=== PATIENT | female | born 1940 | race Caucasian/White ===

== ENCOUNTER 2018-06-07 08:43 | Inpatient (IN) | payer OTHER ==
--- OUTSIDE RECORDS SUMMARY | 2018-06-07 08:46 | XMS REPORT ---
:1940 [facility] Organization [facility] Address [address] [place] [address] Dr. Jernigan [address] [place] [address] Care Team Providers Name Role Phone Unavailable Unavailable Unavailable Problems This patient has no known problems. Allergies, Adverse Reactions, Alerts This patient has no known allergies or adverse reactions. Medications This patient has no known medications.
--- OUTSIDE RECORDS SUMMARY | 2018-06-07 08:46 | XMS REPORT | Clinical Summary ---
:1940 Author Organization [facility] Address [address] [place] [address] Care Team Providers Name Role Phone Ricco Sheriff MD Primary Care Provider Allergies Active Allergy Reactions Severity Noted Date Comments Flu Vac 2014 (65 Other (See Comments) 05/21/2018 Throat closed up; Up)-Mf59c(Pf) Foamy/Frothy mouth? Iodine Hives 05/21/2018 IVP dye Medications Medication Sig Dispensed Refills Start Date End Date Status LANTUS SOLOSTAR U-100 2 (two) times a 0 04/16/2018 Active INSULIN 100 unit/mL day. 50 units in injection (pen) the morning 30 units at night HUMALOG KWIKPEN Inject 20 Units 0 05/02/2018 Active INSULIN 100 unit/mL under the skin 3 injection pen (three) times a day with meals. Per sliding scale -only takes if BS IS above 120 apixaban (ELIQUIS) 5 Take 5 mg by 0 Active mg tablet mouth 2 (two) times a day. pramipexole (MIRAPEX) 3 (three) times a 0 02/18/2018 Active 0.5 MG tablet day as needed. simvastatin (ZOCOR) nightly. 0 02/18/2018 Active 40 MG tablet DULoxetine (CYMBALTA) every morning. 0 02/18/2018 Active 60 MG capsule metoprolol succinate nightly. 0 02/18/2018 Active XL (TOPROL-XL) 50 mg 24 hr tablet gabapentin nightly. 0 03/23/2018 Active (NEURONTIN) 100 mg capsule magnesium oxide Take 400 mg by 0 Active (MAG-OX) 400 mg mouth 2 (two) (241.3 mg magnesium) times a day. tablet budesonide-formoterol Inhale 2 puffs 2 0 Active (SYMBICORT) 160-4.5 (two) times a mcg/actuation inhaler day. traMADol (ULTRAM) 50 Take 1 tablet (50 40 tablet 0 06/01/2018 06/08/2018 Active mg tablet mg total) by mouth every 6 (six) hours as needed for moderate pain for up to 7 days. 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 06/01/2018 Surgery Obstetrics and Maurizio Baca TRANSANAL EXCISION OF Gynecology MD Makayla RECTAL POLYP 06/01/2018 Hospital Encounter Maurizio Castrejon Rectal adenoma ; Gynecology MD Makayla Internal hemorrhoids 05/21/2018 Pre-Admit Testing Pre-Admission Maurizio Baca Preop examination (Primary Dx); Appointment Testing MD Makayla FPC current use of anticoagulant therapy after 06/06/2017 Social History Tobacco Use Types Packs/Day Years Used Date Never Smoker Smokeless Tobacco: Never Used Alcohol Use Drinks/Week oz/Week Comments No Alcohol Habits Answer Date Recorded How often do you have a drink containing alcohol? Never 05/21/2018 How many drinks containing alcohol do you have on a typical Not asked day when you are drinking? How often do you have six or more drinks on one occasion? Not asked Sex Assigned at Date Recorded Not on file Job Start Date Occupation Industry Not on file Not on file Not on file Travel History Travel Start Travel End No recent travel history available. Last Filed Vital Signs Vital Sign Reading Time Taken Blood Pressure 139/65 06/01/2018 2:04 PM CDT Pulse 64 06/01/2018 2:04 PM CDT Temperature 36.6 C (97.8 F) 06/01/2018 2:04 PM CDT Respiratory Rate 18 06/01/2018 2:04 PM CDT Oxygen Saturation 94% 06/01/2018 2:04 PM CDT Inhaled Oxygen Concentration - - Weight 70.1 kg (154 lb 9.6 oz) 06/01/2018 9:50 AM CDT Height 149.9 cm (4' 11") 06/01/2018 9:50 AM CDT Body Mass Index 31.23 06/01/2018 9:50 AM CDT Plan of Treatment Health Maintenance Due Date Last Done Comments SHINGLES VACCINES (#1) 1988 65+ PNEUMOCOCCAL VACCINE (2 of 2 - PPSV23) 08/15/2003 12/08/2008 INFLUENZA VACCINE 10/08/2017 PNEUMOCOCCAL POLYSACCHARIDE VACCINE AGE 65 AND OVER Completed 12/08/2008 Procedures Procedure Name Priority Date/Time Associated Comments Diagnosis POC GLUCOSE Routine 06/01/2018 1:44 Results for this PM CDT procedure are in the results section. SURGICAL PATHOLOGY Routine 06/01/2018 1:16 Results for this REQUEST PM CDT procedure are in the results section. POC GLUCOSE Routine 06/01/2018 12:11 Results for this PM CDT procedure are in the results section. [place] AN ELECTIVE Routine 06/01/2018 11:09 SUPRAGLOTTIC AIRWAY AM CDT Procedure Note - Bee Vieira MD - 06/01/2018 11:09 AM CDT Airway Date/Time: 06/01/2018 11:03 AM Performed by: Bee Vieira MD Authorized by: Bee Vieira MD Location: OR Urgency: Elective Difficult Airway: No Anesthesiologist: Bee Vieira MD Performed by: anesthesiologist Preoxygenated with 100% O2: Yes C-spine Precautions Maintained Throughout: No Mask Ventilation: Easy mask Final Airway Type: Supraglottic airway Final LMA: Classic LMA Size: 4 Number of Attempts at Approach: 1 HEMORRHOIDECTOMY 06/01/2018 10:47 AM CDT Rectal adenoma Internal hemorrhoids Case Notes REQ 1130 START EST 1HR Special Needs REQ 1130 START EST 1HR EXCISION, POLYP, RECTAL, 06/01/2018 10:47 AM CDT Rectal adenoma TRANSANAL APPROACH Internal hemorrhoids Case Notes REQ 1130 START EST 1HR Special Needs REQ 1130 START EST 1HR POC GLUCOSE Routine 06/01/2018 10:01 Results for this AM CDT procedure are in the results section. PARTIAL THROMBOPLASTIN STAT 06/01/2018 9:55 Results for this TIME (PTT) AM CDT procedure are in the results section. ECG PRE/POST OP Routine 05/21/2018 9:33 Preop examination Results for this AM CDT procedure are in the results section. ESTIMATED GFR Routine 05/21/2018 9:27 Results for this AM CDT procedure are in the results section. HEMOGLOBIN A1C Routine 05/21/2018 9:27 Preop examination Results for this AM CDT procedure are in the results section. CBC HEMOGRAM Routine 05/21/2018 9:27 Preop examination Results for this AM CDT procedure are in the results section. 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 PROTHROMBIN TIME WITH Routine 05/21/2018 9:27 FPC current use Results for this INR AM CDT of anticoagulant procedure are in therapy the results Preop examination section. BASIC METABOLIC PANEL Routine 05/21/2018 9:27 Preop examination Results for this AM CDT procedure are in the results section. after 06/06/2017 Results POC glucose (06/01/2018 1:44 PM CDT)Only the most recent of3 resultswithin the time period is included. POC glucose 84 65 - 99 mg/dL [facility] Comment: No Action Needed Meter ID: [id number] Safety Analyst: Shelley Roland Performing Organization Address [facility] Number [facility] DEPARTMENT OF PATHOLOGY AND [address] [place] [address] Surgical pathology request (06/01/2018 1:16 PM CDT) [facility] DEPARTMENT OF PATHOLOGY AND GENOMIC MEDICINE Surgical pathology report See link below for PDF [facility] DEPARTMENT OF Lab Report PATHOLOGY AND GENOMIC MEDICINE Result status This is Final Report [facility] DEPARTMENT OF for [id number] PATHOLOGY AND GENOMIC MEDICINE Performing Organization Address [facility] Number [facility] DEPARTMENT OF PATHOLOGY AND [address] [place] [address] MEDICINE Partial thromboplastin time, activated (06/01/2018 9:55 AM CDT)Only the most recent of2 resultswithin the time period is included. PTT 28.5 23.0 - 36.0 sec [facility] Comment: PTT therapeutic range for unfractionated heparin is 61.0-112.0 seconds which corresponds to Anti-Xa 0.3-0.7 U/ml. Specimen Blood Performing Organization Address [facility] Phone Number [facility] DEPARTMENT OF PATHOLOGY AND [address] [place] [phone] [address] ECG Pre/Post Op (05/21/2018 9:33 AM CDT) Ventricular rate 64 [facility] Atrial rate 64 [facility] IL interval 168 [facility] QRSD interval 84 [facility] QT interval 404 [facility] QTC interval 416 [facility] P axis 1 40 [facility] QRS axis 1 69 [facility] T wave axis 151 [facility] EKG impression Normal sinus rhythm-Nonspecific ST and T wave [facility] MUSE abnormality-Abnormal ECG-No previous ECGs available- Narrative Performed At Performing Organization Address City/[facility] Phone Number [address] [address] Estimated GFR (05/21/2018 9:27 AM CDT) Estimated GFR 65 mL/min/1.73 m2 [facility] Comment: [facility] CatergoryUnitsInterpretation G1 >=90 Normal or high G2 60-89Mildly decreased [id number] to moderately decreased [id number] to severely decreased G4 15-29Severely decreased G5 <15Kidney failure The eGFR was calculated using the Chronic Kidney Disease Epidemiology Collaboration (CKD-EPI) equation. Interpretation is based on recommendations of the National Kidney Foundation-Kidney Disease Outcomes Quality Initiative (NKF-KDOQI) published in 2014. Specimen Plasma specimen Performing Organization Address City/[facility]/Zipcode Phone Number [facility] DEPARTMENT OF PATHOLOGY AND [address] [place] [phone] [address] Prothrombin time with INR (05/21/2018 9:27 AM CDT) Prothrombin time 15.5 (H) 11.5 - 14.5 sec [facility] INR 1.3 [facility] Comment: HOSPITAL The International Normalized Ratio (INR) is a therapeutic monitoring tool for patients who are stable on oral anticoagulant therapy. An INR of 2.0-3.0 is suggested for deep vein thrombosis/pulmonary embolism. Specimen Blood Performing Organization Address City/[facility]/Zipcode Phone Number [facility] DEPARTMENT OF PATHOLOGY AND [address] [place] [phone] [address] CBC hemogram (05/21/2018 9:27 AM CDT) WBC 10.30 4.50 - 11.00 k/uL [facility] RBC 4.06 (L) 4.20 - 5.50 m/uL [facility] HGB 11.5 (L) 12.0 - 16.0 g/dL [facility] HCT 36.9 (L) 37.0 - 47.0 % [facility] MCV 90.9 82.0 - 100.0 fL [facility] MCH 28.3 27.0 - 34.0 pg [facility] MCHC 31.2 31.0 - 37.0 g/dL [facility] RDW - SD 48.8 37.0 - 55.0 fL [facility] MPV 11.6 8.8 - 13.2 fL [facility] Platelet count 277 150 - 400 k/uL [facility] Nucleated RBC 0.00 /100 WBC [facility] Specimen Blood Performing Organization Address City/State/Zipcode Phone Number [facility] DEPARTMENT OF PATHOLOGY AND [address] [place] [phone] [place] [phone] Hemoglobin A1c (05/21/2018 9:27 AM CDT) Hemoglobin A1C 10.7 (H) 4.0 - 5.6 % [facility] Comment: HbA1c cutoffs for diagnosing diabetes: 4.0% - 5.6%=normal 5.7% - 6.4%=increased risk for diabetes (prediabetes) >=6.5%=diabetes Goals for glycemic control (ADA 2016) < 7.0%Target for non adults with diabetes. More or less stringent targets may be appropriate for individual patients. <7.5% Target for Children and adolescents with type 1 diabetes. Specimen Blood Performing Organization Address City/State/Zipcode Phone Number [facility] DEPARTMENT OF PATHOLOGY AND [address] [place] [phone] [address] Basic metabolic panel (05/21/2018 9:27 AM CDT) Sodium 138 135 - 148 mEq/L [facility] Potassium 4.3 3.5 - 5.0 mEq/L [facility] Chloride 102 98 - 112 mEq/L [facility] CO2 23 (L) 24 - 31 mEq/L [facility] Anion gap 13@ANIO 7 - 15 mEq/L [facility] BUN 32 (H) 8 - 23 mg/dL [facility] Creatinine 0.85 0.50 - 0.90 mg/dL [facility] Glucose 184 (H) 65 - 99 mg/dL [facility] Calcium 10.0 8.8 - 10.2 mg/dL [facility] Specimen Plasma specimen Performing Organization Address City/State/Zipcode Phone Number [facility] DEPARTMENT OF PATHOLOGY AND [address] [place] [address] GENOMIC MEDICINE [place] [phone] [place] [address] after 06/06/2017 Insurance Payer Benefit Plan / Group Subscriber ID Type Phone Address MEDICARE MEDICARE PART A AND B xxxxxxxxxxx Medicare [place], [place] COMMERCIAL MISC MISC COMMERCIAL xxxxxxxxx Commercial ([place]) [place] [address] Advance Directives Patient has advance care planning documents on file. For more information, please contact:[address] [address]
[2018-06-07] MEDS ORDERED: LEVALBUTEROL 1.25 MG/3 ML NEB ONE (09:03)
[2018-06-07 09:20] LABS: Absolute Lymphocytes (CBC) 2.3 K/uL (0.7-4.9); Absolute Monocytes 0.7 K/uL (0.1-1.3); Absolute Neutrophil 7.9 K/uL (1.8-8.0); Basophils % 0.5 % (0-1.3); Eosinophils % 1.6 % (0-4.4); Hematocrit 32.2 % (36.0-45.0); Lymphocytes % 20.9 % (15.3-44.8); MPV 8.6 fL (7.6-11.3); Monocytes % 6.5 % (3.3-12.3); RBC Red Blood Cell Count 3.68 M/uL (3.86-4.86)
[2018-06-07 09:40] LABS: Protime INR 1.46
[2018-06-07 09:52] LABS: Troponin (Emerg Dept Use Only) 0.09 ng/mL (0.0-0.045)
--- NOTE | 2018-06-07 10:06 | ER ---
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 Transition of care: patient was not received from another setting of care. Onset of symptoms was June 07, 2018. Risk Assessment: Do you want to hurt yourself or someone else? Patient reports no desire to harm self or others. Initial Sepsis Screen: Does the patient meet any 2 criteria? Yes Does the patient have a suspected source of infection? No. Patient's initial sepsis screen is negative. Care prior to arrival: None. 08:44 Method Of Arrival: EMS: [facility] 08:44 Acuity: VINNY 2 hj Triage Assessment: 08:48 General: Appears in no apparent distress. uncomfortable, Behavior is calm, cooperative, hj appropriate for age. Pain: Denies pain. Historical: - Allergies: 08:48 Iodine; hj - Home Meds: 08:50 Lantus 100 unit/mL Sub-Q soln twice a day [Active]; Humalog 100 unit/mL Sub-Q soln [Active]; Eliquis 5 mg oral tab 1 tab 2 times per day [Active]; pramipexole 0.5 mg oral tab 1 tab 3 times per day [Active]; magnesium oxide 400 mg Oral cap twice a day [Active]; simvastatin 40 mg Oral tab 1 tab once daily [Active]; duloxetine 60 mg oral cpDR 1 cap once daily [Active]; metoprolol tartrate 50 mg Oral tab 1 tab once daily [Active]; gabapentin 100 mg oral cap 1 caps nightly [Active]; baclofen 10 mg Oral tab 1 tab as needed [Active]; - PMHx: 08:48 CVA; Diabetes - IDDM; Hypertension; hj - PSHx: 08:48 CABG; Hysterectomy; Appendectomy; hj - Immunization history:: Adult Immunizations up to date. - Social history:: Smoking status: Patient/guardian denies using tobacco, Patient/guardian denies using alcohol. - Ebola Screening: : Patient negative for fever greater than or equal to 101.5 degrees Fahrenheit, and additional compatible Ebola Virus Disease symptoms Patient denies exposure to infectious person Patient denies travel to an Ebola-affected area in the 21 days before illness onset. - Family history:: not pertinent. - Hospitalizations: : No recent hospitalization is reported. Screenin:50 Abuse screen: Denies threats or abuse. Denies injuries from another. Nutritional hj screening: No deficits noted. Tuberculosis screening: No symptoms or risk factors identified. Fall Risk None identified. Assessment: 08:48 General: Appears in no apparent distress. uncomfortable, Behavior is calm, cooperative, hj appropriate for age. Pain: Complains of pain in rectum. Neuro: Level of Consciousness is awake, alert, obeys commands, Oriented to person, place, time, situation, Appropriate for age. Cardiovascular: Denies chest pain, Capillary refill < 3 seconds Patient's skin is warm and dry. Respiratory: Airway is patent Respiratory effort is labored, Respiratory pattern is regular, symmetrical, Breath sounds with wheezes. GI: No signs and/or symptoms were reported involving the gastrointestinal system. : No signs and/or symptoms were reported regarding the genitourinary system. EENT: No signs and/or symptoms were reported regarding the EENT system. Derm: No signs and/or symptoms reported regarding the dermatologic system. Musculoskeletal: No signs and/or symptoms reported regarding the musculoskeletal system. 09:46 Reassessment: Patient and/or family updated on plan of care and expected duration. Pain hj level reassessed. Patient is alert, oriented x 3, equal unlabored respirations, skin warm/dry/pink. family in room; Patient states feeling better. Patient states symptoms have improved. 09:52 Reassessment: per son; "my mom stopped lasix before she had hemorrhoidectomy". hj 10:44 Reassessment: pt assisted to bedside commode, approx 200 mL urine output, assisted back iw to bed, VSS, awaiting room assignment. 11:00 Reassessment: Patient and/or family updated on plan of care and expected duration. Pain hj level reassessed. Patient is alert, oriented x 3, equal unlabored respirations, skin warm/dry/pink. urinated approx 300 mls;. 12:09 Reassessment: Patient and/or family updated on plan of care and expected duration. Pain hj level reassessed. Patient is alert, oriented x 3, equal unlabored respirations, skin warm/dry/pink. 12:11 Reassessment: Patient and/or family updated on plan of care and expected duration. Pain hj level reassessed. Patient is alert, oriented x 3, equal unlabored respirations, skin warm/dry/pink. in the bedside commode, PCP at bedside;. Vital Signs: 08:49 BP 106 / 69; Pulse 74; Resp 18; Temp 97.7(A); Pulse Ox 100% on Nebulizer Mask; Weight hj 68.04 kg; Height 4 ft. 11 in. (149.86 cm); Pain 0/10; 09:46 BP 116 / 49; Pulse 80; Resp 18; Pulse Ox 100% on Nebulizer Mask; hj 09:52 Pulse Ox 96% on 3 lpm NC; hj 10:35 BP 119 / 61; Pulse 89; Resp 20; Pulse Ox 96% on 3 lpm NC; hj 11:35 BP 109 / 58; Pulse 80; Resp 18; Pulse Ox 97% on 3 lpm NC; hj 12:11 BP 100 / 71; Pulse 91; Resp 18; Pulse Ox 97% on 3 lpm NC; hj 08:49 Body Mass Index 30.30 (68.04 kg, 149.86 cm) hj ED Course: 08:44 Patient arrived in ED. hj 08:45 Sandhya Harris FNP-C is PHCP. snw 08:45 Earle Burciaga MD is Attending Physician. snw 08:47 Triage completed. hj 08:50 Arm band placed on right wrist. hj 08:50 Patient has correct armband on for positive identification. Placed in gown. Bed in low hj position. Call light in reach. Side rails up X 1. Adult w/ patient. 08:51 Davian English, RN is Primary Nurse. hj 09:01 EKG done, by ED staff, reviewed by Earle Burciaga MD Flu and/or RSV swab sent to lab. jb1 09:01 Flu Sent. jb1 09:05 Initial lab(s) drawn, by me, sent to lab. First set of blood cultures drawn. hj 09:11 Procalcitonin Sent. hj 09:11 BMP Sent. hj 09:11 Blood Culture Adult (2) Sent. hj 09:11 CBC with Diff Sent. hj 09:11 NT PRO-BNP Sent. hj 09:11 PT-INR Sent. hj 09:11 Ptt, Activated Sent. hj 09:11 Troponin (emerg Dept Use Only) Sent. hj 09:13 Inserted saline lock: 22 gauge in right wrist, using aseptic technique. Blood collected.hj 09:22 X-ray completed. Portable x-ray completed in exam room. Patient tolerated procedure sg4 well. 09:23 XRAY CXR (1 view) In Process Unspecified. EDMS 10:04 Ricco Sheriff MD is Hospitalizing Provider. rn Administered Medications: 08:48 Drug: Xopenex (3) 1.25 mg Route: Inhalation; hj 09:58 Drug: Lasix 40 mg Route: IVP; Site: right wrist; hj 10:10 Follow up: Response: No adverse reaction Outcome: 10:04 Decision to Hospitalize by Provider. rn 12:39 Patient left the ED. Signatures: Dispatcher [employer] EDMS Doron Trejo jb1 Sandhya Harris, ACID EXTRACTOR-C ACID EXTRACTOR-Csnw Linda Engle, RN Earle De La O MD MD rn Joaquin, Henry, RN RN hj Garcia, Susana sg4 Corrections: (The following items were deleted from the chart) 08:51 08:49 BP 106 / 69; Pulse 74bpm; Resp 18bpm; Pulse Ox 100% Nebulizer Mask; 68.04 kg; Height 4 ft. 11 in.; BMI: 30.3; Pain 0/10; hj 12:12 11:35 BP 109 / 58; Pulse 80bpm; Resp 18bpm; Pulse Ox 100% RA; hj hj
--- NOTE | 2018-06-07 10:06 | EDPHYS ---
Physician Documentation [facility] Name: Darlin Sharpe Age: 77 yrs Sex: Female : 1940 Arrival Date: 06/07/2018 Time: 08:44 Bed 8 Private MD: ED Physician Earle Burciaga HPI: 06/07 08:50 This 77 yrs old Female presents to ER via EMS with complaints of COPD rn Exacerbation. 08:50 The patient has shortness of breath at rest, with light activity. Onset: The rn symptoms/episode began/occurred yesterday. Duration: The symptoms are continuous. The patient's shortness of breath is aggravated by exertion, light activity, supine position. Severity of symptoms: At their worst the symptoms were moderate in the emergency department the symptoms have improved. The patient has experienced similar episodes in the past. The patient has been recently seen by a physician:. Reports had hemorrhoid surgery this week, bled for a little while, now stopped, began to get short of breath yesterday, worse this morning, called 911. Given steroids and nebs and feels better. NO chest pain. Reports subjective fever. . Historical: - Allergies: 08:48 Iodine; hj - Home Meds: 08:50 Lantus 100 unit/mL Sub-Q soln twice a day [Active]; Humalog 100 unit/mL Sub-Q soln hj [Active]; Eliquis 5 mg oral tab 1 tab 2 times per day [Active]; pramipexole 0.5 mg oral tab 1 tab 3 times per day [Active]; magnesium oxide 400 mg Oral cap twice a day [Active]; simvastatin 40 mg Oral tab 1 tab once daily [Active]; duloxetine 60 mg oral cpDR 1 cap once daily [Active]; metoprolol tartrate 50 mg Oral tab 1 tab once daily [Active]; gabapentin 100 mg oral cap 1 caps nightly [Active]; baclofen 10 mg Oral tab 1 tab as needed [Active]; - PMHx: 08:48 CVA; Diabetes - IDDM; Hypertension; hj - PSHx: 08:48 CABG; Hysterectomy; Appendectomy; hj - Immunization history:: Adult Immunizations up to date. - Social history:: Smoking status: Patient/guardian denies using tobacco, Patient/guardian denies using alcohol. - Ebola Screening: : Patient negative for fever greater than or equal to 101.5 degrees Fahrenheit, and additional compatible Ebola Virus Disease symptoms Patient denies exposure to infectious person Patient denies travel to an Ebola-affected area in the 21 days before illness onset. - Family history:: not pertinent. - Hospitalizations: : No recent hospitalization is reported. ROS: 08:50 Constitutional: + for fever Eyes: Negative for injury, pain, redness, and discharge, rn delivery: Negative for injury, pain, and discharge, Neck: Negative for injury, pain, and swelling, Cardiovascular: Negative for chest pain, palpitations, and edema, Respiratory: + sob and wheezing Abdomen/GI: Negative for abdominal pain, nausea, vomiting, diarrhea, and constipation, MS/Extremity: Negative for injury and deformity, Skin: Negative for injury, rash, and discoloration, Neuro: Negative for headache, weakness, numbness, tingling, and seizure. Exam: 08:50 Constitutional: This is a well developed, well nourished patient who is awake, alert, rn and in no acute distress. Head/Face: Normocephalic, atraumatic. ENT: dry MM, no stridor Cardiovascular: Regular rate and rhythm, No pulse deficits. Respiratory: + mild tachypnea with faint exp wheezing, no retractions, speaking 5 word sentences Abdomen/GI: soft, non-tender Skin: Warm, dry MS/ Extremity: Pulses equal, no cyanosis. Neurovascular intact. Full, normal range of motion. Equal circumference. Neuro: Awake and alert, GCS 15, oriented to person, place, time, and situation. Cranial nerves II-XII grossly intact. Motor strength 5/5 in all extremities. Sensory grossly intact. Vital Signs: 08:49 BP 106 / 69; Pulse 74; Resp 18; Temp 97.7(A); Pulse Ox 100% on Nebulizer Mask; Weight hj 68.04 kg; Height 4 ft. 11 in. (149.86 cm); Pain 0/10; 09:46 BP 116 / 49; Pulse 80; Resp 18; Pulse Ox 100% on Nebulizer Mask; hj 09:52 Pulse Ox 96% on 3 lpm NC; hj 10:35 BP 119 / 61; Pulse 89; Resp 20; Pulse Ox 96% on 3 lpm NC; hj 11:35 BP 109 / 58; Pulse 80; Resp 18; Pulse Ox 97% on 3 lpm NC; hj 12:11 BP 100 / 71; Pulse 91; Resp 18; Pulse Ox 97% on 3 lpm NC; hj 08:49 Body Mass Index 30.30 (68.04 kg, 149.86 cm) MDM: 08:45 Patient medically screened. snw 10:03 Differential diagnosis: CHF exacerbation, Chronic Obstructive Pulmonary Disease rn Myocardial Infarction pneumonia, Pneumothorax pulmonary edema. Data reviewed: vital signs, nurses notes, lab test result(s), EKG, radiologic studies, plain films, and as a result, I will admit patient. Counseling: I had a detailed discussion with the patient and/or guardian regarding: the historical points, exam findings, and any diagnostic results supporting the discharge/admit diagnosis, lab results, radiology results, the need for further work-up and treatment in the hospital. Response to treatment: the patient's symptoms have mildly improved after treatment, and as a result, I will admit patient. Admission orders: after a detailed discussion of the patient's condition and case, the admit orders are written by me. ED course: Pt for some reason stopped taking her lasix 1 week ago, will admit for COPD/CHF exacerbation. . 12:26 ED course: Pt BP dropped a little after lasix, spoke with Dr. sheriff, who requested CT rn PE, but patient allergic to iodine. . 06/07 08:48 Order name: Blood Culture Adult (2) rn 06/07 08:48 Order name: BMP; Complete Time: 09:57 06/07 08:48 Order name: CBC with Diff; Complete Time: 09:46 rn 06/07 08:48 Order name: NT PRO-BNP; Complete Time: 09:57 06/07 08:48 Order name: PT-INR; Complete Time: 09:46 rn 06/07 08:48 Order name: Ptt, Activated; Complete Time: 09:46 rn 06/07 08:48 Order name: XRAY CXR (1 view); Complete Time: 10:26 06/07 08:48 Order name: Troponin (emerg Dept Use Only); Complete Time: 09:57 rn 06/07 08:48 Order name: EKG; Complete Time: 08:49 06/07 08:48 Order name: Cardiac monitoring; Complete Time: 08:52 06/07 08:48 Order name: Flu; Complete Time: 09:46 rn 06/07 08:48 Order name: Procalcitonin; Complete Time: 10:06 rn 06/07 08:48 Order name: EKG - Nurse/Tech; Complete Time: 08:52 rn 06/07 08:48 Order name: IV Saline Lock; Complete Time: 08:52 rn 06/07 08:48 Order name: Labs collected and sent; Complete Time: 09:11 rn 06/07 08:48 Order name: O2 Per Protocol; Complete Time: 08:52 rn 06/07 08:48 Order name: O2 Sat Monitoring; Complete Time: 08:52 rn Administered Medications: 08:48 Drug: Xopenex (3) 1.25 mg Route: Inhalation; hj 09:58 Drug: Lasix 40 mg Route: IVP; Site: right wrist; hj 10:10 Follow up: Response: No adverse reaction hj Disposition: 06/07/18 10:04 Hospitalization ordered by Ricco Sheriff for Inpatient Admission. Preliminary diagnosis are Pulmonary edema, Chronic obstructive pulmonary disease with (acute) exacerbation. - Bed requested for Telemetry/MedSurg (Inpatient). - Status is Inpatient Admission. hj - Condition is Stable. - Problem is an acute exacerbation. - Symptoms have improved. UTI on Admission? No Signatures: Dispatcher [employer] EDLizzie Guo RN RN dw Therrien, Shelly, MOVEMENT ASSEMBLY FINAL INSPECTOR-C MOVEMENT ASSEMBLY FINAL INSPECTOR-Csnw Earle Burciaga MD MD rn Joaquin, Henry, RN RN Corrections: (The following items were deleted from the chart) 11:23 10:04 Hospitalization Ordered by Ricco Sheriff MD for Inpatient Admission. Preliminary dw diagnosis is Pulmonary edema; Chronic obstructive pulmonary disease with (acute) exacerbation. Bed requested for Telemetry/MedSurg (Inpatient). Status is Inpatient Admission. Condition is Stable. Problem is an acute exacerbation. Symptoms have improved. UTI on Admission? No. rn 12:39 11:23 06/07/2018 10:04 Hospitalization Ordered by Ricco Sheriff MD for Inpatient hj Admission. Preliminary diagnosis is Pulmonary edema; Chronic obstructive pulmonary disease with (acute) exacerbation. Bed requested for Telemetry/MedSurg (Inpatient). Status is Inpatient Admission. Condition is Stable. Problem is an acute exacerbation. Symptoms have improved. UTI on Admission? No. dw
[2018-06-07] MEDS ORDERED: FUROSEMIDE 40 MG/4 ML VIAL ONE (10:15)
--- NOTE | 2018-06-07 10:21 | RAD REPORT ---
EXAM DESCRIPTION: RAD - Chest Single View - 06/07/2018 9:23 am CLINICAL HISTORY: Dyspnea, COPD exacerbation, shortness of breath COMPARISON: None. TECHNIQUE: AP portable chest image was obtained . FINDINGS: No focal mass or consolidation. No failure or volume overload suspected. Sternotomy wires are in place. Interstitial markings are prominent but not clearly different from comparison. Heart and vasculature are normal. No measurable pleural effusion and no pneumothorax. No acute bony a bnormality seen. No acute aortic findings suspected. IMPRESSION: Chronic interstitial lung similar to comparison. No focal acute finding.
[2018-06-07] MEDS ORDERED: IPRATROPIUM BROM 0.5MG/2.5ML NEB PRN (12:31)
[2018-06-07] MEDS ORDERED: ALBUTEROL 2.5 MG/3 ML NEB SOL NEB PRN (12:31)
[2018-06-07 13:08] VITALS: BMI 31.3
[2018-06-07 13:11] LABS: Urine Appearance CLEAR; Urine Bilirubin NEGATIVE (NEG); Urine Blood TRACE (NEG); Urine Color YELLOW; Urine Glucose TRACE (NEG); Urine Protein NEGATIVE (NEG); Urine Urobilinogen 0.2 mg/dL (0.2-1.0)
[2018-06-07 13:12] LABS: Urine Microscopic Reflex ORDER UMIC
[2018-06-07 13:22] LABS: Urine Bacteria <20 /HPF (<20); Urine Culture Reflex Order REFLEXED; Urine RBC <5 /HPF (NONE SEEN)
--- NOTE | 2018-06-07 14:39 | P.HP ---
Certification for Inpatient Patient admitted to: Inpatient With expected LOS: >2 Midnights Practitioner: I am a practitioner with admitting privileges, knowledge of patient current condition, hospital course, and medical plan of care. Services: Services provided to patient in accordance with Admission requirements found in Title 42 Section 412.3 of the Code of Federal Regulations Patient History Date of Service: 06/07/18 Reason for admission: DYSPNEA History of Present Illness: IS A DIABETIC WITH A FIB, HTN, CAD, PVD, HISTORY OF CVA LIVES ALONE AND HAD HEMORROIDES SURGERY RECENTLY. SHE WAS TO HOLD LASIX FOR A DAY BUT SHE HAD NO MEDS SO SHE CONTINUED WITHOUT IT AND COMES WITH DYSPNEA. AFTER ONE DOSE OF IV LASIX AT 40 MG HER BP DROPPED TO 90 SYSTOLIC. SHE HAS NO CHEST PAIN, NO SYNCOPE. Allergies iodine Allergy (Verified 06/07/18 10:31) UNK Home Medications: Albuterol Sulfate [Ventolin Hfa] 2 puff IH QID PRN 09/18/15 Magnesium Oxide [Mag 0X*] 800 mg PO DAILY #60 tab 10/11/15 Simvastatin 40 mg PO DAILY 12/06/15 Apixaban [Eliquis] 5 mg PO BID 06/07/18 Baclofen [Lioresal*] 10 mg PO PRN 06/07/18 Duloxetine HCl 1 tab PO DAILY 06/07/18 Gabapentin [Neurontin] 100 mg PO DAILY 06/07/18 Insulin Glargine Human [Lantus*] 50 units SQ BID 06/07/18 Insulin Lispro [Humalog*] 20 unit SQ BID 06/07/18 Metoprolol Tartrate [Lopressor*] 1 tab PO DAILY 06/07/18 Pramipexole [Mirapex*] 0.5 mg PO TID 06/07/18 - Past Medical/Surgical History Has patient received pneumonia vaccine in the past: Yes Diabetic: Yes -: COPD -: Asthma -: Atrial fibrillation -: vertigo -: IDDM -: HTN -: CVA- 2 years ago -: CABG; triple Bypass -: Hysterectomy -: Appendectomy -: Left/ Right shoulder surgery -: throat surgery - nodule removal -: Hemeroidectomy Psychosocial/ Personal History: NO ISSUES, FEELS NORMAL, NO DEPRESSION. - Family History Father -: Heart disease Mother -: Liver disease Notes: cirrrhosis - Social History Smoking Status: Never smoker Alcohol use: No CD- Drugs: No Caffeine use: Yes Place of Residence: Home Review of Systems 10-point ROS is otherwise unremarkable General: Weakness, Malaise Respiratory: Shortness of Breath Physical Examination - Vital Signs Temperature: 99.1 F Blood Pressure: 141/63 Pulse: 82 Respirations: 16 Pulse Ox (%): 94 - Physical Exam General: Alert, Mild distress HEENT: Atraumatic, PERRLA, Mucous membr. moist/pink, EOMI, Sclerae nonicteric Neck: Supple, 2+ carotid pulse no bruit, No LAD, Without JVD or thyroid abnormality Respiratory: Clear to auscultation bilaterally, Normal air movement Cardiovascular: Irregular heart rate/rhythm Gastrointestinal: Normal bowel sounds, No tenderness Musculoskeletal: No tenderness Integumentary: No rashes Neurological: Normal gait, Normal speech, Normal strength at 5/5 x4 extr, Normal tone, Normal affect Lymphatics: No axilla or inguinal lymphadenopathy - Studies Laboratory Data (last 24 hrs) 06/07/18 09:05: PT 17.0 H, INR 1.46, APTT 25.1 06/07/18 09:05: WBC 11.1 H, Hgb 10.6 L, Hct 32.2 L, Plt Count 324 06/07/18 09:05: Sodium 142, Potassium 4.0, BUN 25 H, Creatinine 0.87, Glucose 120 H Microbiology Data (last 24 hrs): 06/07/18 09:00 Nasopharnyx Influenza Type A Antigen Screen - Final 06/07/18 09:00 Nasopharnyx Influenza Type B Antigen Screen - Final Assessment and Plan - Problems (Diagnosis) (1) Dyspnea Current Visit: Yes Status: Acute Plan: UNCLEAR IF CHF IS THE ONLY CAUSE. THIS MAY BE MULTIFACTORIAL. SHE IS ALREADY ON ELIQUIS FOR A FIB AND ALLERGIC TO DYE. HER BP DROPPED AFTER ONE DOSE OF LASIX. WILL ORDER ECHO. 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 SHE ALREADY KNOWS THEM. LAB DAILY. PULMONARY FIBROSIS IS ALSO THERE. (2) Atrial fibrillation Onset Date: 09/25/15 Current Visit: No Status: Acute Qualifiers: (3) Diabetes Onset Date: 09/19/15 Current Visit: No Status: Chronic Plan: NO CHANGES. COMPLIANCE AND UNDERSTAND IS POOR. NOT ABLE TO DO ANY BETTER. DIET IS NOT THE BEST. Qualifiers: Diabetes mellitus type: type 2 - Advance Directives Does patient have a Living Will: Yes Does patient have a Durable POA for Healthcare: Yes
[2018-06-07 15:22] LABS: Thyroid Stimulating Hormone 0.231 uIU/mL (0.360-3.740)
[2018-06-07] MEDS: PRAMIPEXOLE 0.25 MG TAB PO SCH ×2 (16:40→21:58)
[2018-06-07] MEDS: FUROSEMIDE 20 MG/ 2ML VIAL IV SCH (16:41)
[2018-06-07] MEDS ORDERED: METHYLPREDNISOLONE 40 MG INJ IV SCH (17:00)
[2018-06-07] MEDS ORDERED: HYDROMORPHONE HCL 1 MG/ML INJ IV PRN (18:42)
[2018-06-07] MEDS ORDERED: METOPROLOL TAR 50 MG TAB PO SCH (21:00)
[2018-06-07] MEDS ORDERED: APIXABAN 5 MG TABLET PO SCH (21:00)
[2018-06-07] MEDS ORDERED: GABAPENTIN 100 MG CAP PO SCH (21:00)
[2018-06-07] MEDS ORDERED: ATORVASTATIN 20 MG TAB PO SCH (21:00)
[2018-06-07] MEDS ORDERED: INSULIN GLARGINE 100 UNITS/ML SQ SCH (21:00)
[2018-06-07] MEDS: APIXABAN 5 MG TABLET PO SCH (21:58)
[2018-06-08 04:28] LABS: Absolute Lymphocytes (CBC) 0.9 K/uL (0.7-4.9); Absolute Monocytes 0.5 K/uL (0.1-1.3); Absolute Neutrophil 12.4 K/uL (1.8-8.0); Basophils % 0.3 % (0-1.3); Hematocrit 30.2 % (36.0-45.0); Lymphocytes % 6.4 % (15.3-44.8); MPV 9.1 fL (7.6-11.3); Monocytes % 3.4 % (3.3-12.3); RBC Red Blood Cell Count 3.45 M/uL (3.86-4.86)
[2018-06-08 04:57] VITALS: O2SAT 94
[2018-06-08 05:13] LABS: Potassium 4.5 mmol/L (3.5-5.1)
[2018-06-08 05:33] LABS: Blood Morphology Comment NOTED (NOT SEEN); Hypochromasia 1+; Ovalocytes 2+; Platelet Estimate ADEQ; Polychromasia 1+
--- NOTE | 2018-06-08 07:54 | RAD REPORT ---
EXAM DESCRIPTION: NM - Vent Perfusion VQ Scan - 06/08/2018 7:19 am CLINICAL HISTORY: Shortness of breath COMPARISON: June 07, 2018 chest x-ray TECHNIQUE: 13.3 Mci [id number] was administered by inhalation. First breath, equilibrium, and washout images of the lungs obtained 7.6 millicuries Technetium-99 MAA was administered intravenously. Anterior, posterior, lateral and ob lique views of the lungs were taken. FINDINGS: The lungs demonstrate relatively homogeneous radiotracer activity on ventilation and perfu cherri sequences. No mismatched segmental or lobar perfusion defects are seen. IMPRESSION: No evidence of a pulmonary embolus
[2018-06-08] MEDS ORDERED: INSULIN GLARGINE 100 UNITS/ML SQ SCH ×2 (08:00→21:00)
--- NOTE | 2018-06-08 08:37 | CON ---
History Of Present Illness: Ms. Sharpe is 77 years old. She has been having dyspnea. She denies hav ing any chest pain. She does not have a history of CAD. She has a history of COPD, and we are not r eally sure if she has a history of diastolic heart failure. When she came to the hospital, she recei shelly breathing treatments, some diuretics, and feels somewhat better today. She has orthopnea, and zackery hammond has pedal edema. Her chest x-ray does not show pulmonary edema. D-dimer is quite elevated, and sh stephany is on Eliquis to treat acute pulmonary embolus presently. Medications: Albuterol nebulizers, atorvastatin, Cymbalta, Lasix, gabapentin, hydromorphone, insulin , magnesium, metoprolol, and Mirapex. Physical Examination: Vital Signs: 4 feet 11 inches, 155 pounds. General: Alert, oriented, pleasant, not in distress. Lungs: Clear. Heart: Within normal limits. Abdomen: Soft. Extremities: Mild edema. Distal pulses palpable. Social History: The patient is not a tobacco user. Impression: My impression is the patient may well have had an acute pulmonary embolus. Lung scan is pending apparently. The report may be available to somebody, but I am suspicious she had bleeding. Her elevated troponins are probably from the pulmonary embolism that is really there. We would not be able to do a nuclear stress test until 48 hours from now at the earliest, but I do not think we re ally need to do that because she has abnormal troponins. I think they are explained by the pulmonary embolus. An echocardiogram is pending today. CAMRON Voice ID: [id number] Report ID: [id number]
[2018-06-08] MEDS: FUROSEMIDE 20 MG/ 2ML VIAL IV SCH ×2 (08:58→16:41)
[2018-06-08] MEDS: PRAMIPEXOLE 0.25 MG TAB PO SCH ×2 (08:59→13:25)
[2018-06-08] MEDS: APIXABAN 5 MG TABLET PO SCH (08:59)
[2018-06-08] MEDS ORDERED: DULOXETINE 30 MG CAP PO SCH (09:00)
[2018-06-08] MEDS ORDERED: GABAPENTIN 100 MG CAP PO SCH (09:00)
[2018-06-08] MEDS ORDERED: MAGNESIUM OXIDE 400 MG TAB PO SCH (09:00)
[2018-06-08] MEDS ORDERED: PRAMIPEXOLE 0.25 MG TAB PO SCH (09:00)
[2018-06-08] MEDS ORDERED: HOME MED 1 EA UNK (Simvastatin [Simvastatin] 40 MG) PO SCH (09:00)
[2018-06-08 17:42] VITALS: BP 140/60; TEMP 97
--- NOTE | 2018-06-08 18:00 | P.DS ---
Admission Date: 06/07/18 Discharge Date: 06/08/18 Disposition: ROUTINE DISCHARGE Discharge Condition: FAIR Reason for Admission: DYSPNEA - Problems (1) Dyspnea Status: Acute (2) Atrial fibrillation Onset Date: 09/25/15 Status: Acute Qualifiers: (3) Diabetes Onset Date: 09/19/15 Status: Chronic Qualifiers: Diabetes mellitus type: type 2 Brief History of Present Illness: IS A DIABETIC WITH A FIB, HTN, CAD, PVD, HISTORY OF CVA LIVES ALONE AND HAD HEMORROIDES SURGERY RECENTLY. SHE WAS TO HOLD LASIX FOR A DAY BUT SHE HAD NO MEDS SO SHE CONTINUED WITHOUT IT AND COMES WITH DYSPNEA. AFTER ONE DOSE OF IV LASIX AT 40 MG HER BP DROPPED TO 90 SYSTOLIC. SHE HAS NO CHEST PAIN, NO SYNCOPE. LEO IS DOIGN BETTER, SHE IS ABLE TO AMBULATE I CALLED IN INHALER AND LASIX. SHE IS STABLE TO BE DISCHARGED. HER VQ SCAN WAS NEGATIVE. Vital Signs/Physical Exam: Temp Pulse Resp BP Pulse Ox 97.0 F 60 20 140/60 95 06/08/18 16:00 06/08/18 16:00 06/08/18 16:00 06/08/18 16:00 06/08/18 16:00 Laboratory Data at Discharge: WBC 13.8 K/uL (4.3-10.9) H D 06/08/18 03:57 Hgb 9.8 g/dL (12.0-15.0) L 06/08/18 03:57 Hct 30.2 % (36.0-45.0) L 06/08/18 03:57 Plt Count 327 K/uL (152-406) 06/08/18 03:57 PT 17.0 SECONDS (9.5-12.5) H 06/07/18 09:05 INR 1.46 06/07/18 09:05 APTT 25.1 SECONDS (24.3-36.9) 06/07/18 09:05 Sodium 139 mmol/L (136-145) 06/08/18 03:57 Potassium 4.5 mmol/L (3.5-5.1) 06/08/18 03:57 BUN 34 mg/dL (7-18) H 06/08/18 03:57 Creatinine 1.02 mg/dL (0.55-1.3) 06/08/18 03:57 Glucose 251 mg/dL (74-106) H 06/08/18 03:57 Troponin I 0.20 ng/mL (0.0-0.045) H 06/07/18 16:30 LDL Cholesterol Direct 43 mg/dL (100-129) L 06/07/18 13:11 Home Medications: Albuterol Sulfate [Ventolin Hfa] 2 puff IH QID PRN 09/18/15 Magnesium Oxide [Mag 0X*] 800 mg PO DAILY #60 tab 10/11/15 Simvastatin 40 mg PO BEDTIME 12/06/15 Apixaban [Eliquis] 5 mg PO BID 06/07/18 Duloxetine HCl 1 tab PO DAILY 06/07/18 Gabapentin [Neurontin*] 100 mg PO BEDTIME 06/07/18 Insulin Glargine Human [Lantus*] 30 unit SQ BEDTIME 06/07/18 Insulin Glargine Human [Lantus*] 50 units SQ DAILY WITH BREAKFAST 06/07/18 Insulin Lispro [Humalog*] 20 unit SQ TID 06/07/18 Metoprolol Tartrate [Lopressor*] 1 tab PO BEDTIME 06/07/18 Pramipexole [Mirapex*] 0.5 mg PO TID 06/07/18 Diet: ADA Followup: [facility] [Provider Group] Ricco Sheriff MD [Primary Care Provider] -
--- NOTE | 2018-06-09 07:54 | ECHO ---
HEIGHT: 4 ft 11 in WEIGHT: 155 lb 0 oz DATE OF STUDY: 06/08/[address]: Ricco Sheriff MD 2-DIMENSIONAL: YES M.MODE: YES DOPPLER: YES COLOR FLOW: YES TDS: NO PORTABLE: NO DEFINITY: NO BUBBLE STUDY: NO DIAGNOSIS: EDEMA, DYSPNEA CARDIAC HISTORY: CATHERIZATION: SURGERY: PROSTHETIC VALVE: PACEMAKER: MEASUREMENTS (cm) DIASTOLIC (NORMALS) SYSTOLIC (NORMALS) IVSd 1.0 (0.6-1.2) LA Diam 3.8 (1.9-4.0) LVEF 65% LVIDd 4.3 (3.5-5.7) LVIDs 2.8 (2.0-3.5) %FS 36% LVPWd 1.0 (0.6-1.2) Ao Diam 2.7 (2.0-3.7) 2 DIMENSIONAL ASSESSMENT: RIGHT ATRIUM: NORMAL LEFT ATRIUM: NORMAL RIGHT VENTRICLE: NORMAL LEFT VENTRICLE: NORMAL TRICUSPID VALVE: NORMAL MITRAL VALVE: NORMAL PULMONIC VALVE: NORMAL AORTIC VALVE: NORMAL PERICARDIAL EFFUSION: NONE AORTIC ROOT: NORMAL LEFT VENTRICULAR WALL MOTION: NORMAL DOPPLER/COLOR FLOW: MILD MITRAL AND TRICUSPID REGURGITATION. ESTIMATED RIGHT VENTRICULAR SYSTOLIC PRESSURE 45-50 mmHg. MILD TO MODERATE PULMONARY HYPERTENSION. COMMENTS: NORMAL 2D ECHOCARDIOGRAM. MILD MITRAL AND TRICUSPID REGURGITATION. MILD TO MODERATE PULMONARY HYPERTENSION. TECHNOLOGIST: Brandy GONZALEZ
== END 2018-06-08 17:50 | disposition home or self-care (01) | DRG 190 ==
LOC: ER 08:43 → ERHOLD 10:17 → 4TH 11:39
PROVIDERS: ADMIT Internal Medicine; ATTEND Internal Medicine
DX: J44.1 Chronic obstructive pulmonary disease with (acute) exacerbation (principal); I26.99 Other pulmonary embolism without acute cor pulmonale; I25.10 Atherosclerotic heart disease of native coronary artery without angina pectoris; Z95.1 Presence of aortocoronary bypass graft; E11.51 Type 2 diabetes mellitus with diabetic peripheral angiopathy without gangrene; Z79.4 Long term (current) use of insulin; Z86.73 Personal history of transient ischemic attack (TIA), and cerebral infarction without residual deficits; I48.91 Unspecified atrial fibrillation; Z79.01 Long term (current) use of anticoagulants; I10 Essential (primary) hypertension
CPT/HCPCS: 36415; 71045; 78582; 80048; 81003; 81015; 82962; 83036; 83880; 84145; 84443; 84484; 85025; 85379; 85610; 85730; 87040; 87086; 87088; 87804; 93005; 93306; 94760; 96374; 97163; 99284; A9540; A9558; J1940

== ENCOUNTER 2019-03-11 08:52 | Emergency (ER) | payer OTHER ==
--- OUTSIDE RECORDS SUMMARY | 2019-03-11 08:54 | XMS REPORT ---
:1940 [facility] Address [address] [place] [address] Dr. Jernigan [address] [place] [id number] Care Team Providers Name Role Phone Unavailable Unavailable Unavailable Problems This patient has no known problems. Allergies, Adverse Reactions, Alerts This patient has no known allergies or adverse reactions. Medications This patient has no known medications.
--- NOTE | 2019-03-11 10:25 | RAD REPORT ---
[facility] DES[facility]15 am CLINICAL HISTORY: Right leg pain COMPARISON: March 2018 FINDINGS: Right common femoral, superficial femoral, popliteal and right posterior tibial veins are compressible and demonstrate augmentation. Doppler demonstrates good flow. IMPRESSION: No evidence of deep venous thrombosis involving the right lower extremity.
--- NOTE | 2019-03-11 10:30 | RAD REPORT ---
EXAM DESCRIPTION: RAD - Hip Right 2 View - 03/11/2019 10:14 am CLINICAL HISTORY: Right hip pain FINDINGS: No fracture or dislocation is seen. Small calcification adjacent to the ischium unchanged Right hip joint space is well-maintained
--- NOTE | 2019-03-11 10:32 | RAD REPORT ---
EXAM DESCRIPTION: RAD - Femur Right - 03/11/2019 10:14 am CLINICAL HISTORY: Right leg pain FINDINGS: No fracture is seen. No bony abnormality is displayed Vascular calcifications
--- NOTE | 2019-03-11 11:24 | ER ---
Nurse's Notes [facility] Name: Darlin Sharpe Age: 78 yrs Sex: Female : 1940 Arrival Date: 03/11/2019 Time: 08:54 Bed 14 Private MD: Ricco Sheriff V Diagnosis: Pain in left lower leg;Pain in left leg Presentation: 03/11 09:10 Presenting complaint: Difficulty walking and right knee pain that radiates to right hip hb x 10 days. Pt reports right leg angioplasty 3 weeks ago. Transition of care: patient was not received from another setting of care. Onset of symptoms was March 11, 2019. Risk Assessment: Do you want to hurt yourself or someone else? Patient reports no desire to harm self or others. Initial Sepsis Screen: Does the patient meet any 2 criteria? No. Patient's initial sepsis screen is negative. Does the patient have a suspected source of infection? No. Patient's initial sepsis screen is negative. Care prior to arrival: None. 09:10 Method Of Arrival: Wheelchair hb 09:10 Acuity: VINNY 3 hb Historical: - Allergies: 09:15 Iodine; hb - Home Meds: 09:15 baclofen 10 mg Oral tab 1 tab as needed [Active]; duloxetine 60 mg Oral cpDR 1 cap once hb daily [Active]; Eliquis 5 mg Oral tab 1 tab 2 times per day [Active]; gabapentin 100 mg Oral cap 1 caps nightly [Active]; Humalog 100 unit/mL Sub-Q soln [Active]; Lantus 100 unit/mL Sub-Q soln twice a day [Active]; magnesium oxide 400 mg Oral cap twice a day [Active]; metoprolol tartrate 50 mg Oral tab 1 tab once daily [Active]; pramipexole 0.5 mg Oral tab 1 tab 3 times per day [Active]; simvastatin 40 mg Oral tab 1 tab once daily [Active]; Lasix Oral [Active]; - PMHx: 09:15 CVA; Diabetes - IDDM; Hypertension; hb - PSHx: 09:15 CABG; Hysterectomy; Appendectomy; Shouler - bilateral; Tonsillectomy; hb - Immunization history:: Adult Immunizations up to date. - Social history:: Smoking status: Patient/guardian denies using tobacco. - Ebola Screening: : No symptoms or risks identified at this time. Screenin:52 Abuse screen: Denies threats or abuse. Denies injuries from another. Nutritional ch screening: No deficits noted. Tuberculosis screening: No symptoms or risk factors identified. Fall Risk None identified. Assessment: 09:52 Reassessment: Patient appears in no apparent distress at this time. Patient and/or ch family updated on plan of care and expected duration. Pain level reassessed. Patient is alert, oriented x 3, equal unlabored respirations, skin warm/dry/pink. General: Appears in no apparent distress. uncomfortable, Behavior is calm, cooperative, appropriate for age. Pain: Complains of pain in right hip and right leg Pain currently is 7 out of 10 on a pain scale. Neuro: No deficits noted. Cardiovascular: Heart tones S1 S2 present Capillary refill < 3 seconds in bilateral fingers toes Patient's skin is warm and dry. pt is slightly tender to R leg, reports pain above the knee and tingling below the knee. Respiratory: Airway is patent Trachea midline Respiratory effort is even, unlabored, Breath sounds are clear bilaterally. GI: No signs and/or symptoms were reported involving the gastrointestinal system. Abdomen is round Bowel sounds present X 4 quads. Abd is soft and non tender X 4 quads. : No signs and/or symptoms were reported regarding the genitourinary system. Derm: Skin is normal, pale. 10:30 Reassessment: Patient appears in no apparent distress at this time. Patient and/or ch family updated on plan of care and expected duration. Pain level reassessed. Patient is alert, oriented x 3, equal unlabored respirations, skin warm/dry/pink. Vital Signs: 09:15 BP 99 / 67; Pulse 68; Resp 16; Temp 98.2; Pulse Ox 92% on R/A; Weight 65.77 kg; Height hb 4 ft. 11 in. (149.86 cm); Pain 10/10; 09:52 BP 108 / 74; Pulse 76; Resp 16; Temp 98.3; Pulse Ox 99% on R/A; Pain 7/10; ch 10:38 BP 116 / 70; Pulse 70; Resp 16; Temp 98.8; Pulse Ox 99% on R/A; Pain 7/10; ch 11:40 BP 110 / 62; Pulse 68; Resp 16; Temp 98.7; Pulse Ox 99% on R/A; Pain 7/10; ch 09:15 Body Mass Index 29.29 (65.77 kg, 149.86 cm) hb ED Course: 08:54 Patient arrived in ED. as 08:54 Ricco Sheriff MD is Private Physician. as 09:07 Randy Espino MD is Attending Physician. kdr 09:12 Triage completed. hb 09:15 Arm band placed on. hb 09:20 No apparent distress. Resting quietly. x ray finished, waiting on US now. ch 09:20 Patient has correct armband on for positive identification. Bed in low position. Call light in reach. Side rails up X 1. Adult w/ patient. Pulse ox on. NIBP on. Door closed. Noise minimized. Warm blanket given. Pillow given. 09:20 No provider procedures requiring assistance completed. Patient did not have IV access ch during this emergency room visit. 09:22 Kayla Hooper, RN is Primary Nurse. ch 10:12 Femur Right XRAY In Process Unspecified. EDMS 10:12 Hip Right 2 View XRAY In Process Unspecified. EDMS 10:16 US Extremity Venous Unilateral Ltd In Process Unspecified. EDMS 11:22 Ricco Sheriff MD is Referral Physician. kdr Administered Medications: No medications were administered Outcome: 11:23 Discharge ordered by . kdr 11:40 Discharged to home via wheelchair, with family. ch 11:40 Condition: stable 11:40 Discharge instructions given to patient, family, Instructed on discharge instructions, follow up and referral plans. medication usage, Demonstrated understanding of instructions, follow-up care, medications, Prescriptions given X 1. 11:51 Patient left the ED. ch Signatures: Dispatcher [employer] EDMS Kayla Hooper, RN RN Randy Espino MD MD kdr Radha Velasquez Heather, RN RN
--- NOTE | 2019-03-11 11:24 | EDPHYS ---
Physician Documentation [facility] Name: Darlin Sharpe Age: 78 yrs Sex: Female : 1940 Arrival Date: 03/11/2019 Time: 08:54 Bed 14 Private MD: Ricco Sheriff V ED Physician Randy Espino HPI: 03/11 10:07 This 78 yrs old Female presents to ER via Wheelchair with complaints of Hip kdr Pain, Knee Pain. 10:09 The patient presents with pain, that is acute. The complaints affect the lateral aspect kdr of right thigh, right hamstring, posterior aspect of right knee and medial aspect of right thigh. Context: The problem was sustained at an unknown site, resulted from an unknown cause, the patient can partially bear weight, the patient is not able to ambulate, Too much pain and weakness. Onset: The symptoms/episode began/occurred gradually, 10 day(s) ago. Modifying factors: The symptoms are alleviated by nothing. the symptoms are aggravated by nothing. Associated signs and symptoms: The patient has no apparent associated signs or symptoms. Treatment prior to arrival includes: no previous treatment. Severity of symptoms: At their worst the symptoms were mild, moderate, just prior to arrival. The patient has not experienced similar symptoms in the past. The patient has been recently seen by a physician: The patient has had a recent vascular procedure on both legs and has been seen by the doctors who performed these procedures. According to the patient and son, they were not able to discern a cause or connection to the procedure they had performed. She has no other problems or c/o. Historical: - Allergies: 09:15 Iodine; hb - Home Meds: 09:15 baclofen 10 mg Oral tab 1 tab as needed [Active]; duloxetine 60 mg Oral cpDR 1 cap once hb daily [Active]; Eliquis 5 mg Oral tab 1 tab 2 times per day [Active]; gabapentin 100 mg Oral cap 1 caps nightly [Active]; Humalog 100 unit/mL Sub-Q soln [Active]; Lantus 100 unit/mL Sub-Q soln twice a day [Active]; magnesium oxide 400 mg Oral cap twice a day [Active]; metoprolol tartrate 50 mg Oral tab 1 tab once daily [Active]; pramipexole 0.5 mg Oral tab 1 tab 3 times per day [Active]; simvastatin 40 mg Oral tab 1 tab once daily [Active]; Lasix Oral [Active]; - PMHx: 09:15 CVA; Diabetes - IDDM; Hypertension; hb - PSHx: 09:15 CABG; Hysterectomy; Appendectomy; Shouler - bilateral; Tonsillectomy; hb - Immunization history:: Adult Immunizations up to date. - Social history:: Smoking status: Patient/guardian denies using tobacco. - Ebola Screening: : No symptoms or risks identified at this time. ROS: 10:09 Constitutional: Negative for fever, chills, and weight loss, Eyes: Negative for injury, kdr pain, redness, and discharge, Neck: Negative for injury, pain, and swelling, Cardiovascular: Negative for chest pain, palpitations, and edema, Respiratory: Negative for shortness of breath, cough, wheezing, and pleuritic chest pain, Abdomen/GI: Negative for abdominal pain, nausea, vomiting, diarrhea, and constipation, Back: Negative for injury and pain, : Negative for injury, bleeding, discharge, and swelling, Skin: Negative for injury, rash, and discoloration, Neuro: Negative for headache, weakness, numbness, tingling, and seizure activity. Psych: Negative for depression, anxiety, suicide ideation, homicidal ideation, and hallucinations, Allergy/Immunology: Negative for hives, rash, and allergies, Endocrine: Negative for neck swelling, polydipsia, polyuria, polyphagia, and marked weight changes, Hematologic/Lymphatic: Negative for swollen nodes, abnormal bleeding, and unusual bruising. 10:09 MS/extremity: Positive for pain, of the lateral aspect of right thigh, right hamstring, posterior aspect of right knee and medial aspect of right thigh, Negative for injury or acute deformity, decreased range of motion, erythema, laceration, paresthesias, puncture, rash, swelling, tenderness, warmth. Exam: 10:09 Constitutional: This is a well developed, well nourished patient who is awake, alert, kdr and in no acute distress. Head/Face: Normocephalic, atraumatic. Neck: Trachea midline, no thyromegaly or masses palpated, and no cervical lymphadenopathy. Supple, full range of motion without nuchal rigidity, or vertebral point tenderness. No Meningismus. Chest/axilla: Normal chest wall appearance and motion. Nontender with no deformity. No lesions are appreciated. 10:09 Musculoskeletal/extremity: ROM: intact in all extremities, limited active range of motion, in the right leg, limited passive range of motion, Circulation is intact in all extremities. Pulses: Sensation intact. Compartment Syndrome exam of affected extremity: is normal. Weight bearing: can bear weight with assistance only, Due to pain - not weakness. Vital Signs: 09:15 BP 99 / 67; Pulse 68; Resp 16; Temp 98.2; Pulse Ox 92% on R/A; Weight 65.77 kg; Height hb 4 ft. 11 in. (149.86 cm); Pain 10/10; 09:52 BP 108 / 74; Pulse 76; Resp 16; Temp 98.3; Pulse Ox 99% on R/A; Pain 7/10; ch 10:38 BP 116 / 70; Pulse 70; Resp 16; Temp 98.8; Pulse Ox 99% on R/A; Pain 7/10; ch 11:40 BP 110 / 62; Pulse 68; Resp 16; Temp 98.7; Pulse Ox 99% on R/A; Pain 7/10; ch 09:15 Body Mass Index 29.29 (65.77 kg, 149.86 cm) hb MDM: 10:09 Data reviewed: vital signs, nurses notes, lab test result(s), radiologic studies. kdr Counseling: I had a detailed discussion with the patient and/or guardian regarding: the historical points, exam findings, and any diagnostic results supporting the discharge/admit diagnosis, lab results, radiology results. 11:23 Patient medically screened. kdr 03/11 09:39 Order name: US Extremity Venous Unilateral Ltd; Complete Time: 11:21 kdr 03/11 09:39 Order name: Femur Right XRAY; Complete Time: 11:21 kdr 03/11 09:39 Order name: Hip Right 2 View XRAY; Complete Time: 11:21 kdr Administered Medications: No medications were administered Disposition: 03/11/19 11:23 Discharged to Home. Impression: Pain in left lower leg, Pain in left leg. - Condition is Stable. - Discharge Instructions: Musculoskeletal Pain, Pain Without a Known Cause. - Prescriptions for Tramadol 50 mg Oral Tablet - take 1 tablet by ORAL route every 8 hours as needed; 12 tablet. - Medication Reconciliation Form, Thank You Letter, Prescription Opioid Use form. - Follow up: Ricco Sheriff MD; When: 2 - 3 days; Reason: If symptoms return, Further diagnostic work-up, Recheck today's complaints, Continuance of care, Re-evaluation by your physician. - Problem is an ongoing problem. - Symptoms are unchanged. Signatures: Dispatcher [employer] EDMS Kayla Hooper RN RN Randy Espino MD MD [facility] Sheila Michael RN RN Corrections: (The following items were deleted from the chart) 11:51 11:23 03/11/2019 11:23 Discharged to Home. Impression: Pain in left lower leg; Pain in ch left leg. Condition is Stable. Forms are Medication Reconciliation Form, Thank You Letter, Antibiotic Education, Prescription Opioid Use. Follow up: Ricco Sheriff; When: 2 - 3 days; Reason: If symptoms return, Further diagnostic work-up, Recheck today's complaints, Continuance of care, Re-evaluation by your physician. Problem is an ongoing problem. Symptoms are unchanged. kdr
[2019-03-11 11:59] VITALS: BP 108/74; TEMP 98.3; O2SAT 99
== END 2019-03-11 11:51 | disposition home or self-care (01) ==
LOC: ER 08:52
DX: M79.604 Pain in right leg (principal); M25.551 Pain in right hip; I10 Essential (primary) hypertension; E11.9 Type 2 diabetes mellitus without complications; Z86.73 Personal history of transient ischemic attack (TIA), and cerebral infarction without residual deficits; Z95.1 Presence of aortocoronary bypass graft; Z79.4 Long term (current) use of insulin; Z91.048 Other nonmedicinal substance allergy status
CPT/HCPCS: 93971; 99283

== ENCOUNTER 2019-03-15 11:11 | Observation (INO) | payer OTHER ==
--- OUTSIDE RECORDS SUMMARY | 2019-03-15 11:21 | XMS REPORT ---
:1940 [facility] Address [address] [place] [address] Dr. Jernigan [address] [place] [id number] Care Team Providers Name Role Phone Unavailable Unavailable Unavailable Problems This patient has no known problems. Allergies, Adverse Reactions, Alerts This patient has no known allergies or adverse reactions. Medications This patient has no known medications.
[2019-03-15] MEDS ORDERED: ACETAMINOPHEN 325 MG TABLET PO PRN (12:00)
[2019-03-15] MEDS ORDERED: NACHLORIDE 0.45% 1,000 ML IV SCH (12:00)
[2019-03-15] MEDS ORDERED: ONDANSETRON 4 MG/2 ML VIAL IV PRN (12:00)
[2019-03-15] MEDS ORDERED: DIPHENHYDRAMINE 25 MG TAB/CAP PO PRN (12:00)
[2019-03-15] MEDS ORDERED: ONDANSETRON 4 MG (ODT) TAB PO PRN (12:00)
[2019-03-15] MEDS ORDERED: LOPERAMIDE HCL 2 MG CAPSULE PO PRN (12:00)
[2019-03-15] MEDS ORDERED: POLYETHYL GLY 3350 17 GM/DOSE PO PRN (12:00)
[2019-03-15 12:12] VITALS: BMI 28.5
[2019-03-15] MEDS ORDERED: GLUCAGON 1 MG/VIAL IM PRN (12:16)
[2019-03-15] MEDS ORDERED: D50W 25 GM/50 ML SYRINGE/VIAL IV PRN (12:16)
[2019-03-15 12:29] LABS: Absolute Lymphocytes (CBC) 2.9 K/uL (0.7-4.9); Basophils % 0.5 % (0-1.3); Hematocrit 36.9 % (36.0-45.0); Lymphocytes % 23.5 % (15.3-44.8); MPV 8.7 fL (7.6-11.3); RBC Red Blood Cell Count 4.36 M/uL (3.86-4.86)
[2019-03-15 12:33] LABS: Protime INR 1.38
[2019-03-15] MEDS ORDERED: ALBUTEROL INHALER 60 PUFF/8 GM IH PRN (12:37)
[2019-03-15] MEDS: HYDROMORPHONE HCL 1 MG/ML INJ IV PRN ×2 (13:10→23:36)
[2019-03-15 13:16] LABS: Phosphorus 3.7 mg/dL (2.5-4.9); Potassium 3.8 mmol/L (3.5-5.1); Thyroid Stimulating Hormone 0.776 uIU/mL (0.360-3.740)
[2019-03-15] MEDS: GABAPENTIN 100 MG CAP PO SCH ×2 (14:00→20:54)
[2019-03-15] MEDS: INSULIN LISPRO 100 UNIT/1 ML SQ SCH ×2 (14:00→20:55)
--- NOTE | 2019-03-15 15:00 | RAD REPORT ---
EXAM DESCRIPTION: US - Abdomen Exam Complete - 03/15/2019 2:32 pm CLINICAL HISTORY: Abdominal pain. abd pain COMPARISON: No comparisons FINDINGS: The liver is normal in size, shape and echotexture. No focal liver lesions or intrahepatic biliary dilatation is seen. The gallbladder demonstrates no gallstones, pericholecystic fluid or gallbladder wall thickening. Co mmon bile duct is normal in caliber measuring 3 millimeters. Both kidneys are normal in size, shape and echotexture. No hydronephrosis, focal lesion of concern or perinephric fluid. The spleen is normal in size measuring 8 centimeters. The pancreas and aorta are obscured by bowel gas. The visualized aspects of the IVC are grossly normal. IMPRESSION: Unremarkable study except for limited assessment of the pancreas and aorta due to bowel gas.
--- NOTE | 2019-03-15 15:08 | RAD REPORT ---
EXAM DESCRIPTION: Olga Cueto (2 Views)03/15/2019 2:51 pm CLINICAL HISTORY: Chest pain COMPARISON: May 2018 FINDINGS: The lungs appear clear of acute infiltrate. The heart is mildly to moderately enlarged. Postsurgical changes involve the chest. IMPRESSION: No acute abnormalities displayed
--- NOTE | 2019-03-15 15:55 | RAD REPORT ---
EXAM DESCRIPTION: MRI - Lumbar Spine Wo Con - 03/15/2019 3:12 pm CLINICAL HISTORY: Right leg radiculopathy COMPARISON: None. TECHNIQUE: Sagittal T1, T2 and STIR weighted sequences were obtained. Axial T1 and T2 sequences were obtained through the lumbar disc levels. FINDINGS: Mild spondylosis L1-2 and L2-3 Disc bulge, ligamentum flavum and facet hypertrophy L3-4. The thecal sac measures 6 millimeters. Mode rate narrowing of the neural foramina bilaterally Slight anterior subluxation L4 on 5. Moderate right lateral disc herniation narrows the right neural foramina. Facet hypertrophy. Facet hypertrophy L5-S1. No significant abnormal signal within the bones. Small Tarlov cyst sacral spinal canal IMPRESSION: Spondylosis L3-4 resulting in moderate central spinal stenosis Moderate right lateral disc herniation L4-5
[2019-03-15] MEDS: INSULIN -REGULAR HUMAN 50 UNIT/0.5 ML ML SQ SCH ×2 (16:30→20:56)
[2019-03-15] MEDS ORDERED: POTASSIUM CL SA 10 MEQ TAB PO ONE (16:49)
[2019-03-15] MEDS: APIXABAN 5 MG TABLET PO SCH (20:53)
[2019-03-15] MEDS ORDERED: INSULIN GLARGINE 100 UNITS/ML SQ SCH (21:00)
[2019-03-15] MEDS ORDERED: GABAPENTIN 100 MG CAP PO SCH (21:00)
[2019-03-15] MEDS ORDERED: METOPROLOL TAR 50 MG TAB PO SCH (21:00)
[2019-03-16 00:11] LABS: Urine Appearance CLEAR; Urine Bilirubin NEGATIVE (NEG); Urine Blood NEGATIVE (NEG); Urine Color YELLOW; Urine Glucose TRACE (NEG); Urine Protein TRACE (NEG); Urine Specific Gravity 1.015 (1.005-1.030); Urine Urobilinogen 0.2 mg/dL (0.2-1.0)
[2019-03-16 00:45] LABS: Urine Bacteria <20 /HPF (<20); Urine RBC NONE SEEN /HPF (NONE SEEN); Urine Urothelial Cells <5 /HPF (NONE SEEN)
[2019-03-16 00:46] LABS: Urine Culture Reflex Order NOT NEEDED
[2019-03-16 05:54] LABS: Basophils % 0.6 % (0-1.3); Hematocrit 35.9 % (36.0-45.0); Lymphocytes % 16.2 % (15.3-44.8); MPV 8.6 fL (7.6-11.3); RBC Red Blood Cell Count 4.18 M/uL (3.86-4.86)
[2019-03-16 06:04] LABS: Potassium 4.6 mmol/L (3.5-5.1)
[2019-03-16 06:07] LABS: ALT/SGPT 27 U/L (12-78); AST/SGOT 24 U/L (15-37); Albumin 3.1 g/dL (3.4-5.0); Alkaline Phosphatase 119 U/L (45-117); Bilirubin Direct < 0.1 mg/dL (0-0.2); Bilirubin Total 0.2 mg/dL (0.2-1.0); Magnesium 2.1 mg/dL (1.8-2.4); Protein, Total 7.3 g/dL (6.4-8.2)
[2019-03-16] MEDS: INSULIN -REGULAR HUMAN 50 UNIT/0.5 ML ML SQ SCH ×3 (07:30→16:53)
[2019-03-16] MEDS ORDERED: INSULIN GLARGINE 100 UNITS/ML SQ SCH (08:00)
[2019-03-16] MEDS ORDERED: DULOXETINE 30 MG CAP PO SCH (09:00)
[2019-03-16] MEDS: GABAPENTIN 100 MG CAP PO SCH ×2 (09:00→14:01)
[2019-03-16] MEDS ORDERED: FUROSEMIDE 40 MG TABLET PO SCH (09:00)
[2019-03-16] MEDS: APIXABAN 5 MG TABLET PO SCH (09:00)
[2019-03-16] MEDS ORDERED: ENOXAPARIN 40 MG/0.4 ML SQ SCH (09:00)
[2019-03-16] MEDS: INSULIN LISPRO 100 UNIT/1 ML SQ SCH ×2 (09:00→14:01)
[2019-03-16] MEDS ORDERED: MAGNESIUM OXIDE 400 MG TAB PO SCH (09:00)
[2019-03-16 09:22] VITALS: O2SAT 94
[2019-03-16 09:49] LABS: UR MICROALBUMIN 16.8 mg/dL (< 1.9)
--- NOTE | 2019-03-16 11:28 | RAD REPORT ---
EXAM DESCRIPTION: NM - Hepatobiliary System W/ Ph - 03/16/2019 11:21 am CLINICAL HISTORY: Abdominal pain COMPARISON: Vent Perfusion VQ Scan dated 06/08/2018 TECHNIQUE: The patient was administered 6.4 mCi Tc99m Choletec. Imaging of the right upper quadrant was performed initially for up to 60 minutes. Gallbladder ejection fraction determination was then performed utilizing synthetic 1.3 mgm CCK over a slow 30 minute infusion. FINDINGS: Normal hepatic uptake and excretion with appropriate clearance of background blood pool ac tivity. Normal visualization of biliary and small bowel activity. Gallbladder visualizes within normal time limits. The calculated ejection fraction is 58% (normal gre ater than 35%). Subjective pain reported by the patient: Pre-procedure - none During or subsequent to synthetic CCK infusion - none IMPRESSION: Patient cystic duct and patent sphincter of Oddi. No delay in visualization of the gallb ladder, biliary tree, or duodenum. Ejection fraction is 58% (normal greater than 35%). Subjective patient pain assessment as detailed above.
[2019-03-16 16:20] VITALS: BP 163/72; TEMP 98.2
--- NOTE | 2019-03-16 16:41 | EKG ---
Test Date: 2018-03-15 Test Time: 16:43:11 Rug Cutter: HENRIETTA MEASUREMENT RESULTS: Intervals: Rate: 58 NH: 160 QRSD: 92 QT: 452 QTc: 443 [place]: P: 84 NH: 160 QRS: 61 T: 124 INTERPRETIVE STATEMENTS: Sinus bradycardia with marked sinus arrhythmia Nonspecific ST and T wave abnormality Abnormal ECG Cardioserver Error - Incorrect date on EKG This EKG was performed on 03-15-2019 Compared to ECG 11/30/2015 15:40:08 Sinus rhythm no longer present Atrial premature complex(es) no longer present ST (T wave) deviation still present Electronically Signed On 03-16-19 16:40:05 PASSENGER COACH DRIVER by Kalia Bull
[2019-03-16] MEDS ORDERED: ATORVASTATIN 20 MG TAB PO SCH (21:00)
--- NOTE | 2019-03-17 04:22 | DS ---
Date of Discharge: 03/16/2019 Final Diagnosis: Severe radicular pain in the back and the leg. Secondary Diagnoses: Diabetes mellitus, not compliant. According to son, she hardly ever takes insu skip even though she is supposed to take insulin every single day, hypertension, history of vascular d amage in the brain with basilar artery syndrome and severe dizziness. Hospital Course: Patient is 78-year-old lady with past medical history of above medical problems who comes in with severe pain in the right lower leg from the back. As expected I found her to have sev ere radicular changes in the right side of spine with nerve impingement. She clinically is better wi th rest. Her pain is improved. She is unsteady and falls at home, so I referred her to rehab. [facility] her and she was transferred to the rehab floor today. JULIO/ALVIN Voice ID: [id number] Report ID: [id number]
[2019-03-18 14:58] LABS: Vitamin D 1,25-Dihydroxy Total 14 pg/mL (18-72); Vitamin D,1,25-OH2, D2 <8 pg/mL
== END 2019-03-16 17:54 ==
LOC: 2ND 11:18
PROVIDERS: ADMIT Internal Medicine; ATTEND Internal Medicine
DX: M54.16 Radiculopathy, lumbar region (principal); E11.9 Type 2 diabetes mellitus without complications; I48.91 Unspecified atrial fibrillation; I11.0 Hypertensive heart disease with heart failure; I50.32 Chronic diastolic (congestive) heart failure; I73.9 Peripheral vascular disease, unspecified; Z86.73 Personal history of transient ischemic attack (TIA), and cerebral infarction without residual deficits; Z91.19 Patient's noncompliance with other medical treatment and regimen
CPT/HCPCS: 93005; 87040; 85025 ×2; 81001; 80048 ×2; 36415 ×2; 83735 ×2; 84100; 85610; 82947 ×9; 85379; 80076; 85730; 82652; 84443; 83036; 82570; 82607; 82043; 71046; 72148; 76700; 97116; 97161; 97530; 94760; 78227; J1170 ×2; J2805; A9537; G0379; G0378 ×3; J1815

== ENCOUNTER 2019-03-16 15:28 | Inpatient (IN) | payer OTHER ==
--- NOTE | 2019-03-16 16:57 | R.PREADM ---
SCREENING DATE AND TIME 03/16/2019 15:59 (GEOLOGY PROFESSOR) ANTICIPATED REHAB ADMISSION DATE 03/18/2019 REFERRING FACILITY [facility] REFERRAL DATE AND TIME 03/16/2019 16:52 (GEOLOGY PROFESSOR) REFERRAL OFFICE PHONE [phone] REFERRAL ROOM# [id number] ACUTE ADMIT DATE 03/15/2019 Previous Rehabilitation(s): No. ACUTE SENIOR QUALITY ANALYST/DC CURB SETTER Dana Talamantes REFERRING PHYSICIAN [facility] REHAB FACILITY [facility] CLINICAL LIAISON Nicky Ayala PHYSICIAN REVIEWER Dr. Yang Adams M.D. MR# [id number] NAME DARLIN MILLIGAN ADDRESS [address] [place] [address] PHONE [facility] [phone] DATE OF 1940 AGE 78 SSN# [id number] GENDER female MARITAL STATUS RACE white ADMIT FROM 02 - [facility] PRE-HOSPITAL LIVING SETTING 01 - Home (private home/apt. board/care, assisted living, longterm, transitional living) HOME TYPE AND DETAILS Type of home: single family house # of levels in the residence: 1 # of steps to enter the residence: 0 # of steps within the residence: 0 PRE-HOSPITAL LIVING WITH Alone FAMILY SUPPORT Yes PRIMARY FAMILY CONTACT NAME FINA MENDOZA PRIMARY FAMILY CONTACT PHONE PHONE PRIMARY FAMILY CONTACT ON ADM.? no IS PRIMARY FAMILY CONTACT AUTH. REP.? no 1ST EMERGENCY CONTACT FINA MENDOZA 1ST CONTACT PHONE PHONE 1ST CONTACT ON ADM. no IS 1ST CONTACT AUTH. REP.? no PHONE 2ND CONTACT ON ADM.? no PATIENT EMPLOYMENT STATUS Retired (for age) PATIENT EMPLOYER No Employer PAYOR INFORMATION: 1ST PAYOR NAME MEDICARE 1ST PAYOR PHONE [phone] 1ST PAYOR INJURY/ILLNESS DUE TO ACCIDENT? No ANOTHER DEMOCRAT RESPONSIBLE? No PRIMARY REHAB/ACUTE DIAGNOSIS: L3-L4 Spinal Stenosis ONSET DATE 03/15/2019 REHAB IMPAIRMENT CATEGORY (FRANK): 05 Nontraumatic spinal cord injury (NTSCI) MEETS 60% rule PRIMARY DIAGNOSIS-RELATED SURGERIES: No surgeries related to the primary diagnosis were performed. 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 is a 78 yo Right-handed white female. On 03/15/2019 she was admitted to [facility] with diagnosis L3-L4 Spinal Steno sis. Her impairment category is Spinal Cord Dysfunction 04 - Other Non-traumatic Spinal Cord Dysfunction (04.130). Pre-morbidly, Pt. was independent/mod-I in Locomotion, Balance, Safety Awareness, Social Cognition, T ransfers Control, Self-Care, Sphincter Control, Communication, and Endurance; and she had good Locomo tion, Safety Awareness, Balance, Transfers Control, Self-Care, Communication, and Endurance. Currently, she has deficits of Locomotion, Balance, Safety Awareness, Transfers Control, Self-Care, a nd Endurance. Pt. is now referred to [facility] for acute in-patient rehabilitation in order to maximize patient's functional independence in activities of daily living, strength, ROM, and mobi lity. Patient has realistic goal of being discharged at assistance level 6-Adeola to reside at Home with Fam librado/Relatives. Darlin Milligan is an 78 year old female that lives alone in a single agustin home. She ambulates with a cane or rollator prior and independent with BADL tasks requiring assistance with IADL. On 03/15/2019, she had abdominal pain and lumbar radiculopathy and MRI shows spondylosis L3-4 resulting in moderate spinal stenosis and was admitted to [facility] and treated. She is now medically s table but in need of 24-hour nursing, doctor supervision and oversite while receiving participate in 3hours of therapy a day/15 hours per week and receive care with an intensive interdisciplinary approach. 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) PAST SURGICAL HISTORY: CABG triple bypass Hysterectomy Appendectomy Bilateral shoulder surgery Throat surgery nodule removal MEDICATION ALLERGIES: CHRISTINE Inhibitor Trulicity Jardiance Metformin Januvia ENVIRONMENTAL ALLERGIES: Iodine - Substance Allergies None Known - Other Allergies None Known CODE STATUS: Full code WEIGHT/HEIGHT/BMI: WEIGHT 147 lbs HEIGHT 4' 11" BMI 29.7 DIET: - Diet Type Regular - Diet - Solid Texture Regular - Diet - Liquid Texture Regular - Tube Feed N/A REVIEW OF SYSTEMS: - Gen Alert and awake Lying in bed No apparent distress Oriented to: person, time, and place - Vital Signs Temperature: 97.3 F SBP/DBP: 151/68 Pulse: 74 Resp: 18 Vital signs stable, afebrile - CVS RRR VITAL SIGNS Temperature: 97.3 F SBP/DBP: 151/68 Pulse: 74 Resp: 18 Vital signs stable, afebrile MEDICATIONS/TREATMENT: Other- See attached MAR (Medication Administration Record). CURRENT SPHINCTER CONTROL: Pre-hospital bladder status: continent # of bladder accidents in the last 7 days prior to screenin Pre-hospital bowel status: continent # of bowel accidents in the last 7 days prior to screenin Last Bowel Movement Date: 03/16/2019 CURRENT LOCOMOTION STATUS: distance traveled in wheelchair 0 feet distance walked 300 feet DETAILED CURRENT FUNCTIONAL STATUS: - Bladder accident frequency: Ind - No accidents in the past 7 days - Bowel accident frequency: Ind - No accidents in the past 7 days - Walking score based on distance walked: 0(N/A) score based on distance walked: 3(>=150ft) - Wheelchair score based on distance traveled: 0(N/A) QI SCORES: - Self-Care A. Eating 05-Setup or clean-up assistance B. Oral hygiene 05-Setup or clean-up assistance C. Toileting hygiene 05-Setup or clean-up assistance E. Shower/bathe self 03-Partial/moderate assistance F. Upper body dressing 03-Partial/moderate assistance G. Lower body dressing 02-Substantial/maximal assistance H. Putting on/taking off footwear 02-Substantial/maximal assistance - Mobility A. Roll left and right 03-Partial/moderate assistance B. Sit to lying 03-Partial/moderate assistance C. Lying to sitting on side of bed 03-Partial/moderate assistance D. Sit to stand 04-Supervision or touching assistance E. Chair/oyw-zt-[id number] transfer 04-Supervision or touching assistance F. Toilet transfer 04-Supervision or touching assistance G. Car transfer 88-Not attempted due to medical condition or safety concerns I. Walk 10 feet 04-Supervision or touching assistance J. Walk 50 feet with two turns 04-Supervision or touching assistance K. Walk 150 feet 04-Supervision or touching assistance L. Walking 10 feet on uneven surfaces 88-Not attempted due to medical condition or safety concerns M. 1 step (curb) 88-Not attempted due to medical condition or safety concerns N. 4 steps 88-Not attempted due to medical condition or safety concerns O. 12 steps 88-Not attempted due to medical condition or safety concerns P. Picking up object 88-Not attempted due to medical condition or safety concerns R. Wheel 50 feet with two turns 88-Not attempted due to medical condition or safety concerns S. Wheel 150 feet 88-Not attempted due to medical condition or safety concerns - Bladder and Bowel Bladder continence 0-Always continent Bowel continence 0-Always continent - Endurance Fair - Balance Fair - Safety Awareness Fair CURRENT [facility]. DEFICITS: Self-Care, Mobility, Endurance, Balance, and Safety Awareness CURRENT / PREVIOUS ASSISTIVE DEVICES: 3-in-1 Commode BSC Dentures Glasses Hearing Aid(s) Hospital Bed Rolling Walker Shower Chair Tub Bench Wheelchair CURRENT USE ASSISTIVE DEVICES: TEDs HISTORY OF FALLS. HAS THE PATIENT HAD TWO OR MORE FALLS IN THE PAST YEAR OR ANY FALL WITH INJURY IN T HE PAST YEAR?: No PRIOR SURGERY. DID THE PATIENT HAVE MAJOR SURGERY DURING THE 100 DAYS PRIOR TO ADMISSION?: No THERAPY NOTES FROM ACUTE CARE: Attached. SPECIAL NEEDS: - Safety Concerns Skin breakdown precautions needed due to skin breakdown risk PATIENT NEEDS ACTIVE AND ONGOING THERAPEUTIC INTERVENTION OF MULTIPLE THERAPY DISCIPLINES, INCLUDING: - Orthotics/Prosthetics Orthotic Evaluation. Splinting/Casting. - Dietary and Nutrition Adequate Nutrition. Nutritional Education. Nutritional Supplements. PATIENT NEEDS CLOSE MEDICAL SUPERVISION BY A REHABILITATION PHYSICIAN FOR: Coordination of Treatment Team Medical and Co-Morbidity Management PATIENT REQUIRES 24X7 REHAB NURSING FOR MEDICAL AND FUNCTIONAL MGT. OF THE FOLLOWING DEFICITS: Disease Management Medication Management Patient/Family Education Providing Safe Environment PATIENT REQUIRES INTENSIVE, COORDINATED INTERDISCIPLINARY APPROACH TO REHAB: Arranging Home Equipment/Services Discharge Planning Family Intervention/Training Ekg Monitor Tech/Case Management PATIENT REHAB POTENTIAL: Theresa MILLIGAN is able and expected to receive 3 hours of individualized therapy daily on at least 5 of neyda ry 7 days Theresa Herrera prognosis for significant practical improvement within a reasonable period of time appears Good Expected level of measurable improvement will be of a practical value to Theresa BENZs functional capaci ty or adaptations to impairments Has a viable Discharge Plan Medically appropriate; condition is sufficiently stable to participate in intensive rehab program DISCHARGE PLAN: - Estimated Length of Stay (days) 16. - Consensus on plan Discharge plan has been discussed with primary caregiver. Patient/Family is in agreement with the babita n. Primary caregiver is in agreement with the plan. - Patient/Family Goals Return home with assistance. - Planned Living Setting Upon Discharge Home, to live with family/relatives. Transitional Living. RECOMMENDED CARE LEVEL: IRF RECOMMENDATION DETAILS: Recommended Admission to Comprehensive Rehabilitation Program to Increase Functional [place] SCREENER'S COMPLETENESS CONFIRMATION: - Screening Confirmation The patient data collection on this preadmission screening form is finished PHYSICIANS REVIEW AND ADMISSION DETERMINATION Admit - Based on my review of the Pre-Admission Screening results, in my medical judgment and experie nce, I concur with the findings and recommend admission to [facility], as this patient requires an IRF level of care. SIGNATURE PANEL: Clinical Liaison - [electronically] signed by Nicky Ayala on 03/16/2019 at 16:53 (GEOLOGY PROFESSOR) Physician Reviewer - [electronically] signed by Dr. Yang Adams M.D. on 03/16/2019 at 16:56 (GEOLOGY PROFESSOR )
--- OUTSIDE RECORDS SUMMARY | 2019-03-16 17:58 | XMS REPORT ---
:1940 [facility] Address [address] [place] [address] Dr. Jernigan [address] [place] [id number] Care Team Providers Name Role Phone Unavailable Unavailable Unavailable Problems This patient has no known problems. Allergies, Adverse Reactions, Alerts This patient has no known allergies or adverse reactions. Medications This patient has no known medications.
[2019-03-16] MEDS ORDERED: DIPHENHYDRAMINE 25 MG TAB/CAP PO PRN (19:44)
[2019-03-16] MEDS ORDERED: GLUCAGON 1 MG/VIAL IM PRN ×2 (19:44→20:33)
[2019-03-16] MEDS ORDERED: ALBUTEROL INHALER 60 PUFF/8 GM IH PRN ×2 (19:44→20:18)
[2019-03-16] MEDS ORDERED: D50W 25 GM/50 ML SYRINGE/VIAL IV PRN ×2 (19:44→20:33)
[2019-03-16] MEDS: INSULIN -REGULAR HUMAN 50 UNIT/0.5 ML ML SQ SCH (19:57)
[2019-03-16] MEDS ORDERED: APIXABAN 5 MG TABLET PO SCH (20:00)
[2019-03-16] MEDS ORDERED: METOPROLOL TAR 50 MG TAB PO SCH (21:00)
[2019-03-16] MEDS ORDERED: GABAPENTIN 100 MG CAP PO SCH (21:00)
[2019-03-16] MEDS ORDERED: ATORVASTATIN 20 MG TAB PO SCH (21:00)
[2019-03-17 06:38] LABS: Absolute Lymphocytes (CBC) 3.6 K/uL (0.7-4.9); Hematocrit 37.3 % (36.0-45.0); Lymphocytes % 29.6 % (15.3-44.8); MPV 8.9 fL (7.6-11.3); RBC Red Blood Cell Count 4.38 M/uL (3.86-4.86)
[2019-03-17] MEDS ORDERED: ALBUTEROL INHALER 60 PUFF/8 GM IH PRN ×2 (06:46→14:13)
[2019-03-17 06:53] LABS: Albumin 3.1 g/dL (3.4-5.0); Magnesium 2.2 mg/dL (1.8-2.4); Potassium 4.3 mmol/L (3.5-5.1); Prealbumin 15.1 mg/dL (20-40)
[2019-03-17] MEDS: INSULIN -REGULAR HUMAN 50 UNIT/0.5 ML ML SQ SCH ×4 (07:17→20:27)
[2019-03-17] MEDS ORDERED: FUROSEMIDE 20 MG TABLET PO SCH ×2 (08:00)
[2019-03-17] MEDS ORDERED: DULOXETINE 30 MG CAP PO SCH (08:00)
[2019-03-17] MEDS ORDERED: DULOXETINE 20 MG CAP PO SCH ×2 (08:00)
[2019-03-17] MEDS ORDERED: APIXABAN 2.5 MG TABLET PO SCH (08:00)
[2019-03-17] MEDS ORDERED: APIXABAN 5 MG TABLET PO SCH (08:00)
[2019-03-17] MEDS ORDERED: SITAGLIPTIN PHOS 100 MG TAB PO SCH (08:00)
[2019-03-17] MEDS ORDERED: INSULIN LISPRO 100 UNIT/1 ML SQ SCH (08:00)
[2019-03-17] MEDS ORDERED: INSULIN GLARGINE 100 UNITS/ML SQ SCH ×6 (08:00→21:00)
[2019-03-17] MEDS ORDERED: METFORMIN ER 500 MG TAB PO SCH (08:00)
[2019-03-17] MEDS ORDERED: MAGNESIUM OXIDE 400 MG TAB PO SCH ×2 (08:00)
[2019-03-17] MEDS ORDERED: FUROSEMIDE 40 MG TABLET PO SCH (08:00)
[2019-03-17] MEDS ORDERED: FUROSEMIDE 20 MG TABLET ONE (08:07)
[2019-03-17] MEDS ORDERED: DULOXETINE 20 MG CAP ONE ×2 (08:07→10:00)
[2019-03-17] MEDS ORDERED: METFORMIN ER 500 MG TAB PO ONE (09:55)
[2019-03-17] MEDS ORDERED: APIXABAN 5 MG TABLET ONE (09:55)
[2019-03-17] MEDS ORDERED: MAGNESIUM OXIDE 400 MG TAB ONE (09:56)
[2019-03-17] MEDS ORDERED: SITAGLIPTIN PHOS 100 MG TAB ONE (09:56)
[2019-03-17] MEDS ORDERED: D50W 25 GM/50 ML SYRINGE/VIAL IV PRN (14:13)
[2019-03-17] MEDS ORDERED: GLUCAGON 1 MG/VIAL IM PRN (14:13)
[2019-03-17] MEDS ORDERED: DIPHENHYDRAMINE 25 MG TAB/CAP PO PRN (14:13)
--- NOTE | 2019-03-17 17:04 | R.HP ---
FACILITY: [facility] ENCOUNTER DATE AND TIME: 03/17/2019 16:55 (MANUFACTURING QUALITY TECHNICIAN) MR#: [id number] NAME DARLIN MILLIGAN ADDRESS: [address] [place] [address]: [place]IP [id number] PHONE: DATE OF : 1940 AGE: 78 SSN# [id number] GENDER: Female DEXTERITY Right-handed MARITAL STATUS RACE White PRE-HOSPITAL LIVING SETTING 01 - Home (private home/apt. board/care, assisted living, fci, transitional living) PRE-HOSPITAL LIVING WITH Alone ENCOUNTER PHYSICIAN: Dr. Yang Adams M.D. REFERRING DOCTOR: michael Sheriff DATE OF ADMISSION: 03/16/2019 17:56 (MANUFACTURING QUALITY TECHNICIAN) REFERRING FACILITY [facility] HOME TYPE AND DETAILS: Type of home: single family house # of levels in the residence: 1 # of steps to enter the residence: 0 # of steps within the residence: 0 ADMISSION DIAGNOSIS: L3-L4 Spinal Stenosis ONSET DATE: 03/15/2019 PRIMARY DIAGNOSIS-RELATED SURGERIES: No surgeries related to the primary diagnosis were performed. 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 is a 78 yo Right-handed white female. On 03/15/2019 she was admitted to [facility] with diagnosis L3-L4 Spinal Steno sis. Her impairment category is Spinal Cord Dysfunction 04 - Other Non-traumatic Spinal Cord Dysfunction (04.130). Pre-morbidly, Pt. was independent/mod-I in Locomotion, Balance, Safety Awareness, Social Cognition, T ransfers Control, Self-Care, Sphincter Control, Communication, and Endurance; and she had good Locomo tion, Safety Awareness, Balance, Transfers Control, Self-Care, Communication, and Endurance. Currently, she has deficits of Locomotion, Balance, Safety Awareness, Transfers Control, Self-Care, a nd Endurance. Pt. is now referred to [facility] for acute in-patient rehabilitation in order to maximize patient's functional independence in activities of daily living, strength, ROM, and mobi lity. Patient has realistic goal of being discharged at assistance level 6-Adeola to reside at Home with Fam librado/Relatives. Darlin Milligan is an 78 year old female that lives alone in a single [place] home. She ambulates with a cane or rollator prior and independent with BADL tasks requiring assistance with IADL. On 03/15/2019, she had abdominal pain and lumbar radiculopathy and MRI shows spondylosis L3-4 resulting in moderate spinal stenosis and was admitted to [facility] and treated. She is now medically s table but in need of 24-hour nursing, doctor supervision and oversite while receiving participate in 3hours of therapy a day/15 hours per week and receive care with an intensive interdisciplinary approach. 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 SOCIAL HISTORY: - Home Living Alone REVIEW OF SYSTEMS: - Gen No Chills Fatigue No Fever - Eyes No Double Vision No itchiness - ENMT No Difficulty Swallowing - CVS No Chest Discomfort No Chest Pain Fatigue No Weight Gain - Resp No Cough No Shortness of Breath - GI Continent No Abdominal Pain No Constipation No Diarrhea - Continent No Kidney Pain No Painful Urination No Urinary Urgency - MSK No Joint Pain Muscle Cramps Stiffness - Skin No Itching No Rash No Suspicious Lesions - Neuro Coordination Difficulty No Difficulty with Concentration No Memory Loss No Seizures Weakness - Psych No Anxiety No Depression No HIV Exposure No Persistent Infections No Seasonal Allergies - Endo No Cold/Heat Intolerance No Excessive Hunger No Excessive Thirst No Excessive Urination PHYSICAL EXAM - Gen Alert and awake Lying in bed No apparent distress Oriented to: person, time, and place - Skin No skin breakdown. No abnormalities - Eyes No abnormalities - ENMT No abnormalities - Neck No abnormalities - CVS RRR - Chest No abnormalities - Resp Clear to auscultation - Abd + bowel sounds - GI Non distended Deferred - No abnormalities - Ext No significant edema - MSK 4+/5 weakness in both lower extremities. - Neuro No focal deficits - Psych No abnormalities VITAL SIGNS Temperature: 97.2 F SBP/DBP: 126/76 Pulse: 71 Resp: 16 NURSING: - Shower allowing shower - Bladder care per protocol - Skin care per protocol ACTIVITIES OOB only with supervision QI SCORES: - Self-Care A. Eating 05-Setup or clean-up assistance B. Oral hygiene 05-Setup or clean-up assistance C. Toileting hygiene 05-Setup or clean-up assistance E. Shower/bathe self 03-Partial/moderate assistance F. Upper body dressing 03-Partial/moderate assistance G. Lower body dressing 02-Substantial/maximal assistance H. Putting on/taking off footwear 02-Substantial/maximal assistance - Mobility A. Roll left and right 03-Partial/moderate assistance B. Sit to lying 03-Partial/moderate assistance C. Lying to sitting on side of bed 03-Partial/moderate assistance D. Sit to stand 04-Supervision or touching assistance E. Chair/zxu-mi-vhbca transfer 04-Supervision or touching assistance F. Toilet transfer 04-Supervision or touching assistance G. Car transfer 88-Not attempted due to medical condition or safety concerns I. Walk 10 feet 04-Supervision or touching assistance J. Walk 50 feet with two turns 04-Supervision or touching assistance K. Walk 150 feet 04-Supervision or touching assistance L. Walking 10 feet on uneven surfaces 88-Not attempted due to medical condition or safety concerns M. 1 step (curb) 88-Not attempted due to medical condition or safety concerns N. 4 steps 88-Not attempted due to medical condition or safety concerns O. 12 steps 88-Not attempted due to medical condition or safety concerns P. Picking up object 88-Not attempted due to medical condition or safety concerns R. Wheel 50 feet with two turns 88-Not attempted due to medical condition or safety concerns S. Wheel 150 feet 88-Not attempted due to medical condition or safety concerns - Bladder and Bowel Bladder continence 0-Always continent Bowel continence 0-Always continent - Endurance Fair - Balance Fair - Safety Awareness Fair CURRENT [facility]. DEFICITS: Self-Care, Mobility, Endurance, Balance, and Safety Awareness MEDICATIONS: - Other See attached MAR (Medication Administration Record) ASSESSMENT: Pt. is a 78 yo Right-handed white female.On 03/15/2019 she was admitted to [facility] with diagnosis L3-L4 Spinal Stenosis.Her impairment category is Spinal Cord Dysfunction 04 - Other Non-traumatic Spinal Cord Dysfunction (04.130).Pre-morbidly, Pt. was independent/mod-I in [place] motion, Balance, Safety Awareness, Social Cognition, Transfers Control, Self-Care, Sphincter Control, Communication, and Endurance; and she had good Locomotion, Safety Awareness, Balance, Transfers Cont rol, Self-Care, Communication, and Endurance.Currently, she has deficits of Locomotion, Balance, Safe ty Awareness, Transfers Control, Self-Care, and Endurance.Pt. is now referred to [facility] for acute in-patient rehabilitation in order to maximize patient's functional independe nce in activities of daily living, strength, ROM, and mobility.- Rehab Goal Patient has realistic goal of being discharged at assistance level 6-Adeola to reside at Home with Fam librado/Relatives. Darlin Milligan is an 78 year old female that lives alone in a single [place] home. She ambulates with a cane or rollator prior and independent with BADL tasks requiring assistance with IADL. On 03/15/2019, she had abdominal pain and lumbar radiculopathy and MRI shows spondylosis L3-4 resulting in moderate spinal stenosis and was admitted to [facility] and treated. She is now medically s table but in need of 24-hour nursing, doctor supervision and oversite while receiving participate in 3hours of therapy a day/15 hours per week and receive care with an intensive interdisciplinary approach.REHAB PLAN: - Physical Therapy Gait dysfunction - to improve, our physical therapists will perform initial evaluation of pt's status upon admission and devise an individualized program for Gait Training, and Wheel Chair mobility Inability to transfer - to improve, our physical therapists will perform initial evaluation of pt's s tatus upon admission and devise an individualized program for Bed mobility Need for home safety evaluation - to improve, our physical therapists will perform initial evaluation of pt's status upon admission and devise an individualized program for Home Evaluation Need in caregiver upon discharge - to improve, our physical therapists will perform initial evaluatio n of pt's status upon admission and devise an individualized program for Caregiver Training New precaution - to improve, our physical therapists will perform initial evaluation of pt's status u keyonna admission and devise an individualized program for Patient precaution education Edema - to improve, our physical therapists will perform initial evaluation of pt's status upon admi ssion and devise an individualized program for Elevation Training, and Lymphedema Therapy Poor balance - to improve, our physical therapists will perform initial evaluation of pt's status upo n admission and devise an individualized program for Balance Training Poor endurance - to improve, our physical therapists will perform initial evaluation of pt's status u keyonna admission and devise an individualized program for Endurance Training Weakness - to improve, our physical therapists will perform initial evaluation of pt's status upon ad mission and devise an individualized program for Aquatic Therapy, Neuromuscular Reeducation, and Stre ngthening Achieving independence - to improve, our physical therapists will perform initial evaluation of pt's status upon admission and devise an individualized program for Community Reintegration Activities - Occupational Therapy ADL deficits - to improve, our occupation therapists will perform initial evaluation of pt's status u keyonna admission and devise an individualized program for Bathing, Bed mobility, Community Reintegration , Cooking, Dressing, Eating, Fine Motor Skills, Grooming, Homemaking, Kitchen Mobility, Laundry, Ivana ent Education, Safety Awareness, Splinting - Positioning, Transfers(Toilet, Tub, Shower), and Wheel C hair Management Need for acute care assistant - to improve, our occupation therapists will perform initial evaluation of pt's s tatus upon admission and devise an individualized program for Caregiver Training Weakness - to improve, our occupation therapists will perform initial evaluation of pt's status upon admission and devise an individualized program for Aquatic Therapy, Balance, Endurance, UE ROM, and U E strengthening MEDICAL PLAN: - Diet Type Start Regular - Diet - Liquid Texture Start Regular - Tube Feed Start N/A - Bladder care per protocol - Skin care per protocol - Other See attached MAR (Medication Administration Record) - Diet - Solid Texture Regular - Shower shower DISCHARGE PLAN: - Estimated Length of Stay (days) 16. - Consensus on plan Discharge plan has been discussed with primary caregiver. Patient/Family is in agreement with the babita n. Primary caregiver is in agreement with the plan. - Patient/Family Goals Return home with assistance. - Planned Living Setting Upon Discharge Home, to live with family/relatives. Transitional Living. SIGNATURE PANEL: (MANUFACTURING QUALITY TECHNICIAN)
[2019-03-17] MEDS: METFORMIN ER 500 MG TAB PO SCH (17:17)
--- NOTE | 2019-03-17 17:22 | FAST ---
ENCOUNTER DATE AND TIME: 03/17/2019 08:00 (AUTOMOBILE CLUB INFORMATION CLERK) NAME LEO MILLIGAN DATE OF : 1940 DATE OF ADMISSION: 03/16/2019 17:56 (AUTOMOBILE CLUB INFORMATION CLERK) PHONE: AGE: 78 N# [id number] GENDER: Female ENCOUNTER PHYSICIAN: Dr. Yang dAams M.D. 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 EATING: Not assessed/no information CODE: - ORAL HYGIENE: ORAL HYGIENE - STEP 1: Does the patient complete the activity by him/herself with no assistance (physical, verbal/nonverbal cueing, setup/clean-up)? No. ORAL HYGIENE - STEP 2: Does the patient need only setup/clean-up assistance from one helper? Yes. 1. [id number] ADMISSION PERFORMANCE: Setup or clean-up assistance CODE: 05 TOILETING HYGIENE: Not assessed/no information CODE: - BATHING: SHOWER/BATHE SELF - STEP 1: Does the patient complete the activity by him/herself with no assistance (physical, verbal/nonverbal cueing, setup/clean-up)? No. SHOWER/BATHE SELF - STEP 2: Does the patient need only setup/clean-up assistance from one helper? No. SHOWER/BATHE SELF - STEP 3: Does the patient need only verbal/nonverbal cueing or touching/steadying/contact guard assistance fro m one helper? Yes. 1. [id number] ADMISSION PERFORMANCE: Supervision or touching assistance CODE: 04 DRESSING - UPPER BODY: DRESSING - UPPER BODY - STEP 1: Does the patient complete the activity by him/herself with no assistance (physical, verbal/nonverbal cueing, setup/clean-up)? No. DRESSING - UPPER BODY - STEP 2: Does the patient need only setup/clean-up assistance from one helper? No. DRESSING - UPPER BODY - STEP 3: Does the patient need only verbal/nonverbal cueing or touching/steadying/contact guard assistance fro m one helper? Yes. 1. [id number] ADMISSION PERFORMANCE: Supervision or touching assistance CODE: 04 DRESSING - LOWER BODY: DRESSING - LOWER BODY - STEP 1: Does the patient complete the activity by him/herself with no assistance (physical, verbal/nonverbal cueing, setup/clean-up)? No. DRESSING - LOWER BODY - STEP 2: Does the patient need only setup/clean-up assistance from one helper? No. DRESSING - LOWER BODY - STEP 3: Does the patient need only verbal/nonverbal cueing or touching/steadying/contact guard assistance fro m one helper? No. DRESSING - LOWER BODY - STEP 4: Does the patient need physical assistance - for example lifting or trunk support from one helper - wi th the helper providing less than half of the effort? Yes. 1. [id number] ADMISSION PERFORMANCE: Partial/moderate assistance CODE: 03 PUTTING ON/TAKING OFF FOOTWEAR: FOOTWEAR - STEP 1: Does the patient complete the activity by him/herself with no assistance (physical, verbal/nonverbal cueing, setup/clean-up)? No. FOOTWEAR - STEP 2: Does the patient need only setup/clean-up assistance from one helper? No. FOOTWEAR - STEP 3: Does the patient need only verbal/nonverbal cueing or touching/steadying/contact guard assistance fro m one helper? Yes. 1. [id number] ADMISSION PERFORMANCE: Supervision or touching assistance CODE: 04 DOES THE PATIENT USE A WHEELCHAIR/SCOOTER? CODE: EXPR INDICATE THE TYPE OF WHEELCHAIR/SCOOTER USED: CODE: EXPR INDICATE THE TYPE OF WHEELCHAIR/SCOOTER USED: CODE: EXPR BLADDER AND BOWEL: CODE: EXPR CODE: EXPR SIGNATURE PANEL: The following modified sections: 1. [id number] Admission Performance, 1. [id number] Admission Performance, 1. [id number] Admission Performance, 1. [id number] Admission Performance, 1. [id number] Admission Performance, 1. LS6330s Admission Performance were [electronically] signed by Beryl Juarez OT on FriMar 17 2019 17:21:48 GMT-0600 (Central Standard Time)
[2019-03-17] MEDS: APIXABAN 5 MG TABLET PO SCH (19:53)
[2019-03-17] MEDS: PROMOD 30 ML DOSE PO SCH (19:53)
[2019-03-17] MEDS ORDERED: GABAPENTIN 100 MG CAP PO SCH ×2 (21:00)
[2019-03-17] MEDS ORDERED: ATORVASTATIN 20 MG TAB PO SCH (21:00)
[2019-03-17] MEDS ORDERED: METOPROLOL TAR 50 MG TAB PO SCH ×2 (21:00)
[2019-03-17] MEDS ORDERED: HOME MED 1 EA UNK (Simvastatin [Simvastatin] 40 MG) PO SCH (21:00)
--- NOTE | 2019-03-17 23:32 | PN ---
Subjective: Ms. Sharpe is doing a lot better. She at [facility] . Physical Examination: Vital Signs: Blood pressure 126/76, pulse 71, temperature 97.2. HEENT: No JVD. No carotid bruits. Back: Improved. Her pain has improved. Assessment And Plan: 1.Severe radicular pain because of disk impingement on nerve, inoperable because of her age. 2.Hypertension, currently stable. 3.Diabetes. She is not compliant. Assisted Living will be great thing for her which I have asked h er to do so many times and she will be on insulin there and she will be taking insulin. Currently I will try iron tablets again and see if it works. RVD/MODL Voice ID: [id number] Report ID: [id number]
[2019-03-18] MEDS ORDERED: DIPHENHYDRAMINE 25 MG TAB/CAP ONE (00:12)
[2019-03-18] MEDS: INSULIN -REGULAR HUMAN 50 UNIT/0.5 ML ML SQ SCH ×5 (06:56→21:33)
[2019-03-18] MEDS: APIXABAN 5 MG TABLET PO SCH ×3 (08:00→21:07)
[2019-03-18] MEDS: METFORMIN ER 500 MG TAB PO SCH ×3 (08:00→18:34)
[2019-03-18] MEDS ORDERED: DULOXETINE 30 MG CAP PO SCH (08:00)
[2019-03-18] MEDS ORDERED: MAGNESIUM OXIDE 400 MG TAB PO SCH (08:00)
[2019-03-18] MEDS ORDERED: SITAGLIPTIN PHOS 100 MG TAB PO SCH (08:00)
[2019-03-18] MEDS: PROMOD 30 ML DOSE PO SCH ×3 (08:00→21:09)
[2019-03-18] MEDS ORDERED: FUROSEMIDE 20 MG TABLET PO SCH (08:00)
[2019-03-18] MEDS ORDERED: D50W 25 GM/50 ML SYRINGE/VIAL IV PRN (08:07)
[2019-03-18] MEDS ORDERED: ALBUTEROL INHALER 60 PUFF/8 GM IH PRN (08:07)
[2019-03-18] MEDS ORDERED: GLUCAGON 1 MG/VIAL IM PRN (08:07)
[2019-03-18] MEDS: SITAGLIPTIN PHOS 100 MG TAB PO SCH (09:33)
[2019-03-18] MEDS: FUROSEMIDE 20 MG TABLET PO SCH (09:34)
[2019-03-18] MEDS: DULOXETINE 30 MG CAP PO SCH (09:34)
[2019-03-18] MEDS: MAGNESIUM OXIDE 400 MG TAB PO SCH (09:36)
--- NOTE | 2019-03-18 16:37 | FAST ---
SHIFT START DATE/TIME: 03/18/2019 07:00 (FIGHTER PILOT) SHIFT END DATE/TIME: 03/18/2019 19:00 (FIGHTER PILOT) NAME LEO MILLIGAN DATE OF : 1940 DATE OF ADMISSION: 03/16/2019 17:56 (FIGHTER PILOT) PHONE: AGE: 78 N# [id number] GENDER: Female ENCOUNTER PHYSICIAN: Dr. Yang Adams M.D. 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 EATING: EATING - STEP 1: Does the patient complete the activity by him/herself with no assistance (physical, verbal/nonverbal cueing, setup/clean-up)? No. EATING - STEP 2: Does the patient need only setup/clean-up assistance from one helper? Yes. 1. [id number] ADMISSION PERFORMANCE: Setup or clean-up assistance CODE: 05 ORAL HYGIENE: ORAL HYGIENE - STEP 1: Does the patient complete the activity by him/herself with no assistance (physical, verbal/nonverbal cueing, setup/clean-up)? Yes. 1. [id number] ADMISSION PERFORMANCE: Independent CODE: 06 TOILETING HYGIENE: TOILETING HYGIENE - STEP 1: Does the patient complete the activity by him/herself with no assistance (physical, verbal/nonverbal cueing, setup/clean-up)? No. TOILETING HYGIENE - STEP 2: Does the patient need only setup/clean-up assistance from one helper? Yes. 1. [id number] ADMISSION PERFORMANCE: Setup or clean-up assistance CODE: 05 BATHING: Not assessed/no information CODE: - DRESSING - UPPER BODY: DRESSING - UPPER BODY - STEP 1: Does the patient complete the activity by him/herself with no assistance (physical, verbal/nonverbal cueing, setup/clean-up)? No. DRESSING - UPPER BODY - STEP 2: Does the patient need only setup/clean-up assistance from one helper? Yes. 1. [id number] ADMISSION PERFORMANCE: Setup or clean-up assistance CODE: 05 DRESSING - LOWER BODY: DRESSING - LOWER BODY - STEP 1: Does the patient complete the activity by him/herself with no assistance (physical, verbal/nonverbal cueing, setup/clean-up)? No. DRESSING - LOWER BODY - STEP 2: Does the patient need only setup/clean-up assistance from one helper? Yes. 1. [id number] ADMISSION PERFORMANCE: Setup or clean-up assistance CODE: 05 PUTTING ON/TAKING OFF FOOTWEAR: FOOTWEAR - STEP 1: Does the patient complete the activity by him/herself with no assistance (physical, verbal/nonverbal cueing, setup/clean-up)? No. FOOTWEAR - STEP 2: Does the patient need only setup/clean-up assistance from one helper? Yes. 1. [id number] ADMISSION PERFORMANCE: Setup or clean-up assistance CODE: 05 ROLL LEFT AND RIGHT: ROLL LEFT AND RIGHT - STEP 1: Does the patient complete the activity by him/herself with no assistance (physical, verbal/nonverbal cueing, setup/clean-up)? No. ROLL LEFT AND RIGHT - STEP 2: Does the patient need only setup/clean-up assistance from one helper? Yes. 1. [id number] ADMISSION PERFORMANCE: Setup or clean-up assistance CODE: 05 SIT TO LYING: SIT TO LYING - STEP 1: Does the patient complete the activity by him/herself with no assistance (physical, verbal/nonverbal cueing, setup/clean-up)? No. SIT TO LYING - STEP 2: Does the patient need only setup/clean-up assistance from one helper? Yes. 1. [id number] ADMISSION PERFORMANCE: Setup or clean-up assistance CODE: 05 LYING TO SITTING: LYING TO SITTING ON SIDE OF BED - STEP 1: Does the patient complete the activity by him/herself with no assistance (physical, verbal/nonverbal cueing, setup/clean-up)? No. LYING TO SITTING ON SIDE OF BED - STEP 2: Does the patient need only setup/clean-up assistance from one helper? Yes. 1. [id number] ADMISSION PERFORMANCE: Setup or clean-up assistance CODE: 05 SIT TO STAND: SIT TO STAND - STEP 1: Does the patient complete the activity by him/herself with no assistance (physical, verbal/nonverbal cueing, setup/clean-up)? No. SIT TO STAND - STEP 2: Does the patient need only setup/clean-up assistance from one helper? Yes. 1. [id number] ADMISSION PERFORMANCE: Setup or clean-up assistance CODE: 05 TRANSFERS: BED, CHAIR: CHAIR/[id number] TRANSFER - STEP 1: Does the patient complete the activity by him/herself with no assistance (physical, verbal/nonverbal cueing, setup/clean-up)? No. CHAIR/[id number] TRANSFER - STEP 2: Does the patient need only setup/clean-up assistance from one helper? Yes. 1. [id number] ADMISSION PERFORMANCE: Setup or clean-up assistance CODE: 05 TRANSFER TOILET: TOILET TRANSFER - STEP 1: Does the patient complete the activity by him/herself with no assistance (physical, verbal/nonverbal cueing, setup/clean-up)? No. TOILET TRANSFER - STEP 2: Does the patient need only setup/clean-up assistance from one helper? Yes. 1. [id number] ADMISSION PERFORMANCE: Setup or clean-up assistance CODE: 05 TRANSFERS: CAR: Not assessed/no information CODE: - WALK 10 FEET: Not assessed/no information CODE: - 1 STEP (CURB): Not assessed/no information CODE: - PICKING UP OBJECT: Not assessed/no information CODE: - DOES THE PATIENT USE A WHEELCHAIR/SCOOTER? Q1. DOES THE PATIENT USE A WHEELCHAIR/SCOOTER?: No CODE: 0 INDICATE THE TYPE OF WHEELCHAIR/SCOOTER USED: CODE: EXPR INDICATE THE TYPE OF WHEELCHAIR/SCOOTER USED: CODE: EXPR BLADDER AND BOWEL: H350. BLADDER CONTINENCE (3-DAY ASSESSMENT PERIOD): Always continent (no documented incontinence) CODE: 0 H400. BOWEL CONTINENCE (3-DAY ASSESSMENT PERIOD): Always continent CODE: 0 SIGNATURE PANEL: The following modified sections: 1. [id number] Admission Performance, 1. [id number] Admission Performance, 1. [id number] Admission Performance, 1. ZP6332w Admission Performance, 1. [id number] Admission Performance, 1. PD4941b Admission Performance, 1. [id number] Admission Performance, 1. [id number] Admission Performance , 1. [id number] Admission Performance, 1. [id number] Admission Performance, 1. [id number] Admission Performanc e, 1. [id number] Admission Performance, Q1. Does the patient use a wheelchair/scooter?, Q1. Does the pat ient use a wheelchair/scooter?, H350. Bladder Continence (3-day assessment period), H400. Bowel Devin nence (3-day assessment period) were [electronically] signed by Chichi AlvaradoNLucia on FriMar 18 16:36:08 T-0600 (Central Standard Time)
--- NOTE | 2019-03-18 17:37 | R.PN ---
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 Pt denied any depression. WBC 12.2, Hgb 12.1, Glucose 42 to 289. Ambulated 1999' with standby assistance using a rolling walker. Up and down 15 steps with standby ass istance. Ambulated 250 feet and 500 feet with standby assistance using a rolling walker. VITAL SIGNS Temperature: 97.2 F SBP/DBP: 159/62 Pulse: 75 Resp: 16 MEDICATION ALLERGIES: CHRISTINE Inhibitor Trulicity Jardiance Metformin Januvia ENVIRONMENTAL ALLERGIES: Iodine - Substance Allergies None Known - Other Allergies None Known NURSING: - Shower allowing shower - Bladder care per protocol - Skin care per protocol ACTIVITIES OOB only with supervision THERAPIES: - Orthotics/Prosthetics Orthotic Evaluation. Splinting/Casting. - Dietary and Nutrition Adequate Nutrition. Nutritional Education. Nutritional Supplements. PHYSICAL EXAM - Gen Alert and awake Lying in bed No apparent distress Oriented to: person, time, and place - Skin No skin breakdown. No abnormalities - Eyes No abnormalities - ENMT No abnormalities - Neck No abnormalities - CVS RRR - Chest No abnormalities - Resp Clear to auscultation - Abd + bowel sounds - GI Non distended Deferred - No abnormalities - Ext No significant edema - MSK 4+/5 weakness in both lower extremities. - Neuro No focal deficits - Psych No abnormalities ASSESSMENT: Pt. is a 78 yo Right-handed white female.On 03/15/[address] admitted to [facility] with diagnosis L3-L4 Spinal Stenosis.Her impairment category is Spinal Cord Dysfunction 04 - Other Non-traumatic Spinal Cord Dysfunction (04.130).Pre-morbidly, Pt. was independent/mod-I in [place] motion, Balance, Safety Awareness, Social Cognition, Transfers Control, Self-Care, Sphincter Control, Communication, and Endurance; and she had good Locomotion, Safety Awareness, Balance, Transfers Cont rol, Self-Care, Communication, and Endurance.Currently, she has deficits of Locomotion, Balance, Safe ty Awareness, Transfers Control, Self-Care, and Endurance.Pt. is now referred to [facility] for acute in-patient rehabilitation in order to maximize patient's functional independe nce in activities of daily living, strength, ROM, and mobility.- Rehab Goal Patient has realistic goal of being discharged at assistance level 6-Adeola to reside at Home with Fam librado/Relatives. MDM/PLAN: - Physical Therapy Gait dysfunction - to improve, our physical therapists will perform initial evaluation of pt's statu s upon admission and devise an individualized program for Gait Training, and Wheel Chair mobility Inability to transfer - to improve, our physical therapists will perform initial evaluation of pt's status upon admission and devise an individualized program for Bed mobility Need for home safety evaluation - to improve, our physical therapists will perform initial evaluatio n of pt's status upon admission and devise an individualized program for Home Evaluation Need in caregiver upon discharge - to improve, our physical therapists will perform initial evaluati on of pt's status upon admission and devise an individualized program for Caregiver Training Edema - to improve, our physical therapists will perform initial evaluation of pt's status upon admis cherri and devise an individualized program for Elevation Training, and Lymphedema Therapy New precaution - to improve, our physical therapists will perform initial evaluation of pt's status upon admission and devise an individualized program for Patient precaution education Poor balance - to improve, our physical therapists will perform initial evaluation of pt's status up on admission and devise an individualized program for Balance Training Poor endurance - to improve, our physical therapists will perform initial evaluation of pt's status upon admission and devise an individualized program for Endurance Training Weakness - to improve, our physical therapists will perform initial evaluation of pt's status upon a dmission and devise an individualized program for Aquatic Therapy, Neuromuscular Reeducation, and Str engthening Achieving independence - to improve, our physical therapists will perform initial evaluation of pt's status upon admission and devise an individualized program for Community Reintegration Activities - Occupational Therapy ADL deficits - to improve, our occupation therapists will perform initial evaluation of pt's status upon admission and devise an individualized program for Bathing, Bed mobility, Community Reintegratio n, Cooking, Dressing, Eating, Fine Motor Skills, Grooming, Homemaking, Kitchen Mobility, Laundry, Pat ient Education, Safety Awareness, Splinting - Positioning, Transfers(Toilet, Tub, Shower), and Wheel Chair Management Need for respite care provider - to improve, our occupation therapists will perform initial evaluation of pt's status upon admission and devise an individualized program for Caregiver Training Weakness - to improve, our occupation therapists will perform initial evaluation of pt's status upon admission and devise an individualized program for Aquatic Therapy, Balance, Endurance, UE ROM, and UE strengthening - Other See attached MAR (Medication Administration Record) - Diet Type Continue Regular - Diet - Liquid Texture Continue Regular - Tube Feed Continue N/A - Bladder care per protocol - Skin care per protocol - Diet - Solid Texture Continue Regular - Shower allowing shower FUNCTIONAL STATUS: UPDATED AT WEEKLY TEAM CONFERENCE - Bladder Same accident frequency: 7-Ind - No accidents in the past 7 days - Bowel Same accident frequency: 7-Ind - No accidents in the past 7 days - Walking Same score based on distance walked: 0(N/A) Same score based on distance walked: 3(>=150ft) - Wheelchair Same score based on distance traveled: 0(N/A) FUNCTIONAL STATUS: - Self-Care A. Eating Ind B. Grooming Ind C. Bathing Med D. Dressing - Upper [place] E. Dressing - Lower sup F. Toileting sup - Sphincter Control G. Bladder control Ind H. Bowel control Ind - Transfers Control I. Bed/Chair/Wheelchair sup J. Toilet sup K. Tub/Shower sup - Locomotion L. Walk/Wheelchair (B) Med M. Stairs Med - Communication N. Comprehension (B) Ind O. Expression (B) Ind - Social Cognition P. Social Interaction Ind Q. Problem Solving Ind R. Memory Ind - Endurance Good - Balance Good - Safety Awareness Good QI SCORES: - Self-Care A. Eating 05-Setup or clean-up assistance B. Oral hygiene 05-Setup or clean-up assistance C. Toileting hygiene 05-Setup or clean-up assistance E. Shower/bathe self 03-Partial/moderate assistance F. Upper body dressing 03-Partial/moderate assistance G. Lower body dressing 02-Substantial/maximal assistance H. Putting on/taking off footwear 02-Substantial/maximal assistance - Mobility A. Roll left and right 03-Partial/moderate assistance B. Sit to lying 03-Partial/moderate assistance C. Lying to sitting on side of bed 03-Partial/moderate assistance D. Sit to stand 04-Supervision or touching assistance E. Chair/[id number]-[id number] transfer 04-Supervision or touching assistance F. Toilet transfer 04-Supervision or touching assistance G. Car transfer 88-Not attempted due to medical condition or safety concerns I. Walk 10 feet 04-Supervision or touching assistance J. Walk 50 feet with two turns 04-Supervision or touching assistance K. Walk 150 feet 04-Supervision or touching assistance L. Walking 10 feet on uneven surfaces 88-Not attempted due to medical condition or safety concerns M. 1 step (curb) 88-Not attempted due to medical condition or safety concerns N. 4 steps 88-Not attempted due to medical condition or safety concerns O. 12 steps 88-Not attempted due to medical condition or safety concerns P. Picking up object 88-Not attempted due to medical condition or safety concerns R. Wheel 50 feet with two turns 88-Not attempted due to medical condition or safety concerns S. Wheel 150 feet 88-Not attempted due to medical condition or safety concerns - Bladder and Bowel Bladder continence 0-Always continent Bowel continence 0-Always continent - Endurance Fair - Balance Fair - Safety Awareness Fair CURRENT [facility]. DEFICITS: Self-Care, Mobility, Endurance, Balance, and Safety Awareness SIGNATURE PANEL: (STRINGS TEACHER)
[2019-03-18] MEDS ORDERED: INSULIN GLARGINE 100 UNITS/ML SQ ONE (18:34)
[2019-03-18] MEDS ORDERED: INSULIN GLARGINE 100 UNITS/ML SQ SCH (21:00)
[2019-03-18] MEDS: BACLOFEN 10 MG TAB PO SCH (21:07)
[2019-03-18] MEDS: METOPROLOL TAR 50 MG TAB PO SCH (21:07)
[2019-03-18] MEDS: ATORVASTATIN 20 MG TAB PO SCH (21:07)
[2019-03-18] MEDS: INSULIN GLARGINE 100 UNITS/ML SQ SCH (21:08)
[2019-03-18] MEDS: GABAPENTIN 100 MG CAP PO SCH (21:09)
--- NOTE | 2019-03-18 22:08 | PN ---
Subjective: Ms. Sharpe is feeling great. Her back pain has disappeared now. She has no complaints. No chest pain, nausea, or vomiting. Eating a lot better here, so her glucose dropped down to 46 las t night. This is after reduction of her insulin actually. It clears that she does not eat properly and also according to family she does not even take her insulin on a daily basis at home. I am tryin g her on tablets here if she is able to. Assessment And Plan: 1.Diabetes mellitus. Continue metformin and Januvia, reduce insulin if we can. We will follow up o n a daily basis. 2.Back pain, radiculopathy, currently pain-free. Continue PT. 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 4.Atrial fibrillation. Continue apixaban, currently stable, enjoying her stay at rehab. JULIO/TERRIEL Voice ID: [id number] Report ID: [id number]
[2019-03-19] MEDS: DIPHENHYDRAMINE 25 MG TAB/CAP PO PRN (00:05)
[2019-03-19] MEDS: INSULIN -REGULAR HUMAN 50 UNIT/0.5 ML ML SQ SCH ×4 (07:30→21:54)
[2019-03-19] MEDS: METFORMIN ER 500 MG TAB PO SCH ×2 (08:21→17:01)
[2019-03-19] MEDS: APIXABAN 5 MG TABLET PO SCH ×2 (08:22→20:19)
[2019-03-19] MEDS: SITAGLIPTIN PHOS 100 MG TAB PO SCH (08:22)
[2019-03-19] MEDS: FUROSEMIDE 20 MG TABLET PO SCH (08:22)
[2019-03-19] MEDS: DULOXETINE 30 MG CAP PO SCH (08:23)
[2019-03-19] MEDS: MAGNESIUM OXIDE 400 MG TAB PO SCH (08:23)
[2019-03-19] MEDS: PROMOD 30 ML DOSE PO SCH ×2 (08:24→20:21)
--- NOTE | 2019-03-19 10:03 | P.RH.PN ---
Estimated Length of Stay: 10 Expected Discharge Date: 03/25/19 Discharge Disposition Plan: Home Family Support: Yes Shelter Goal: Mobility, Transfers, Self Care Vital Signs: Last Vital Signs Temp 97.4 F 03/19/19 08:00 Pulse 66 03/19/19 08:22 Resp 16 03/19/19 08:00 BP 139/56 L 03/19/19 08:22 Pulse Ox 96 03/19/19 08:00 Laboratory: Laboratory Last Values WBC 12.2 K/uL (4.3-10.9) H 03/17/19 06:05 RBC 4.38 M/uL (3.86-4.86) 03/17/19 06:05 Hgb 12.1 g/dL (12.0-15.0) 03/17/19 06:05 Hct 37.3 % (36.0-45.0) 03/17/19 06:05 MCV 85.0 fL (80-100) 03/17/19 06:05 MCH 27.7 pg (27.0-35.0) 03/17/19 06:05 MCHC 32.6 g/dL (32.0-36.0) 03/17/19 06:05 RDW 15.1 % (12.1-15.2) 03/17/19 06:05 Plt Count 383 K/uL (152-406) 03/17/19 06:05 MPV 8.9 fL (7.6-11.3) 03/17/19 06:05 Neutrophils % 60.5 % (41.7-73.7) 03/17/19 06:05 Lymphocytes % 29.6 % (15.3-44.8) 03/17/19 06:05 Monocytes % 7.1 % (3.3-12.3) 03/17/19 06:05 Eosinophils % 1.8 % (0-4.4) 03/17/19 06:05 Basophils % 1.0 % (0-1.3) 03/17/19 06:05 Absolute Neutrophils 7.4 K/uL (1.8-8.0) 03/17/19 06:05 Absolute Lymphocytes 3.6 K/uL (0.7-4.9) 03/17/19 06:05 Absolute Monocytes 0.9 K/uL (0.1-1.3) 03/17/19 06:05 Absolute Eosinophils 0.2 K/uL (0-0.5) 03/17/19 06:05 Absolute Basophils 0.1 K/uL (0-0.5) 03/17/19 06:05 Sodium 143 mmol/L (136-145) 03/17/19 06:05 Potassium 4.3 mmol/L (3.5-5.1) 03/17/19 06:05 Chloride 113 mmol/L (98-107) H 03/17/19 06:05 Carbon Dioxide 23 mmol/L (21-32) 03/17/19 06:05 BUN 20 mg/dL (7-18) H 03/17/19 06:05 Creatinine 1.00 mg/dL (0.55-1.3) 03/17/19 06:05 Estimated GFR 53 mL/min (=/>90) L 03/17/19 06:05 Glucose 72 mg/dL (74-106) L 03/17/19 06:05 POC Glucose 130 mg/dl (65-120) H 03/19/19 07:13 Calcium 8.5 mg/dL (8.5-10.1) 03/17/19 06:05 Magnesium 2.2 mg/dL (1.8-2.4) 03/17/19 06:05 Albumin 3.1 g/dL (3.4-5.0) L 03/17/19 06:05 Prealbumin 15.1 mg/dL (20-40) L 03/17/19 06:05 Weight: 147 lb Wound Present: No Closed Surgical Incision Present: No Negative Pressure Wound Therapy Present: No Physician Update: Her labs were reviewed. Blood sugars [address] Sheriff decreased her lantus insulin. MOCA . Will start namenda 5 mg daily. She is walking 250'. Medical Issues: Patient is always continent with bladder and bowel. Functional Improvement: Patient has met all short-term goals at this time and is progressing well toward long-term goals. Patient is showing good physical improvement, and cognition and memory is progressing as well. Speech Therapy Update: Patient obtained a on the MOCA indicating a mild cognitive impairment characterized by decreased short-term memory, decreased mental flexibility, decreased ability to perform mental calculations, decreased verbal fluency, and decreased abstraction. Summary: Patient's care plan and long-term goals have been reviewed and revised as necessary. Please see the Rehabilitation Signature page for all necessary signatures.
--- NOTE | 2019-03-19 15:46 | FAST ---
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 Yang Adams M.D. 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 EATING: Not assessed/no information CODE: - ORAL HYGIENE: ORAL HYGIENE - STEP 1: Does the patient complete the activity by him/herself with no assistance (physical, verbal/nonverbal cueing, setup/clean-up)? Yes. 1. [id number] ADMISSION PERFORMANCE: Independent CODE: 06 TOILETING HYGIENE: Not assessed/no information CODE: - BATHING: SHOWER/BATHE SELF - STEP 1: Does the patient complete the activity by him/herself with no assistance (physical, verbal/nonverbal cueing, setup/clean-up)? No. SHOWER/BATHE SELF - STEP 2: Does the patient need only setup/clean-up assistance from one helper? No. SHOWER/BATHE SELF - STEP 3: Does the patient need only verbal/nonverbal cueing or touching/steadying/contact guard assistance fro m one helper? Yes. 1. [id number] ADMISSION PERFORMANCE: Supervision or touching assistance CODE: 04 DRESSING - UPPER BODY: DRESSING - UPPER BODY - STEP 1: Does the patient complete the activity by him/herself with no assistance (physical, verbal/nonverbal cueing, setup/clean-up)? No. DRESSING - UPPER BODY - STEP 2: Does the patient need only setup/clean-up assistance from one helper? No. DRESSING - UPPER BODY - STEP 3: Does the patient need only verbal/nonverbal cueing or touching/steadying/contact guard assistance fro m one helper? Yes. 1. [id number] ADMISSION PERFORMANCE: Supervision or touching assistance CODE: 04 DRESSING - LOWER BODY: DRESSING - LOWER BODY - STEP 1: Does the patient complete the activity by him/herself with no assistance (physical, verbal/nonverbal cueing, setup/clean-up)? No. DRESSING - LOWER BODY - STEP 2: Does the patient need only setup/clean-up assistance from one helper? No. DRESSING - LOWER BODY - STEP 3: Does the patient need only verbal/nonverbal cueing or touching/steadying/contact guard assistance fro m one helper? Yes. 1. [id number] ADMISSION PERFORMANCE: Supervision or touching assistance CODE: 04 PUTTING ON/TAKING OFF FOOTWEAR: FOOTWEAR - STEP 1: Does the patient complete the activity by him/herself with no assistance (physical, verbal/nonverbal cueing, setup/clean-up)? No. FOOTWEAR - STEP 2: Does the patient need only setup/clean-up assistance from one helper? No. FOOTWEAR - STEP 3: Does the patient need only verbal/nonverbal cueing or touching/steadying/contact guard assistance fro m one helper? Yes. 1. [id number] ADMISSION PERFORMANCE: Supervision or touching assistance CODE: 04 DOES THE PATIENT USE A WHEELCHAIR/SCOOTER? CODE: EXPR INDICATE THE TYPE OF WHEELCHAIR/SCOOTER USED: CODE: EXPR INDICATE THE TYPE OF WHEELCHAIR/SCOOTER USED: CODE: EXPR BLADDER AND BOWEL: CODE: EXPR CODE: EXPR SIGNATURE PANEL: The following modified sections: 1. [id number] Admission Performance, 1. [id number] Admission Performance, 1. [id number] Admission Performance, 1. AS2090e Admission Performance, 1. [id number] Admission Performance were [electronically] signed by MARYELLEN Justice on FriMar 19 2019 15:45:24 GMT-0600 (Central Standard Time)
--- NOTE | 2019-03-19 18:34 | PN ---
Subjective: Darlin is doing really good. Denies chest pain, nausea, vomiting. She does therapy ever y day. Physical Examination: Vital Signs: Her blood pressure is 139/66. Sugar anywhere from 75 to 339. Chest: Clear. Heart: Regular. Abdomen: No guarding. No rebound. No rigidity. Assessment And Plan: 1.Lumbar radicular pain. OT and PT forms for her assisted living has been filled out at my office. 2.Diabetes mellitus. I am trying to get her back on tablets alone instead of insulin if we are able to, and only time will tell us. Otherwise, she is clinically stable. She has agreed to go into [facility] facility now. JULIO/ALVIN Voice ID: [id number] Report ID: [id number]
[2019-03-19] MEDS: BACLOFEN 10 MG TAB PO SCH (20:19)
[2019-03-19] MEDS: METOPROLOL TAR 50 MG TAB PO SCH (20:20)
[2019-03-19] MEDS: ATORVASTATIN 20 MG TAB PO SCH (20:20)
[2019-03-19] MEDS: GABAPENTIN 100 MG CAP PO SCH (20:21)
[2019-03-19] MEDS: INSULIN GLARGINE 100 UNITS/ML SQ SCH (21:54)
--- NOTE | 2019-03-20 02:11 | FAST ---
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 Yang Adams M.D. 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 EATING: Not assessed/no information CODE: - ORAL HYGIENE: Not assessed/no information CODE: - TOILETING HYGIENE: TOILETING HYGIENE - STEP 1: Does the patient complete the activity by him/herself with no assistance (physical, verbal/nonverbal cueing, setup/clean-up)? No. TOILETING HYGIENE - STEP 2: Does the patient need only setup/clean-up assistance from one helper? No. TOILETING HYGIENE - STEP 3: Does the patient need only verbal/nonverbal cueing or touching/steadying/contact guard assistance fro m one helper? Yes. 1. [id number] ADMISSION PERFORMANCE: Supervision or touching assistance CODE: 04 BATHING: Not assessed/no information CODE: - DRESSING - UPPER BODY: Not assessed/no information CODE: - DRESSING - LOWER BODY: Not assessed/no information CODE: - PUTTING ON/TAKING OFF FOOTWEAR: Not assessed/no information CODE: - ROLL LEFT AND RIGHT: ROLL LEFT AND RIGHT - STEP 1: Does the patient complete the activity by him/herself with no assistance (physical, verbal/nonverbal cueing, setup/clean-up)? No. ROLL LEFT AND RIGHT - STEP 2: Does the patient need only setup/clean-up assistance from one helper? No. ROLL LEFT AND RIGHT - STEP 3: Does the patient need only verbal/nonverbal cueing or touching/steadying/contact guard assistance fro m one helper? Yes. 1. [id number] ADMISSION PERFORMANCE: Supervision or touching assistance CODE: 04 SIT TO LYING: SIT TO LYING - STEP 1: Does the patient complete the activity by him/herself with no assistance (physical, verbal/nonverbal cueing, setup/clean-up)? No. SIT TO LYING - STEP 2: Does the patient need only setup/clean-up assistance from one helper? No. SIT TO LYING - STEP 3: Does the patient need only verbal/nonverbal cueing or touching/steadying/contact guard assistance fro m one helper? Yes. 1. [id number] ADMISSION PERFORMANCE: Supervision or touching assistance CODE: 04 LYING TO SITTING: LYING TO SITTING ON SIDE OF BED - STEP 1: Does the patient complete the activity by him/herself with no assistance (physical, verbal/nonverbal cueing, setup/clean-up)? No. LYING TO SITTING ON SIDE OF BED - STEP 2: Does the patient need only setup/clean-up assistance from one helper? No. LYING TO SITTING ON SIDE OF BED - STEP 3: Does the patient need only verbal/nonverbal cueing or touching/steadying/contact guard assistance fro m one helper? Yes. 1. [id number] ADMISSION PERFORMANCE: Supervision or touching assistance CODE: 04 SIT TO STAND: SIT TO STAND - STEP 1: Does the patient complete the activity by him/herself with no assistance (physical, verbal/nonverbal cueing, setup/clean-up)? No. SIT TO STAND - STEP 2: Does the patient need only setup/clean-up assistance from one helper? No. SIT TO STAND - STEP 3: Does the patient need only verbal/nonverbal cueing or touching/steadying/contact guard assistance fro m one helper? Yes. 1. [id number] ADMISSION PERFORMANCE: Supervision or touching assistance CODE: 04 TRANSFERS: BED, CHAIR: CHAIR/ISS-PU-NBOKE TRANSFER - STEP 1: Does the patient complete the activity by him/herself with no assistance (physical, verbal/nonverbal cueing, setup/clean-up)? No. CHAIR/[id number] TRANSFER - STEP 2: Does the patient need only setup/clean-up assistance from one helper? No. CHAIR/YLV-HB-[id number] TRANSFER - STEP 3: Does the patient need only verbal/nonverbal cueing or touching/steadying/contact guard assistance fro m one helper? Yes. 1. [id number] ADMISSION PERFORMANCE: Supervision or touching assistance CODE: 04 TRANSFER TOILET: TOILET TRANSFER - STEP 1: Does the patient complete the activity by him/herself with no assistance (physical, verbal/nonverbal cueing, setup/clean-up)? No. TOILET TRANSFER - STEP 2: Does the patient need only setup/clean-up assistance from one helper? No. TOILET TRANSFER - STEP 3: Does the patient need only verbal/nonverbal cueing or touching/steadying/contact guard assistance fro m one helper? Yes. 1. [id number] ADMISSION PERFORMANCE: Supervision or touching assistance CODE: 04 TRANSFERS: CAR: Not assessed/no information CODE: - WALK 10 FEET: Not assessed/no information CODE: - 1 STEP (CURB): Not assessed/no information CODE: - PICKING UP OBJECT: Not assessed/no information CODE: - DOES THE PATIENT USE A WHEELCHAIR/SCOOTER? CODE: EXPR WHEEL 50 FEET WITH TWO TURNS: Not assessed/no information CODE: - INDICATE THE TYPE OF WHEELCHAIR/SCOOTER USED: CODE: EXPR WHEEL 150 FEET: Not assessed/no information CODE: - INDICATE THE TYPE OF WHEELCHAIR/SCOOTER USED: CODE: EXPR BLADDER AND BOWEL: H350. BLADDER CONTINENCE (3-DAY ASSESSMENT PERIOD): Always continent (no documented incontinence) CODE: 0 H400. BOWEL CONTINENCE (3-DAY ASSESSMENT PERIOD): Always continent CODE: 0
[2019-03-20 05:32] VITALS: BMI 28.8
[2019-03-20] MEDS: INSULIN -REGULAR HUMAN 50 UNIT/0.5 ML ML SQ SCH ×4 (07:30→20:38)
[2019-03-20] MEDS: PROMOD 30 ML DOSE PO SCH ×3 (08:00→18:22)
[2019-03-20] MEDS: FUROSEMIDE 20 MG TABLET PO SCH (08:43)
[2019-03-20] MEDS: SITAGLIPTIN PHOS 100 MG TAB PO SCH (08:44)
[2019-03-20] MEDS: METFORMIN ER 500 MG TAB PO SCH ×2 (08:44→16:50)
[2019-03-20] MEDS: MEMANTINE HCL 10 MG TABLET PO SCH (08:44)
[2019-03-20] MEDS: MAGNESIUM OXIDE 400 MG TAB PO SCH (08:44)
[2019-03-20] MEDS: APIXABAN 5 MG TABLET PO SCH ×2 (08:45→19:11)
[2019-03-20] MEDS: DULOXETINE 30 MG CAP PO SCH (08:45)
[2019-03-20] MEDS: DIPHENHYDRAMINE 25 MG TAB/CAP PO PRN (19:10)
[2019-03-20] MEDS: BACLOFEN 10 MG TAB PO SCH (19:10)
[2019-03-20] MEDS: ATORVASTATIN 20 MG TAB PO SCH (19:10)
[2019-03-20] MEDS: GABAPENTIN 100 MG CAP PO SCH (19:12)
[2019-03-20] MEDS: METOPROLOL TAR 50 MG TAB PO SCH (19:16)
[2019-03-20] MEDS: INSULIN GLARGINE 100 UNITS/ML SQ SCH (19:18)
--- NOTE | 2019-03-20 19:49 | P.PN ---
Subjective Date of Service: 03/20/19 Chief Complaint: DOING GREAT, NO PAIN, WALKS WITH ASSISTANCE Subjective: Improving SHE AT HOME NEVER TOOK INSULIN DAILY. SO SUSPECT SAME WITH MEDS. I WILL SEE HOW SHE DOES WITH LIVIING. Review of Systems 10-point ROS is otherwise unremarkable Physical Examination - Vital Signs Temperature: 97.2 F Blood Pressure: 151/63 Pulse: 73 Respirations: 18 Pulse Ox (%): 96 - Physical Exam General: Alert HEENT: Atraumatic, PERRLA, EOMI Neck: Supple, JVD not distended Respiratory: Clear to auscultation bilaterally, Normal air movement Cardiovascular: Regular rate/rhythm, Normal S1 S2 Gastrointestinal: Normal bowel sounds, No tenderness Musculoskeletal: No tenderness Integumentary: No rashes Neurological: Normal speech, Normal tone, Normal affect Lymphatics: No axilla or inguinal lymphadenopathy - Studies Medications List Reviewed: Yes Assessment And Plan - Current Problems (Diagnosis) (1) Lumbar disc disease Current Visit: Yes Status: Chronic Plan: SHE HAS NO MORE PAIN LIKE SHE HAD. SHE HAS AGREED TO . LIVING NOW. (2) Diabetes Onset Date: 09/25/15 Current Visit: No Status: Acute Plan: WILL FU ON DAILY BASIS. TRY TO SEE IF TABLETS WILL SUFFICE. 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
[2019-03-21] MEDS: INSULIN -REGULAR HUMAN 50 UNIT/0.5 ML ML SQ SCH ×4 (07:10→21:12)
[2019-03-21] MEDS: PROMOD 30 ML DOSE PO SCH ×2 (08:00→19:05)
[2019-03-21] MEDS: METFORMIN ER 500 MG TAB PO SCH ×2 (08:25→16:58)
[2019-03-21] MEDS: SITAGLIPTIN PHOS 100 MG TAB PO SCH (08:25)
[2019-03-21] MEDS: MAGNESIUM OXIDE 400 MG TAB PO SCH (08:26)
[2019-03-21] MEDS: MEMANTINE HCL 10 MG TABLET PO SCH (08:26)
[2019-03-21] MEDS: FUROSEMIDE 20 MG TABLET PO SCH (08:27)
[2019-03-21] MEDS: DULOXETINE 30 MG CAP PO SCH (08:27)
[2019-03-21] MEDS: APIXABAN 5 MG TABLET PO SCH ×2 (08:27→19:04)
--- NOTE | 2019-03-21 11:45 | P.PN ---
Subjective Date of Service: 03/21/19 Chief Complaint: L FOOT ULCER SMALL LATERAL ON THE 5TH TOE AND WAS STEPPED ON BY OTHER PT Subjective: Improving SHE AT HOME NEVER TOOK INSULIN DAILY. SO SUSPECT SAME WITH MEDS. I WILL SEE HOW SHE DOES WITH LIVIING. MS. MILLIGAN IS 78 YRS OLD , HAS BEEN TO Figure 1ON HAD L SIDE LATERAL TOE SKIN SCRAPED OFF AND HAS ULCER SINCE THEN, IT IS A VERY SMALL DRY ULCER. SHE JUST RECENTLY HAS HAD FULL VASCULAR PROCEDURES DONE BOTH SIDES, INCLUDING [facility]THERECTOMY BY [facility]. SHE HAS DONE WELL WITH THE PROCEDURES. Review of Systems 10-point ROS is otherwise unremarkable Physical Examination - Vital Signs Temperature: 97 F Blood Pressure: 96/48 Pulse: 60 Respirations: 18 Pulse Ox (%): 97 - Physical Exam General: Alert, In no apparent distress HEENT: Atraumatic, PERRLA, EOMI Neck: Supple, JVD not distended Respiratory: Clear to auscultation bilaterally, Normal air movement Cardiovascular: Regular rate/rhythm, Normal S1 S2 Gastrointestinal: Normal bowel sounds, No tenderness Musculoskeletal: No tenderness Integumentary: No rashes, Diabetic ulcer (L LATERAL ULCER 2-2 MM. SMALL, DRY, NO SIGNS OF INFECTION. AND 4TH TOE INJURY BY SOMEONE'S FOOT. MILD INFECTION. ) Neurological: Normal speech, Normal tone, Normal affect Lymphatics: No axilla or inguinal lymphadenopathy - Studies Medications List Reviewed: Yes Assessment And Plan - Current Problems (Diagnosis) (1) Lumbar disc disease Current Visit: Yes Status: Chronic Plan: SHE HAS NO MORE PAIN LIKE SHE HAD. SHE HAS AGREED TO . LIVING NOW. (2) Diabetes Onset Date: 09/25/15 Current Visit: No Status: Acute Plan: WILL FU ON DAILY BASIS. TRY TO SEE IF TABLETS WILL SUFFICE. 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 CLEAN. NO NEED OF DEBRIDEMENT. APPLY BACTROBAN OINTMENT BID. KEFLEX TID FOR 5 DAYS WILL FU RTNLY. FORTUNATELY SHE JUST HAD ALL VASCULAR DAMAGE REPAIRED ON BOTH LEGS. 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 Qualifiers: Diabetic foot ulcer location: toe
[2019-03-21] MEDS: CEPHALEXIN 250 MG CAP PO SCH ×3 (12:06→23:08)
[2019-03-21] MEDS: MUPIROCIN 2% OINT 22GM TUBE TOP SCH ×2 (12:18→19:07)
[2019-03-21] MEDS: METOPROLOL TAR 50 MG TAB PO SCH (19:04)
[2019-03-21] MEDS: ATORVASTATIN 20 MG TAB PO SCH (19:05)
[2019-03-21] MEDS: GABAPENTIN 100 MG CAP PO SCH (19:05)
[2019-03-21] MEDS: BACLOFEN 10 MG TAB PO SCH (19:05)
[2019-03-21] MEDS: DIPHENHYDRAMINE 25 MG TAB/CAP PO PRN (19:05)
[2019-03-21] MEDS ORDERED: MUPIROCIN 2% OINT 22GM TUBE TOP SCH (20:00)
[2019-03-21] MEDS: INSULIN GLARGINE 100 UNITS/ML SQ SCH (21:13)
[2019-03-22] MEDS: CEPHALEXIN 250 MG CAP PO SCH ×3 (05:06→17:00)
[2019-03-22] MEDS: INSULIN -REGULAR HUMAN 50 UNIT/0.5 ML ML SQ SCH ×4 (07:18→19:13)
[2019-03-22] MEDS: MUPIROCIN 2% OINT 22GM TUBE TOP SCH ×2 (08:00→19:16)
[2019-03-22] MEDS: MAGNESIUM OXIDE 400 MG TAB PO SCH (08:00)
[2019-03-22] MEDS: SITAGLIPTIN PHOS 100 MG TAB PO SCH (08:07)
[2019-03-22] MEDS: METFORMIN ER 500 MG TAB PO SCH ×2 (08:07→16:43)
[2019-03-22] MEDS: APIXABAN 5 MG TABLET PO SCH ×2 (08:08→19:11)
[2019-03-22] MEDS: MEMANTINE HCL 10 MG TABLET PO SCH (08:08)
[2019-03-22] MEDS: DULOXETINE 30 MG CAP PO SCH (08:08)
[2019-03-22] MEDS: PROMOD 30 ML DOSE PO SCH ×2 (08:10→19:12)
--- NOTE | 2019-03-22 14:23 | FAST ---
SHIFT START DATE/TIME: 03/22/2019 07:00 (DISPLAY MAKER) SHIFT END DATE/TIME: 03/22/2019 19:00 (DISPLAY MAKER) NAME LEO MILLIGAN DATE OF : 1940 DATE OF ADMISSION: 03/16/2019 17:56 (DISPLAY MAKER) PHONE: AGE: 78 SSN# [id number] GENDER: Female ENCOUNTER PHYSICIAN: Dr. Yang Adams M.D. 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 EATING: EATING - STEP 1: Does the patient complete the activity by him/herself with no assistance (physical, verbal/nonverbal cueing, setup/clean-up)? No. EATING - STEP 2: Does the patient need only setup/clean-up assistance from one helper? Yes. 1. [id number] ADMISSION PERFORMANCE: Setup or clean-up assistance CODE: 05 ORAL HYGIENE: ORAL HYGIENE - STEP 1: Does the patient complete the activity by him/herself with no assistance (physical, verbal/nonverbal cueing, setup/clean-up)? No. ORAL HYGIENE - STEP 2: Does the patient need only setup/clean-up assistance from one helper? Yes. 1. [id number] ADMISSION PERFORMANCE: Setup or clean-up assistance CODE: 05 TOILETING HYGIENE: TOILETING HYGIENE - STEP 1: Does the patient complete the activity by him/herself with no assistance (physical, verbal/nonverbal cueing, setup/clean-up)? No. TOILETING HYGIENE - STEP 2: Does the patient need only setup/clean-up assistance from one helper? Yes. 1. [id number] ADMISSION PERFORMANCE: Setup or clean-up assistance CODE: 05 BATHING: Not assessed/no information CODE: - DRESSING - UPPER BODY: DRESSING - UPPER BODY - STEP 1: Does the patient complete the activity by him/herself with no assistance (physical, verbal/nonverbal cueing, setup/clean-up)? No. DRESSING - UPPER BODY - STEP 2: Does the patient need only setup/clean-up assistance from one helper? Yes. 1. [id number] ADMISSION PERFORMANCE: Setup or clean-up assistance CODE: 05 DRESSING - LOWER BODY: DRESSING - LOWER BODY - STEP 1: Does the patient complete the activity by him/herself with no assistance (physical, verbal/nonverbal cueing, setup/clean-up)? No. DRESSING - LOWER BODY - STEP 2: Does the patient need only setup/clean-up assistance from one helper? Yes. 1. [id number] ADMISSION PERFORMANCE: Setup or clean-up assistance CODE: 05 PUTTING ON/TAKING OFF FOOTWEAR: FOOTWEAR - STEP 1: Does the patient complete the activity by him/herself with no assistance (physical, verbal/nonverbal cueing, setup/clean-up)? No. FOOTWEAR - STEP 2: Does the patient need only setup/clean-up assistance from one helper? Yes. 1. [id number] ADMISSION PERFORMANCE: Setup or clean-up assistance CODE: 05 ROLL LEFT AND RIGHT: ROLL LEFT AND RIGHT - STEP 1: Does the patient complete the activity by him/herself with no assistance (physical, verbal/nonverbal cueing, setup/clean-up)? No. ROLL LEFT AND RIGHT - STEP 2: Does the patient need only setup/clean-up assistance from one helper? Yes. 1. [id number] ADMISSION PERFORMANCE: Setup or clean-up assistance CODE: 05 SIT TO LYING: SIT TO LYING - STEP 1: Does the patient complete the activity by him/herself with no assistance (physical, verbal/nonverbal cueing, setup/clean-up)? No. SIT TO LYING - STEP 2: Does the patient need only setup/clean-up assistance from one helper? Yes. 1. [id number] ADMISSION PERFORMANCE: Setup or clean-up assistance CODE: 05 LYING TO SITTING: LYING TO SITTING ON SIDE OF BED - STEP 1: Does the patient complete the activity by him/herself with no assistance (physical, verbal/nonverbal cueing, setup/clean-up)? No. LYING TO SITTING ON SIDE OF BED - STEP 2: Does the patient need only setup/clean-up assistance from one helper? Yes. 1. [id number] ADMISSION PERFORMANCE: Setup or clean-up assistance CODE: 05 SIT TO STAND: SIT TO STAND - STEP 1: Does the patient complete the activity by him/herself with no assistance (physical, verbal/nonverbal cueing, setup/clean-up)? No. SIT TO STAND - STEP 2: Does the patient need only setup/clean-up assistance from one helper? Yes. 1. [id number] ADMISSION PERFORMANCE: Setup or clean-up assistance CODE: 05 TRANSFERS: BED, CHAIR: CHAIR/[id number] TRANSFER - STEP 1: Does the patient complete the activity by him/herself with no assistance (physical, verbal/nonverbal cueing, setup/clean-up)? No. CHAIR/[id number] TRANSFER - STEP 2: Does the patient need only setup/clean-up assistance from one helper? Yes. 1. [id number] ADMISSION PERFORMANCE: Setup or clean-up assistance CODE: 05 TRANSFER TOILET: TOILET TRANSFER - STEP 1: Does the patient complete the activity by him/herself with no assistance (physical, verbal/nonverbal cueing, setup/clean-up)? No. TOILET TRANSFER - STEP 2: Does the patient need only setup/clean-up assistance from one helper? Yes. 1. ADMISSION PERFORMANCE: Setup or clean-up assistance CODE: 05 TRANSFERS: CAR: Not assessed/no information CODE: - WALK 10 FEET: Not assessed/no information CODE: - 4 STEPS: Not assessed/no information CODE: - 12 STEPS: PICKING UP OBJECT: Not assessed/no information CODE: - DOES THE PATIENT USE A WHEELCHAIR/SCOOTER? Q1. DOES THE PATIENT USE A WHEELCHAIR/SCOOTER?: No CODE: 0 INDICATE THE TYPE OF WHEELCHAIR/SCOOTER USED: CODE: EXPR INDICATE THE TYPE OF WHEELCHAIR/SCOOTER USED: CODE: EXPR BLADDER AND BOWEL: H350. BLADDER CONTINENCE (3-DAY ASSESSMENT PERIOD): Always continent (no documented incontinence) CODE: 0 H400. BOWEL CONTINENCE (3-DAY ASSESSMENT PERIOD): Always continent CODE: 0 SIGNATURE PANEL: The following modified sections: 1. [id number] Admission Performance, 1. [id number] Admission Performance, 1. [id number] Admission Performance, 1. TN4090a Admission Performance, 1. GB8838u Admission Performance, 1. IB9835p Admission Performance, 1. [id number] Admission Performance, 1. [id number] Admission Performance , 1. DJ7571I Admission Performance, 1. DJ4960L Admission Performance, 1. [id number] Admission Performanc e, 1. [id number] Admission Performance, Q1. Does the patient use a wheelchair/scooter?, H350. Bladder Co ntinence (3-day assessment period), H400. Bowel Continence (3-day assessment period) were [electronic ally] signed by Lila Coronado C.N.A. on FriMar 22 2019 14:22:14 GMT-0600 (Central Standard Time)
--- NOTE | 2019-03-22 14:39 | FAST ---
ENCOUNTER DATE AND TIME: 03/18/2019 08:00 ([address]FFIC [address] MAGISTRATE) NAME LEO MILLIGAN DATE OF : 1940 DATE OF ADMISSION: 03/16/2019 17:56 (TRAFFIC COURT MAGISTRATE) PHONE: AGE: 78 N# [id number] GENDER: Female ENCOUNTER PHYSICIAN: Dr. Yang Adams M.D. 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 ROLL LEFT AND RIGHT: ROLL LEFT AND RIGHT - STEP 1: Does the patient complete the activity by him/herself with no assistance (physical, verbal/nonverbal cueing, setup/clean-up)? No. ROLL LEFT AND RIGHT - STEP 2: Does the patient need only setup/clean-up assistance from one helper? Yes. 1. [id number] ADMISSION PERFORMANCE: Setup or clean-up assistance CODE: 05 SIT TO LYING: SIT TO LYING - STEP 1: Does the patient complete the activity by him/herself with no assistance (physical, verbal/nonverbal cueing, setup/clean-up)? No. SIT TO LYING - STEP 2: Does the patient need only setup/clean-up assistance from one helper? Yes. 1. [id number] ADMISSION PERFORMANCE: Setup or clean-up assistance CODE: 05 LYING TO SITTING: LYING TO SITTING ON SIDE OF BED - STEP 1: Does the patient complete the activity by him/herself with no assistance (physical, verbal/nonverbal cueing, setup/clean-up)? No. LYING TO SITTING ON SIDE OF BED - STEP 2: Does the patient need only setup/clean-up assistance from one helper? Yes. 1. [id number] ADMISSION PERFORMANCE: Setup or clean-up assistance CODE: 05 SIT TO STAND: SIT TO STAND - STEP 1: Does the patient complete the activity by him/herself with no assistance (physical, verbal/nonverbal cueing, setup/clean-up)? No. SIT TO STAND - STEP 2: Does the patient need only setup/clean-up assistance from one helper? Yes. 1. [id number] ADMISSION PERFORMANCE: Setup or clean-up assistance CODE: 05 TRANSFERS: BED, CHAIR: CHAIR/[id number] TRANSFER - STEP 1: Does the patient complete the activity by him/herself with no assistance (physical, verbal/nonverbal cueing, setup/clean-up)? No. CHAIR/[id number] TRANSFER - STEP 2: Does the patient need only setup/clean-up assistance from one helper? Yes. 1. [id number] ADMISSION PERFORMANCE: Setup or clean-up assistance CODE: 05 TRANSFER TOILET: TOILET TRANSFER - STEP 1: Does the patient complete the activity by him/herself with no assistance (physical, verbal/nonverbal cueing, setup/clean-up)? No. TOILET TRANSFER - STEP 2: Does the patient need only setup/clean-up assistance from one helper? Yes. 1. [id number] ADMISSION PERFORMANCE: Setup or clean-up assistance CODE: 05 TRANSFERS: CAR: Not attempted due to environmental limitations (e.g., lack of equipment, weather constraints) CODE: 10 WALK 10 FEET: WALK 10 FEET - STEP 1: Does the patient complete the activity by him/herself with no assistance (physical, verbal/nonverbal cueing, setup/clean-up)? No. WALK 10 FEET - STEP 2: Does the patient need only setup/clean-up assistance from one helper? Yes. 1. [id number] ADMISSION PERFORMANCE: Setup or clean-up assistance CODE: 05 WALK 50 FEET: WALK 50 FEET - STEP 1: Does the patient complete the activity by him/herself with no assistance (physical, verbal/nonverbal cueing, setup/clean-up)? No. WALK 50 FEET - STEP 2: Does the patient need only setup/clean-up assistance from one helper? Yes. 1. [id number] ADMISSION PERFORMANCE: Setup or clean-up assistance CODE: 05 WALK 150 FEET: WALK 150 FEET - STEP 1: Does the patient complete the activity by him/herself with no assistance (physical, verbal/nonverbal cueing, setup/clean-up)? No. WALK 150 FEET - STEP 2: Does the patient need only setup/clean-up assistance from one helper? Yes. 1. [id number] ADMISSION PERFORMANCE: Setup or clean-up assistance CODE: 05 WALK 10 FEET UNEVEN: Not attempted due to medical condition or safety concerns CODE: 88 1 STEP (CURB): 1 STEP CURB - STEP 1: Does the patient complete the activity by him/herself with no assistance (physical, verbal/nonverbal cueing, setup/clean-up)? No. 1 STEP CURB - STEP 2: Does the patient need only setup/clean-up assistance from one helper? Yes. 1. [id number] ADMISSION PERFORMANCE: Setup or clean-up assistance CODE: 05 4 STEPS: 4 STEPS - STEP 1: Does the patient complete the activity by him/herself with no assistance (physical, verbal/nonverbal cueing, setup/clean-up)? No. 4 STEPS - STEP 2: Does the patient need only setup/clean-up assistance from one helper? Yes. 1. [id number] ADMISSION PERFORMANCE: Setup or clean-up assistance CODE: 05 12 STEPS: 12 STEPS - STEP 1: Does the patient complete the activity by him/herself with no assistance (physical, verbal/nonverbal cueing, setup/clean-up)? No. 12 STEPS - STEP 2: Does the patient need only setup/clean-up assistance from one helper? Yes. 1. [id number] ADMISSION PERFORMANCE: Setup or clean-up assistance CODE: 05 PICKING UP OBJECT: Not attempted due to medical condition or safety concerns CODE: 88 DOES THE PATIENT USE A WHEELCHAIR/SCOOTER? Q1. DOES THE PATIENT USE A WHEELCHAIR/SCOOTER?: No CODE: 0 INDICATE THE TYPE OF WHEELCHAIR/SCOOTER USED: CODE: EXPR INDICATE THE TYPE OF WHEELCHAIR/SCOOTER USED: CODE: EXPR BLADDER AND BOWEL: CODE: EXPR CODE: EXPR SIGNATURE PANEL: The following modified sections: 1. [id number] Admission Performance, 1. [id number] Admission Performance, 1. HP7987H Admission Performance, 1. [id number] Admission Performance, 1. FR1402P Admission Performance, 1. [id number] Admission Performance, 1. CH6915B Admission Performance, 1. GV4595P Admission Performance , 1. [id number] Admission Performance, 1. [id number] Admission Performance, 1. [id number] Admission Performanc e, 1. [id number] Admission Performance, Q1. Does the patient use a wheelchair/scooter? were [electronica lly] signed by Marco Amaral PTA on FriMar 22 2019 14:38:24 GMT-0600 (Central Standard Time)
--- NOTE | 2019-03-22 14:43 | FAST ---
ENCOUNTER DATE AND TIME: 03/22/2019 08:00 (UI ENGINEER) NAME LEO MILLIGAN DATE OF : 1940 DATE OF ADMISSION: 03/16/2019 17:56 (UI ENGINEER) PHONE: AGE: 78 N# [id number] GENDER: Female ENCOUNTER PHYSICIAN: Dr. Yang Adams M.D. 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 EATING: Not assessed/no information CODE: - ORAL HYGIENE: Not assessed/no information CODE: - TOILETING HYGIENE: Not assessed/no information CODE: - BATHING: SHOWER/BATHE SELF - STEP 1: Does the patient complete the activity by him/herself with no assistance (physical, verbal/nonverbal cueing, setup/clean-up)? Yes. 1. [id number] ADMISSION PERFORMANCE: Independent CODE: 06 DRESSING - UPPER BODY: DRESSING - UPPER BODY - STEP 1: Does the patient complete the activity by him/herself with no assistance (physical, verbal/nonverbal cueing, setup/clean-up)? Yes. 1. [id number] ADMISSION PERFORMANCE: Independent CODE: 06 DRESSING - LOWER BODY: DRESSING - LOWER BODY - STEP 1: Does the patient complete the activity by him/herself with no assistance (physical, verbal/nonverbal cueing, setup/clean-up)? Yes. 1. [id number] ADMISSION PERFORMANCE: Independent CODE: 06 PUTTING ON/TAKING OFF FOOTWEAR: FOOTWEAR - STEP 1: Does the patient complete the activity by him/herself with no assistance (physical, verbal/nonverbal cueing, setup/clean-up)? No. FOOTWEAR - STEP 2: Does the patient need only setup/clean-up assistance from one helper? No. FOOTWEAR - STEP 3: Does the patient need only verbal/nonverbal cueing or touching/steadying/contact guard assistance fro m one helper? Yes. 1. [id number] ADMISSION PERFORMANCE: Supervision or touching assistance CODE: 04 DOES THE PATIENT USE A WHEELCHAIR/SCOOTER? CODE: EXPR INDICATE THE TYPE OF WHEELCHAIR/SCOOTER USED: CODE: EXPR INDICATE THE TYPE OF WHEELCHAIR/SCOOTER USED: CODE: EXPR BLADDER AND BOWEL: CODE: EXPR CODE: EXPR SIGNATURE PANEL: The following modified sections: 1. [id number] Admission Performance, 1. AV0210t Admission Performance, 1. UU1137c Admission Performance, 1. [id number] Admission Performance were [electronically] signed by MARYELLEN Elise on FriMar 22 2019 14:42:30 GMT-0600 (Central Standard Time)
[2019-03-22] MEDS: DIPHENHYDRAMINE 25 MG TAB/CAP PO PRN (19:11)
[2019-03-22] MEDS: METOPROLOL TAR 50 MG TAB PO SCH (19:11)
[2019-03-22] MEDS: GABAPENTIN 100 MG CAP PO SCH (19:11)
[2019-03-22] MEDS: BACLOFEN 10 MG TAB PO SCH (19:11)
[2019-03-22] MEDS: ATORVASTATIN 20 MG TAB PO SCH (19:11)
[2019-03-22] MEDS: INSULIN GLARGINE 100 UNITS/ML SQ SCH (19:12)
[2019-03-22] MEDS: ACETAMINOPHEN 500 MG TAB PO PRN (19:19)
--- NOTE | 2019-03-22 20:18 | R.PN ---
ENCOUNTER DATE AND TIME: 03/22/2019 20:17 (OVEN DAUBER) NAME LEO MILLIGAN DATE OF : 1940 DATE OF ADMISSION: 03/16/2019 17:56 (OVEN DAUBER) L3-L4 Spinal StenosisCHIEF COMPLAINT: Lumbar spinal stenosis SUBJECTIVE: Pt denied any Shortness of Breath. Pt denied any depression. WBC 12.2, Hgb 12.1, Glucose 42 to 289. Ambulated 1999' with standby assistance using a rolling walker. Up and down 15 steps with standby ass istance. Ambulated 250 feet and 500 feet with standby assistance using a rolling walker. VITAL SIGNS Temperature: 97.4 F SBP/DBP: 142/66 Pulse: 63 Resp: 16 MEDICATION ALLERGIES: CHRISTINE Inhibitor Trulicity Jardiance Metformin Januvia ENVIRONMENTAL ALLERGIES: Iodine - Substance Allergies None Known - Other Allergies None Known NURSING: - Shower allowing shower - Bladder care per protocol - Skin care per protocol ACTIVITIES OOB only with supervision THERAPIES: - Orthotics/Prosthetics Orthotic Evaluation. Splinting/Casting. - Dietary and Nutrition Adequate Nutrition. Nutritional Education. Nutritional Supplements. PHYSICAL EXAM - Gen Alert and awake Lying in bed No apparent distress Oriented to: person, time, and place - Skin No skin breakdown. No abnormalities - Eyes No abnormalities - ENMT No abnormalities - Neck No abnormalities - CVS RRR - Chest No abnormalities - Resp Clear to auscultation - Abd + bowel sounds - GI Non distended Deferred - No abnormalities - Ext No significant edema - MSK 4+/5 weakness in both lower extremities. - Neuro No focal deficits - Psych No abnormalities ASSESSMENT: Pt. is a 78 yo Right-handed white female.On 03/15/2019 she was admitted to [facility] with diagnosis L3-L4 Spinal Stenosis.Her impairment category is Spinal Cord Dysfunction 04 - Other Non-traumatic Spinal Cord Dysfunction (04.130).Pre-morbidly, Pt. was independent/mod-I in [place] motion, Balance, Safety Awareness, Social Cognition, Transfers Control, Self-Care, Sphincter Control, Communication, and Endurance; and she had good Locomotion, Safety Awareness, Balance, Transfers Cont rol, Self-Care, Communication, and Endurance.Currently, she has deficits of Locomotion, Balance, Safe ty Awareness, Transfers Control, Self-Care, and Endurance.Pt. is now referred to [facility] for acute in-patient rehabilitation in order to maximize patient's functional independe nce in activities of daily living, strength, ROM, and mobility.- Rehab Goal Patient has realistic goal of being discharged at assistance level 6-Adeola to reside at Home with Fam librado/Relatives. MDM/PLAN: - Physical Therapy Gait dysfunction - to improve, our physical therapists will perform initial evaluation of pt's statu s upon admission and devise an individualized program for Gait Training, and Wheel Chair mobility Inability to transfer - to improve, our physical therapists will perform initial evaluation of pt's status upon admission and devise an individualized program for Bed mobility Need for home safety evaluation - to improve, our physical therapists will perform initial evaluatio n of pt's status upon admission and devise an individualized program for Home Evaluation Need in caregiver upon discharge - to improve, our physical therapists will perform initial evaluati on of pt's status upon admission and devise an individualized program for Caregiver Training Edema - to improve, our physical therapists will perform initial evaluation of pt's status upon admi ssion and devise an individualized program for Elevation Training, and Lymphedema Therapy New precaution - to improve, our physical therapists will perform initial evaluation of pt's status upon admission and devise an individualized program for Patient precaution education Poor balance - to improve, our physical therapists will perform initial evaluation of pt's status up on admission and devise an individualized program for Balance Training Poor endurance - to improve, our physical therapists will perform initial evaluation of pt's status upon admission and devise an individualized program for Endurance Training Weakness - to improve, our physical therapists will perform initial evaluation of pt's status upon a dmission and devise an individualized program for Aquatic Therapy, Neuromuscular Reeducation, and Str engthening Achieving independence - to improve, our physical therapists will perform initial evaluation of pt's status upon admission and devise an individualized program for Community Reintegration Activities - Occupational Therapy ADL deficits - to improve, our occupation therapists will perform initial evaluation of pt's status upon admission and devise an individualized program for Bathing, Bed mobility, Community Reintegratio n, Cooking, Dressing, Eating, Fine Motor Skills, Grooming, Homemaking, Kitchen Mobility, Laundry, Pat ient Education, Safety Awareness, Splinting - Positioning, Transfers(Toilet, Tub, Shower), and Wheel Chair Management Need for animal care supervisor - to improve, our occupation therapists will perform initial evaluation of pt's status upon admission and devise an individualized program for Caregiver Training Weakness - to improve, our occupation therapists will perform initial evaluation of pt's status upon admission and devise an individualized program for Aquatic Therapy, Balance, Endurance, UE ROM, and UE strengthening - Other See attached MAR (Medication Administration Record) - Diet Type Continue Regular - Diet - Liquid Texture Continue Regular - Tube Feed Continue N/A - Bladder care per protocol - Skin care per protocol - Diet - Solid Texture Continue Regular - Shower allowing shower FUNCTIONAL STATUS: UPDATED AT WEEKLY TEAM CONFERENCE - Bladder Same accident frequency: 7-Ind - No accidents in the past 7 days - Bowel Same accident frequency: 7-Ind - No accidents in the past 7 days - Walking Same score based on distance walked: 0(N/A) Same score based on distance walked: 3(>=150ft) - Wheelchair Same score based on distance traveled: 0(N/A) FUNCTIONAL STATUS: - Self-Care A. Eating Ind B. Grooming Ind C. Bathing Med D. Dressing - Upper [place] E. Dressing - Lower sup F. Toileting sup - Sphincter Control G. Bladder control Ind H. Bowel control Ind - Transfers Control I. Bed/Chair/Wheelchair sup J. Toilet sup K. Tub/Shower sup - Locomotion L. Walk/Wheelchair (B) Med M. Stairs Med - Communication N. Comprehension (B) Ind O. Expression (B) Ind - Social Cognition P. Social Interaction Ind Q. Problem Solving Ind R. Memory Ind - Endurance Good - Balance Good - Safety Awareness Good QI SCORES: - Self-Care A. Eating 05-Setup or clean-up assistance B. Oral hygiene 05-Setup or clean-up assistance C. Toileting hygiene 05-Setup or clean-up assistance E. Shower/bathe self 03-Partial/moderate assistance F. Upper body dressing 03-Partial/moderate assistance G. Lower body dressing 02-Substantial/maximal assistance H. Putting on/taking off footwear 02-Substantial/maximal assistance - Mobility A. Roll left and right 03-Partial/moderate assistance B. Sit to lying 03-Partial/moderate assistance C. Lying to sitting on side of bed 03-Partial/moderate assistance D. Sit to stand 04-Supervision or touching assistance E. Chair/agd-ll-llxww transfer 04-Supervision or touching assistance F. Toilet transfer 04-Supervision or touching assistance G. Car transfer 88-Not attempted due to medical condition or safety concerns I. Walk 10 feet 04-Supervision or touching assistance J. Walk 50 feet with two turns 04-Supervision or touching assistance K. Walk 150 feet 04-Supervision or touching assistance L. Walking 10 feet on uneven surfaces 88-Not attempted due to medical condition or safety concerns M. 1 step (curb) 88-Not attempted due to medical condition or safety concerns N. 4 steps 88-Not attempted due to medical condition or safety concerns O. 12 steps 88-Not attempted due to medical condition or safety concerns P. Picking up object 88-Not attempted due to medical condition or safety concerns R. Wheel 50 feet with two turns 88-Not attempted due to medical condition or safety concerns S. Wheel 150 feet 88-Not attempted due to medical condition or safety concerns - Bladder and Bowel Bladder continence 0-Always continent Bowel continence 0-Always continent - Endurance Fair - Balance Fair - Safety Awareness Fair CURRENT [facility]. DEFICITS: Self-Care, Mobility, Endurance, Balance, and Safety Awareness SIGNATURE PANEL: (OVEN DAUBER)
--- NOTE | 2019-03-22 21:48 | P.PN ---
Subjective Date of Service: 03/22/19 Chief Complaint: L FOOT ULCER SMALL LATERAL ON THE 5TH TOE AND WAS STEPPED ON BY OTHER PT Subjective: Improving SHE AT HOME NEVER TOOK INSULIN DAILY. SO SUSPECT SAME WITH MEDS. I WILL SEE HOW SHE DOES WITH LIVIING. MS. MILLIGAN IS 78 YRS OLD , HAS BEEN TO [facility] HAD L SIDE LATERAL TOE SKIN SCRAPED OFF AND HAS ULCER SINCE THEN, IT IS A VERY SMALL DRY ULCER. SHE JUST RECENTLY HAS HAD FULL VASCULAR PROCEDURES DONE BOTH SIDES, INCLUDING ATHERECTOMY BY [facility]. SHE HAS DONE WELL WITH THE PROCEDURES. SHE IS FEELING WELL. Physical Examination - Vital Signs Temperature: 97.8 F Blood Pressure: 142/66 Pulse: 63 Respirations: 16 Pulse Ox (%): 95 - Studies Medications List Reviewed: Yes Assessment And Plan - Current Problems (Diagnosis) (1) Lumbar disc disease Current Visit: Yes Status: Chronic Plan: SHE HAS NO MORE PAIN LIKE SHE HAD. SHE HAS AGREED TO . LIVING NOW. (2) Diabetes Onset Date: 09/25/15 Current Visit: No Status: Acute Plan: WILL FU ON DAILY BASIS. TRY TO SEE IF TABLETS WILL SUFFICE. REDUCE LANTUS AND START GLIMERIDE 4 MG DAILY. 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 CLEAN. NO NEED OF DEBRIDEMENT. APPLY BACTROBAN OINTMENT BID. KEFLEX TID FOR 5 DAYS WILL FU RTNLY. FORTUNATELY SHE JUST HAD ALL VASCULAR DAMAGE REPAIRED ON BOTH LEGS. 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 Qualifiers: Diabetic foot ulcer location: toe
[2019-03-23] MEDS: CEPHALEXIN 250 MG CAP PO SCH ×5 (00:37→23:29)
[2019-03-23] MEDS: ACETAMINOPHEN 500 MG TAB PO PRN ×2 (00:39→20:08)
[2019-03-23] MEDS: INSULIN -REGULAR HUMAN 50 UNIT/0.5 ML ML SQ SCH ×4 (07:30→20:11)
[2019-03-23] MEDS: MUPIROCIN 2% OINT 22GM TUBE TOP SCH ×2 (08:00→20:10)
[2019-03-23] MEDS: MAGNESIUM OXIDE 400 MG TAB PO SCH (08:00)
[2019-03-23] MEDS: PROMOD 30 ML DOSE PO SCH ×2 (08:00→20:00)
[2019-03-23] MEDS: DULOXETINE 30 MG CAP PO SCH (08:18)
[2019-03-23] MEDS: GLIMEPIRIDE 2 MG TABLET PO SCH (08:19)
[2019-03-23] MEDS: METFORMIN ER 500 MG TAB PO SCH ×2 (08:19→17:06)
[2019-03-23] MEDS: SITAGLIPTIN PHOS 100 MG TAB PO SCH (08:19)
[2019-03-23] MEDS: MEMANTINE HCL 10 MG TABLET PO SCH (08:20)
[2019-03-23] MEDS: APIXABAN 5 MG TABLET PO SCH ×2 (08:20→20:08)
--- NOTE | 2019-03-23 16:45 | R.PN ---
ENCOUNTER DATE AND TIME: 03/23/2019 16:41 (TOP CASE ASSEMBLER) NAME LEO MILLIGAN DATE OF : 1940 DATE OF ADMISSION: 03/16/2019 17:56 (TOP CASE ASSEMBLER) L3-L4 Spinal StenosisCHIEF COMPLAINT: Lumbar spinal stenosis SUBJECTIVE: Pt denied any Shortness of Breath. Pt denied any depression. WBC 12.2, Hgb 12.1, Glucose 94 to 117. Ambulated 1000' with independence using a rolling walker. Up and down 15 steps with standby assistan ce. VITAL SIGNS Temperature: 97.4 F SBP/DBP: 154/66 Pulse: 61 Resp: 15 MEDICATION ALLERGIES: CHRISTINE Inhibitor Trulicity Jardiance Metformin Januvia ENVIRONMENTAL ALLERGIES: Iodine - Substance Allergies None Known - Other Allergies None Known NURSING: - Shower allowing shower - Bladder care per protocol - Skin care per protocol ACTIVITIES OOB only with supervision THERAPIES: - Orthotics/Prosthetics Orthotic Evaluation. Splinting/Casting. - Dietary and Nutrition Adequate Nutrition. Nutritional Education. Nutritional Supplements. PHYSICAL EXAM - Gen Alert and awake Lying in bed No apparent distress Oriented to: person, time, and place - Skin No skin breakdown. No abnormalities - Eyes No abnormalities - ENMT No abnormalities - Neck No abnormalities - CVS RRR - Chest No abnormalities - Resp Clear to auscultation - Abd + bowel sounds - GI Non distended Deferred - No abnormalities - Ext No significant edema - MSK 4+/5 weakness in both lower extremities. - Neuro No focal deficits - Psych No abnormalities ASSESSMENT: Pt. is a 78 yo Right-handed white female.On 03/15/[address] [facility] with diagnosis L3-L4 Spinal Stenosis.Her impairment category is Spinal Cord Dysfunction 04 - Other Non-traumatic Spinal Cord Dysfunction (04.130).Pre-morbidly, Pt. was independent/mod-I in [place] motion, Balance, Safety Awareness, Social Cognition, Transfers Control, Self-Care, Sphincter Control, Communication, and Endurance; and she had good Locomotion, Safety Awareness, Balance, Transfers Cont rol, Self-Care, Communication, and Endurance.Currently, she has deficits of Locomotion, Balance, Safe ty Awareness, Transfers Control, Self-Care, and Endurance.Pt. is now referred to [facility] for acute in-patient rehabilitation in order to maximize patient's functional independe nce in activities of daily living, strength, ROM, and mobility.- Rehab Goal Patient has realistic goal of being discharged at assistance level 6-Adeola to reside at Home with Fam librado/Relatives. MDM/PLAN: - Physical Therapy Gait dysfunction - to improve, our physical therapists will perform initial evaluation of pt's statu s upon admission and devise an individualized program for Gait Training, and Wheel Chair mobility Inability to transfer - to improve, our physical therapists will perform initial evaluation of pt's status upon admission and devise an individualized program for Bed mobility Need for home safety evaluation - to improve, our physical therapists will perform initial evaluatio n of pt's status upon admission and devise an individualized program for Home Evaluation Need in caregiver upon discharge - to improve, our physical therapists will perform initial evaluati on of pt's status upon admission and devise an individualized program for Caregiver Training Edema - to improve, our physical therapists will perform initial evaluation of pt's status upon admi ssion and devise an individualized program for Elevation Training, and Lymphedema Therapy New precaution - to improve, our physical therapists will perform initial evaluation of pt's status upon admission and devise an individualized program for Patient precaution education Poor balance - to improve, our physical therapists will perform initial evaluation of pt's status up on admission and devise an individualized program for Balance Training Poor endurance - to improve, our physical therapists will perform initial evaluation of pt's status upon admission and devise an individualized program for Endurance Training Weakness - to improve, our physical therapists will perform initial evaluation of pt's status upon a dmission and devise an individualized program for Aquatic Therapy, Neuromuscular Reeducation, and Str engthening Achieving independence - to improve, our physical therapists will perform initial evaluation of pt's status upon admission and devise an individualized program for Community Reintegration Activities - Occupational Therapy ADL deficits - to improve, our occupation therapists will perform initial evaluation of pt's status upon admission and devise an individualized program for Bathing, Bed mobility, Community Reintegratio n, Cooking, Dressing, Eating, Fine Motor Skills, Grooming, Homemaking, Kitchen Mobility, Laundry, Pat ient Education, Safety Awareness, Splinting - Positioning, Transfers(Toilet, Tub, Shower), and Wheel Chair Management Need for transitions rn care coordinator - to improve, our occupation therapists will perform initial evaluation of pt's status upon admission and devise an individualized program for Caregiver Training Weakness - to improve, our occupation therapists will perform initial evaluation of pt's status upon admission and devise an individualized program for Aquatic Therapy, Balance, Endurance, UE ROM, and UE strengthening - Other See attached MAR (Medication Administration Record) - Diet Type Continue Regular - Diet - Liquid Texture Continue Regular - Tube Feed Continue N/A - Bladder care per protocol - Skin care per protocol - Diet - Solid Texture Continue Regular - Shower allowing shower FUNCTIONAL STATUS: UPDATED AT WEEKLY TEAM CONFERENCE - Bladder Same accident frequency: 7-Ind - No accidents in the past 7 days - Bowel Same accident frequency: 7-Ind - No accidents in the past 7 days - Walking Same score based on distance walked: 0(N/A) Same score based on distance walked: 3(>=150ft) - Wheelchair Same score based on distance traveled: 0(N/A) FUNCTIONAL STATUS: - Self-Care A. Eating Ind B. Grooming Ind C. Bathing Med D. Dressing - Upper [place] E. Dressing - Lower sup F. Toileting sup - Sphincter Control G. Bladder control Ind H. Bowel control Ind - Transfers Control I. Bed/Chair/Wheelchair sup J. Toilet sup K. Tub/Shower sup - Locomotion L. Walk/Wheelchair (B) Med M. Stairs Med - Communication N. Comprehension (B) Ind O. Expression (B) Ind - Social Cognition P. Social Interaction Ind Q. Problem Solving Ind R. Memory Ind - Endurance Good - Balance Good - Safety Awareness Good QI SCORES: - Self-Care A. Eating 05-Setup or clean-up assistance B. Oral hygiene 05-Setup or clean-up assistance C. Toileting hygiene 05-Setup or clean-up assistance E. Shower/bathe self 03-Partial/moderate assistance F. Upper body dressing 03-Partial/moderate assistance G. Lower body dressing 02-Substantial/maximal assistance H. Putting on/taking off footwear 02-Substantial/maximal assistance - Mobility A. Roll left and right 03-Partial/moderate assistance B. Sit to lying 03-Partial/moderate assistance C. Lying to sitting on side of bed 03-Partial/moderate assistance D. Sit to stand 04-Supervision or touching assistance E. Chair/kxl-tr-wixzs transfer 04-Supervision or touching assistance F. Toilet transfer 04-Supervision or touching assistance G. Car transfer 88-Not attempted due to medical condition or safety concerns I. Walk 10 feet 04-Supervision or touching assistance J. Walk 50 feet with two turns 04-Supervision or touching assistance K. Walk 150 feet 04-Supervision or touching assistance L. Walking 10 feet on uneven surfaces 88-Not attempted due to medical condition or safety concerns M. 1 step (curb) 88-Not attempted due to medical condition or safety concerns N. 4 steps 88-Not attempted due to medical condition or safety concerns O. 12 steps 88-Not attempted due to medical condition or safety concerns P. Picking up object 88-Not attempted due to medical condition or safety concerns R. Wheel 50 feet with two turns 88-Not attempted due to medical condition or safety concerns S. Wheel 150 feet 88-Not attempted due to medical condition or safety concerns - Bladder and Bowel Bladder continence 0-Always continent Bowel continence 0-Always continent - Endurance Fair - Balance Fair - Safety Awareness Fair CURRENT [facility]. DEFICITS: Self-Care, Mobility, Endurance, Balance, and Safety Awareness SIGNATURE PANEL: (TOP CASE ASSEMBLER)
[2019-03-23] MEDS: ATORVASTATIN 20 MG TAB PO SCH (20:07)
[2019-03-23] MEDS: BACLOFEN 10 MG TAB PO SCH (20:07)
[2019-03-23] MEDS: DIPHENHYDRAMINE 25 MG TAB/CAP PO PRN (20:09)
[2019-03-23] MEDS: METOPROLOL TAR 50 MG TAB PO SCH (20:09)
[2019-03-23] MEDS: GABAPENTIN 100 MG CAP PO SCH (20:11)
[2019-03-23] MEDS ORDERED: INSULIN GLARGINE 100 UNITS/ML SQ SCH (21:00)
[2019-03-24] MEDS: CEPHALEXIN 250 MG CAP PO SCH (05:32)
[2019-03-24] MEDS: INSULIN -REGULAR HUMAN 50 UNIT/0.5 ML ML SQ SCH ×4 (07:30→20:43)
[2019-03-24] MEDS: PROMOD 30 ML DOSE PO SCH ×2 (08:00→20:00)
[2019-03-24] MEDS: MUPIROCIN 2% OINT 22GM TUBE TOP SCH ×2 (08:00→20:44)
[2019-03-24] MEDS: MAGNESIUM OXIDE 400 MG TAB PO SCH (08:00)
[2019-03-24] MEDS: SITAGLIPTIN PHOS 100 MG TAB PO SCH (09:05)
[2019-03-24] MEDS: GLIMEPIRIDE 2 MG TABLET PO SCH (09:05)
[2019-03-24] MEDS: METFORMIN ER 500 MG TAB PO SCH ×2 (09:05→17:38)
[2019-03-24] MEDS: MEMANTINE HCL 10 MG TABLET PO SCH (09:05)
[2019-03-24] MEDS: DULOXETINE 30 MG CAP PO SCH (09:05)
[2019-03-24] MEDS: APIXABAN 5 MG TABLET PO SCH ×2 (09:06→20:42)
[2019-03-24] MEDS: ACETAMINOPHEN 500 MG TAB PO PRN (09:10)
[2019-03-24] MEDS: SMZ./TMP. 800/160 MG TABLET PO SCH ×2 (09:10→20:42)
--- NOTE | 2019-03-24 16:19 | FAST ---
ENCOUNTER DATE AND TIME: 03/24/2019 08:00 (AIRSET CASTER) NAME LEO MILLIGAN DATE OF : 1940 DATE OF ADMISSION: 03/16/2019 17:56 (AIRSET CASTER) PHONE: AGE: 78 N# [id number] GENDER: Female ENCOUNTER PHYSICIAN: Dr. Yang Adams M.D. 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 EATING: Not assessed/no information CODE: - ORAL HYGIENE: ORAL HYGIENE - STEP 1: Does the patient complete the activity by him/herself with no assistance (physical, verbal/nonverbal cueing, setup/clean-up)? Yes. 1. [id number] ADMISSION PERFORMANCE: Independent CODE: 06 TOILETING HYGIENE: TOILETING HYGIENE - STEP 1: Does the patient complete the activity by him/herself with no assistance (physical, verbal/nonverbal cueing, setup/clean-up)? Yes. 1. [id number] ADMISSION PERFORMANCE: Independent CODE: 06 BATHING: SHOWER/BATHE SELF - STEP 1: Does the patient complete the activity by him/herself with no assistance (physical, verbal/nonverbal cueing, setup/clean-up)? Yes. 1. [id number] ADMISSION PERFORMANCE: Independent CODE: 06 DRESSING - UPPER BODY: DRESSING - UPPER BODY - STEP 1: Does the patient complete the activity by him/herself with no assistance (physical, verbal/nonverbal cueing, setup/clean-up)? Yes. 1. [id number] ADMISSION PERFORMANCE: Independent CODE: 06 DRESSING - LOWER BODY: DRESSING - LOWER BODY - STEP 1: Does the patient complete the activity by him/herself with no assistance (physical, verbal/nonverbal cueing, setup/clean-up)? Yes. 1. [id number] ADMISSION PERFORMANCE: Independent CODE: 06 PUTTING ON/TAKING OFF FOOTWEAR: FOOTWEAR - STEP 1: Does the patient complete the activity by him/herself with no assistance (physical, verbal/nonverbal cueing, setup/clean-up)? Yes. 1. [id number] ADMISSION PERFORMANCE: Independent CODE: 06 DOES THE PATIENT USE A WHEELCHAIR/SCOOTER? CODE: EXPR INDICATE THE TYPE OF WHEELCHAIR/SCOOTER USED: CODE: EXPR INDICATE THE TYPE OF WHEELCHAIR/SCOOTER USED: CODE: EXPR BLADDER AND BOWEL: CODE: EXPR CODE: EXPR SIGNATURE PANEL: The following modified sections: 1. [id number] Admission Performance, 1. [id number] Admission Performance, 1. [id number] Admission Performance, 1. [id number] Admission Performance, 1. [id number] Admission Performance, 1. [id number] Admission Performance were [electronically] signed by MARYELLEN Justice on FriMar 24 2019 16:18:55 GMT-0600 (Central Standard Time)
--- NOTE | 2019-03-24 17:44 | PN ---
Subjective: Ms. Sharpe is doing great. Denies any chest pain, nausea, vomiting. Her left second toe , which was stepped on by someone, has shown some infection. Keflex has failed, so I am changing ove r to Bactrim DS 1 p.o. b.i.d. We will await for MRI because in the rehab facility, we cannot do MRI as it is a DRG payment system for rehab. Otherwise, clinically she is stable. Physical Examination: General: Comfortable, sitting in a chair. Vital Signs: Blood pressure 156/76, temperature 97.6. HEENT: No JVD. No carotid bruits. Chest: Clear. Heart: Regular. Laboratory Data: Glucose has come down now down to 87 to 115 to 63, and at this point, I will be sto pping insulin. Assessment And Plannin.Diabetes mellitus. Stop insulin. We will continue metabolites at this point. With I think contr olled environment in the assisted living facility, she will have a better control of diabetes. At ho nv, she was not taking medications and not eating properly. 2.High blood pressure. History of radiculopathy, history of vestibular basilar syndrome. All of th is is stable at this point. Discharging tomorrow. RVD/MODL Voice ID: [id number] Report ID: [id number]
[2019-03-24] MEDS: METOPROLOL TAR 50 MG TAB PO SCH (20:42)
[2019-03-24] MEDS: ATORVASTATIN 20 MG TAB PO SCH (20:42)
[2019-03-24] MEDS: DIPHENHYDRAMINE 25 MG TAB/CAP PO PRN (20:43)
[2019-03-24] MEDS: GABAPENTIN 100 MG CAP PO SCH (20:43)
[2019-03-24] MEDS: BACLOFEN 10 MG TAB PO SCH (20:43)
--- NOTE | 2019-03-24 21:41 | R.PN ---
ENCOUNTER DATE AND TIME: 03/24/2019 21:35 (FINANCIAL PLANNING ADVISER) NAME LEO MILLIGAN DATE OF : 1940 DATE OF ADMISSION: 03/16/2019 17:56 (FINANCIAL PLANNING ADVISER) L3-L4 Spinal StenosisCHIEF COMPLAINT: Lumbar spinal stenosis SUBJECTIVE: Pt denied any Shortness of Breath. Pt denied any depression. WBC 12.2, Hgb 12.1, Glucose 94 to 117. Ambulated 1000' with independence using a rolling walker. Up and down 15 steps with standby assistan ce. VITAL SIGNS Temperature: 97.2 F SBP/DBP: 130/73 Pulse: 61 Resp: 15 MEDICATION ALLERGIES: CHRISTINE Inhibitor Trulicity Jardiance Metformin Januvia ENVIRONMENTAL ALLERGIES: Iodine - Substance Allergies None Known - Other Allergies None Known NURSING: - Shower allowing shower - Bladder care per protocol - Skin care per protocol ACTIVITIES OOB only with supervision THERAPIES: - Orthotics/Prosthetics Orthotic Evaluation. Splinting/Casting. - Dietary and Nutrition Adequate Nutrition. Nutritional Education. Nutritional Supplements. PHYSICAL EXAM - Gen Alert and awake Lying in bed No apparent distress Oriented to: person, time, and place - Skin No skin breakdown. No abnormalities - Eyes No abnormalities - ENMT No abnormalities - Neck No abnormalities - CVS RRR - Chest No abnormalities - Resp Clear to auscultation - Abd + bowel sounds - GI Non distended Deferred - No abnormalities - Ext No significant edema - MSK 4+/5 weakness in both lower extremities. - Neuro No focal deficits - Psych No abnormalities ASSESSMENT: Pt. 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 was independent/mod-I in [place] motion, Balance, Safety Awareness, Social Cognition, Transfers Control, Self-Care, Sphincter Control, Communication, and Endurance; and she had good Locomotion, Safety Awareness, Balance, Transfers Cont rol, Self-Care, Communication, and Endurance.Currently, she has deficits of Locomotion, Balance, Safe ty Awareness, Transfers Control, Self-Care, and Endurance.Pt. is now referred to [facility] for acute in-patient rehabilitation in order to maximize patient's functional independe nce in activities of daily living, strength, ROM, and mobility.- Rehab Goal Patient has realistic goal of being discharged at assistance level 6-Adeola to reside at Home with Fam librado/Relatives. MDM/PLAN: - Physical Therapy Gait dysfunction - to improve, our physical therapists will perform initial evaluation of pt's statu s upon admission and devise an individualized program for Gait Training, and Wheel Chair mobility Inability to transfer - to improve, our physical therapists will perform initial evaluation of pt's status upon admission and devise an individualized program for Bed mobility Need for home safety evaluation - to improve, our physical therapists will perform initial evaluatio n of pt's status upon admission and devise an individualized program for Home Evaluation Need in caregiver upon discharge - to improve, our physical therapists will perform initial evaluati on of pt's status upon admission and devise an individualized program for Caregiver Training Edema - to improve, our physical therapists will perform initial evaluation of pt's status upon admi ssion and devise an individualized program for Elevation Training, and Lymphedema Therapy New precaution - to improve, our physical therapists will perform initial evaluation of pt's status upon admission and devise an individualized program for Patient precaution education Poor balance - to improve, our physical therapists will perform initial evaluation of pt's status up on admission and devise an individualized program for Balance Training Poor endurance - to improve, our physical therapists will perform initial evaluation of pt's status upon admission and devise an individualized program for Endurance Training Weakness - to improve, our physical therapists will perform initial evaluation of pt's status upon a dmission and devise an individualized program for Aquatic Therapy, Neuromuscular Reeducation, and Str engthening Achieving independence - to improve, our physical therapists will perform initial evaluation of pt's status upon admission and devise an individualized program for Community Reintegration Activities - Occupational Therapy ADL deficits - to improve, our occupation therapists will perform initial evaluation of pt's status upon admission and devise an individualized program for Bathing, Bed mobility, Community Reintegratio n, Cooking, Dressing, Eating, Fine Motor Skills, Grooming, Homemaking, Kitchen Mobility, Laundry, Pat ient Education, Safety Awareness, Splinting - Positioning, Transfers(Toilet, Tub, Shower), and Wheel Chair Management Need for child day care provider - to improve, our occupation therapists will perform initial evaluation of pt's status upon admission and devise an individualized program for Caregiver Training Weakness - to improve, our occupation therapists will perform initial evaluation of pt's status upon admission and devise an individualized program for Aquatic Therapy, Balance, Endurance, UE ROM, and UE strengthening - Other See attached MAR (Medication Administration Record) - Diet Type Continue Regular - Diet - Liquid Texture Continue Regular - Tube Feed Continue N/A - Bladder care per protocol - Skin care per protocol - Diet - Solid Texture Continue Regular - Shower allowing shower FUNCTIONAL STATUS: UPDATED AT WEEKLY TEAM CONFERENCE - Bladder Same accident frequency: 7-Ind - No accidents in the past 7 days - Bowel Same accident frequency: 7-Ind - No accidents in the past 7 days - Walking Same score based on distance walked: 0(N/A) Same score based on distance walked: 3(>=150ft) - Wheelchair Same score based on distance traveled: 0(N/A) FUNCTIONAL STATUS: - Self-Care A. Eating Ind B. Grooming Ind C. Bathing Med D. Dressing - Upper [place] E. Dressing - Lower sup F. Toileting sup - Sphincter Control G. Bladder control Ind H. Bowel control Ind - Transfers Control I. Bed/Chair/Wheelchair sup J. Toilet sup K. Tub/Shower sup - Locomotion L. Walk/Wheelchair (B) Med M. Stairs Med - Communication N. Comprehension (B) Ind O. Expression (B) Ind - Social Cognition P. Social Interaction Ind Q. Problem Solving Ind R. Memory Ind - Endurance Good - Balance Good - Safety Awareness Good QI SCORES: - Self-Care A. Eating 05-Setup or clean-up assistance B. Oral hygiene 05-Setup or clean-up assistance C. Toileting hygiene 05-Setup or clean-up assistance E. Shower/bathe self 03-Partial/moderate assistance F. Upper body dressing 03-Partial/moderate assistance G. Lower body dressing 02-Substantial/maximal assistance H. Putting on/taking off footwear 02-Substantial/maximal assistance - Mobility A. Roll left and right 03-Partial/moderate assistance B. Sit to lying 03-Partial/moderate assistance C. Lying to sitting on side of bed 03-Partial/moderate assistance D. Sit to stand 04-Supervision or touching assistance E. Chair/[id number] transfer 04-Supervision or touching assistance F. Toilet transfer 04-Supervision or touching assistance G. Car transfer 88-Not attempted due to medical condition or safety concerns I. Walk 10 feet 04-Supervision or touching assistance J. Walk 50 feet with two turns 04-Supervision or touching assistance K. Walk 150 feet 04-Supervision or touching assistance L. Walking 10 feet on uneven surfaces 88-Not attempted due to medical condition or safety concerns M. 1 step (curb) 88-Not attempted due to medical condition or safety concerns N. 4 steps 88-Not attempted due to medical condition or safety concerns O. 12 steps 88-Not attempted due to medical condition or safety concerns P. Picking up object 88-Not attempted due to medical condition or safety concerns R. Wheel 50 feet with two turns 88-Not attempted due to medical condition or safety concerns S. Wheel 150 feet 88-Not attempted due to medical condition or safety concerns - Bladder and Bowel Bladder continence 0-Always continent Bowel continence 0-Always continent - Endurance Fair - Balance Fair - Safety Awareness Fair CURRENT [facility]. DEFICITS: Self-Care, Mobility, Endurance, Balance, and Safety Awareness SIGNATURE PANEL: (FINANCIAL PLANNING ADVISER)
[2019-03-25 06:32] LABS: Absolute Lymphocytes (CBC) 2.7 K/uL (0.7-4.9); Basophils % 1.2 % (0-1.3); Hematocrit 34.1 % (36.0-45.0); Lymphocytes % 30.2 % (15.3-44.8); MPV 9.1 fL (7.6-11.3); RBC Red Blood Cell Count 4.02 M/uL (3.86-4.86)
[2019-03-25 06:56] LABS: Albumin 3.3 g/dL (3.4-5.0); Potassium 4.4 mmol/L (3.5-5.1); Prealbumin 16.2 mg/dL (20-40)
[2019-03-25 07:24] VITALS: BP 120/71; TEMP 96.8
[2019-03-25] MEDS: INSULIN -REGULAR HUMAN 50 UNIT/0.5 ML ML SQ SCH ×2 (07:30→11:30)
[2019-03-25] MEDS: PROMOD 30 ML DOSE PO SCH (08:00)
[2019-03-25] MEDS: GLIMEPIRIDE 2 MG TABLET PO SCH (08:00)
[2019-03-25] MEDS: MUPIROCIN 2% OINT 22GM TUBE TOP SCH (08:00)
[2019-03-25] MEDS ORDERED: GLIMEPIRIDE 2 MG TABLET PO SCH (08:15)
[2019-03-25] MEDS: SITAGLIPTIN PHOS 100 MG TAB PO SCH (09:00)
[2019-03-25] MEDS: METFORMIN ER 500 MG TAB PO SCH (09:00)
[2019-03-25] MEDS: APIXABAN 5 MG TABLET PO SCH (09:00)
[2019-03-25] MEDS: MEMANTINE HCL 10 MG TABLET PO SCH (09:00)
[2019-03-25] MEDS: MAGNESIUM OXIDE 400 MG TAB PO SCH (09:01)
[2019-03-25] MEDS: DULOXETINE 30 MG CAP PO SCH (09:01)
[2019-03-25] MEDS: SMZ./TMP. 800/160 MG TABLET PO SCH (09:02)
[2019-03-25] MEDS: ACETAMINOPHEN 500 MG TAB PO PRN (09:02)
--- NOTE | 2019-03-25 13:35 | FAST ---
SHIFT START DATE/TIME: 03/25/2019 07:00 (FUNERAL HOME ASSISTANT) SHIFT END DATE/TIME: 03/25/2019 19:00 (FUNERAL HOME ASSISTANT) NAME LEO MILLIGAN DATE OF : 1940 DATE OF ADMISSION: 03/16/2019 17:56 (FUNERAL HOME ASSISTANT) PHONE: AGE: 78 SSN# [id number] GENDER: Female ENCOUNTER PHYSICIAN: Dr. Yang Adams M.D. 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 EATING: EATING - STEP 1: Does the patient complete the activity by him/herself with no assistance (physical, verbal/nonverbal cueing, setup/clean-up)? Yes. 1. [id number] ADMISSION PERFORMANCE: Independent CODE: 06 ORAL HYGIENE: ORAL HYGIENE - STEP 1: Does the patient complete the activity by him/herself with no assistance (physical, verbal/nonverbal cueing, setup/clean-up)? Yes. 1. [id number] ADMISSION PERFORMANCE: Independent CODE: 06 TOILETING HYGIENE: TOILETING HYGIENE - STEP 1: Does the patient complete the activity by him/herself with no assistance (physical, verbal/nonverbal cueing, setup/clean-up)? Yes. 1. [id number] ADMISSION PERFORMANCE: Independent CODE: 06 BATHING: Not assessed/no information CODE: - DRESSING - UPPER BODY: DRESSING - UPPER BODY - STEP 1: Does the patient complete the activity by him/herself with no assistance (physical, verbal/nonverbal cueing, setup/clean-up)? Yes. 1. [id number] ADMISSION PERFORMANCE: Independent CODE: 06 DRESSING - LOWER BODY: DRESSING - LOWER BODY - STEP 1: Does the patient complete the activity by him/herself with no assistance (physical, verbal/nonverbal cueing, setup/clean-up)? Yes. 1. [id number] ADMISSION PERFORMANCE: Independent CODE: 06 PUTTING ON/TAKING OFF FOOTWEAR: FOOTWEAR - STEP 1: Does the patient complete the activity by him/herself with no assistance (physical, verbal/nonverbal cueing, setup/clean-up)? Yes. 1. [id number] ADMISSION PERFORMANCE: Independent CODE: 06 ROLL LEFT AND RIGHT: ROLL LEFT AND RIGHT - STEP 1: Does the patient complete the activity by him/herself with no assistance (physical, verbal/nonverbal cueing, setup/clean-up)? Yes. 1. [id number] ADMISSION PERFORMANCE: Independent CODE: 06 SIT TO LYING: SIT TO LYING - STEP 1: Does the patient complete the activity by him/herself with no assistance (physical, verbal/nonverbal cueing, setup/clean-up)? Yes. 1. [id number] ADMISSION PERFORMANCE: Independent CODE: 06 LYING TO SITTING: LYING TO SITTING ON SIDE OF BED - STEP 1: Does the patient complete the activity by him/herself with no assistance (physical, verbal/nonverbal cueing, setup/clean-up)? Yes. 1. [id number] ADMISSION PERFORMANCE: Independent CODE: 06 SIT TO STAND: SIT TO STAND - STEP 1: Does the patient complete the activity by him/herself with no assistance (physical, verbal/nonverbal cueing, setup/clean-up)? Yes. 1. [id number] ADMISSION PERFORMANCE: Independent CODE: 06 TRANSFERS: BED, CHAIR: CHAIR/[id number]-SBUOF TRANSFER - STEP 1: Does the patient complete the activity by him/herself with no assistance (physical, verbal/nonverbal cueing, setup/clean-up)? Yes. 1. [id number] ADMISSION PERFORMANCE: Independent CODE: 06 TRANSFER TOILET: TOILET TRANSFER - STEP 1: Does the patient complete the activity by him/herself with no assistance (physical, verbal/nonverbal cueing, setup/clean-up)? Yes. 1. [id number] ADMISSION PERFORMANCE: Independent CODE: 06 TRANSFERS: CAR: Not assessed/no information CODE: - WALK 10 FEET: Not assessed/no information CODE: - 4 STEPS: Not assessed/no information CODE: - 12 STEPS: PICKING UP OBJECT: Not assessed/no information CODE: - DOES THE PATIENT USE A WHEELCHAIR/SCOOTER? CODE: EXPR WHEEL 50 FEET WITH TWO TURNS: Not assessed/no information CODE: - INDICATE THE TYPE OF WHEELCHAIR/SCOOTER USED: CODE: EXPR WHEEL 150 FEET: Not assessed/no information CODE: - INDICATE THE TYPE OF WHEELCHAIR/SCOOTER USED: CODE: EXPR BLADDER AND BOWEL: H350. BLADDER CONTINENCE (3-DAY ASSESSMENT PERIOD): Always continent (no documented incontinence) CODE: 0 H400. BOWEL CONTINENCE (3-DAY ASSESSMENT PERIOD): Always continent CODE: 0 SIGNATURE PANEL: The following modified sections: 1. [id number] Admission Performance, 1. [id number] Admission Performance, 1. [id number] Admission Performance, 1. [id number] Admission Performance, 1. [id number] Admission Performance, 1. [id number] Admission Performance, 1. [id number] Admission Performance, 1. [id number] Admission Performance , 1. [id number] Admission Performance, 1. [id number] Admission Performance, 1. [id number] Admission Performanc e, 1. [id number] Admission Performance, Code, H350. Bladder Continence (3-day assessment period), H400. Bowel Continence (3-day assessment period) were [electronically] signed by [email or web address] on Mar 25 2019 13:35:21 GMT-0600 (Central Standard Time)
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
--- NOTE | 2019-03-25 22:24 | R.PN ---
ENCOUNTER DATE AND TIME: 03/25/2019 22:14 (FLAVORINGS COMPOUNDER) NAME LEO MILLIGAN DATE OF : 1940 DATE OF ADMISSION: 03/16/2019 17:56 (FLAVORINGS COMPOUNDER) L3-L4 Spinal StenosisCHIEF COMPLAINT: Lumbar spinal stenosis SUBJECTIVE: Pt denied any Shortness of Breath. Pt denied any depression. WBC 12.2, Hgb 12.1, Glucose 94 to 117. Ambulated 1000' with independence using a rolling walker. Up and down 30 steps with independence. VITAL SIGNS Temperature: 97.2 F SBP/DBP: 120/71 Pulse: 68 Resp: 16 MEDICATION ALLERGIES: CHRISTINE Inhibitor Trulicity Jardiance Metformin Januvia ENVIRONMENTAL ALLERGIES: Iodine - Substance Allergies None Known - Other Allergies None Known NURSING: - Shower allowing shower - Bladder care per protocol - Skin care per protocol ACTIVITIES OOB only with supervision THERAPIES: - Orthotics/Prosthetics Orthotic Evaluation. Splinting/Casting. - Dietary and Nutrition Adequate Nutrition. Nutritional Education. Nutritional Supplements. PHYSICAL EXAM - Gen Alert and awake Lying in bed No apparent distress Oriented to: person, time, and place - Skin No skin breakdown. No abnormalities - Eyes No abnormalities - ENMT No abnormalities - Neck No abnormalities - CVS RRR - Chest No abnormalities - Resp Clear to auscultation - Abd + bowel sounds - GI Non distended Deferred - No abnormalities - Ext No significant edema - MSK 4+/5 weakness in both lower extremities. - Neuro No focal deficits - Psych No abnormalities ASSESSMENT: Pt. is a 78 yo Right-handed white female.On 03/15/2019 she was admitted to [facility] with diagnosis L3-L4 Spinal Stenosis.Her impairment category is Spinal Cord Dysfunction 04 - Other Non-traumatic Spinal Cord Dysfunction (04.130).Pre-morbidly, Pt. was independent/mod-I in [place] motion, Balance, Safety Awareness, Social Cognition, Transfers Control, Self-Care, Sphincter Control, Communication, and Endurance; and she had good Locomotion, Safety Awareness, Balance, Transfers Cont rol, Self-Care, Communication, and Endurance.Currently, she has deficits of Locomotion, Balance, Safe ty Awareness, Transfers Control, Self-Care, and Endurance.Pt. is now referred to [facility] for acute in-patient rehabilitation in order to maximize patient's functional independe nce in activities of daily living, strength, ROM, and mobility.- Rehab Goal Patient has realistic goal of being discharged at assistance level 6-Adeola to reside at Home with Fam librado/Relatives. MDM/PLAN: - Physical Therapy Gait dysfunction - to improve, our physical therapists will perform initial evaluation of pt's statu s upon admission and devise an individualized program for Gait Training, and Wheel Chair mobility Inability to transfer - to improve, our physical therapists will perform initial evaluation of pt's status upon admission and devise an individualized program for Bed mobility Need for home safety evaluation - to improve, our physical therapists will perform initial evaluatio n of pt's status upon admission and devise an individualized program for Home Evaluation Need in caregiver upon discharge - to improve, our physical therapists will perform initial evaluati on of pt's status upon admission and devise an individualized program for Caregiver Training Edema - to improve, our physical therapists will perform initial evaluation of pt's status upon admi ssion and devise an individualized program for Elevation Training, and Lymphedema Therapy New precaution - to improve, our physical therapists will perform initial evaluation of pt's status upon admission and devise an individualized program for Patient precaution education Poor balance - to improve, our physical therapists will perform initial evaluation of pt's status up on admission and devise an individualized program for Balance Training Poor endurance - to improve, our physical therapists will perform initial evaluation of pt's status upon admission and devise an individualized program for Endurance Training Weakness - to improve, our physical therapists will perform initial evaluation of pt's status upon a dmission and devise an individualized program for Aquatic Therapy, Neuromuscular Reeducation, and Str engthening Achieving independence - to improve, our physical therapists will perform initial evaluation of pt's status upon admission and devise an individualized program for Community Reintegration Activities - Occupational Therapy ADL deficits - to improve, our occupation therapists will perform initial evaluation of pt's status upon admission and devise an individualized program for Bathing, Bed mobility, Community Reintegratio n, Cooking, Dressing, Eating, Fine Motor Skills, Grooming, Homemaking, Kitchen Mobility, Laundry, Pat ient Education, Safety Awareness, Splinting - Positioning, Transfers(Toilet, Tub, Shower), and Wheel Chair Management Need for geriatric care manager - to improve, our occupation therapists will perform initial evaluation of pt's status upon admission and devise an individualized program for Caregiver Training Weakness - to improve, our occupation therapists will perform initial evaluation of pt's status upon admission and devise an individualized program for Aquatic Therapy, Balance, Endurance, UE ROM, and UE strengthening - Other See attached MAR (Medication Administration Record) - Diet Type Continue Regular - Diet - Liquid Texture Continue Regular - Tube Feed Continue N/A - Bladder care per protocol - Skin care per protocol - Diet - Solid Texture Continue Regular - Shower allowing shower FUNCTIONAL STATUS: UPDATED AT WEEKLY TEAM CONFERENCE - Bladder Same accident frequency: 7-Ind - No accidents in the past 7 days - Bowel Same accident frequency: 7-Ind - No accidents in the past 7 days - Walking Same score based on distance walked: 0(N/A) Same score based on distance walked: 3(>=150ft) - Wheelchair Same score based on distance traveled: 0(N/A) FUNCTIONAL STATUS: - Self-Care A. Eating Ind B. Grooming Ind C. Bathing Med D. Dressing - Upper [place] E. Dressing - Lower sup F. Toileting sup - Sphincter Control G. Bladder control Ind H. Bowel control Ind - Transfers Control I. Bed/Chair/Wheelchair sup J. Toilet sup K. Tub/Shower sup - Locomotion L. Walk/Wheelchair (B) Med M. Stairs Med - Communication N. Comprehension (B) Ind O. Expression (B) Ind - Social Cognition P. Social Interaction Ind Q. Problem Solving Ind R. Memory Ind - Endurance Good - Balance Good - Safety Awareness Good QI SCORES: - Self-Care A. Eating 05-Setup or clean-up assistance B. Oral hygiene 05-Setup or clean-up assistance C. Toileting hygiene 05-Setup or clean-up assistance E. Shower/bathe self 03-Partial/moderate assistance F. Upper body dressing 03-Partial/moderate assistance G. Lower body dressing 02-Substantial/maximal assistance H. Putting on/taking off footwear 02-Substantial/maximal assistance - Mobility A. Roll left and right 03-Partial/moderate assistance B. Sit to lying 03-Partial/moderate assistance C. Lying to sitting on side of bed 03-Partial/moderate assistance D. Sit to stand 04-Supervision or touching assistance E. Chair/lie-pv-zelfr transfer 04-Supervision or touching assistance F. Toilet transfer 04-Supervision or touching assistance G. Car transfer 88-Not attempted due to medical condition or safety concerns I. Walk 10 feet 04-Supervision or touching assistance J. Walk 50 feet with two turns 04-Supervision or touching assistance K. Walk 150 feet 04-Supervision or touching assistance L. Walking 10 feet on uneven surfaces 88-Not attempted due to medical condition or safety concerns M. 1 step (curb) 88-Not attempted due to medical condition or safety concerns N. 4 steps 88-Not attempted due to medical condition or safety concerns O. 12 steps 88-Not attempted due to medical condition or safety concerns P. Picking up object 88-Not attempted due to medical condition or safety concerns R. Wheel 50 feet with two turns 88-Not attempted due to medical condition or safety concerns S. Wheel 150 feet 88-Not attempted due to medical condition or safety concerns - Bladder and Bowel Bladder continence 0-Always continent Bowel continence 0-Always continent - Endurance Fair - Balance Fair - Safety Awareness Fair CURRENT [facility]. DEFICITS: Self-Care, Mobility, Endurance, Balance, and Safety Awareness SIGNATURE PANEL: (FLAVORINGS COMPOUNDER)
--- NOTE | 2019-03-25 23:24 | PN ---
Subjective: Patient is very comfortable, stable to be discharged to assisted living facility. Physical Examination: General: She is physically stable, has no acute complaints. Chest: Clear. Heart: Regular. Abdomen: No guarding, no rebound, no rigidity. Vital Signs: Temperature 96.8, blood pressure 120/70. We could not do MRI on the foot because she is in rehab and on rehab floor, we cannot do expensive te sting, so she will do this on outpatient basis. Plan: I was able to get her off insulin because she is now in a controlled environment as she does n ot eat wrong food. I have her on 3 tablets which include glimepiride 2 mg once a day, I had to reduc e the dose. Januvia 100 mg once a day, metformin 500 mg p.o. b.i.d., and her glucose has been really good so far. She is discharged in stable condition with overall fair prognosis. RVD/MODL Voice ID: [id number] Report ID: [id number]
== END 2019-03-25 15:00 | disposition home or self-care (01) | DRG 552 ==
LOC: 5TH 17:56
PROVIDERS: ADMIT Psychiatry & Neurology Neurology with Special Qualifications in Child Neurology; ATTEND Psychiatry & Neurology Neurology with Special Qualifications in Child Neurology
DX: M48.061 Spinal stenosis, lumbar region without neurogenic claudication (principal); G45.0 Vertebro-basilar artery syndrome; I48.20 Chronic atrial fibrillation, unspecified; I50.32 Chronic diastolic (congestive) heart failure; H82.9 Vertiginous syndromes in diseases classified elsewhere, unspecified ear; G25.81 Restless legs syndrome; M51.9 Unspecified thoracic, thoracolumbar and lumbosacral intervertebral disc disorder; M17.11 Unilateral primary osteoarthritis, right knee; K63.5 Polyp of colon; E11.59 Type 2 diabetes mellitus with other circulatory complications; E11.621 Type 2 diabetes mellitus with foot ulcer; L97.529 Non-pressure chronic ulcer of other part of left foot with unspecified severity; I11.0 Hypertensive heart disease with heart failure; J84.10 Pulmonary fibrosis, unspecified; I69.898 Other sequelae of other cerebrovascular disease; Z95.5 Presence of coronary angioplasty implant and graft
CPT/HCPCS: 36415; 80048; 82040; 82947; 83735; 84134; 85025; 92507; 92523; 97110; 97112; 97116; 97127; 97161; 97167; 97530; 97542; J1815

== ENCOUNTER 2019-08-03 18:08 | Inpatient (IN) | payer OTHER ==
--- OUTSIDE RECORDS SUMMARY | 2019-08-03 18:41 | XMS REPORT | Clinical Summary ---
:1940 Author Organization [facility] Address [address] [place] [address] Care Team Providers Name Role Phone Ricco Sheriff MD Primary Care Provider Allergies Active Allergy Reactions Severity Noted Date Comments Flu Vac 2014 (63 Other (See Comments) 05/21/2018 Thr oat closed up; Up)-Mf59c(Pf) Foamy/Frothy m outh? Iodine Hives 05/21/2018 IVP dye Medications Medication [...] apixaban (ELIQUIS) 5 Take 5 mg by mouth 0 Active mg tablet 2 (two) times a day. pramipexole (MIRAPEX) 3 (three) times a 0 02/18/2018 Active 0.5 MG tablet day as needed. simvastatin (ZOCOR) 40 nightly. 0 02/18/2018 Active MG tablet DULoxetine (CYMBALTA) every morning. 0 02/18/2018 Active 60 MG capsule metoprolol succinate nightly. 0 02/18/2018 Active XL (TOPROL-XL) 50 mg 24 hr tablet gabapentin (NEURONTIN) nightly. 0 03/23/2018 Active 100 mg capsule magnesium oxide Take 400 mg by 0 Active (MAG-OX) 400 mg (241.3 mouth 2 (two) mg magnesium) tablet times a day. budesonide-formoterol Inhale 2 puffs 2 0 Active (SYMBICORT) 160-4.5 (two) times a day. mcg/actuation inhaler Active Problems No known active problems Encounters Date Type Specialty Care Team Description 10/08/2018 Emergency Emergency Medicine Zhen Gonzalez DO Pain and swelling of left lower leg (Primary Dx); Post-op pain after 08/02/2018 Social History Tobacco Use Types Packs/Day Years [...] six or more drinks on one occasion? No t asked Sex Assigned at Date Recorded Not on file Job Start Date Occupation Industry Not on file Not on file Not on file Travel History Travel Start Travel End No recent travel history available. Last Filed Vital Signs Vital Sign Reading Time Taken Comments Blood Pressure 148/65 10/08/2018 4:45 PM CDT Pulse 80 10/08/2018 4:45 PM CDT Temperature 36.8 C (98.2 F) 10/08/2018 1:05 PM CDT Respiratory Rate 22 10/08/2018 4:45 PM CDT Oxygen Saturation 94% 10/08/2018 4:45 PM CDT Inhaled Oxygen Concentration - - Weight - - Height 149.9 cm (4' 11") 10/08/2018 1:00 PM CDT Body Mass Index - - Plan of Treatment Health Maintenance Due Date Last Done Comments DIABETIC RETINAL EYE EXAM 1940 DIABETIC FOOT EXAM 1950 URINE MICROALBUMIN 1950 SHINGLES VACCINES (#1) 1988 65+ PNEUMOCOCCAL VACCINE (2 of 2 - PPSV23) 08/15/200312/08 INFLUENZA VACCINE 10/09/2019 Procedures Procedure Name Priority Date/Time Associated Diagnosis Comme nts US DUPLEX ARTERIAL STAT 10/08/2018 3:29 PM Re sults for this LOWER EXTREMITY CDT procedure ar e in LEFT the results section. US DUPLEX VENOUS STAT 10/08/2018 3:24 PM Resu lts for this LOWER EXTREMITY CDT procedure ar e in LEFT the results section. XR TIBIA FIBULA 2 STAT 10/08/2018 2:02 PM Res ults for this VW LEFT CDT procedure are i n the results section. after 08/02/2018 Results Us duplex arterial lower extremity (10/08/2018 3:29 PM CDT) Specimen Narrative Performed At [facility] EXAM: Left lower extremity arterial Dopp ler HISTORY: Post surgery TECHNIQUE: Real-time as well as pulsed and color Doppl er evaluation of left common femoral, femoral, popliteal, posterior tib ial, anterior tibial, and dorsalis pedis arteries are evaluated. The examination includes a full duplex Doppler scan of t he blood vessels (real-time P mode grayscale, Doppler spectral analysis, and Doppler color flow imaging). IMPRESSION: Patent flow in the left lower extremity without eviden ce of focal flow limiting stenosis. There is mild to mode rate diffuse disease. LEFT LEG: Triphasic waveforms are present from the external michael c through the distal femoral and mid popliteal. Distal popliteal osmin w is monophasic, with return to biphasic flow in the proximal posterior tibial and anterior tibial artery. Mid anterior tib ial artery flow is monophasic, but becomes biphasic distal ly. Dorsalis pedis artery flow is biphasic. PEAK SYSTOLIC VELOCITIES: COMMON FEMORAL: 126 cm/s FEMORAL: Proximal: 90 cm/s Mid: 118 cm/s Distal: 115 cm/s POPLITEAL: Proximal: 162 cm/s Mid: 101 cm/s Distal: 76 cm/s POSTERIOR TIBIAL: Proximal: 41 cm/s Mid: 46 cm/s Distal: 43 cm/s ANTERIOR TIBIAL: Proximal: 113 cm/s Mid: 134 cm/s Distal: 33 cm/s DORSALIS PEDIS: 40 cm/[id number] Procedure Note Interface, Radiology Results Incoming - 10/08/2018 3:55 PM CDT EXAM: Left lower extremity arterial Dopp ler HISTORY: Post surgery TECHNIQUE: Real-time as well as pulsed a nd color Doppler evaluation of left common femoral, femoral, popliteal, posterior tibial, anterior tibial, and dorsalis pedis arteries are evaluated. The examination includes a full duplex Doppler scan of t he blood vessels (real-time P mode grayscale, Do ppler spectral analysis, and Doppler color flow imaging). IMPRESSION: Patent flow in the left lower extremity without evidence of focal flow limiting stenosis. There is mild to moderate diffuse disease. LEFT LEG: Triphasic waveforms are present from the external iliac through the distal femoral and mid popliteal. Distal popliteal flow is monophasic, with return to biphasic flow in the proximal posterior tibial and anterior tibial artery. Mid anterior tibial artery flow is monophasic, but becomes b iphasic distally. Dorsalis pedis artery flow is biphasic. PEAK SYSTOLIC VELOCITIES: COMMON FEMORAL: 126 cm/s FEMORAL: Proximal: 90 c m/s Mid: 118 cm/s Distal: 1 15 cm/s POPLITEAL: Proximal: 162 cm/s Mid: 101 cm/s Distal: 7 6 cm/s POSTERIOR TIBIAL: Proximal: 41 c m/s Mid: 46 cm/s Distal: 4 3 cm/s ANTERIOR TIBIAL: Proximal: 113 cm/s Mid: 134 cm/s Distal: 3 3 cm/s DORSALIS PEDIS: 40 cm/s [facility]-[id number] Performing Organization Address City/State/Zipcode Phone Number [facility] [address] [place] [address] Us duplex venous lower extremity (10/08/2018 3:24 PM CDT) Specimen Narrative Performed At EXAMINATION: [facility]UP[facility]: Trauma now with nu mbness and pain COMPARISON: None. TECHNIQUE: Grayscale, color Doppler, and spectral wa veform analysis of the left lower extremity deep venous system was perfor med. The common femoral, superficial femoral, proximal deep femoral, g reater saphenous, and popliteal veins were evaluated. The calf veins were also evaluated. FINDINGS: 1. The visualized left common femoral, profunda femora l, femoral, popliteal, and calf veins demonstrate normal flow and augmentation without evidence of thrombosis. The right common femoral vein is patent. 2. There is no evidence of thrombosis within visualize d portions of the left greater saphenous vein. 3. There is no evidence of a popliteal or Newsome's cyst. IMPRESSION: No evidence of deep vein thrombosis. [id number] Procedure Note Interface, Radiology Results Incoming - 10/08/2018 3:31 PM CDT EXAMINATION: US DUPLEX VENOUS LOWER EXTREMITY LEFT CLINICAL HISTORY: Trauma now with numb ness and pain COMPARISON: None. TECHNIQUE: Grayscale, color Doppler, an d spectral waveform analysis of the left lower extremity deep venous system was performed. The common femoral, superficial femoral, proximal deep femoral, greater saphenous, and popliteal veins were evaluated. The calf veins were also evaluated. FINDINGS: 1. The visualized left common femoral, p rofunda femoral, femoral, popliteal, and calf veins demonstrate normal flow and augmentation without evidence of thrombosis. The right common femoral vein is patent. 2. There is no evidence of thrombosis wi thin visualized portions of the left greater saphenous vein. 3. There is no evidence of a popliteal or Newsome's cyst. IMPRESSION: No evidence of deep vein thrombosis. [facility]-[id number] Performing Organization Address City/State/Zipcode Phone Number [facility] [address] [place] [address] XR Tibia Fibula 2 Vw Left (10/08/2018 2:02 PM CDT) Specimen Narrative Performed At EXAMINATION: XR TIBIA FIBULA 2 VW LEFT [facility] CLINICAL HISTORY: Swelling COMPARISON: None available at this kaila e. IMPRESSION: No fracture or dislocation of the left t ibia and fibula. There are vascular calcifications. [facility]-[id number] Dictated and approved by radiology resid ent/fellow: Hardeep Brand M.D. I, April Gifford MD, personally reviewed the images and resident's/fellow's findings and agree with the final report. Procedure Note Interface, Radiology Results Incoming - 10/08/2018 2:47 PM CDT EXAMINATION: XR TIBIA FIBULA 2 VW LEFT CLINICAL HISTORY: Swelling COMPARISON: None available at this time . IMPRESSION: No fracture or dislocation of the left t ibia and fibula. There are vascular calcifications. [facility]-[id number] Dictated and approved by radiology resid ent/fellow: Hardeep Brand M.D. I, April Gifford MD, personally reviewed the images and resident's/fellow's findings and agree with the final report. 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
--- OUTSIDE RECORDS SUMMARY | 2019-08-03 18:41 | XMS REPORT ---
:[address] [facility] t Address [address] [place] [address] Care Team Providers Name Role Phone Jaziel MIRANDA Primary Care Physician Lisa PEARCE Attending Clinician Payers Payer Name Policy Policy Number Effective Expiration Source Type Date Date MEDICAREMEDICARE PART xxxxxxxxxxx 2003 Eloy [place]on AND 00:00:00 [place] [place] [facility] [facility] MIS[place] xxxxxxxxx 2018 [place] COMMERCIALxxxxxxxxx1/ 00:00:00 Met charito 03/2018-[facility] ial Problems This patient has no known problems. Allergies, Adverse Reactions, Alerts Allergy Allergy Status Severity Reaction(s) Onset Inactive Treating Comm ents Source Name Type Date Date Clinician Flu Vac Propensi Active Other (See 2019-0 Throat Vesna ston 2014 (63 ty to Comments) 3-14 closed Metho di Up)-Mf59 adverse 00:00: up; st c(Pf) reaction 00 Foamy/Fro s to thy drug mouth? Iodine Propensi Active Hives 2018-0 IVP dye [place] ty to 3-14 Methodi adverse 00:00: st reaction 00 s to drug Social History Social Habit Start Date Stop Date Quantity Comments Source History [facility] Meth odist Alcohol Std Drinks History [facility] Meth odist Alcohol Binge Sex Assigned At [facility] ethodist Alcohol intake 2018-10-08 2018-10-08 Current [facility] thodist 00:00:00 00:00:00 non-drinker of alcohol (finding) History SDOH 2018-05-21 2018-05-21 1 [place] Meth odist Alcohol Frequency 00:00:00 00:00:00 Smoking Status Start Date Stop Date Source Never smoker [place] Methodis t Medications Ordered Filled Start Stop Current Ordering Indication Dosage Frequency Signature Comments Components Source Medication Medication Date Date Medication? Clinician (SIG) Name Name apixaban Yes 5mg Q.5D Take 5 mg [place] (ELIQUIS) 5 3-25 by mouth 2 Me thodi mg tablet 15:46: (two) st 03 times a day. magnesium Yes 400mg Q.5D Take 400 Vesna ston oxide 3-25 mg by Methodi (MAG-OX) 15:46: mouth 2 st 400 mg 03 (two) (241.3 mg times a magnesium) day. tablet budesonide- Yes 2{puff} Q.5D Inhale 2 [place] formoterol 3-25 puffs 2 Method i (SYMBICORT) 15:46: (two) st 160-4.5 03 times a mcg/actuati day. on inhaler HUMALOG Yes 20U [id number] Inject 20 [place] KWIKPEN 2-23 [id number] Units Metho di INSULIN 100 00:00: 3D under the s t unit/mL 00 skin 3 injection (three) pen times a day with meals. Per sliding scale -only takes if BS IS above 120 LANTUS Yes Q.5D 2 (two) [place] SOLOSTAR 2-07 times a Methodi U-100 00:00: day. 50 st INSULIN 100 00 units in unit/mL the injection morning 30 (pen) units at night gabapentin 2018-0 Yes QD nightly. Vesna ston (NEURONTIN) 1-14 Methodi 100 mg 00:00: st capsule 00 pramipexole 2017-03 Yes Q.[id number] 3 (three) [place] (MIRAPEX) 2-12 [id number] times a M ethodi 0.5 MG 00:00: 3D day as st tablet 00 needed. simvastatin 2017-03 Yes QD nightly. [place] (ZOCOR) 40 2-12 Methodi MG tablet 00:00: st 00 DULoxetine 2017-03 Yes QD every [place] (CYMBALTA) 2-12 morning. Metho di 60 MG 00:00: st capsule 00 metoprolol 2018-1 Yes QD nightly. Vesna ston succinate 04-21 Methodi XL 00:00: st (TOPROL-XL) 00 50 mg 24 hr tablet Vital Signs Vital Name Observation Time Observation Value Comments Source Systolic blood 2018-10-08 16:45:00 148 mm[Hg] [place] [facility] pressure Diastolic blood 2018-10-08 16:45:00 65 mm[Hg] [place] [facility] pressure Heart rate 2018-10-08 16:45:00 80 /min Todd Mukherjee Respiratory rate 2018-10-08 16:45:00 22 /min [place] [facility]ast[facility] Oxygen saturation in 2018-10-08 16:45:00 94 /min Todd Mukherjee Arterial blood by Pulse oximetry Body temperature 2018-10-08 13:05:08 36.78 Sylvia Don irvin Rastafarian Body height 2018-10-08 13:00:00 149.9 cm Todd Mukherjee Procedures Procedure Date / Time Performed Performing Clinician Sourc e US DUPLEX ARTERIAL LOWER 2018-10-08 15:29:28 Cholo Noe EXTREMITY LEFT US DUPLEX VENOUS LOWER 2018-10-08 15:24:42 Cholo Noe [place] [facility]ast[facility] EXTREMITY LEFT XR TIBIA FIBULA 2 VW 2018-10-08 14:02:35 Cholo Noe Rastafarian LEFT Plan of Care Planned Activity Planned Date Details Comments Source Future Scheduled 2019-10-09 INFLUENZA VACCINE [place] [facility] Test 00:00:00 [code = INFLUENZA VACCINE] Future Scheduled 2003-08-15 65+ PNEUMOCOCCAL [place] [facility] Test 00:00:00 VACCINE (2 of 2 - PPSV23) [code = 65+ PNEUMOCOCCAL VACCINE (2 of 2 - PPSV23)] Future Scheduled 1988 SHINGLES VACCINES (#1) [place] [facility] Test 00:00:00 [code = SHINGLES VACCINES (#1)] Future Scheduled 1948 DIABETIC FOOT EXAM [place] [facility] Test 00:00:00 [code = DIABETIC FOOT EXAM] Future Scheduled 1948 URINE MICROALBUMIN [place] [facility] Test 00:00:00 [code = URINE MICROALBUMIN] Future Scheduled 1940 DIABETIC RETINAL EYE Vesna ston Rastafarian Test 00:00:00 EXAM [code = DIABETIC RETINAL EYE EXAM] Results Test Description Test Time Test Comments Results Result Everett hammond Comments Us duplex 2018-10-08 [facility] [place] arterial lower 15:52:52 Radiology Results [facility] Incoming - 10/08/2018 3:55 PM CDTEXAM: Left lower extremity arterial DopplerHISTORY: Post surgeryTECHNIQUE: Real-time as well as pulsed and color Doppler evaluation of left common femoral, femoral, popliteal, posterior tibial, anterior tibial, and dorsalis pedis arteries are evaluated. The examination includes a full duplex Doppler scan of the blood vessels (real-time P mode grayscale, Doppler spectral analysis, and Doppler color flow imaging). IMPRESSION:Patent flow in the left lower extremity without evidence of focal flow limiting stenosis. There is mild to moderate diffuse disease.LEFT LEG: Triphasic waveforms are present from the external iliac through the distal femoral and mid popliteal. Distal popliteal flow is monophasic, with return to biphasic flow in the proximal posterior tibial and anterior tibial artery. Mid anterior tibial artery flow is monophasic, but becomes biphasic distally. Dorsalis pedis artery flow is biphasic.PEAK SYSTOLIC VELOCITIES: COMMON FEMORAL: 126 cm/sFEMORAL:Proxi mal: 90 cm/sMid: 118 cm/sDistal: 115 cm/sPOPLITEAL:Pro ximal: 162 cm/sMid: 101 cm/sDistal: 76 cm/sPOSTERIOR TIBIAL:Proximal: 41 cm/sMid: 46 cm/sDistal: 43 cm/sANTERIOR TIBIAL:Proximal: 113 cm/sMid: 134 cm/sDistal: 33 cm/sDORSALIS PEDIS: 40 cm/s [facility]-[id number] Us duplex venous 2018-10-08 Autumn Luther on lower extremity 15:28:45 Radiology Results [facility] - 10/08/2018 3:31 PM CDTEXAMINATION: US DUPLEX VENOUS LOWER EXTREMITY LEFTCLINICAL HISTORY: Trauma now with numbness and painCOMPARISON: None.TECHNIQUE: Grayscale, color Doppler, and spectral waveform analysis of the left lower extremity deep venous system was performed. The common femoral, superficial femoral, proximal deep femoral, greater saphenous, and popliteal veins were evaluated. The calf veins were also evaluated.FINDING S:1. The visualized left common femoral, profunda femoral, femoral, popliteal, and calf veins demonstrate normal flow and augmentation without evidence of thrombosis.The right common femoral vein is patent.2. There is no evidence of thrombosis within visualized portions of the left greater saphenous vein.3. There is no evidence of a popliteal or Newsome's cyst.IMPRESSION:N o evidence of deep vein thrombosis.PI-2 [id number] XR Tibia Fibula 2 2018-10-08 Ashkan, Don ton Vw Left 14:44:21 Radiology Results Sarahii 10/08/2018 2:47 PM CDTEXAMINATION: XR TIBIA FIBULA 2 VW LEFTCLINICAL HISTORY: SwellingCOMPARISO N: None available at this time.IMPRESSION:N o fracture or dislocation of the left tibia and fibula.There are vascular calcifications. [id number] anne marie and approved by cardiac cath lab radiology technologist/fellow: Mega Burgess, April Gifford MD, personally reviewed the images and resident's/fellow 's findings and agree with the final report.
[2019-08-03] MEDS ORDERED: IPRATROPIUM BROM 0.5MG/2.5ML ONE (19:49)
[2019-08-03] MEDS ORDERED: METHYLPREDNISOLONE 125 MG INJ ONE (19:49)
[2019-08-03] MEDS ORDERED: LEVALBUTEROL 1.25 MG/3 ML NEB ONE (19:49)
--- NOTE | 2019-08-03 20:09 | RAD REPORT ---
EXAM DESCRIPTION: RAD - Chest Single View - 08/03/2019 7:44 pm CLINICAL HISTORY: CONGESTION Chest pain. COMPARISON: Chest Pa And Lat (2 Views) dated 03/15/2019; Chest Single View dated 06/07/2018; Chest Pa A nd Lat (2 Views) dated 01/13/2017; Chest Single View dated 11/30/2015 FINDINGS: Portable technique limits examination quality. Moderate bilateral pulmonary opacities are present likely representing pulmonary edema or pneumonia. The heart is moderately enlarged with sternotomy wires present. No displaced fractures.
[2019-08-03 20:25] LABS: Absolute Lymphocytes (CBC) 2.8 K/uL (0.7-4.9); Basophils % 0.6 % (0-1.3); Hematocrit 34.6 % (36.0-45.0); Lymphocytes % 20.1 % (15.3-44.8); MPV 9.1 fL (7.6-11.3); RBC Red Blood Cell Count 3.82 M/uL (3.86-4.86)
[2019-08-03 20:27] LABS: Protime INR 1.52
[2019-08-03 20:38] LABS: ALT/SGPT 18 U/L (12-78); AST/SGOT 14 U/L (15-37); Albumin 3.4 g/dL (3.4-5.0); Alkaline Phosphatase 146 U/L (45-117); BUN Blood Urea Nitrogen 15 mg/dL (7-18); Bicarbonate 26 mmol/L (21-32); Bilirubin Direct 0.2 mg/dL (0-0.2); Bilirubin Total 0.5 mg/dL (0.2-1.0); CKMB Creatine Kinase MB < 1.0 ng/mL (0.3-3.6); Creatine Phosphokinase 34 U/L (26-192); Glucose Level 170 mg/dL (74-106); Lipase 40 U/L (73-393); Magnesium 2.1 mg/dL (1.8-2.4); NT PRO-BNP 2575 pg/mL (<450); Protein, Total 7.7 g/dL (6.4-8.2); Sodium Level 138 mmol/L (136-145); Troponin (Emerg Dept Use Only) < 0.02 ng/mL (0.0-0.045)
[2019-08-03] MEDS ORDERED: NA CHLORIDE 0.9% 250 ML ONE (21:25)
[2019-08-03] MEDS ORDERED: AZITHROMYCIN 500 MG INJ IVPB ONE (21:25)
[2019-08-03] MEDS ORDERED: FUROSEMIDE 40 MG/4 ML VIAL ONE (21:26)
[2019-08-04] MEDS: ACETAMINOPHEN 500 MG TAB PO PRN ×2 (00:22→23:10)
[2019-08-04 00:27] VITALS: BMI 26.6
[2019-08-04] MEDS ORDERED: ACETAMINOPHEN 500 MG TAB PO PRN (06:32)
[2019-08-04 06:33] LABS: BUN Blood Urea Nitrogen 17 mg/dL (7-18); Bicarbonate 24 mmol/L (21-32); Glucose Level 297 mg/dL (74-106); HDL Cholesterol 65 mg/dL (40-60); LDL Cholesterol, Calculated 54 (<130); Potassium 4.1 mmol/L (3.5-5.1); Sodium Level 142 mmol/L (136-145); Troponin I < 0.02 ng/mL (0.0-0.045)
[2019-08-04 07:04] LABS: Absolute Lymphocytes (CBC) 0.8 K/uL (0.7-4.9); Basophils % 0.1 % (0-1.3); Hematocrit 31.4 % (36.0-45.0); Lymphocytes % 6.8 % (15.3-44.8); MPV 9.6 fL (7.6-11.3); RBC Red Blood Cell Count 3.55 M/uL (3.86-4.86)
[2019-08-04] MEDS ORDERED: LOPERAMIDE HCL 2 MG CAPSULE PO PRN (07:10)
[2019-08-04] MEDS: DULOXETINE 30 MG CAP PO SCH (09:28)
[2019-08-04] MEDS: APIXABAN 5 MG TABLET PO SCH ×2 (09:29→21:22)
[2019-08-04] MEDS: AMLODIPINE 5 MG TAB PO SCH (09:29)
[2019-08-04] MEDS: CLOPIDOGREL 75 MG TABLET PO SCH (09:30)
[2019-08-04] MEDS: MEMANTINE HCL 10 MG TABLET PO SCH (09:30)
[2019-08-04] MEDS: FUROSEMIDE 40 MG/4 ML VIAL IV SCH (09:30)
[2019-08-04] MEDS: INSULIN GLARGINE 100 UNITS/ML SQ SCH (09:43)
[2019-08-04 10:58] LABS: Platelet Estimate ADEQ; Platelets, Giant FEW; Toxic Granulation 1+; Urine White Blood Cell Casts OK
[2019-08-04 10:59] LABS: Blood Morphology Comment NOT SEEN (NOT SEEN)
--- NOTE | 2019-08-04 12:52 | EKG ---
Test Date: 2019-08-03 Test Time: 18:32:34 Postal Superintendent: ELENA MEASUREMENT RESULTS: Intervals: Rate: 97 CO: QRSD: 94 QT: 324 QTc: 411 [place]: P: CO: QRS: 30 T: 212 INTERPRETIVE STATEMENTS: Atrial fibrillation Nonspecific ST and T wave abnormality, probably digitalis effect Abnormal ECG Compared to ECG 03/15/2019 16:43:11 Sinus bradycardia no longer present Sinus arrhythmia no longer present ST (T wave) deviation still present Electronically Signed On 08-04-19 12:50:22 CDT by Kalia Bull
[2019-08-04] MEDS ORDERED: COLLAGENASE 30 GM OINTMENT TOP SCH (14:00)
[2019-08-04] MEDS: MEDIHONEY 44 ML TOPICAL TUBE TOP SCH (16:56)
[2019-08-04] MEDS ORDERED: D50W 25 GM/50 ML SYRINGE/VIAL IV PRN (20:22)
[2019-08-04] MEDS ORDERED: GLUCAGON 1 MG/VIAL IM PRN (20:22)
[2019-08-04] MEDS ORDERED: AZITHROMYCIN IV 500 MG in NA CHLORIDE 0.9% 250 ML IVPB SCH (21:00)
[2019-08-04] MEDS ORDERED: METOPROLOL TAR 50 MG TAB PO SCH (21:00)
[2019-08-04] MEDS ORDERED: ATORVASTATIN 40 MG TAB PO SCH (21:00)
[2019-08-04] MEDS: INSULIN -REGULAR HUMAN 50 UNIT/0.5 ML ML SQ SCH (21:22)
--- NOTE | 2019-08-04 22:11 | P.HP ---
Certification for Inpatient Patient admitted to: Observation With expected LOS: <2 Midnights Practitioner: I am a practitioner with admitting privileges, knowledge of patient current condition, hospital course, and medical plan of care. Services: Services provided to patient in accordance with Admission requirements found in Title 42 Section 412.3 of the Code of Federal Regulations Patient History Date of Service: 08/04/19 Reason for admission: SHORT OF BREATH History of Present Illness: MS. MILLIGAN IS DIABETIC WITH A FEW STROKES, BASILAR ARTERY INSUFFICIENCY, COMES WITH DYSPNEA AT REST. SHE WAS HYPOXIC DOWN TO 84% RA. SHE IS FOUND TO HAVE CHF. SHE IS GIVEN LASIX IV SINCE YESTERDAY, SHE IS A LOT BETTER BUT NOT TOTALLY AT BASELIN YET.. SHE ALSO HAS SEVERE PVD WITH NON HEALING WOUND ON TOE THAT IS TAKEN CARE BY DR CUEVAS. Allergies adhesive tape Allergy (Verified 03/17/19 09:55) Hives/Rash iodine Allergy (Verified 03/17/19 09:55) UNK Home Medications: Acetaminophen [Tylenol Extra Strength] 500 mg PO TIDP PRN 08/04/19 Amlodipine [Norvasc*] 5 mg PO DAILY 08/04/19 Apixaban [Eliquis] 5 mg PO BID 08/04/19 Atorvastatin Calcium 40 mg PO BEDTIME 08/04/19 Azithromycin Tab [Zithromax*] 250 mg PO ZPAK #1 stephanie 08/04/19 Clopidogrel Bisulfate [Plavix*] 75 mg PO DAILY 08/04/19 Duloxetine HCl 60 mg PO DAILY 08/04/19 Furosemide 40 mg PO DAILY #90 tablet 08/04/19 Insulin Glargine,Hum.rec.anlog [Lantus Solostar] 20 units SQ DAILY 08/04/19 Loperamide HCl [Anti-Diarrheal] 2 mg PO Q4HP PRN 08/04/19 Memantine HCl 5 mg PO DAILY 08/04/19 Metoprolol Tartrate [Lopressor*] 50 mg PO BEDTIME 08/04/19 Potassium Chloride [Klor-Con 10] 10 meq PO DAILY #90 tablet.er 08/04/19 - Past Medical/Surgical History Has patient received pneumonia vaccine in the past: Yes Diabetic: Yes -: COPD -: Asthma -: Atrial fibrillation -: vertigo -: IDDM -: HTN -: CVA- 2 years ago -: CABG; triple Bypass -: Hysterectomy -: Appendectomy -: Left/ Right shoulder surgery -: throat surgery - nodule removal -: Hemoroidectomy -: Ballon Angioplasty both legs Psychosocial/ Personal History: NO ISSUES, FEELS NORMAL, NO DEPRESSION. - Family History Father -: Heart disease Mother -: Liver disease Notes: cirrrhosis - Social History Smoking Status: Never smoker Alcohol use: No CD- Drugs: No Caffeine use: Yes Place of Residence: Custodial Review of Systems 10-point ROS is otherwise unremarkable Physical Examination - Vital Signs Temperature: 98.3 F Blood Pressure: 120/59 Pulse: 125 Respirations: 20 Pulse Ox (%): 94 - Physical Exam General: Mild distress, Moderate distress HEENT: Atraumatic, PERRLA, Mucous membr. moist/pink, EOMI, Sclerae nonicteric Neck: Supple, 2+ carotid pulse no bruit, No LAD, Without JVD or thyroid abnormality Respiratory: Diminished Cardiovascular: Irregular heart rate/rhythm Gastrointestinal: Normal bowel sounds, No tenderness Musculoskeletal: No tenderness Integumentary: No rashes, Diabetic ulcer (L GREAT TOE, PAINFUL,NON HEALING ULCER.) Neurological: Normal gait, Normal speech, Normal strength at 5/5 x4 extr, Normal tone, Normal affect Lymphatics: No axilla or inguinal lymphadenopathy - Studies Microbiology Data (last 24 hrs): 08/03/19 19:52 Blood - Blood Gram Stain - Final Assessment and Plan - Problems (Diagnosis) (1) Acute congestive heart failure with left ventricular diastolic dysfunction Current Visit: Yes Status: Acute Plan: DIET IS NOT THE BEST. WILL CONTINUE LASIX AND KCL SHE IS ALREADY ON ARB (2) Moderate pulmonary arterial systolic hypertension Current Visit: Yes Status: Chronic (3) Diabetic foot ulcer Current Visit: No Status: Chronic Plan: WILL GO FOR FEMPOP BYPASS SURGERY EVAL SOON. Qualifiers: Diabetic foot ulcer location: toe - Advance Directives Does patient have a Living Will: No Does patient have a Durable POA for Healthcare: No
[2019-08-05] MEDS: INSULIN -REGULAR HUMAN 50 UNIT/0.5 ML ML SQ SCH ×2 (07:30→12:48)
[2019-08-05] MEDS: DULOXETINE 30 MG CAP PO SCH (09:34)
[2019-08-05] MEDS: APIXABAN 5 MG TABLET PO SCH (09:34)
[2019-08-05] MEDS: CLOPIDOGREL 75 MG TABLET PO SCH (09:34)
[2019-08-05] MEDS: MEMANTINE HCL 10 MG TABLET PO SCH (09:35)
[2019-08-05] MEDS: FUROSEMIDE 40 MG/4 ML VIAL IV SCH (09:36)
[2019-08-05] MEDS: AMLODIPINE 5 MG TAB PO SCH (09:36)
[2019-08-05] MEDS: MEDIHONEY 44 ML TOPICAL TUBE TOP SCH (09:39)
[2019-08-05 10:24] VITALS: O2SAT 95
[2019-08-05 12:48] VITALS: BP 105/62; TEMP 97.3
[2019-08-05] MEDS: INSULIN GLARGINE 100 UNITS/ML SQ SCH (12:49)
--- NOTE | 2019-08-09 13:44 | ER ---
Nurse's Notes [facility] Name: Darlin Sharpe Age: 78 yrs Sex: Female : 1940 Arrival Date: 08/03/2019 Time: 18:25 Bed 16 Private MD: Diagnosis: Acute systolic (congestive) heart failure;Pneumonia due to other specified bacteria;Chronic obstructive pulmonary disease with acute lower respiratory infection Presentation: 08/02 18:25 Chief complaint: EMS states: SHORTNESS OF BREATH. Coronavirus screen: Proceed with bp normal triage. Ebola Screen: No symptoms or risks identified at this time. Initial Sepsis Screen: Does the patient meet any 2 criteria? No. Patient's initial sepsis screen is negative. Does the patient have a suspected source of infection? Yes: Productive cough/pneumonia. Risk Assessment: Do you want to hurt yourself or someone else? Patient reports no desire to harm self or others. Onset of symptoms is unknown. 18:25 Method Of Arrival: EMS: [facility] bp 18:25 Acuity: VINNY 2 bp Triage Assessment: 18:26 General: Appears in no apparent distress. comfortable, Behavior is cooperative, bp appropriate for age, anxious. Pain: Denies pain. EENT: No deficits noted. Neuro: No deficits noted. Cardiovascular: Rhythm is sinus rhythm. Respiratory: Reports shortness of breath Onset: The symptoms/episode began/occurred at an unknown time. the patient has mild shortness of breath. GI: No signs and/or symptoms were reported involving the gastrointestinal system. : No signs and/or symptoms were reported regarding the genitourinary system. Derm: No deficits noted. Musculoskeletal: No deficits noted. Historical: - Allergies: 18:30 Iodine; bp - PMHx: 18:30 CVA; Diabetes - IDDM; Hypertension; CHF; Depression; COPD; Hyperlipidemia; bp - PSHx: 18:30 CABG; Angioplasty; Hysterectomy; Appendectomy; bp - Immunization history:: Adult Immunizations up to date. - Social history:: Smoking status: Patient denies any tobacco usage or history of. Patient/guardian denies using alcohol, street drugs, The patient lives with family. - Family history:: not pertinent. Screenin:26 Abuse screen: Denies threats or abuse. Denies injuries from another. Nutritional bp screening: No deficits noted. Tuberculosis screening: No symptoms or risk factors identified. Fall Risk None identified. Assessment: 18:26 General: SEE TRIAGE NOTE. Cardiovascular: Rhythm is sinus rhythm. Respiratory: Airway bp is patent Respiratory effort is even, unlabored, Breath sounds with wheezes bilaterally. 19:00 Reassessment: Patient appears in no apparent distress at this time. Patient and/or jb4 family updated on plan of care and expected duration. Pain level reassessed. Patient is alert, oriented x 3, equal unlabored respirations, skin warm/dry/pink. Pain: Denies pain. Neuro: Level of Consciousness is awake, alert, obeys commands, Oriented to person, place, time, situation. Cardiovascular: Rhythm is atrial fibrillation. Respiratory: Airway is patent Respiratory effort is even, unlabored, Respiratory pattern is regular, symmetrical, Breath sounds are clear bilaterally. GI: No signs and/or symptoms were reported involving the gastrointestinal system. : No signs and/or symptoms were reported regarding the genitourinary system. EENT: No signs and/or symptoms were reported regarding the EENT system. Derm: Skin is intact, Skin is pink, warm \T\ dry. Musculoskeletal: Circulation, motion, and sensation intact. Range of motion: intact in all extremities. 20:00 Reassessment: Patient appears in no apparent distress at this time. Patient and/or jb4 family updated on plan of care and expected duration. Pain level reassessed. Patient is alert, oriented x 3, equal unlabored respirations, skin warm/dry/pink. 21:00 Reassessment: Patient appears in no apparent distress at this time. Patient and/or jb4 family updated on plan of care and expected duration. Pain level reassessed. Patient is alert, oriented x 3, equal unlabored respirations, skin warm/dry/pink. 22:00 Reassessment: Patient appears in no apparent distress at this time. Patient and/or jb4 family updated on plan of care and expected duration. Pain level reassessed. Patient is alert, oriented x 3, equal unlabored respirations, skin warm/dry/pink. Vital Signs: 18:25 BP 157 / 65; Pulse 78; Resp 16; Temp 97.8; Pulse Ox 95% on 2 lpm NC; bp 19:00 BP 155 / 93; Pulse 100; Resp 24; Pulse Ox 96% on R/A; jb4 20:40 BP 160 / 100; Pulse 112; Resp 24; Pulse Ox 92% on 4 lpm NC; jb4 21:00 BP 124 / 60; Pulse 115; Resp 22; Pulse Ox 94% on 4 lpm NC; jb4 22:00 BP 121 / 81; Pulse 113; Resp 25; Pulse Ox 95% on 4 lpm NC; jb4 ED Course: 18:25 Patient arrived in ED. bp 18:25 Lamin Dodson, RN is Primary Nurse. bp 18:26 Arm band placed on. bp 18:26 Patient has correct armband on for positive identification. Bed in low position. Call bp light in reach. Side rails up X2. 18:28 Triage completed. bp 18:58 Chapo Mora MD is Attending Physician. ma2 19:24 Primary Nurse role handed off by Lamin Dodson RN jb4 19:24 Jah Clemons, TAYLOR is Primary Nurse. jb4 19:46 XRAY CXR (1 view) In Process Unspecified. EDMS 19:50 Inserted saline lock: 22 gauge in left antecubital area, using aseptic technique. Blood 4 collected. 20:10 Initial lab(s) drawn, by la, sent to lab. Second set of blood cultures drawn by ED jb4 staff. 20:49 Ricco Sheriff MD is Hospitalizing Provider. [facility] 22:00 No provider procedures requiring assistance completed. Patient admitted, IV remains in jb4 place. Administered Medications: 20:05 Drug: Xopenex 1.25 mg Route: Inhalation; 4 20:30 Follow up: Response: No adverse reaction; Marked relief of symptoms 4 20:05 Drug: SOLU-Medrol 125 mg Route: IVP; Site: left antecubital; jb4 20:30 Follow up: Response: No adverse reaction 4 20:05 Drug: AtroVENT Aerosol 0.5 mg {Note: One dose given per providers orders..} Route: jb4 Inhalation; 20:30 Follow up: Response: No adverse reaction; Marked relief of symptoms 4 21:34 Drug: Lasix 40 mg Route: IVP; Site: left antecubital; jb4 22:00 Follow up: Response: No adverse reaction 4 21:34 Drug: AZITHromycin 500 mg Route: IVPB; Infused Over: 1 hrs; Site: left antecubital; 4 Outcome: 20:49 Decision to Hospitalize by Provider. ma2 22:00 Admitted to Tele accompanied by tech, via wheelchair, room 413, with oxygen, with jb4 chart, Report called to TAYLOR Pham 22:00 Condition: stable 22:00 Discharge instructions given to patient, Instructed on the need for admit, Demonstrated understanding of instructions. 22:20 Patient left the ED. sg Signatures: Dispatcher [employer] EDMS Praful Ferrari RN RN sg Bryson, James, RN RN jb4 Lamin Dodson RN RN bp Alzahri, Mohammad, MD MD ma2
--- NOTE | 2019-08-09 13:44 | EDPHYS ---
Physician Documentation [facility] Name: Darlin Sharpe Age: 78 yrs Sex: Female : 1940 Arrival Date: 08/03/2019 Time: 18:25 Bed 16 Private MD: ED Physician Chapo Mora HPI: 08/02 19:29 This 78 yrs old Female presents to ER via EMS with complaints of Shortness Of ma2 Breath. 19:29 The patient has shortness of breath at rest. Duration: The symptoms are continuous. ma2 Associated signs and symptoms: Pertinent positives: Pertinent negatives: productive cough, dizziness, hemoptysis, nausea. Severity of symptoms: At their worst the symptoms were moderate in the emergency department the symptoms are unchanged. The patient has experienced similar episodes in the past. Historical: - Allergies: 18:30 Iodine; bp - PMHx: 18:30 CVA; Diabetes - IDDM; Hypertension; CHF; Depression; COPD; Hyperlipidemia; bp - PSHx: 18:30 CABG; Angioplasty; Hysterectomy; Appendectomy; bp - Immunization history:: Adult Immunizations up to date. - Social history:: Smoking status: Patient denies any tobacco usage or history of. Patient/guardian denies using alcohol, street drugs, The patient lives with family. - Family history:: not pertinent. ROS: 19:29 Constitutional: Negative for fever, chills, and weight loss. ma2 19:29 All other systems are negative. Exam: 19:29 Constitutional: This is a well developed, well nourished patient who is awake, alert, ma2 and in no acute distress. Head/Face: Normocephalic, atraumatic. Eyes: Pupils equal round and reactive to light, extra-ocular motions intact. Lids and lashes normal. Conjunctiva and sclera are non-icteric and not injected. Cornea within normal limits. Periorbital areas with no swelling, redness, or edema. ENT: Nares patent. No nasal discharge, no septal abnormalities noted. Tympanic membranes are normal and external auditory canals are clear. Oropharynx with no redness, swelling, or masses, exudates, or evidence of obstruction, uvula midline. Mucous membranes moist. Neck: Trachea midline, no thyromegaly or masses palpated, and no cervical lymphadenopathy. Supple, full range of motion without nuchal rigidity, or vertebral point tenderness. No Meningismus. Chest/axilla: Normal chest wall appearance and motion. Nontender with no deformity. No lesions are appreciated. Cardiovascular: Regular rate and rhythm with a normal S1 and S2. No gallops, murmurs, or rubs. Normal PMI, no JVD. No pulse deficits. Respiratory: + bilat wheezes, Lungs have equal breath sounds bilaterally, clear to auscultation and percussion. No rales, rhonchi or wheezes noted. No increased work of breathing, no retractions or nasal flaring. Abdomen/GI: Soft, non-tender, with normal bowel sounds. No distension or tympany. No guarding or rebound. No evidence of tenderness throughout. Back: No spinal tenderness. No costovertebral tenderness. Full range of motion. Skin: Warm, dry with normal turgor. Normal color with no rashes, no lesions, and no evidence of cellulitis. MS/ Extremity: Pulses equal, no cyanosis. Neurovascular intact. Full, normal range of motion. Neuro: Awake and alert, GCS 15, oriented to person, place, time, and situation. Cranial nerves II-XII grossly intact. Motor strength 5/5 in all extremities. Sensory grossly intact. Cerebellar exam normal. Normal gait. Vital Signs: 18:25 BP 157 / 65; Pulse 78; Resp 16; Temp 97.8; Pulse Ox 95% on 2 lpm NC; bp 19:00 BP 155 / 93; Pulse 100; Resp 24; Pulse Ox 96% on R/A; jb4 20:40 BP 160 / 100; Pulse 112; Resp 24; Pulse Ox 92% on 4 lpm NC; jb4 21:00 BP 124 / 60; Pulse 115; Resp 22; Pulse Ox 94% on 4 lpm NC; jb4 22:00 BP 121 / 81; Pulse 113; Resp 25; Pulse Ox 95% on 4 lpm NC; jb4 MDM: 18:58 Patient medically screened. ma2 19:29 Differential diagnosis: Anemia asthma, Bronchitis reactive airway disease. Data ma2 reviewed: vital signs, nurses notes, lab test result(s), EKG. Counseling: I had a detailed discussion with the patient and/or guardian regarding: the historical points, exam findings, and any diagnostic results supporting the discharge/admit diagnosis, the presence of at least one elevated blood pressure reading (>120/80) during this emergency department visit, the need for outpatient follow up. 20:49 ED course: discussed with dr. sheriff. [facility] 08/02 19:29 Order name: Blood Culture Adult (2) [facility] 08/02 19:29 Order name: BMP; Complete Time: 20:47 [facility] 08/02 19:29 Order name: CBC with Diff; Complete Time: 20:47 [facility] 08/02 19:29 Order name: Ckmb; Complete Time: 20:47 [facility] 08/02 19:29 Order name: CPK; Complete Time: 20:47 [facility] 08/02 19:29 Order name: Hepatic Function; Complete Time: 20:47 [facility] 08/02 19:29 Order name: Lipase; Complete Time: 20:47 [facility] 08/02 19:29 Order name: Magnesium; Complete Time: 20:47 [facility] 08/02 19:29 Order name: NT PRO-BNP; Complete Time: 20:47 [facility] 08/02 19:29 Order name: PT-INR; Complete Time: 20:47 [facility] 08/02 19:29 Order name: Ptt, Activated; Complete Time: 20:47 [facility] 08/02 19:29 Order name: Troponin (emerg Dept Use Only); Complete Time: 20:47 [facility] 08/02 21:10 Order name: COVID-19 [facility] 08/02 21:32 Order name: Basic Metabolic Panel [facility] 08/02 19:29 Order name: XRAY CXR (1 view); Complete Time: 20:47 [facility] 08/02 19:29 Order name: EKG; Complete Time: 19:29 [facility] 08/02 21:32 Order name: Basic Metabolic Panel [facility] 08/02 21:32 Order name: CBC with Automated Diff [facility] 08/02 21:32 Order name: CBC with Automated Diff [facility] 08/02 21:32 Order name: Lipid Profile [facility] 08/02 21:32 Order name: Lipid Profile [facility] 08/02 21:32 Order name: Troponin I [facility] 08/02 21:32 Order name: Troponin I [facility] 08/02 21:32 Order name: Troponin I [facility] 08/02 21:32 Order name: Troponin I [facility] 08/02 19:29 Order name: Cardiac monitoring; Complete Time: 19:37 [facility] 08/02 19:29 Order name: EKG - Nurse/Tech; Complete Time: 19:37 [facility] 08/02 19:29 Order name: IV Saline Lock; Complete Time: 20:34 [facility] 08/02 19:29 Order name: Labs collected and sent; Complete Time: 20:34 [facility] 08/02 19:29 Order name: O2 Per Protocol; Complete Time: 19:37 [facility] 08/02 19:29 Order name: O2 Sat Monitoring; Complete Time: 19:36 [facility] 08/02 21:32 Order name: Heart Healthy EDMS Administered Medications: 20:05 Drug: Xopenex 1.25 mg Route: Inhalation; jb4 20:30 Follow up: Response: No adverse reaction; Marked relief of symptoms jb4 20:05 Drug: SOLU-Medrol 125 mg Route: IVP; Site: left antecubital; jb4 20:30 Follow up: Response: No adverse reaction jb4 20:05 Drug: AtroVENT Aerosol 0.5 mg {Note: One dose given per providers orders..} Route: jb4 Inhalation; 20:30 Follow up: Response: No adverse reaction; Marked relief of symptoms jb4 21:34 Drug: Lasix 40 mg Route: IVP; Site: left antecubital; jb4 22:00 Follow up: Response: No adverse reaction jb4 21:34 Drug: AZITHromycin 500 mg Route: IVPB; Infused Over: 1 hrs; Site: left antecubital; jb4 Disposition: 08/03/19 20:49 Hospitalization ordered by Ricco Sheriff for Inpatient Admission. Preliminary diagnosis are Acute systolic (congestive) heart failure, Pneumonia due to other specified bacteria, Chronic obstructive pulmonary disease with acute lower respiratory infection. - Bed requested for Telemetry/MedSurg (Inpatient). - Status is Inpatient Admission. sg - Condition is Stable. - Problem is new. - Symptoms are unchanged. Signatures: Dispatcher [employer] EDDC Rebeca Prince RN RN Praful Ferrari RN RN sg Bryson, James, RN RN 4 Lamin Dodson RN RN bp Alzahri, Mohammad, MD MD ma2 Corrections: (The following items were deleted from the chart) 20:53 20:49 Hospitalization Ordered by Ricco Sheriff MD for Inpatient Admission. Preliminary ma2 diagnosis is Acute systolic (congestive) heart failure. Bed requested for Telemetry/MedSurg (Inpatient). Status is Inpatient Admission. Condition is Stable. Problem is new. Symptoms are unchanged. ma2 20:56 20:53 08/03/2019 20:49 Hospitalization Ordered by Ricco Sheriff MD for Inpatient mw Admission. Preliminary diagnosis is Acute systolic (congestive) heart failure; Pneumonia due to other specified bacteria; Chronic obstructive pulmonary disease with acute lower respiratory infection. Bed requested for Telemetry/MedSurg (Inpatient). Status is Inpatient Admission. Condition is Stable. Problem is new. Symptoms are unchanged. ma2 22:20 20:56 08/03/2019 20:49 Hospitalization Ordered by Ricco Sheriff MD for Inpatient sg Admission. Preliminary diagnosis is Acute systolic (congestive) heart failure; Pneumonia due to other specified bacteria; Chronic obstructive pulmonary disease with acute lower respiratory infection. Bed requested for Telemetry/MedSurg (Inpatient). Status is Inpatient Admission. Condition is Stable. Problem is new. Symptoms are unchanged.
== END 2019-08-05 14:15 | disposition home health service (06) | DRG 291 ==
LOC: ER 18:08 → ERHOLD 21:57 → 4TH 22:05
PROVIDERS: ADMIT Internal Medicine; ATTEND Internal Medicine
DX: I11.0 Hypertensive heart disease with heart failure (principal); I50.31 Acute diastolic (congestive) heart failure; E11.9 Type 2 diabetes mellitus without complications; E78.5 Hyperlipidemia, unspecified; J44.9 Chronic obstructive pulmonary disease, unspecified; Z86.73 Personal history of transient ischemic attack (TIA), and cerebral infarction without residual deficits; Z91.09 Other allergy status, other than to drugs and biological substances; Z90.49 Acquired absence of other specified parts of digestive tract; Z90.710 Acquired absence of both cervix and uterus; Z95.1 Presence of aortocoronary bypass graft; Z91.048 Other nonmedicinal substance allergy status; Z79.01 Long term (current) use of anticoagulants; Z79.02 Long term (current) use of antithrombotics/antiplatelets; Z79.4 Long term (current) use of insulin; Z20.828 Contact with and (suspected) exposure to other viral communicable diseases; Z79.899 Other long term (current) drug therapy; I27.21 Secondary pulmonary arterial hypertension; E11.621 Type 2 diabetes mellitus with foot ulcer; L97.509 Non-pressure chronic ulcer of other part of unspecified foot with unspecified severity
CPT/HCPCS: 36415; 71045; 80048; 80061; 80076; 82550; 82553; 82947; 83605; 83690; 83735; 83880; 84484; 85025; 85610; 85730; 87040; 87205; 93005; 94760; 96374; 96375; 99285; J0456; J1815; J1940; J2930; J7030

== ENCOUNTER 2019-11-22 11:40 | Inpatient (IN) | payer OTHER ==
--- OUTSIDE RECORDS SUMMARY | 2019-11-22 11:48 | XMS REPORT | Clinical Summary ---
:1940 Author Organization [facility] Address [address] [place] [address] Care Team Providers Name Role Phone Ricco [...] inhaler Active Problems No known active problems Social History Tobacco Use Types Packs/Day Years [...] travel history available. Last Filed Vital Signs Not on file Plan of Treatment Health Maintenance Due Date Last Done Comments DIABETIC RETINAL EYE EXAM 1940 DIABETIC FOOT EXAM 1950 URINE MICROALBUMIN 1948 SHINGLES VACCINES (#1) 1988 65+ PNEUMOCOCCAL VACCINE (2 of 2 - PPSV23) 08/15/200312/08 INFLUENZA VACCINE 12/09/2019 Results Not on fileafter 11/21/2018 Insurance Payer Benefit Plan / Subscriber ID Effective Phone Address T ype Group Dates MEDICARE MEDICARE PART A xxxxxxxxxxx 2003-[facility] [place] Medicare AND B ent COMMERCIAL MISC MISC COMMERCIAL xxxxxxxxx 2018-[facility] Commercial ent Advance Directives For more information, please contact: [phone] Type Date Recorded Patient [employer] Explanati on Advance Directives, Living Will and Medical Power of Criminal Defense Attorney Advance Directives, Living Will 06/04/2018 3:38 PM and Medical Power of Criminal Defense Attorney
--- OUTSIDE RECORDS SUMMARY | 2019-11-22 11:49 | XMS REPORT | Continuity of Care Document ---
:1940 Author Organization [facility] t Address [address] [place] [address] Care Team Providers Name Role Phone Jaziel MIRANDA Primary Care Physician KENNEY Attending Clinician Unavailable TOMA Attending Clinician Unavailable Problems Condition Condition Condition Status Onset Resolution Last Treating Co mments Source Name Details Category Date Date Treatment Clinician Date Left foot Left foot Problem Active Uni vers pain pain [facility] [place] [facility] History of History of Problem Resolve Univers atrial atrial d ity of fibrillati fibrillati [place] [facility] ans History of History of Problem Resolve Univers hyperchole hyperchole d it y of sterolemia sterolemia [place] [facility] History of History of Problem Resolve [facility] stroke stroke d [facility] [place] [facility] Embolism Embolism Problem Active Unive rs and and [place]y of [place] of of Physici arteries arteries ans of the of the lower lower extremitie extremitie s s PVD PVD Problem Active Univers (periphera (periphera it y of l vascular l vascular [place] disease) disease) Physic i ans Postoperat Postoperat Problem Active U nivers zenaida zenaida ity of examinatio examinatio [place] [facility] ans Allergies, Adverse Reactions, Alerts Allergy Allergy Status Severity Reaction(s) Onset Inactive Treating Comm ents Source Name Type Date Date Clinician Flu Vac Propensi Active Other (See 0 Throat [place] 2014 (63 ty to Comments) 3-14 closed Metho di Up)-Mf59 adverse 00:00: up; st c(Pf) reaction 00 Foamy/Fro s to thy drug mouth? Iodine Propensi Active Hives IVP dye [place] ty to 3-14 Methodi adverse 00:00: st reaction 00 s to drug Iodinate Allergy Active Univers d to drug ity of Contrast (finding [place] [facility] ) Physici ans Social History Social Habit Start Date Stop Date Quantity Comments Source History [facility] Meth odist Alcohol Std Drinks History [facility] odist Alcohol Binge Sex Assigned At [place] M ethodist Alcohol intake 2018-10-08 2018-10-08 Current [place] Me thodist 00:00:00 00:00:00 non-drinker of alcohol (finding) History SDOH 2018-05-21 2018-05-21 1 [place] [facility] Alcohol Frequency 00:00:00 00:00:00 Smoking Status Start Date Stop Date Source Never smoker [place] Method[facility] t Medications Ordered Filled Start Stop [...] tablet budesonide- Yes 2{puff} Q.5D Inhale 2 [place] formoterol 3-25 puffs 2 Method i (SYMBICORT) 15:46: (two) st 160-4.5 03 times a mcg/actuati day. on inhaler HUMALOG Yes 20U [id number] Inject 20 [place] KWIKPEN 2-23 [id number] Units Metho di INSULIN 100 00:00: 3D under the s t unit/mL 00 skin 3 injection (three) pen times a day with meals. Per sliding scale -only takes if BS IS above 120 LANTUS Yes Q.5D 2 (two) [place] SOLOSTAR 2-07 times a Methodi U-100 00:00: day. 50 st INSULIN 100 00 units in unit/mL the injection morning 30 (pen) units at night gabapentin 2018-0 Yes QD nightly. [place] st[place] (NEURONTIN) 1-14 [facility] 100 mg 00:00: st capsule 00 pramipexole 2017-03 Yes [id number] 3 (three) [place] (MIRAPEX) 2-12 [id number] times a M ethodi 0.5 MG 00:00: 3D day as st tablet 00 needed. simvastatin 2017-03 Yes QD nightly. Eloy gross (ZOCOR) 40 2-12 [facility] MG tablet 00:00: st 00 DULoxetine 2017-03 Yes QD every [place] (CYMBALTA) 2-12 morning. Metho di 60 MG 00:00: st capsule 00 metoprolol 2017-03 Yes QD nightly. [place] succinate -12 [facility] XL 00:00: st (TOPROL-XL) 00 50 mg 24 hr tablet Acetaminoph Acetaminoph Yes U nivers en TABS en TABS [facility] [place] [facility] amLODIPine amLODIPine Yes Uni vers Besylate Besylate ity of TABS TABS [place] [facility] Atorvastati Atorvastati Yes U nivers n Calcium n Calcium ity o f TABS TABS [place] [facility] Azithromyci Azithromyci Yes U nivers n TABS n TABS [facility] [place] [facility] Clopidogrel Clopidogrel Yes U nivers Bisulfate Bisulfate ity o f TABS TABS [place] [facility] DULoxetine DULoxetine Yes Uni vers HCl CPEP HCl CPEP [facility] [place] [facility] Eliquis Eliquis Yes Univers TABS TABS [facility] [place] [facility] Lasix TABS Lasix TABS Yes Uni vers [facility] [place] [facility] Gabapentin Gabapentin Yes Uni vers CAPS CAPS [facility] [place] [facility] Glimepiride Glimepiride Yes U nivers TABS TABS [facility] [place] [facility] Januvia Januvia Yes Univers TABS TABS [facility] [place] [facility] Lantus Lantus Yes Univers SoloStar SoloStar ity of SOLN SOLN [place] [facility] Losartan Losartan Yes Univers Potassium Potassium ity o f TABS TABS [place] [facility] Magnesium Magnesium Yes Unive rs TABS TABS [facility] [place] [facility] Memantine Memantine Yes Unive rs HCl TABS HCl TABS [facility] [place] [facility] Metoprolol Metoprolol Yes Uni vers Tartrate Tartrate ity of TABS TABS [place] [facility] Bactroban Bactroban Yes Unive rs OINT OINT ity of [place] [facility] ans Potassimin Potassimin Yes Uni vers TABS TABS [facility] [place] [facility] Promethazin Promethazin Yes U nivers e HCl TABS e HCl TABS ity of [place] [facility] ans Santyl OINT Santyl OINT Yes U nivers ity of [place] [facility] ans Procedures Procedure Date / Time Performing Clinician Source Performed History of Rectal [facility] Surgery Physicians History of Coronary [facility] [place] artery bypass graft Physicians History of Bypass graft [facility] Physicians History of Arterial [facility] [place] angioplasty of lower Physicians extremity Plan of Care Planned Activity Planned Date Details Comments Source Future Scheduled 2019-12-09 INFLUENZA VACCINE [place] [facility] 00:00:00 [code = INFLUENZA VACCINE] Future Scheduled 2003-08-15 65+ PNEUMOCOCCAL [place] [facility] 00:00:00 VACCINE (2 of 2 - PPSV23) [code = 65+ PNEUMOCOCCAL VACCINE (2 of 2 - PPSV23)] Future Scheduled 1988 SHINGLES VACCINES (#1) [place] [facility] 00:00:00 [code = SHINGLES VACCINES (#1)] Future Scheduled 1948 DIABETIC FOOT EXAM [place] [facility] 00:00:00 [code = DIABETIC FOOT EXAM] Future Scheduled 1948 URINE MICROALBUMIN [place] [facility] 00:00:00 [code = URINE MICROALBUMIN] Future Scheduled 1940 DIABETIC RETINAL EYE [place] [facility] 00:00:00 EXAM [code = DIABETIC RETINAL EYE EXAM] Encounters Start End Encounter Admission Attending Care Care Encounter Source Date/Time Date/Time Type Type Clinicians Facility Department ID 2019-08-26 Inpatient [facility] [id number] 18:50:00 [facility] 2019-09-21 2019-09-21 Appointmen CHILANGO MOULTON Thoracic [id number] Univers 08:00:00 08:00:00 t; JOHAN MOULTON, Surgery - i ty [facility] [place] [facility] ans 2019-08-16 2019-08-16 AppointCHILANGO Salcedo [id number] Univers 10:00:00 10:00:00 t; JOHAN MOULTON ity of [place], M.D. [place] Rickey.D. Physic ans 2019-08-09 2019-08-09 AppointCHILANGO Salcedo [facility] [id number] Univers 10:15:00 10:15:00 t; JOHAN MOULTON cic & alonso of [place] [facility] [place] [facility] Surgery II Physi [facility] ans 2018-06-29 2018-06-29 CHILANGO Dobbs [facility] [id number] Univers 10:30:00 10:30:00 t; DANN CHUA of [facility] 2018-06-15 2018-06-15 CHILANGO Dobbs [facility] [id number] Univers 10:15:00 10:15:00 t; DANN CHUA of [facility] 2018-06-01 2018-06-01 CHILANGO Dobbs [facility] [id number] Univers 11:30:00 11:30:00 t; DANN CHUA of [facility] 2018-05-15 2018-05-15 CHILANGO Dobbs [facility] [id number] Univers 15:30:00 15:30:00 t; DANN CHUA of [facility] Results This patient has no known results.
--- NOTE | 2019-11-22 12:25 | RAD REPORT ---
EXAM DESCRIPTION: Olga Single View11/22/2019 12:17 pm CLINICAL HISTORY: Chest pain COMPARISON: July 2019 FINDINGS: The lungs appear clear of acute infiltrate. The heart is mildly to moderately enlarged. Postsurgical changes involve the chest. IMPRESSION: No acute abnormalities displayed
[2019-11-22 12:35] LABS: Absolute Lymphocytes (CBC) 2.5 K/uL (0.7-4.9); Basophils % 1.3 % (0-1.3); Hematocrit 33.1 % (36.0-45.0); Lymphocytes % 21.6 % (15.3-44.8); MPV 8.6 fL (7.6-11.3); RBC Red Blood Cell Count 3.94 M/uL (3.86-4.86)
[2019-11-22 12:38] LABS: Protime INR 1.99
[2019-11-22 12:55] LABS: Albumin 3.2 g/dL (3.4-5.0); Bilirubin Direct 0.2 mg/dL (0-0.2); Bilirubin Total 0.5 mg/dL (0.2-1.0); Magnesium 2.2 mg/dL (1.8-2.4); Potassium 4.9 mmol/L (3.5-5.1); Protein, Total 7.9 g/dL (6.4-8.2); Troponin (Emerg Dept Use Only) 0.03 ng/mL (0.0-0.045)
[2019-11-22 13:01] LABS: Anisocytosis 1+; Blood Morphology Comment NOTED (NOT SEEN); Platelet Estimate ADEQ; White Blood Cell Scan OK (OK)
[2019-11-22 13:20] LABS: Urine Blood 2+ (NEG); Urine Glucose 2+ (NEG); Urine Protein 1+ (NEG); Urine pH 5.5 (5.0-7.0)
[2019-11-22] MEDS ORDERED: PIPER/TAZO/NS 3.375gm 3.375 GM/100 ML BAG ONE (13:55)
[2019-11-22] MEDS ORDERED: ONDANSETRON 4 MG/2 ML VIAL ONE (14:10)
[2019-11-22] MEDS ORDERED: MORPHINE 2 MG/ML SYR ONE (14:10)
--- NOTE | 2019-11-22 14:10 | ER ---
Nurse's Notes [facility] Name: Darlin Sharpe Age: 79 yrs Sex: Female : 1940 Arrival Date: 11/22/2019 Time: 11:50 Bed 3 Private MD: Diagnosis: Chest pain, unspecified;Atrial fibrillation and flutter-with RVR;Anemia, unspecified Presentation: 11/21 11:51 Chief complaint: EMS states: Pain between shoulder blade sand shortness of breath, jl7 started yesterday morning. Coronavirus screen: Client denies travel out of the [place] in the last 14 days. shortness of breath, Client presents with at least one sign or symptom that may indicate coronavirus-19. Standard/surgical mask placed on the client. Provider contacted for isolation considerations. Ebola Screen: No symptoms or risks identified at this time. 11:51 Method Of Arrival: EMS: [facility] jl7 11:53 Initial Sepsis Screen: Does the patient meet any 2 criteria? No. Patient's initial jl7 sepsis screen is negative. Does the patient have a suspected source of infection? No. Patient's initial sepsis screen is negative. Risk Assessment: Do you want to hurt yourself or someone else? Patient reports no desire to harm self or others. Onset of symptoms was November 21, 2019. Transition of care: [facility]. 11:53 Acuity: VINNY 2 jl7 Triage Assessment: 12:00 General: Appears in no apparent distress. uncomfortable, Behavior is calm, cooperative, jl7 appropriate for age. Pain: Complains of pain in thoracic area Pain does not radiate. Pain currently is 10 out of 10 on a pain scale. Neuro: Level of Consciousness is awake, alert, obeys commands, Oriented to person, place, time, situation. Cardiovascular: Patient's skin is warm and dry. Rhythm is atrial fibrillation with rapid ventricular response. Respiratory: Airway is patent Respiratory effort is even, unlabored, Respiratory pattern is regular, symmetrical. Derm: Skin is pink, warm \T\ dry. Historical: - Allergies: 12:00 Iodine; jl7 - Home Meds: 12:00 Eliquis 5 mg Oral tab 1 tab 2 times per day [Active]; gabapentin 100 mg Oral cap 1 caps jl7 nightly [Active]; duloxetine 60 mg Oral cpDR 1 cap once daily [Active]; metoprolol tartrate 50 mg Oral tab 1 tab once daily [Active]; atorvastatin 40 mg oral tab 1 tab once daily [Active]; Lantus 100 unit/mL Sub-Q soln twice a day [Active]; potassium chloride 20 mEq Oral TbER [Active]; memantine 5 mg oral tab 1 tabs 2 times per day [Active]; Mapap (acetaminophen) 500 mg oral cap [Active]; insulin lispro subcutaneous subcutaneous [Active]; Lasix 40 mg oral tab [Active]; Promethazine Oral [Active]; losartan 25 mg oral tab [Active]; - PMHx: 12:00 CHF; COPD; CVA; Depression; Diabetes - IDDM; Hyperlipidemia; Hypertension; jl7 - Immunization history:: Adult Immunizations up to date. - Social history:: Smoking status: Patient denies any tobacco usage or history of. Screenin:03 Abuse screen: Denies threats or abuse. Denies injuries from another. Nutritional jl7 screening: No deficits noted. Tuberculosis screening: No symptoms or risk factors identified. 21:57 Fall Risk IV access (20 points). Ambulatory Aid- Furniture (30 pts.). Gait- Weak (10 ea pts.). Mental Status- Oriented to own ability (0 pts). Total Flaherty Fall Scale indicates High Risk Score (45 or more points). Fall prevention measures have been instituted. Side Rails Up X 2 Placed Close to Nursing Station Frequent Obs/Assessments Occuring. Assessment: 12:25 General: Appears in no apparent distress. Behavior is calm, cooperative, appropriate ll2 for age. Pain: Complains of pain in thoracic area Pain does not radiate. Pain currently is 10 out of 10 on a pain scale. Quality of pain is described as aching, stabbing, Pain began 2-3 days ago. Is continuous, Noted to be. Neuro: Level of Consciousness is awake, alert, obeys commands, Oriented to person, place, time, situation, Gait is shuffling. Cardiovascular: Capillary refill < 3 seconds Patient's skin is warm and dry. : Denies burning with urination, pain urinary frequency. Derm: Skin is intact, is healthy with good turgor, Skin is dry, Skin is pink, warm \T\ dry. Skin temperature is warm. 12:25 Reassessment: pt states she has intense pain in her back right between her shoulder ll2 blades, rates it 10/10. says its been present for a few days but became unbearable. 12:26 Respiratory: Airway is patent Respiratory effort is even, unlabored, Respiratory ll2 pattern is regular, symmetrical. 12:27 GI: No signs and/or symptoms were reported involving the gastrointestinal system. EENT: ll2 No signs and/or symptoms were reported regarding the EENT system. Musculoskeletal: Circulation, motion, and sensation intact. Range of motion: intact in all extremities. 12:45 Reassessment: ambulated pt to bedside commode. O2 sat dropped to 80 with 2L nasal ll2 canula in place. increased O2 to 3L until O2 sats reached 92, then decreased back down to 2L after placing back in bed. 14:30 Reassessment: Patient and/or family updated on plan of care and expected duration. Pain ll2 level reassessed. Patient is alert, oriented x 3, equal unlabored respirations, skin warm/dry/pink. pt resting comfortably, denies needing anything at this time. 15:42 Reassessment: Patient and/or family updated on plan of care and expected duration. Pain ll2 level reassessed. Patient is alert, oriented x 3, equal unlabored respirations, skin warm/dry/pink. 16:30 Reassessment: Patient and/or family updated on plan of care and expected duration. Pain ll2 level reassessed. Patient is alert, oriented x 3, equal unlabored respirations, skin warm/dry/pink. pt updated on plan to hospitalize and family notified via telephone. Daughter Kaylen [phone]. 17:17 Reassessment: pt sleeping at this time, awaiting room assignment for upstairs. ll2 18:29 Reassessment: Patient and/or family updated on plan of care and expected duration. Pain ll2 level reassessed. Patient is alert, oriented x 3, equal unlabored respirations, skin warm/dry/pink. 19:30 Reassessment: Patient is alert, oriented x 3, equal unlabored respirations, skin ll2 warm/dry/pink. pt is AAOX3, but seems to get confused after awaking from sleep. COVID swab complete. 20:32 Reassessment: pt is sleeping comfortably, awaiting covid results. ll2 21:13 Reassessment: Patient and/or family updated on plan of care and expected duration. Pain ll2 level reassessed. Patient is alert, oriented x 3, equal unlabored respirations, skin warm/dry/pink. Vital Signs: 11:53 BP 97 / 62; Pulse 112; Resp 28; Temp 99.3; Pulse Ox 88% on R/A; Pain 10/10; jl7 13:02 BP 118 / 56; Pulse 114; Resp 21 S; Pulse Ox 94% on 2 lpm NC; jl7 14:00 BP 118 / 85; Pulse 120; Resp 20; Temp 98.6(O); Pulse Ox 96% on 2 lpm NC; mh5 14:36 BP 121 / 74; Pulse 79; Resp 18; Pulse Ox 93% ; ll2 15:32 BP 121 / 75; Pulse 84; Resp 20; Pulse Ox 92% on 2 lpm NC; jl7 16:30 BP 121 / 73; Pulse 86; Resp 18; Pulse Ox 93% on 2 lpm NC; ll2 17:13 BP 100 / 89; Pulse 99; Resp 20; Pulse Ox 98% on 2 lpm NC; ll2 18:29 BP 118 / 91; Pulse 98; Resp 20; Pulse Ox 95% on 2 lpm NC; ll2 19:30 BP 106 / 81; Pulse 104; Resp 14; Pulse Ox 96% on 2 lpm NC; ll2 20:25 BP 109 / 73; Pulse 101; Resp 18; Pulse Ox 96% on R/A; ll2 21:13 BP 101 / 63; Pulse 95; Resp 18; Pulse Ox 99% on 2 lpm NC; ll2 21:30 BP 103 / 61; Pulse 80; Resp 18; Pulse Ox 97% on R/A; ea ED Course: 11:50 Patient arrived in ED. jl7 11:54 Triage completed. jl7 11:55 Александр Rodriguez MD is Attending Physician. ky 12:00 Arm band placed on right wrist. jl7 12:00 Oxygen administration via nasal cannula \T\ 2L/min Response to oxygen therapy: symptoms jl7 improved. 12:17 XRAY Chest (1 view) In Process Unspecified. EDMS 12:52 Inserted saline lock: 22 gauge in right antecubital area, using aseptic technique. ll2 Blood collected. 12:54 Second set of blood cultures drawn by pr, Urine collected: clean catch specimen, clear, ll2 Flu and/or RSV swab sent to lab. 13:03 Patient has correct armband on for positive identification. Placed in gown. Bed in low jl7 position. Call light in reach. Side rails up X2. bus monitor on. Pulse ox on. NIBP on. Warm blanket given. 13:07 Princess Naranjo, RN is Primary Nurse. ll2 13:07 TSH Sent. ll2 14:01 US Abdomen Limited In Process Unspecified. EDMS 14:07 Ludwin Comer is Hospitalizing Provider. ky 14:40 No provider procedures requiring assistance completed. Hwang cath inserted, using ll2 sterile technique, 16 Fr., by me, balloon inflated, to gravity drainage, Patient tolerated well. 14:55 Chest Abdomen Pelvis Wo Con CT: no oral , no iv In Process Unspecified. EDMS 21:17 COVID-19 Sent. ll2 21:49 Patient admitted, IV remains in place. ea Administered Medications: 14:02 Not Given (Duplicate Order): Zosyn 3.375 grams IVPB once over 60 mins; (mix in NS 100 ky mL) 14:33 Drug: Lasix 40 mg Route: IVP; Site: right antecubital; ll2 17:25 Follow up: Response: No adverse reaction ll2 14:33 Drug: Digoxin 0.5 mg {Note: apical pulse 103.} Route: IVP; Site: right antecubital; ll2 17:24 Follow up: Response: No adverse reaction ll2 14:43 Drug: morphine 2 mg Route: IVP; Site: right antecubital; ll2 17:24 Follow up: Response: No adverse reaction ll2 14:43 Drug: Zofran (Ondansetron) 4 mg Route: IVP; Site: right antecubital; ll2 17:24 Follow up: Response: No adverse reaction ll2 21:17 Follow up: Response: No adverse reaction ll2 Outcome: 14:09 Decision to Hospitalize by Provider. ky 21:48 Patient left the ED. ea 21:48 Admitted to Med/surg accompanied by tech, via stretcher, with chart, Report called to ea Receiving nurse 21:48 Condition: stable 21:48 Instructed on the need for admit. Signatures: Dispatcher [employer] Александр Gould MD MD cha Martinez, Maria 5 Silvana Roman, RN RN jl7 Carol Velez, RN Princess Elizalde ea, RN RN ll2 Corrections: (The following items were deleted from the chart) 34 13:28 General: Appears in no apparent distress. Behavior is calm, cooperative, ll2 appropriate for age, ll2 13:34 13:28 Pain: Complains of pain in thoracic area Pain does not radiate. Pain currently is ll2 10 out of 10 on a pain scale. Quality of pain is described as aching, stabbing, Pain began 2-3 days ago. Is continuous, Noted to be ll2 13:34 13:28 Neuro: Level of Consciousness is awake, alert, obeys commands, Oriented to ll2 person, place, time, situation, Gait is shuffling, ll2 :34 13:28 Cardiovascular: Capillary refill < 3 seconds Patient's skin is warm and dry. ll2 ll2 13:34 13:28 Respiratory: Airway is patent Respiratory effort is even, unlabored, Respiratory ll2 pattern is regular, symmetrical, ll2 :34 13:28 GI: No signs and/or symptoms were reported involving the gastrointestinal system. ll2 ll2 :34 13:28 : Denies burning with urination, pain urinary frequency, ll2 ll2 :34 13:28 EENT: No signs and/or symptoms were reported regarding the EENT system. ll2 ll2 :34 13:28 Derm: Skin is intact, is healthy with good turgor, Skin is dry, Skin is pink, ll2 warm \T\ dry. Skin temperature is warm ll2 :34 13:28 Musculoskeletal: Circulation, motion, and sensation intact. Range of motion: ll2 intact in all extremities, ll2 13:37 13:35 Inserted saline lock: 22 gauge in right antecubital area, using aseptic ll2 technique. Blood collected. ll2 13:37 13:35 Second set of blood cultures drawn by pr, Urine collected: clean catch specimen, ll2 clear, Flu and/or RSV swab sent to lab. ll2 17:14 16:30 BP 100 / 89; Pulse 99bpm; Resp 20bpm; Pulse Ox 98% 2 lpm Nasal Cannula; ll2 ll2
--- NOTE | 2019-11-22 14:11 | EDPHYS ---
Physician Documentation [facility] Name: Darlin Sharpe Age: 79 yrs Sex: Female : 1940 Arrival Date: 11/22/2019 Time: 11:50 Bed 3 Private MD: ED Physician Александр Rodriguez HPI: 11/21 13:48 This 79 yrs old Female presents to ER via EMS with complaints of Chest Pain > ky 30 y/o. 13:48 The patient or guardian reports chest pain that is located primarily in the anterior [facility] chest wall. Historical: - Allergies: 12:00 Iodine; jl7 - Home Meds: 12:00 Eliquis 5 mg Oral tab 1 tab 2 times per day [Active]; gabapentin 100 mg Oral cap 1 caps jl7 nightly [Active]; duloxetine 60 mg Oral cpDR 1 cap once daily [Active]; metoprolol tartrate 50 mg Oral tab 1 tab once daily [Active]; atorvastatin 40 mg oral tab 1 tab once daily [Active]; Lantus 100 unit/mL Sub-Q soln twice a day [Active]; potassium chloride 20 mEq Oral TbER [Active]; memantine 5 mg oral tab 1 tabs 2 times per day [Active]; Mapap (acetaminophen) 500 mg oral cap [Active]; insulin lispro subcutaneous subcutaneous [Active]; Lasix 40 mg oral tab [Active]; Promethazine Oral [Active]; losartan 25 mg oral tab [Active]; - PMHx: 12:00 CHF; COPD; CVA; Depression; Diabetes - IDDM; Hyperlipidemia; Hypertension; jl7 - Immunization history:: Adult Immunizations up to date. - Social history:: Smoking status: Patient denies any tobacco usage or history of. ROS: 13:55 Constitutional: Negative for fever, chills, and weight loss, Eyes: Negative for injury, ky pain, redness, and discharge, ENT: Negative for injury, pain, and discharge, Neck: Negative for injury, pain, and swelling, Back: Negative for injury and pain, : Negative for injury, bleeding, discharge, and swelling, Skin: Negative for injury, rash, and discoloration, Neuro: Negative for headache, weakness, numbness, tingling, and seizure, Psych: Negative for depression, anxiety, suicide ideation, homicidal ideation, and hallucinations, Allergy/Immunology: Negative for hives, rash, and allergies, Endocrine: Negative for neck swelling, polydipsia, polyuria, polyphagia, and marked weight changes. 13:55 Cardiovascular: Positive for chest pain, edema, orthopnea, palpitations. 13:55 Respiratory: Positive for shortness of breath. 13:55 Abdomen/GI: Positive for abdominal pain, of the epigastric area and right upper quadrant. 13:55 MS/extremity: Positive for decreased range of motion, pain, swelling, of the right leg and left leg. Exam: 13:55 Constitutional: This is a well developed, well nourished patient who is awake, alert, ky and in no acute distress. Head/Face: Normocephalic, atraumatic. Eyes: Pupils equal round and reactive to light, extra-ocular motions intact. Lids and lashes normal. Conjunctiva and sclera are non-icteric and not injected. Cornea within normal limits. Periorbital areas with no swelling, redness, or edema. ENT: Nares patent. No nasal discharge, no septal abnormalities noted. Tympanic membranes are normal and external auditory canals are clear. Oropharynx with no redness, swelling, or masses, exudates, or evidence of obstruction, uvula midline. Mucous membranes moist. Neck: Trachea midline, no thyromegaly or masses palpated, and no cervical lymphadenopathy. Supple, full range of motion without nuchal rigidity, or vertebral point tenderness. No Meningismus. Chest/axilla: Normal chest wall appearance and motion. Nontender with no deformity. No lesions are appreciated. Cardiovascular: Regular rate and rhythm with a normal S1 and S2. No gallops, murmurs, or rubs. Normal PMI, no JVD. No pulse deficits. Back: No spinal tenderness. No costovertebral tenderness. Full range of motion. Female : Normal external genitalia. Skin: Warm, dry with normal turgor. Normal color with no rashes, no lesions, and no evidence of cellulitis. Neuro: Awake and alert, GCS 15, oriented to person, place, time, and situation. Cranial nerves II-XII grossly intact. Motor strength 5/5 in all extremities. Sensory grossly intact. Cerebellar exam normal. Normal gait. Psych: Awake, alert, with orientation to person, place and time. Behavior, mood, and affect are within normal limits. 13:55 Respiratory: mild respiratory distress is noted, Respirations: labored breathing, that is mild, Breath sounds: rales, that are mild, decreased breath sounds, Respiratory rate: 21 Vital Signs: 11:53 BP 97 / 62; Pulse 112; Resp 28; Temp 99.3; Pulse Ox 88% on R/A; Pain 10/10; jl7 13:02 BP 118 / 56; Pulse 114; Resp 21 S; Pulse Ox 94% on 2 lpm NC; jl7 14:00 BP 118 / 85; Pulse 120; Resp 20; Temp 98.6(O); Pulse Ox 96% on 2 lpm NC; mh5 14:36 BP 121 / 74; Pulse 79; Resp 18; Pulse Ox 93% ; ll2 15:32 BP 121 / 75; Pulse 84; Resp 20; Pulse Ox 92% on 2 lpm NC; jl7 16:30 BP 121 / 73; Pulse 86; Resp 18; Pulse Ox 93% on 2 lpm NC; ll2 17:13 BP 100 / 89; Pulse 99; Resp 20; Pulse Ox 98% on 2 lpm NC; ll2 18:29 BP 118 / 91; Pulse 98; Resp 20; Pulse Ox 95% on 2 lpm NC; ll2 19:30 BP 106 / 81; Pulse 104; Resp 14; Pulse Ox 96% on 2 lpm NC; ll2 20:25 BP 109 / 73; Pulse 101; Resp 18; Pulse Ox 96% on R/A; ll2 21:13 BP 101 / 63; Pulse 95; Resp 18; Pulse Ox 99% on 2 lpm NC; ll2 21:30 BP 103 / 61; Pulse 80; Resp 18; Pulse Ox 97% on R/A; ea MDM: 11:56 Patient medically screened. yk 13:57 Differential diagnosis: abnormal EKG, coronary artery disease congestive heart failure ky cholecystitis, Cholelithiasis hiatal hernia, pancreatitis, pneumonia, unstable angina, myocardia ischemia or infarction, pancreatitis, Peptic Ulcer Disease. HEART Score: History: Slightly Suspicious (0), ECG: Non specific repolarization disturbance / LBTB / PM (1), Age: > or = 65 years (2), Risk Factors: > or = 3 Risk factors for atherosclerotic disease (2), [Hypercholesterolemia] [Hypertension] [DM] [+ Family HX] Troponin: < or = 1 x Normal Limit (0). The patient was not given aspirin in the Emergency Department. The patient's deep vein thrombosis risk score was calculated as follows: Total Score: 0. This patient was found to be at low risk for a deep vein thrombosis by using the Well's assessment criteria. The patient's pulmonary embolism risk score was calculated as follows: Total Score: 0-2 points. This patient was found to be at low risk for a pulmonary embolism by using the Well's assessment criteria. CHAPIS Risk Score: 1 - patient's age is greater or equal to 65 years, 1 - Three or more CAD risk factors, 1- Known CAD, TOTAL SCORE = 3. Data reviewed: vital signs, nurses notes, EMS record, lab test result(s), EKG, radiologic studies, plain films. Data interpreted: secured entrance monitor: rate is 111 beats/min, rhythm is atrial fibrillation, Pulse oximetry: on 2L(s) per nasal canula, is 94 %. Test interpretation: by ED physician or midlevel provider: ECG, plain radiologic studies. Counseling: I had a detailed discussion with the patient and/or guardian regarding: the historical points, exam findings, and any diagnostic results supporting the discharge/admit diagnosis, the presence of at least one elevated blood pressure reading (>120/80) during this emergency department visit, lab results, radiology results, the need for further work-up and treatment in the hospital. 11/21 11:56 Order name: Basic Metabolic Panel; Complete Time: 13:11/21 11:56 Order name: CBC with Diff; Complete Time: 13:11/21 11:56 Order name: LFT's; Complete Time: 13:11/21 11:56 Order name: Magnesium; Complete Time: 13:11/21 11:56 Order name: NT PRO-BNP; Complete Time: 13:11/21 11:56 Order name: PT-INR; Complete Time: 13:11/21 11:56 Order name: Troponin (emerg Dept Use Only); Complete Time: 13:11/21 11:56 Order name: Lipase; Complete Time: 13:11/21 11:57 Order name: Flu 11/21 11:57 Order name: Blood Culture Adult (2) 11/21 11:57 Order name: Lactate; Complete Time: 13:07 [facility] 11/21 11:57 Order name: Procalcitonin; Complete Time: 14:01 [facility] 11/21 12:02 Order name: TSH [facility] 11/21 12:03 Order name: Thyroid Stimulating Hormone; Complete Time: 13:07 [facility] 11/21 11:56 Order name: XRAY Chest (1 view); Complete Time: 13:07 [facility] 11/21 11:56 Order name: EKG; Complete Time: 11:57 [facility] 11/21 11:56 Order name: Cardiac monitoring; Complete Time: 13:02 [facility] 11/21 11:56 Order name: EKG - Nurse/Tech; Complete Time: 13:02 [facility] 11/21 11:56 Order name: IV Saline Lock; Complete Time: 13:02 [facility] 11/21 12:37 Order name: CBC Smear Scan; Complete Time: 13:07 [facility] 11/21 13:08 Order name: US Abdomen Limited [facility] 11/21 13:16 Order name: Urine Dipstick--Ancillary (enter results); Complete Time: 13:44 11/21 13:50 Order name: Chest Abdomen Pelvis Wo Con CT: no oral , no iv [facility] 11/21 19:09 Order name: COVID-19 11/21 21:30 Order name: CORONAVIRUS [facility] 11/21 11:56 Order name: Labs collected and sent; Complete Time: 13:02 [facility] 11/21 11:56 Order name: O2 Per Protocol; Complete Time: 13:02 [facility] 11/21 11:56 Order name: O2 Sat Monitoring; Complete Time: 13:02 [facility] 11/21 14:02 Order name: Hwang; Complete Time: 14:08 [facility] Administered Medications: 14:02 Not Given (Duplicate Order): Zosyn 3.375 grams IVPB once over 60 mins; (mix in NS 100 ky mL) 14:33 Drug: Lasix 40 mg Route: IVP; Site: right antecubital; ll2 17:25 Follow up: Response: No adverse reaction ll2 14:33 Drug: Digoxin 0.5 mg {Note: apical pulse 103.} Route: IVP; Site: right antecubital; ll2 17:24 Follow up: Response: No adverse reaction ll2 14:43 Drug: morphine 2 mg Route: IVP; Site: right antecubital; ll2 17:24 Follow up: Response: No adverse reaction ll2 14:43 Drug: Zofran (Ondansetron) 4 mg Route: IVP; Site: right antecubital; ll2 17:24 Follow up: Response: No adverse reaction ll2 21:17 Follow up: Response: No adverse reaction ll2 Disposition: 11/22/19 14:09 Hospitalization ordered by Ludwin Comer for Inpatient Admission. Preliminary diagnosis are Chest pain, unspecified, Atrial fibrillation and flutter - with RVR, Anemia, unspecified. - Bed requested for Telemetry/MedSurg (Inpatient). - Status is Inpatient Admission. ea - Condition is Fair. - Problem is new. - Symptoms have improved. Signatures: Dispatcher [employer] EDMS Jessica Wise Corey, MD MD cha Leal, Jahala, RN RN jl7 Carol Velez RN RN ea [place], Lacie, RN RN ll2 Corrections: (The following items were deleted from the chart) 17:37 14:09 Hospitalization Ordered by Ludwin Comer for Inpatient Admission. Preliminary bd diagnosis is Chest pain, unspecified; Atrial fibrillation and flutter - with RVR; Anemia, unspecified. Bed requested for Telemetry/MedSurg (Inpatient). Status is Inpatient Admission. Condition is Fair. Problem is new. Symptoms have improved. ky 21:48 17:37 11/22/2019 14:09 Hospitalization Ordered by Ludwin Comer for Inpatient ea Admission. Preliminary diagnosis is Chest pain, unspecified; Atrial fibrillation and flutter - with RVR; Anemia, unspecified. Bed requested for Telemetry/MedSurg (Inpatient). Status is Inpatient Admission. Condition is Fair. Problem is new. Symptoms have improved. bd
--- NOTE | 2019-11-22 14:16 | RAD REPORT ---
EXAM DESCRIPTION: US - Abdomen Exam Limited - 11/22/2019 2:00 pm CLINICAL HISTORY: ABD PAIN COMPARISON: Abdomen Exam Complete dated 03/15/2019 FINDINGS: The gallbladder demonstrates no gallstones. No pericholecystic fluid or gallbladder wall t hickening. The common bile duct is normal measuring 3 mm. The liver demonstrates no findings of intrahepatic biliary dilatation. IMPRESSION: Unremarkable examination.
[2019-11-22] MEDS ORDERED: FUROSEMIDE 40 MG/4 ML VIAL ONE (14:23)
[2019-11-22] MEDS ORDERED: DIGOXIN 0.25 MG/ML AMP ONE (14:23)
--- NOTE | 2019-11-22 15:26 | RAD REPORT ---
EXAM DESCRIPTION: CT - Chest Abd Pelvis Wo Con - 11/22/2019 2:54 pm CLINICAL HISTORY: Chest and abdomen pain. Chest pain;Dyspnea;SOB;Swelling COMPARISON: [facility] CHEST FOR PE dated 06/06/2014[facility] CHEST FOR PE dated 06/06/2014; Abdomen Exam L imited dated 11/22/2019 TECHNIQUE: A limited noncontrast study was performed. All CT scans are performed using dose optimization technique as appropriate and may include automated exposure control or mA/KV adjustment according to patient size. FINDINGS: Mild interstitial pulmonary edema is suspected.The heart is mildly enlarged in size.Small bilateral pleural effusions.A few mildly prominent lymph nodes are seen in the mediastinum. The liver, spleen, pancreas, adrenal glands and kidneys are within normal limits. Small amount of free fluid is seen in the in the abdomen and pelvis. No free air or bowel obstruction . The appendix is not identified as a discrete structure, however, no secondary findings of appendici tis are identified. Mild sigmoid diverticulosis without diverticulitis. No pathologic lymphadenopath y in the abdomen or pelvis. Hwang catheter is present in the urinary bladder. No worrisome osseous finding. IMPRESSION: Mild CHF. No acute intra- abdominal or intrapelvic abnormality.
--- NOTE | 2019-11-22 16:46 | P.HP ---
Certification for Inpatient Patient admitted to: Observation With expected LOS: <2 Midnights Practitioner: I am a practitioner with admitting privileges, knowledge of patient current condition, hospital course, and medical plan of care. Services: Services provided to patient in accordance with Admission requirements found in Title 42 Section 412.3 of the Code of Federal Regulations Patient History Date of Service: 11/22/19 Reason for admission: Shortness of breath History of Present Illness: 79-year-old care home resident with a history of chronic atrial fibrillation, COPD was transferred from the care home to the emergency department due to progressive shortness of breath of onset today. Patient reports having trouble breathing. He was in atrial fibrillation with RVR at a rate between 100-120 in the ED. His BNP is elevated. CT chest abdomen and pelvis demonstrates interstitial edema suggestive of congestive heart failure. Initial troponin negative. EKG demonstrated atrial fibrillation, no ischemic changes. Patient stated she was feeling better by the time I saw her in the ED. She is placed under observation for further management of CHF exacerbation. Allergies adhesive tape Allergy (Verified 03/17/19 09:55) Hives/Rash iodine Allergy (Verified 03/17/19 09:55) UNK Home Medications: Acetaminophen [Tylenol Extra Strength] 500 mg PO TIDP PRN 08/04/19 Amlodipine [Norvasc*] 5 mg PO DAILY 08/04/19 Apixaban [Eliquis] 5 mg PO BID 08/04/19 Atorvastatin Calcium 40 mg PO BEDTIME 08/04/19 Azithromycin Tab [Zithromax*] 250 mg PO ZPAK #1 stephanie 08/04/19 Clopidogrel Bisulfate [Plavix*] 75 mg PO DAILY 08/04/19 Duloxetine HCl 60 mg PO DAILY 08/04/19 Furosemide 40 mg PO DAILY #90 tablet 08/04/19 Insulin Glargine,Hum.rec.anlog [Lantus Solostar] 20 units SQ DAILY 08/04/19 Loperamide HCl [Anti-Diarrheal] 2 mg PO Q4HP PRN 08/04/19 Memantine HCl 5 mg PO DAILY 08/04/19 Metoprolol Tartrate [Lopressor*] 50 mg PO BEDTIME 08/04/19 Potassium Chloride [Klor-Con 10] 10 meq PO DAILY #90 tablet.er 08/04/19 - Past Medical/Surgical History Diabetic: Yes -: COPD -: Asthma -: Atrial fibrillation -: vertigo -: IDDM -: HTN -: CVA- 2 years ago -: CABG; triple Bypass -: Hysterectomy -: Appendectomy -: Left/ Right shoulder surgery -: throat surgery - nodule removal -: Hemoroidectomy -: Ballon Angioplasty both legs Psychosocial/ Personal History: NO ISSUES, FEELS NORMAL, NO DEPRESSION. - Family History Father -: Heart disease Mother -: Liver disease Notes: cirrrhosis - Social History Alcohol use: No CD- Drugs: No Caffeine use: Yes Review of Systems Other: Except as documented, all other systems reviewed and negative. Physical Examination - Physical Exam General: Alert, In no apparent distress HEENT: Mucous membr. moist/pink Neck: Supple Respiratory: Crackles/rales (Mild bibasilar crackles) Cardiovascular: No edema, Normal S1 S2, Irregular heart rate/rhythm Capillary refill: <2 Seconds Gastrointestinal: Normal bowel sounds, Soft and benign, No tenderness Musculoskeletal: No erythema Integumentary: No rashes Neurological: Normal speech, Normal strength at 5/5 x4 extr - Studies Laboratory Data (last 24 hrs) 11/22/19 12:24: PT 23.2 H, INR 1.99 11/22/19 12:24: WBC 11.6 H, Hgb 10.6 L, Hct 33.1 L, Plt Count 365 11/22/19 12:24: Sodium 138, Potassium 4.9, BUN 23 H, Creatinine 1.02, Glucose 191 H, Magnesium 2.2, Total Bilirubin 0.5, AST 23, ALT 36, Alkaline Phosphatase 211 H, Lipase 48 L Microbiology Data (last 24 hrs): 11/22/19 12:56 Nasopharnyx Influenza Type A Antigen Screen - Final 11/22/19 12:56 Nasopharnyx Influenza Type B Antigen Screen - Final Assessment and Plan - Problems (Diagnosis) (1) Acute congestive heart failure with left ventricular diastolic dysfunction Current Visit: No Status: Acute (2) CAD (coronary artery disease) Onset Date: 09/25/15 Current Visit: No Status: Acute Qualifiers: Coronary Disease-Associated Artery/Lesion type: bypass graft (3) Diabetes Onset Date: 09/19/15 Current Visit: No Status: Chronic Qualifiers: Diabetes mellitus type: type 2 - Plan [address] under observation. Initial troponin is negative. BNP is elevated. Start IV lasix. Obtain echocardiogram. Atrial fibrillation rate control with metoprolol. Continue Eliquis for anticoagulation. Trend troponin Obtain echocardiogram. Insulin sliding scale and Lantus insulin for glucose management. - Advance Directives Does patient have a Living Will: No Does patient have a Durable POA for Healthcare: No
[2019-11-22] MEDS: INSULIN -REGULAR HUMAN 50 UNIT/0.5 ML ML SQ SCH (21:29)
[2019-11-22 22:14] VITALS: BMI 25.7
[2019-11-22] MEDS: FUROSEMIDE 40 MG/4 ML VIAL IV SCH (22:19)
[2019-11-22] MEDS ORDERED: MORPHINE 2 MG/ML SYR IV PRN (22:40)
[2019-11-23 05:40] LABS: Absolute Lymphocytes (CBC) 1.4 K/uL (0.7-4.9); Basophils % 0.5 % (0-1.3); MPV 8.6 fL (7.6-11.3); RBC Red Blood Cell Count 3.58 M/uL (3.86-4.86)
[2019-11-23 05:41] LABS: Potassium 4.5 mmol/L (3.5-5.1)
[2019-11-23 05:42] LABS: Phosphorus 4.6 mg/dL (2.5-4.9)
[2019-11-23] MEDS: FUROSEMIDE 40 MG/4 ML VIAL IV SCH ×2 (08:28→16:34)
[2019-11-23] MEDS: INSULIN -REGULAR HUMAN 50 UNIT/0.5 ML ML SQ SCH ×4 (08:29→21:00)
[2019-11-23] MEDS ORDERED: ENOXAPARIN 40 MG/0.4 ML SQ SCH (09:00)
--- NOTE | 2019-11-23 11:20 | P.PN ---
Subjective Date of Service: 11/23/19 Chief Complaint: Shortness of breath Subjective: Improving (breathing more comfortably, swelling slightly down) Review of Systems 10-point ROS is otherwise unremarkable Physical Examination - Vital Signs Temperature: 97.2 F Blood Pressure: 140/61 Pulse: 100 Respirations: 18 Pulse Ox (%): 92 - Physical Exam General: Alert, In no apparent distress HEENT: Sclerae nonicteric Neck: No LAD Respiratory: Clear to auscultation bilaterally, Diminished (slightly at bases) Cardiovascular: Irregular heart rate/rhythm Gastrointestinal: Soft and benign, Non-distended, No tenderness Integumentary: Diabetic ulcer (left 1st toe, ~1cm diamter eschar, no surrounding erythema, no drainage) Neurological: Normal speech, Normal affect Urinary: Croft catheter - Studies Laboratory Data (last 24 hrs) 11/22/19 12:24: PT 23.2 H, INR 1.99 11/22/19 12:24: WBC 11.6 H, Hgb 10.6 L, Hct 33.1 L, Plt Count 365 11/22/19 12:24: Sodium 138, Potassium 4.9, BUN 23 H, Creatinine 1.02, Glucose 191 H, Magnesium 2.2, Total Bilirubin 0.5, AST 23, ALT 36, Alkaline Phosphatase 211 H, Lipase 48 L Microbiology Data (last 24 hrs): 11/22/19 12:56 Nasopharnyx Influenza Type A Antigen Screen - Final 11/22/19 12:56 Nasopharnyx Influenza Type B Antigen Screen - Final Assessment & Plan Physician Review Additional Text: Acute congestive heart failure with left ventricular diastolic dysfunction CAD (coronary artery disease) Chronic Afib Diabetes Mellitus 2 PVD HTN Acute congestive heart failure with left ventricular diastolic dysfunction CAD (coronary artery disease) -Last TTE (06/09/2018): LV EF 65%, Mild mitral tricuspid regurgitation, mild to moderate pulmonary hypertension -BNP elevated in ED, CXR/CT: insterstitial edema, small b/l pleural effusions -IV lasix 40mg BID, diuresing well, had ~1900ml overnight -croft placed in ED for strict I/O's, pt more awake, can ambulate to bedside commode today, dc croft -TTE ordered -found to have SpO2: 81% on room air this morning -breathing more comfortably today, oxygen is helping Chronic Afib -continue home meds (beta fern, eliquis) Diabetes Mellitus 2 -hypoglycemic on arrival to ED, now becoming more hyperglycemic -restart home insulin at half dosage for now (20units BID glargine instead of 40units), adjust as needed -SSI/accucheks ACHS PVD, s/p prior lower extremity angioplasty -small, dry chronic eschar on L great toe, does not appear infected HTN -hypotensive / normotensive on admission, restart as needed. Time Spent Managing Pts Care (In Minutes): 35
[2019-11-23] MEDS: METOPROLOL XL 50 MG TAB PO SCH (14:54)
[2019-11-23] MEDS: INSULIN GLARGINE 100 UNITS/ML SQ SCH (16:33)
[2019-11-23] MEDS ORDERED: GABAPENTIN 100 MG CAP PO SCH (21:00)
[2019-11-23] MEDS ORDERED: ATORVASTATIN 40 MG TAB PO SCH (21:00)
[2019-11-23] MEDS: APIXABAN 5 MG TABLET PO SCH (21:01)
[2019-11-23] MEDS: MEMANTINE HCL 10 MG TABLET PO SCH (21:01)
--- NOTE | 2019-11-24 05:56 | EKG ---
Test Date: 2019-11-22 Test Time: 11:47:07 Wool Fleece Grader: ROGERS MEASUREMENT RESULTS: Intervals: Rate: 111 [place]: QRSD: 88 QT: 338 QTc: 459 [place]: P: [place]: QRS: 49 T: 159 INTERPRETIVE STATEMENTS: Atrial fibrillation with rapid ventricular response with premature ventricular or aberrantly conducted complexes Nonspecific T wave abnormality, probably digitalis effect Abnormal ECG Compared to ECG 08/03/2019 18:32:34 Ventricular premature complex(es) now present T-wave abnormality now present ST (T wave) deviation no longer present Electronically Signed On 11-24-19 05:50:46 CDT by Kalia Bull
[2019-11-24 06:20] LABS: Hematocrit 28.7 % (36.0-45.0); MPV 8.4 fL (7.6-11.3); RBC Red Blood Cell Count 3.49 M/uL (3.86-4.86)
[2019-11-24 06:38] LABS: Magnesium 1.9 mg/dL (1.8-2.4); Potassium 4.1 mmol/L (3.5-5.1)
[2019-11-24] MEDS: INSULIN -REGULAR HUMAN 50 UNIT/0.5 ML ML SQ SCH ×2 (07:30→12:20)
--- NOTE | 2019-11-24 08:22 | ECHO ---
HEIGHT: 4 ft 11 in WEIGHT: 127 lb 4.8 oz DATE OF STUDY: 11/23/[address]: yvon ferguson 2-DIMENSIONAL: YES M.MODE: YES DOPPLER: YES COLOR FLOW: YES TDS: PORTABLE: DEFINITY: BUBBLE STUDY: DIAGNOSIS: CONGESTIVE HEART FAILURE EXAVERBATION CARDIAC HISTORY: CATHERIZATION: NO SURGERY: YES PROSTHETIC VALVE: NO PACEMAKER: NO MEASUREMENTS (cm) DIASTOLIC (NORMALS) SYSTOLIC (NORMALS) IVSd 1.2 (0.6-1.2) LA Diam 3.3 (1.9-4.0) LVEF 47% LVIDd 2.7 (3.5-5.7) LVIDs 2.1 (2.0-3.5) %FS 23% LVPWd 1.2 (0.6-1.2) Ao Diam 2.9 (2.0-3.7) 2 DIMENSIONAL ASSESSMENT: RIGHT ATRIUM: NORMAL LEFT ATRIUM: NORMAL RIGHT VENTRICLE: NORMAL LEFT VENTRICLE: NORMAL SIZE TRICUSPID VALVE: NORMAL MITRAL VALVE: MITRAL ANNULAR CALCIFICATION PULMONIC VALVE: NORMAL AORTIC VALVE: SCLEROSIS PERICARDIAL EFFUSION: NONE AORTIC ROOT: NORMAL LEFT VENTRICULAR WALL MOTION: MILD GLOBAL HYPOKINESIS DOPPLER/COLOR FLOW: MILD TRICUSPID REGURGITATION. COMMENTS: MILD GLOBAL HYPOKINESIS. EJECTION FRACTION 47%. MITRAL ANNULAR CALCIFICATION. AORTIC SCLEROSIS - NO STENOSIS. MILD TRICUSPID REGURGITATION. NORMAL RIGHT VENTRICULAR SYSTOLIC PRESSURE. TECHNOLOGIST: SARAH EDWARDS
[2019-11-24] MEDS ORDERED: DULOXETINE 30 MG CAP PO SCH (09:00)
[2019-11-24] MEDS: INSULIN GLARGINE 100 UNITS/ML SQ SCH (09:10)
[2019-11-24] MEDS: METOPROLOL XL 50 MG TAB PO SCH (09:11)
[2019-11-24] MEDS: APIXABAN 5 MG TABLET PO SCH (09:11)
[2019-11-24] MEDS: MEMANTINE HCL 10 MG TABLET PO SCH (09:11)
[2019-11-24] MEDS: FUROSEMIDE 40 MG/4 ML VIAL IV SCH (09:13)
[2019-11-24 09:14] VITALS: O2SAT 95
[2019-11-24 12:19] VITALS: BP 150/65; TEMP 97.5
--- NOTE | 2019-11-24 21:58 | P.DS ---
Admission Date: 11/23/19 Discharge Date: 11/24/19 Disposition: ROUTINE DISCHARGE Discharge Condition: GOOD Reason for Admission: Shortness of breath Procedures: CXR (11/21): no acute abnormalities RUQ U/S (11/21): unremarkable exam CT Chest Abd/Pelvis (11/21): mild interstitial pulmonary edema is suspected. The heart is mildly enlarged in size. Small bilateral pleural effusions. A few mildly prominent lymph nodes are seen in the mediastinum. small amount of free fluid in the abdomen and pelvis. no free air or bowel obstruction. mild sigmoid diverticulosis without diverticulitis. no acute intra- abdominal or intra-pelvic abnormality. Problem List Acute on chronic congestive heart failure with reduced ejection fraction (47%) CAD (coronary artery disease) Chronic Afib Diabetes Mellitus 2 PVD s/p prior lower extremity angioplasty HTN Brief History of Present Illness: 79-year-old with a history of chronic atrial fibrillation, CHF unspecified, COPD was transferred from the correction to the emergency department due to progressive shortness of breath of onset x1 day. Patient reports having trouble breathing. She was in atrial fibrillation with RVR at a rate between 100-120 in the ED. BNP was elevated. CT chest abdomen and pelvis demonstrates interstitial edema suggestive of congestive heart failure. Initial troponin negative. EKG demonstrated atrial fibrillation, no ischemic changes. Hospital Course: Patient was admitted for further management of her CHF Exacerbation. She was treated with 40mg IV Lasix BID with good response. An echocardiogram was performed which showed mild global hypokinesis, EF: 47%. Down from 65% in 06/2018. Overnight after admission she was found to have SpO2: 81% when her nasal cannula fell out. Her breathing continued to improve with diuresis and oxygen supplementation. SW/CM were consulted to reinstate patient's home oxygen. On day of discharge, her bilateral lower extremity edema had significantly improved, patient felt much better, breathing more comfortably. She was discharged home to resume her home medications (metoprolol, statin, lasix) and f/u with her electroencephalographic technician and to get established with a new PCP. She will continue her home dose of 40mg PO Lasix BID. Vital Signs/Physical Exam: Temp Pulse Resp BP Pulse Ox 97.5 F 80 18 150/65 H 91 11/24/19 12:00 11/24/19 12:11/24/19 12:00 11/24/19 12:00 11/24/19 12:00 General: Alert, In no apparent distress HEENT: Mucous membr. moist/pink, Sclerae nonicteric Neck: JVD not distended Respiratory: Clear to auscultation bilaterally, Normal air movement Cardiovascular: Edema (trace to b/l knees), Irregular heart rate/rhythm (afib) Gastrointestinal: Soft and benign, Non-distended, No tenderness Musculoskeletal: No tenderness Integumentary: No rashes Neurological: Normal speech, Normal affect Laboratory Data at Discharge: WBC 10.6 K/uL (4.3-10.9) 11/24/19 06:09 Hgb 9.6 g/dL (12.0-15.0) L 11/24/19 06:09 Hct 28.7 % (36.0-45.0) L 11/24/19 06:09 Plt Count 333 K/uL (152-406) 11/24/19 06:09 PT 23.2 SECONDS (9.5-12.5) H 11/22/19 12:24 INR 1.99 11/22/19 12:24 Sodium 138 mmol/L (136-145) 11/24/19 06:09 Potassium 4.1 mmol/L (3.5-5.1) 11/24/19 06:09 BUN 41 mg/dL (7-18) H 11/24/19 06:09 Creatinine 1.18 mg/dL (0.55-1.3) 11/24/19 06:09 Glucose 123 mg/dL (74-106) H 11/24/19 06:09 Phosphorus 4.6 mg/dL (2.5-4.9) 11/23/19 05:17 Magnesium 1.9 mg/dL (1.8-2.4) 11/24/19 06:09 Total Bilirubin 0.5 mg/dL (0.2-1.0) 11/22/19 12:24 AST 23 U/L (15-37) 11/22/19 12:24 ALT 36 U/L (12-78) 11/22/19 12:24 Alkaline Phosphatase 211 U/L (45-117) H 11/22/19 12:24 Troponin I 0.03 ng/mL (0.0-0.045) 11/23/19 16:11 Triglycerides 59 mg/dL (<150) 11/23/19 05:17 Cholesterol 88 mg/dL (<200) 11/23/19 05:17 HDL Cholesterol 55 mg/dL (40-60) 11/23/19 05:17 Cholesterol/HDL Ratio 1.60 11/23/19 05:17 Lipase 48 U/L (73-393) L 11/22/19 12:24 Home Medications: Apixaban [Eliquis] 5 mg PO BID 08/04/19 Atorvastatin Calcium 40 mg PO BEDTIME 08/04/19 Duloxetine HCl 60 mg PO DAILY 08/04/19 Insulin Glargine,Hum.rec.anlog [Lantus Solostar] 40 units SQ BIDWM 08/04/19 Loperamide HCl [Anti-Diarrheal] 2 mg PO QID PRN 08/04/19 Memantine HCl 5 mg PO BID 08/04/19 Acetaminophen 500 mg PO Q6H PRN 11/23/19 Furosemide 40 mg PO BID 11/23/19 Gabapentin 100 mg PO BEDTIME 11/23/19 Insulin Lispro [Humalog Kwikpen U-100] 20 unit SQ TIDWM 11/23/19 Losartan Potassium 50 mg PO DAILY 11/23/19 Metoprolol Succinate 50 mg PO DAILY 11/23/19 Potassium Chloride [Klor-Con 10] 40 meq PO DAILY 11/23/19 Promethazine HCl 12.5 mg PO Q6HP PRN 11/23/19 Patient Discharge Instructions: follow up with PCP within 1 week Diet: ADA Activity: Ad zack Time spent managing pt's care (in minutes): 35
== END 2019-11-24 15:19 | disposition home or self-care (01) | DRG 292 ==
LOC: ER 11:40 → ERHOLD 16:51 → 2ND 21:26 → OBSVTOIN 11-23 11:00
PROVIDERS: ADMIT Internal Medicine; ATTEND Hospitalist
DX: I11.0 Hypertensive heart disease with heart failure (principal); I25.810 Atherosclerosis of coronary artery bypass graft(s) without angina pectoris; I48.20 Chronic atrial fibrillation, unspecified; I50.33 Acute on chronic diastolic (congestive) heart failure; J44.9 Chronic obstructive pulmonary disease, unspecified; E78.5 Hyperlipidemia, unspecified; E11.649 Type 2 diabetes mellitus with hypoglycemia without coma; E11.51 Type 2 diabetes mellitus with diabetic peripheral angiopathy without gangrene; E11.621 Type 2 diabetes mellitus with foot ulcer; L97.529 Non-pressure chronic ulcer of other part of left foot with unspecified severity; Z91.048 Other nonmedicinal substance allergy status; Z79.01 Long term (current) use of anticoagulants; Z79.4 Long term (current) use of insulin; Z79.899 Other long term (current) drug therapy; Z86.73 Personal history of transient ischemic attack (TIA), and cerebral infarction without residual deficits; Z79.02 Long term (current) use of antithrombotics/antiplatelets; Z95.1 Presence of aortocoronary bypass graft; Z90.710 Acquired absence of both cervix and uterus; Z90.49 Acquired absence of other specified parts of digestive tract; Z20.828 Contact with and (suspected) exposure to other viral communicable diseases
CPT/HCPCS: 36415; 51702; 71045; 71250; 74176; 76705; 80048; 80061; 80076; 81003; 82947; 83605; 83690; 83735; 83880; 84100; 84145; 84443; 84484; 85025; 85027; 85610; 87040; 87804; 93005; 93306; 94760; 96374; 96375; 99285; G0378; J1160; J1650; J1815; J1940; J2270; J2405; J2543; U0002

== ENCOUNTER 2020-05-14 08:47 | Emergency (ER) | payer OTHER ==
--- OUTSIDE RECORDS SUMMARY | 2020-05-14 08:53 | XMS REPORT | Continuity of Care Document ---
:1940 Author Organization [facility] t Address [address] [place] [address] Care Team Providers Name Role Phone Jaziel MIRANDA Primary Care Physician Janet MIRANDA S Attending Clinician Mindy MIRANDA Attending Clinician Angie FERNANDEZ R Attending Clinician KENNEY Attending Clinician Unavailable Lucy VAZQUEZ, A Attending Clinician Unavailable Only, Test Attending Clinician Unavailable Doctor Unassigned, Name Attending Clinician Unavailable Lamin Hood Jr Attending Clinician Jarred Martínez Attending Clinician [place] Attending Clinician Unavailable Mindy MIRANDA Admitting Clinician Lamin Hood Jr Admitting Clinician Jarred Martínez Admitting Clinician Problems Condition Condition Condition Status Onset Resolution Last Treating Co mments Source Name Details Category Date Date Treatment Clinician Date PAD Diagnosis Active 2019-08-26 Mem oria 08-15 16:11:00 l PAD 00:00: Reinaldo 00 Active 08/16/2019 [facility] DEBILITY Diagnosis Active 2019-09-17 M emoria 08-15 22:04:00 l DEBILITY 00:00: Olman garcia 00 Active 08/16/2019 [facility] UNK Diagnosis Active 2019-08-16 Mem oria 6-02 07:26:00 l UNK 00:00: Milo 00 Active 08/10/2019 [facility] Diabetes Problem Active 2019-09-10 Mem oria mellitus 1-01 22:08:18 l (disorder) Diabetes 00:00: He rmann mellitus 00 (disorder) Active 03/10/1961 Problem 09/10/2019 [facility] Left foot Left foot Problem Active Uni [...] Resolve [facility] stroke stroke [facility] [place] [facility] Embolism Embolism Problem Active [facility] [place] [facility] OTHER Diagnosis Active 2019-09-17 Mem oria MALAISE 22:04:00 l OTHER Milo MALAISE Active [facility] Other Problem 2019-09-10 Memor ia malaise 22:08:18 l Other Reinaldo malaise 09/10/2019 [facility] Peripheral Problem Resolve 2019-09-10 Memoria vascular d 22:08:18 l disease Reinaldo (disorder) Peripheral vascular disease (disorder) Resolved Problem 09/10/2019 [facility] Allergies, Adverse Reactions, Alerts Allergy Allergy Status Severity Reaction(s) Onset Inactive Treating Comm ents Source Name Type Date Date Clinician Flu Vac Propensi Active Other (See Throat Vesna ston 2014 (65 ty to Comments) 3-14 closed Metho di Up)-Mf59 adverse 00:00: up; st c(Pf) reaction 00 Foamy/Fro s to thy drug mouth? Iodine Propensi Active Hives IVP dye Brooks ty to 3-14 Methodi adverse 00:00: st reaction 00 s to drug Iodinate Allergy Active Univers d to drug ity of [facility]rast (finding [facility] ) Physici ans iodine iodine Active Memoria l Reinaldo Social History Social Habit Start Date Stop Date Quantity Comments Source History [facility] Meth odist Alcohol Binge History [facility] Meth odist Alcohol Std Drinks Tobacco use and 2018-10-08 2018-10-08 Never used Todd Lang ethodist exposure 00:00:00 00:00:00 Alcohol intake 2018-10-08 2018-10-08 Current Leon thodist 00:00:00 00:00:00 non-drinker of alcohol (finding) History [facility] 2018-05-21 2018-05-21 1 [facility] Meth odist Alcohol Frequency 00:00:00 00:00:00 Sex Ass[birth year] At [birth year] Leon Rickey ethodist 00:00:00 00:00:00 Smoking Status Start Date Stop Date Source Never smoker [facility] Methodis t Medications Ordered Filled Start Stop Current Ordering Indication Dosage Frequency Signature Comments Components Source Medication Medication Date Date Medication? Clinician (SIG) Name Name Bumex 2019-0 No Notes: Memoria 09-08 (Same As: l 14:00: Bumex) Milo 00 apixaban 5 2020-0 Yes 5 mg = 1 Mem oria MG Oral - tab, PO, l Tablet 16:07: Q12H, For Olman garcia [Eliquis] 00 Atrial Fibrillati on, 0 Refill(s) apixaban 2020-0 Yes 2.5 mg = 1 Mem oria 2.5 mg oral - tab, PO, l tablet 16:07: Q12H, For Olman n 00 Atrial Fibrillati on, 0 Refill(s) Insulin 2020-0 Yes 20 unit, Memori a Glargine 09-07 SUB-Q, l 100 UNT/ML 16:07: Daily, 0 Her greene Injectable 00 Refill(s) Solution Melatonin 3 2020-0 Yes 3 mg = 1 Me moria MG Extended - tab, PO, l Release 16:07: Bedtime, 0 Herm marcus Tablet 00 Refill(s) bumetanide 2020-0 Yes 1 mg = 1 Mem oria 1 mg oral 7- tab, PO, l tablet 16:07: Daily, 0 Milo 00 Refill(s) tamsulosin 2020-0 Yes 0.4 mg = 1 M emoria 0.4 mg oral 09-07 cap, PO, l capsule 16:07: After Dinner, 0 Refill(s) Trazodone 0 No Notes: Memori a Hydrochlori 30 (Same As: l de 50 MG 02:00: Desyrel) Liliana nn Oral Tablet Eliquis No Notes: Memoria 09-04 Same as: l 02:00: Eliquis Metoprolol No Notes: Memor ia 09-03 (Same as: l 02:13: Lopressor) Push over 2 minutes Rocephin + No Notes: Memor ia sterile 09-03 (Same As: l water 10 mL 02:00: Rocephin). Use with 100 mL NS and infuse over 30 min MEDICATION WASTE Product Size: 1000 mg Product Wasted: ___ mg Metoprolol No 5 mg, Memori a 09-03 Route: IV, l 02:00: ABXQ4H, Dosing Weight 59.091, kg, Start date: 09/03/19 21:00:00 CDT, Duration: 30 day, Stop date: 10/03/19 17:00:00 CDT Bumex No Notes: Memoria 09-01 (Same As: l 22:29: Bumex) Insulin No Notes: Memoria Lispro 08-31 (Same as: l 09:05: Humalog) Roll in palms of hands gently; Do not shake vigorously . WASTE: F/P - Black; E - Municipal Trash Bin Stable for 28 days at room temperatur e. Expires in days from ____Date Flomax No Notes: Memoria 6- (Same As: l 22:00: Flomax) "Do Not Crush" Insulin No Notes: Memoria Lispro 6- (Same as: l 12:30: Humalog) Roll in palms of hands gently; Do not shake vigorously . WASTE: F/P - Black; E - Municipal Trash Bin Stable for 28 days at room temperatur e. Expires in days from ____Date Insulin 2020-0 No Notes: Memoria Lispro - (Same as: l 08:07: Humalog) Roll in palms of hands gently; Do not shake vigorously . WASTE: F/P - Black; E - Municipal Trash Bin Stable for 28 days at room temperatur e. Expires in days from ____Date Rocephin + 2019-0 No Notes: Memor ia sterile 08-29 (Same As: l water 10 mL 03:00: Rocephin). Use with 100 mL NS and infuse over 30 min MEDICATION WASTE Product Size: 1000 mg Product Wasted: ___ mg Plavix 2019-0 No 75 mg, Memoria -20 Route: PO, l 14:00: Drug form: Milo 00 TAB, Daily, Dosing Weight 63.636, kg, Start date: 08/28/19 9:00:00 CDT, Duration: 30 day, Stop date: 09/26/19 9:00:00 CDT Januvia 2020-0 No Notes: Memoria 6-20 Same as l 14:00: Januvia glimepiride 2020-0 No 4 mg, Memor ia -20 Route: PO, l 14:00: Drug form: Milo 00 TAB, Daily, Dosing Weight 63.636, kg, Start date: 08/28/19 9:00:00 CDT, Duration: 30 day, Stop date: 09/26/19 9:00:00 CDT Glucotrol 2020-0 No Notes: Memori a 6-20 (Same as: l 12:30: Glucotrol) 00 30 min before meals. Eliquis 2020-0 No 5 mg, Memoria 6-20 Route: PO, l 02:00: Drug form: Milo 00 TAB, Q12H, Dosing Weight 63.636, kg, Start date: 08/27/19 21:00:00 CDT, Duration: 30 day, Stop date: 09/26/19 9:00:00 CDT, For Atrial Fibrillati on Metronidazo 2019- No Notes: Cr regulo le 6-19 (Same as: l 22:00: Flagyl) Milo Take with food/ avoid alcohol Cipro 2019-0 No Notes: May Memori a 6-19 interfere l 22:00: w/enteral Reinaldo 00 feedings - Take 1 hr before or 2 hrs after antacids, dairy pdt & minerals. On empty stomach. pantoprazol No Notes: Cr regulo e 6-19 Tablet l 21:30: should not Reinaldo 00 be chewed or crushed. (Same as: Protonix) Lovenox 2019- No 60 mg, 0.6 Cr regulo 6-19 mL, Route: l 21:00: SUB-Q, Milo 00 Drug form: INJ, [id number], Dosing Weight 63.636, kg, Start date: 08/27/19 16:00:00 CDT, Stop date: 09/25/19 17:00:00 CDT, 0 Calcium 2019- No 636.36 mg, Cr regulo Chloride - Route: l 14:05: IVPB, Drug form: SOLN, ONCE, Dosing Weight 63.636, kg, Start date: 08/27/19 9:05:00 CDT, Stop date: 08/27/19 9:05:00 CDT Aspirin 2019-0 No Notes: Do Memor ia 6-19 not crush l 14:00: or chew. Reinaldo (Same As: Ecotrin) Plavix 2019- No Notes: Memoria 6-19 (Same As: l 14:00: Plavix) Reinaldo 00 Furosemide 2019-0 No Notes: Memor ia 40 MG Oral - (Same as: l Tablet 14:00: Lasix) Milo [Lasix] 00 May cause GI upset. Give with food or milk. Insulin 2019-0 No Notes: Memoria Glargine -19 (Same as: l 100 UNT/ML 14:00: Lantus) Do H ermann Injectable 00 not hold Solution insulin without contacting prescriber WASTE: F/P - Black; E - Municipal Trash Bin "single patient use only" Stable for 28 days at room temperatur e Expires in days from ____Date Potassium No Notes: Memori a Chloride -19 (Same as: l 14:00: K-Dur 20) Reinaldo 00 "Do Not Crush" Give with food and full glass of water For patients unable to swallow tablet, dissolve in one half glass of water. Allow about 2 minutes for the tablets to disintegra te. Stir before giving to prepare slurry and administer . Please exclude Patient s with feeding tube less than 14 Cook Islander (Dobhoff, J-tube etc) and pediatric and patients. pantoprazol No Notes: Cr regulo e -19 Tablet l 12:30: should not be chewed or crushed. (Same as: Protonix) Insulin No Notes: Memoria Lispro - (Same as: l 08:51: Humalog) Roll in palms of hands gently; Do not shake vigorously . WASTE: F/P - Black; E - Municipal Trash Bin Stable for 28 days at room temperatur e. Expires in days from ____Date atorvastati No Notes: Cr regulo n - (Same as: l 02:00: Lipitor) Reinaldo Lovenox No Notes: Memoria 6- Nurse to l 02:00: ensure Reinaldo documentat ion of patient education per anticoagul ation policy. (Same as: Lovenox) Melatonin 3 No Notes: Cr regulo MG Extended 08-26 (Same as: l Release 02:00: Melatonin) Herm marcus Tablet 00 metoprolol No Notes: Memor ia tartrate - (Same as: l 02:00: Lopressor) Milo Saline No Notes: Memoria Flush 0.9% 08-26 (Same as: l 02:00: BD Reinaldo Posiflush) RN please 0 No RN please Mem oria update HWA - update HWA l ON ADHOC 00:15: ON ADHOC, Herm marcus REMINDER, Drug form: MISC, Route: MISC, Q15Min, 08/26/19 19:15:00 CDT, Duration: 30 day, Stop date: 09/25/19 19:00:00 CDT, 0 Acetaminoph 0 No Notes: Do M emoria en 6-18 not exceed l 23:55: 4 gm/day. Reinaldo (Same as: Tylenol) Acetaminoph 0 No Notes: Cr regulo en 325 MG / 6-18 (Same as: l Hydrocodone 23:55: Pompey Liliana nn Bitartrate 00 325/5) Do 5 MG Oral not exceed Tablet 4gm/day of acetaminop hen. Ondansetron 0 No Notes: Cr regulo 6-18 (Same as: l 23:55: Zofran) Milk of 0 No Notes: Memoria Magnesia 6-18 (Same as: l 23:55: Milk of Magnesia, MOM) Bisacodyl 0 No Notes: Memori a 6-18 (Same As: l 23:55: Dulcolax, Bisco-Lax) Albuterol 0 No Notes: Memori a 0.833 MG/ML -18 (Same as: l / 23:55: Duoneb) Ipratropium 00 Chamberlain 0.167 MG/ML Inhalant Solution Saline 0 No Notes: Memoria Flush 0.9% -18 (Same as: l 23:55: BD Posiflush) Docusate 0 No Notes: Memoria Sodium 50 6-18 (Same as l MG / 22:00: Senokot-S) Milo sennosides, 00 Equiv. to MCFP 8.6 MG Lillian-Colac Oral Tablet e. Fluconazole 0 No Notes: Cr regulo 6-18 (Same as: l 22:00: Diflucan) Hazardous Drug Group 3:Reproduc tive risk Hazardous Drug -- Refer to safe handling procedure PPE Matrix Memantine 0 No Notes: Memori a 6-18 (Same As: l 22:00: Namenda) Piperacilli 2019-0 No Notes: Cr regulo n / 6-18 (Same as: l tazobactam 22:00: Zosyn) Liliana nn 00 Dosing based on Piperacill in component MEDICATION WASTE Product Size: 3375 mg Product Wasted: ___ mg Dextrose 2020-0 No 12.5 gm, Memor ia 50% Syringe 6-18 25 mL, l (D50W) 21:49: Route: Milo 00 IVP, Drug Form: INJ, Dosing Weight 60, kg, PRN, PRN Blood Glucose Results, Start date: 08/26/19 16:49:00 CDT, Duration: 30 day, Stop date: 09/25/19 16:48:00 CDT, 0 Glucagon 2020-0 No 1 mg, Memoria 6-18 Route: IM, l 21:49: Drug form: Milo 00 PDR/INJ, PRN, Dosing Weight 60, kg, PRN Blood Glucose Results, Start date: 08/26/19 16:49:00 CDT, Duration: 30 day, Stop date: 09/25/19 16:48:00 CDT, 0 Insulin 2019-0 No Notes: Memoria Lispro 6-18 (Same as: l 21:49: Humalog) Milo Roll in palms of hands gently; Do not shake vigorously . WASTE: F/P - Black; E - Municipal Trash Bin Stable for 28 days at room temperatur e. Expires in days from ____Date Maalox 2019-0 No Notes: Memoria Advanced 6-18 (aluminum l Regular 21:38: hydroxide- Herm marcus Strength 00 magnesium SUSP hyd-simeth icone 200-200-20 mg/5ml 30 ml ud ASTRID) pantoprazol 2019-0 Yes 40 mg = 1 M emoria e 40 MG 6-18 tab, PO, l Enteric 21:19: BID, # 60 Liliana nn Coated 00 tab, 0 Tablet Refill(s), [Protonix] other metoprolol 2020-0 Yes 25 mg = 1 Me moria tartrate 25 6-18 tab, PO, l mg oral 20:50: BID, 0 Reinaldo tablet 00 Refill(s) Aspirin 81 2020-0 Yes 81 mg = 1 Me moria MG Enteric 6-18 tab, PO, l Coated 20:50: Daily, 0 Reinaldo Tablet 00 Refill(s) Docusate 2020-0 Yes 1 tab, PO, Mem oria Sodium 50 6-18 BID, 0 l MG / 20:50: Refill(s) Reinaldo sennosides, 00 MCFP 8.6 MG Oral Tablet fluconazole 2019-0 Yes 100 mg = 1 Memoria 100 mg oral 6-18 tab, PO, l tablet 20:50: [id number], 4 Liliana nn 00 days, 0 Refill(s) Melatonin 3 2020-0 Yes 3 mg = 1 Me moria MG Extended 6-18 tab, PO, l Release 20:50: Bedtime, 0 Herm marcus Tablet 00 Refill(s) potassium 2019-0 Yes 40 mEq = 2 Me moria chloride 20 6-18 tab, PO, l mEq oral 20:50: Daily, 0 Liliana nn tablet, 00 Refill(s) extended release (KCL) Magnesium 2019-0 No Notes: Memori a Oxide 6-18 (Same as: l 16:39: Mag-Ox Reinaldo 00 400) Magnesium oxide 559pm=582c g elemental magnesium Dose=____m g magnesium oxide (___mg elemental magnesium) Potassium 2019-0 No Notes: Memori a Chloride 6-18 (Same as: l 13:39: K-Dur 20) Milo 00 "Do Not Crush" Give with food and full glass of water For patients unable to swallow tablet, dissolve in one half glass of water. Allow about 2 minutes for the tablets to disintegra te. Stir before giving to prepare slurry and administer . Please exclude Patient s with feeding tube less than 14 Cook Islander (Dobhoff, J-tube etc) and pediatric and patients. potassium 2019-0 No Notes: Memori a chloride 20 6-18 (Same as: l mEq oral 12:46: K-Dur 20) Herm marcus tablet, 00 "Do Not extended Crush" release Give with (KCL) food and full glass of water For patients unable to swallow tablet, dissolve in one half glass of water. Allow about 2 minutes for the tablets to disintegra te. Stir before giving to prepare slurry and administer . Please exclude Patient s with feeding tube less than 14 Cook Islander (Dobhoff, J-tube etc) and pediatric and patients. Protonix 2019-0 No Notes: For Mem oria 6-17 IV push l 22:00: reconstitu Reinaldo 00 te with 10 ml 0.9% sodium chloride and push over 2 minutes. (Same as: Protonix) Furosemide 2019-0 No Notes: Memor ia 40 MG Oral 6-17 (Same as: l Tablet 17:38: Lasix) Milo [Lasix] 00 May cause GI upset. Give with food or milk. Diflucan 2019-0 No 100 mg, 1 Cr regulo 6-16 tab, l 22:00: Route: PO, Reinaldo 00 Drug form: TAB, [id number], Dosing Weight 60, kg, Start date: 08/24/19 17:00:00 CDT, Duration: 5 day, Stop date: 08/28/19 17:00:00 CDT, ABX Indication : Bacteremia , 0 Protonix 2019-0 No 40 mg, Memoria 16 Route: l 21:30: IVP, Drug form: INJ, Before Dinner, Dosing Weight 60, kg, Start date: 08/24/19 16:30:00 CDT, Duration: 30 day, Stop date: 09/22/19 16:30:00 CDT, 0 Lasix 2019-0 No Notes: Memoria -16 (Same as: l 16:06: Lasix) Milo MEDICATION WASTE Product Size: 40 mg Product Wasted: ___ mg Potassium 2019- No Notes: Memori a Chloride 08-23 Infuse at l 14:00: a rate of Milo 10 mEq/hr. (Same as: KCL) Protonix 0 No 40 mg, Memoria 6-16 Route: l 14:00: IVP, Drug form: INJ, BID, Dosing Weight 60, kg, Start date: 08/24/19 9:00:00 CDT, Duration: 30 day, Stop date: 09/22/19 17:00:00 CDT, 0 Maalox 2019-0 No Notes: Memoria Advanced -16 (aluminum l Regular 13:23: hydroxide- Herm marcus Strength 00 magnesium SUSP hyd-simeth icone 200-200-20 mg/5ml 30 ml ud ASTRID) Omnipaque 2019-0 No Notes: Memori a 300 -16 (Same l 00:23: as:Omnipaq Reinaldo 00 ue 300). WASTE: F/P - Black; E - Municipal Trash Bin For oral use only Docusate No 1 tab, Memoria Sodium 50 -15 Route: PO, l MG / 22:00: Drug Form: Reinaldo sennosides, 00 TAB, MCFP 8.6 MG Dosing Oral Tablet Weight 60, kg, BID, Start date: 08/23/19 17:00:00 CDT, Duration: 30 day, Stop date: 09/22/19 9:00:00 CDT Dulcolax No Notes: Memoria Laxative 6-15 (Same As: l 14:12: Dulcolax, Milo Bisco-Lax) Lasix No Notes: Memoria 6-14 (Same as: l 16:33: Lasix) Reinaldo MEDICATION WASTE Product Size: 40 mg Product Wasted: ___ mg Zosyn No Notes: Memoria 6-14 (Same as: l 16:00: Zosyn) Reinaldo Dosing based on Piperacill in component MEDICATION WASTE Product Size: 3375 mg Product Wasted: ___ mg Lovenox No 80 mg, 0.8 Cr regulo 6-14 mL, Route: l 14:00: SUB-Q, Drug form: INJ, [id number], Dosing Weight 60, kg, Start date: 08/22/19 9:00:00 CDT, Stop date: 09/20/19 9:00:00 CDT, 0 Acetaminoph No Notes: Cr regulo en 325 MG / 6-14 (Same as: l Hydrocodone 13:55: Pompey Liliana nn Bitartrate 00 325/5) Do 5 MG Oral not exceed Tablet 4gm/day of [Pompey acetaminop 5/325] hen. Melatonin 3 No Notes: Cr regulo MG Extended -14 (Same as: l Release 02:00: Melatonin) Herm marcus Tablet 00 Albuterol No Notes: Memori a 0.833 MG/ML - (Same as: l / 22:12: Duoneb) Reinaldo Ipratropium 00 Chamberlain 0.167 MG/ML Inhalant Solution Docusate No Notes: Memoria Sodium 50 6-13 (Same as l MG / 22:00: Senokot-S) sennosides, 00 Equiv. to MCFP 8.6 MG Lillian-Colac Oral Tablet e. Midodrine No Notes: Memori a 6-11 (Same l 17:47: as:Proamat Milo 00 ine) Aspirin 81 No Notes: Do Me moria MG Enteric 11 not crush l Coated 14:00: or chew. Reinaldo Tablet 00 (Same As: Ecotrin) Fentanyl No Notes: Memoria -11 (Same as: l 02:04: Sublimaze) Preservat zenaida free. albumin No 25 gm, Memoria human 25% 08-18 Route: l intravenous 00:02: IVPB, Liliana nn solution 00 ONCE, Dosing Weight 60, kg, Start date: 08/18/19 19:02:00 CDT, Stop date: 08/18/19 19:02:00 CDT, hypotensio n, Indication : Other see comments Norepinephr No Notes: Cr regulo ine 08-17 Same as: l 23:44: Levophed. Administer by either central venous catheter or peripheral ly-inserte d central catheter (PICC) line. Concentrat ion: 0.032 mg / mL glycopyrrol No Route: IV, Memoria ate (ANES) 10 Drug form: l 22:30: INJ, ONCE, Stop date: 08/18/19 17:30:00 CDT neostigmine No Route: IV, Memoria (ANES) -10 Drug form: l 22:30: INJ, ONCE, Stop date: 08/18/19 17:30:00 CDT ondansetron No Route: IV, Memoria (ANES) 6-10 Drug form: l 22:18: INJ, ONCE, Stop date: 08/18/19 17:18:00 CDT Lovenox No Notes: Memoria 6-10 (Same as: l 22:00: Lovenox) Milo 00 normal No 1,000 mL, Memori a saline 0.9% 6-10 Rate: 100 l IV 1,000 mL 21:53: ml/hr, Infuse over: 10 hr, Route: IV, Dosing Weight 60 kg, Total Volume: 1,000, Start date: 08/18/19 16:53:00 CDT, Duration: 30 day, Stop date: 09/17/19 16:52:00 CDT, 1.6, m2, 0 ceFAZolin 2020-0 No Route: IV, Me moria (ANES) 6-10 Drug form: l 21:32: INJ, ONCE, Stop date: 08/18/19 16:32:00 CDT propofol 2020-0 No Route: IV, Mem oria (ANES) 6-10 Drug form: l 20:36: INJ, ONCE, Stop date: 08/18/19 15:36:00 CDT rocuronium 2020-0 No Route: IV, M emoria (ANES) 6-10 Drug form: l 20:36: INJ, ONCE, Stop date: 08/18/19 15:36:00 CDT heparin 2020-0 No Route: IV, Cr regulo (ANES) 6-10 Drug form: l 20:15: INJ, ONCE, Stop date: 08/18/19 15:15:00 CDT heparin 2020-0 No Route: IV, Cr regulo (ANES) 6-10 Drug form: l 19:50: INJ, ONCE, Stop date: 08/18/19 14:50:00 CDT rocuronium 2020-0 No Route: IV, M emoria (ANES) 6-10 Drug form: l 19:07: INJ, ONCE, Stop date: 08/18/19 14:07:00 CDT famotidine 2020-0 No Route: IV, M emoria (ANES) 6-10 Drug form: l 19:02: INJ, ONCE, Stop date: 08/18/19 14:02:00 CDT methylPREDN 2020-0 No Route: IV, Memoria ISolone 6-10 Drug form: l (ANES) 19:02: INJ, ONCE, Stop date: 08/18/19 14:02:00 CDT diphenhydrA 2020-0 No Route: IV, Memoria MINE (ANES) 6-10 Drug form: l 19:02: INJ, ONCE, Stop date: 08/18/19 14:02:00 CDT acetaminoph 2019-0 No Route: IV, Memoria en (ANES) 6-10 Drug form: l 19:02: INJ, ONCE, Stop date: 08/18/19 14:02:00 CDT ceFAZolin No Route: IV, Me moria (ANES) 6-10 Drug form: l 18:57: INJ, ONCE, Stop date: 08/18/19 13:57:00 CDT lidocaine 2019-0 No Route: IV, Me moria (ANES) 6-10 Drug form: l 18:52: INJ, ONCE, Stop date: 08/18/19 13:52:00 CDT fentaNYL 2019-0 No Route: IV, Mem oria (ANES) 6-10 Drug form: l 18:52: INJ, ONCE, Stop date: 08/18/19 13:52:00 CDT propofol 2019-0 No Route: IV, Mem oria (ANES) 6-10 Drug form: l 18:52: INJ, ONCE, Stop date: 08/18/19 13:52:00 CDT vancomycin 2019-0 No Route: IV, M emoria (ANES) 1000 6-10 Drug form: l mg 17:41: INJ, Start date: 08/18/19 12:41:00 CDT, Stop date: 08/18/19 13:41:00 CDT Sodium 2019-0 No Route: IV, Memor ia Chloride 6-10 Total l 0.9% IV 17:34: Volume: Milo (ANES) 1000 00 1,000, mL Start date: 08/18/19 12:34:00 CDT, Stop date: 08/18/19 13:34:00 CDT Lactated 2019-0 No Route: IV, Mem oria Ringers 6-10 Total l Injection 17:27: Volume: Liliana nn IV (ANES) 00 1,000, 1000 mL Start date: 08/18/19 12:27:00 CDT, Stop date: 08/18/19 13:27:00 CDT D5W 1/4NS 2020-0 No 1,000 mL, Mem oria 1,000 mL 6-10 Rate: 40 l 17:25: ml/hr, Infuse over: 25 hr, Route: IV, Dosing Weight 60 kg, Total Volume: 1,000, Start date: 08/18/19 12:25:00 CDT, Duration: 30 day, Stop date: 09/17/19 12:24:00 CDT, 1.6, m2, 0 LR IV 1,000 2020-0 No 1,000 mL, M emoria mL 6-10 Rate: 40 l 17:10: ml/hr, Infuse over: 25 hr, Route: IV, Dosing Weight 60 kg, Total Volume: 1,000, Start date: 08/18/19 12:10:00 CDT, Duration: 1 day, Stop date: 08/19/19 12:09:00 CDT, 1.6, m2, 0 3 ML 2019-0 No Notes: Memoria Insulin 6-10 (Same as: l Glargine 14:00: Lantus) Do Her greene 100 UNT/ML 00 not hold Prefilled insulin Syringe without [Lantus] contacting prescriber WASTE: F/P - Black; E - Municipal Trash Bin "single patient use only" Stable for 28 days at room temperatur e Expires in days from ____Date Plavix 2019-0 No Notes: Memoria 6-10 (Same As: l 14:00: Plavix) Hydralazine 2019-0 No 10 mg, Cr regulo 6-10 Route: l 11:23: IVP, Q20Min, Dosing Weight 60, kg, PRN Elevated BP, Start date: 08/18/19 6:23:00 CDT, Duration: 2 doses or times, Stop date: Limited # of times Acetaminoph 2019-0 No 1,000 mg, M emoria en 6-10 Route: PO, l 11:23: Drug form: TAB, ONCE, Dosing Weight 60, kg, PRN Pain Score 1-3, Start date: 08/18/19 6:23:00 CDT Morphine 2020-0 No 2 mg, Memoria 6-10 Route: l 11:23: IVP, Milo 00 Q5Min, Dosing Weight 60, kg, PRN Pain Score 4-6, Start date: 08/18/19 6:23:00 CDT, Duration: 5 doses or times, Stop date: Limited # of times Flumazenil 2020-0 No 0.2 mg, Cr regulo 6-10 Route: l 11:23: IVP, PRN, Milo 00 Dosing Weight 60, kg, PRN Benzodiaze pine Reversal, Initial dose, Start date: 08/18/19 6:23:00 CDT, Duration: 30 day, Stop date: 09/17/19 6:22:00 CDT Naloxone 2020-0 No 0.4 mg, Memori a 6-10 Route: l 11:23: IVP, Reinaldo 00 Q2MIN, Dosing Weight 60, kg, PRN Narcotic Reversal, Start date: 08/18/19 6:23:00 CDT, Duration: 8 doses or times, Stop date: Limited # of times Albuterol 2020-0 No 2.49 mg, Cr regulo 0.83 MG/ML 6-10 Route: l Inhalant 11:23: NEB, Milo Solution 00 Q20Min, Dosing Weight 60, kg, PRN Wheezing, Priority: STAT, Start date: 08/18/19 6:23:00 CDT, Duration: 30 day, Stop date: 09/17/19 6:22:00 CDT Diphenhydra 2020-0 No 12.5 mg, Me moria mine 6-10 Route: l 11:23: IVP, Drug Reinaldo 00 form: INJ, Q6H, Dosing Weight 60, kg, PRN Itching, Start date: 08/18/19 6:23:00 CDT, Duration: 30 day, Stop date: 09/17/19 6:22:00 CDT Meperidine 2020-0 No 12.5 mg, Mem oria 6-10 Route: l 11:23: IVP, Reinaldo 00 Q30Min, Dosing Weight 60, kg, PRN Other -See Comment, For shivering, Start date: 08/18/19 6:23:00 CDT, Duration: 2 doses or times, Stop date: Limited # of times Ondansetron 0 No 4 mg, Memor ia 6-10 Route: l 11:23: IVP, ONCE, Dosing Weight 60, kg, PRN Nausea & Vomiting, Start date: 08/18/19 6:23:00 CDT Promethazin No 12.5 mg, Me moria e 6-10 Route: IM, l 11:23: ONCE, Dosing Weight 60, kg, PRN Nausea & Vomiting, Start date: 08/18/19 6:23:00 CDT cefepime No Notes: Memoria 6-10 (Same As: l 10:00: Maxipime) MEDICATION WASTE Product Size: 1000 mg Product Wasted: ___ mg Insulin No Notes: Memoria Lispro - (Same as: l 02:40: Humalog) Roll in palms of hands gently; Do not shake vigorously . WASTE: F/P - Black; E - Municipal Trash Bin Stable for 28 days at room temperatur e. Expires in days from ____Date Metoprolol No Notes: Memor ia 6- (Same as: l 22:58: Lopressor) Push over 2 minutes Digoxin No Notes: Memoria 0.25 MG 6- (Same as: l Oral Tablet 22:58: Lanoxin) He metoprolol No Notes: Memor ia tartrate 6- (Same as: l 22:00: Lopressor) Lovenox No Notes: Memoria 6- Nurse to l 20:00: ensure documentat ion of patient education per anticoagul ation policy. (Same as: Lovenox) Hydralazine No Notes: Cr regulo 6- (Same as: l 18:36: Apresoline ) Push over 5 minutes Amlodipine No Notes: Memor ia 6-09 (Same as: l 14:00: Norvasc) Memantine No Notes: Memori a 6-09 (Same As: l 14:00: Namenda) Metoprolol 2019-0 No Notes: Memor ia 08-16 (Same as: l 13:11: Lopressor) Push over 2 minutes Sodium 2020-0 No 1,000 mL, Memori a Chloride 08-16 Rate: 75 l 0.9% IV 05:36: ml/hr, Reinaldo 1,000 mL 00 Infuse over: 13.3 hr, Route: IV, Dosing Weight 60 kg, Total Volume: 1,000, Start date: 08/17/19 0:36:00 CDT, Duration: 1 doses or times, Stop date: 08/17/19 13:53:00 CDT, 1.6, m2, 0 Dextrose 2019-0 No 12.5 gm, Memor ia 50% Syringe 08-16 25 mL, l (D50W) 02:50: Route: IVP, Drug Form: INJ, Dosing Weight 60, kg, PRN, PRN Blood Glucose Results, Start date: 08/16/19 21:50:00 CDT, Duration: 30 day, Stop date: 09/15/19 21:49:00 CDT, 0 Glucagon 2019-0 No 1 mg, Memoria 08-16 Route: IM, l 02:50: Drug form: PDR/INJ, PRN, Dosing Weight 60, kg, PRN Blood Glucose Results, Start date: 08/16/19 21:50:00 CDT, Duration: 30 day, Stop date: 09/15/19 21:49:00 CDT, 0 Insulin 2019-0 No Notes: [facility]oria Lispro 08-16 (Same as: l 02:50: Humalog) Roll in palms of hands gently; Do not shake vigorously . WASTE: F/P - Black; E - Municipal Trash Bin Stable for 28 days at room temperatur e. Expires in days from ____Date normal 2019-0 No 500 mL, Memoria saline 0.9% 08-16 Rate: 500 l IV 500 mL 02:30: ml/hr, Olman n 00 Infuse over: 1 hr, Route: IV, Dosing Weight 60 kg, Total Volume: 500, Start date: 08/16/19 21:30:00 CDT, Duration: 30 day, Stop date: 09/15/19 21:29:00 CDT, 1.6, m2, 0 Insulin 2020-0 No 4 unit, Memoria Lispro 08-16 Route: l 02:30: SUB-Q, ONCE, Dosing Weight 60, kg, Start date: 08/16/19 21:30:00 CDT, Stop date: 08/16/19 21:30:00 CDT atorvastati 2019-0 No Notes: Cr regulo n 08-16 (Same as: l 02:00: Lipitor) Insulin 2020-0 No 10 unit, Memori a regular 08-16 Route: IV, l 01:49: ONCE, Dosing Weight 60, kg, Start date: 08/16/19 20:49:00 CDT, Stop date: 08/16/19 20:49:00 CDT Insulin 2020-0 No 10 unit, Memori a regular 08-16 Route: IV, l 01:19: ONCE, Dosing Weight 60, kg, Start date: 08/16/19 20:19:00 CDT, Stop date: 08/16/19 20:19:00 CDT Dextrose 2019-0 No 12.5 gm, Memor ia 50% Syringe 08-15 25 mL, l (D50W) 18:41: Route: IVP, Drug Form: INJ, Dosing Weight 60, kg, PRN, PRN Blood Glucose Results, Start date: 08/16/19 13:41:00 CDT, Duration: 30 day, Stop date: 09/15/19 13:40:00 CDT, 0 Glucagon 2019-0 No 1 mg, Memoria 08-15 Route: IM, l 18:41: Drug form: PDR/INJ, PRN, Dosing Weight 60, kg, PRN Blood Glucose Results, Start date: 08/16/19 13:41:00 CDT, Duration: 30 day, Stop date: 09/15/19 13:40:00 CDT, 0 Ondansetron 2019-0 No Notes: Cr regulo 08-15 (Same as: l 18:41: Zofran) MEDICATION WASTE Product Size: 4 mg Product Wasted: ___ mg Melatonin 2020-0 No Notes: Memori a 08-15 (Same as: l 18:41: Melatonin) Acetaminoph 2019-0 No Notes: Do M ryderria en 08-15 not exceed l 18:41: 4 gm/day. (Same as: Tylenol) Lovenox 2019-0 No Notes: Memoria 08-15 (Same as: l 17:00: Lovenox) normal 2020-0 No 1,000 mL, Memori a saline 0.9% 08-15 Rate: 100 l IV 1,000 mL 16:40: ml/hr, Infuse over: 10 hr, Route: IV, Dosing Weight 60 kg, Total Volume: 1,000, Start date: 08/16/19 11:40:00 CDT, Duration: 30 day, Stop date: 09/15/19 11:39:00 CDT, 1.6, m2 Labetalol 2020-0 No 10 mg, Memori a 08-15 Route: l 16:19: IVP, Q5Min, Dosing Weight 60, kg, PRN Elevated BP, Start date: 08/16/19 11:19:00 CDT, Duration: 5 doses or times, Stop date: Limited # of times Ketorolac 2019-0 No 30 mg, Memori a 08-15 Route: l 16:19: IVP, ONCE, Dosing Weight 60, kg, Start date: 08/16/19 11:19:00 CDT, Stop date: 08/16/19 11:19:00 CDT Acetaminoph 2019-0 No 1,000 mg, M tyler en 08-15 Route: PO, l 16:19: Drug form: TAB, ONCE, Dosing Weight 60, kg, PRN Pain Score 1-3, Start date: 08/16/19 11:19:00 CDT Fentanyl 2020-0 No 25 Memoria 08-15 microgram, l 16:19: Route: IVP, Q5Min, Dosing Weight 60, kg, PRN Pain Score 4-6, Priority: Routine, Start date: 08/16/19 11:19:00 CDT, Duration: 4 doses or times, Stop date: Limited # of times Hydromorpho 2019-0 No 0.5 mg, Mem oria ne 08-15 Route: l 16:19: IVP, Milo 00 Q5Min, Dosing Weight 60, kg, PRN Pain Score 7-10, Start date: 08/16/19 11:19:00 CDT, Duration: 4 doses or times, Stop date: Limited # of times Naloxone 2020-0 No 0.4 mg, Memori a 08-15 Route: l 16:19: IVP, Milo 00 Q2MIN, Dosing Weight 60, kg, PRN Narcotic Reversal, Start date: 08/16/19 11:19:00 CDT, Duration: 8 doses or times, Stop date: Limited # of times Meperidine 2019-0 No 12.5 mg, Mem oria 08-15 Route: l 16:19: IVP, Milo 00 Q30Min, Dosing Weight 60, kg, PRN Other -See Comment, For shivering, Start date: 08/16/19 11:19:00 CDT, Duration: 2 doses or times, Stop date: Limited # of times Ondansetron 2019-0 No 4 mg, Memor ia 08-15 Route: l 16:19: IVP, ONCE, Dosing Weight 60, kg, PRN Nausea & Vomiting, Start date: 08/16/19 11:19:00 CDT midazolam 2020-0 No Route: IV, Me moria (ANES) 08-15 Drug form: l 16:16: SOLN, 00 ONCE, Stop date: 08/16/19 11:16:00 CDT ceFAZolin 2020-0 No Route: IV, Me moria (ANES) 08-15 Drug form: l 16:16: INJ, ONCE, Stop date: 08/16/19 11:16:00 CDT lidocaine 2020-0 No Route: IV, Me moria (ANES) - Drug form: l 16:16: INJ, ONCE, Stop date: 08/16/19 11:16:00 CDT fentaNYL 2020-0 No Route: IV, Mem oria (ANES) 08-15 Drug form: l 16:16: INJ, ONCE, Stop date: 08/16/19 11:16:00 CDT propofol 2020-0 No Route: IV, Mem oria (ANES) 08-15 Drug form: l 16:16: INJ, ONCE, Stop date: 08/16/19 11:16:00 CDT famotidine 2020-0 No Route: IV, M emoria (ANES) 08-15 Drug form: l 16:16: INJ, ONCE, Milo Stop date: 08/16/19 11:16:00 CDT methylPREDN 2020-0 No Route: IV, Memoria ISolone 08-15 Drug form: l (ANES) 16:16: INJ, ONCE, Liliana Stop date: 08/16/19 11:16:00 CDT diphenhydrA 2020-0 No Route: IV, Memoria MINE (ANES) 08-15 Drug form: l 16:16: INJ, ONCE, Reinaldo 00 Stop date: 08/16/19 11:16:00 CDT losartan 50 2020-0 No 50 mg = 1 M emoria mg oral 6-08 tab, PO, l tablet 15:46: Daily, # Reinaldo 00 30 tab, 0 Refill(s) memantine 5 2020-0 Yes 5 mg = 1 Me moria mg oral 6-08 tab, PO, l tablet 15:46: BID, # 60 Olman n 00 tab, 0 Refill(s) metoprolol 2020-0 No 50 mg = 1 Me moria tartrate 50 6-08 tab, PO, l mg oral 15:46: BID, # 60 Liliana nn tablet 00 tab, 0 Refill(s) glimepiride 2020-0 Yes 4 mg = 1 Me moria 4 mg oral 6-08 tab, PO, l tablet 15:45: Daily, 0 Milo 00 Refill(s) sitagliptin 2020-0 Yes 100 mg = 1 Memoria 100 MG Oral 6-08 tab, PO, l Tablet 15:45: Daily, # Reinaldo [Januvia] 00 30 tab, 0 Refill(s) 3 ML 2020-0 Yes 10 unit, Memoria Insulin 6-08 SUB-Q, l Glargine 15:45: Daily, # 3 Her greene 100 UNT/ML 00 mL, 0 Prefilled Refill(s) Syringe [Lantus] apixaban 5 2020-0 Yes 5 mg = 1 Mem oria MG Oral 6-08 tab, PO, l Tablet 15:44: BID, 0 Reinaldo [Eliquis] 00 Refill(s) Furosemide 2020-0 Yes 40 mg = 1 Me moria 40 MG Oral 6-08 tab, PO, l Tablet 15:44: Daily, # Reinaldo 00 30 tab, 0 Refill(s) gabapentin 2020-0 No 100 mg = 1 M emoria 100 MG Oral 08 cap, PO, l Capsule 15:44: TID, 0 Reinaldo 00 Refill(s) azithromyci 2020-0 No See Memori a n 250 mg 08-15 Instructio l oral tablet 15:43: ns, Take 2 Milo 00 tablets by mouth the first day then 1 tablet by mouth daily on days 2-5., # 6 tab, 0 Refill(s) clopidogrel 2019-0 Yes 75 mg = 1 M emoria 75 MG Oral 08 tab, PO, l Tablet 15:43: Daily, # Milo [Plavix] 00 30 tab, 0 Refill(s) Amlodipine 2019-0 No PO, Daily, M emoria 08-15 0 l 15:42: Refill(s) Reinaldo 00 atorvastati 2019-0 Yes 40 mg = 1 M emoria n 40 mg 08-15 tab, PO, l oral tablet 15:42: Bedtime, # Reinaldo 00 30 tab, 0 Refill(s) vancomycin 2019-0 No Route: IV, M emoria (ANES) 1000 08-15 Drug form: l mg 15:22: INJ, Start Reinaldo 00 date: 08/16/19 10:22:00 CDT, Stop date: 08/16/19 11:22:00 CDT Nurse 2019-0 No Nurse Memoria please 08-15 please l update 14:30: update Reinaldo Height, 00 Height, Weight, Weight, Allergy Allergy info info, reminder, Drug form: MISC, Route: MISC, Q30Min, 08/16/19 9:30:00 CDT, Duration: 6 hr, Stop date: 08/16/19 15:00:00 CDT, 0 Ancef + 2019-0 No Notes: Memoria sterile 08-15 (Same As: l water 20 mL 14:00: Ancef, Herm marcus 00 Kefzol) MEDICATION WASTE Product Size: 1000 mg Product Wasted: ___ mg Vancomycin 2020-0 No 2001 mg: Me moria 6-08 infuse l 14:00: over 2.5 Milo 00 hours For adult patients only: Round to nearest 250 mg per Medical Staff approval MEDICATION WASTE Product Size: 1000 mg Product Wasted: ___ mg Calcium 2020-0 No 1,000 mL, Memor ia Chloride 6-08 1000 l 0.0014 14:00: ml/hr, Milo MEQ/ML / 00 Infuse Potassium Over: 1 Chloride hr, Route: 0.004 IV, 1,000, MEQ/ML / Drug form: Sodium INJ, PRE Chloride OP, Dosing 0.103 Weight MEQ/ML / 72.727 kg, Sodium Start Lactate date: 0.028 08/15/20 MEQ/ML 9:00:00 Injectable CDT, Solution Duration: 1 doses or times, Bolus, 0 Calcium 2020-0 No 1,000 mL, Memor ia Chloride 6-08 Rate: 75 l 0.0014 13:54: ml/hr, Reinaldo MEQ/ML / 00 Infuse Potassium over: 13.3 Chloride hr, Route: 0.004 IV, Dosing MEQ/ML / Weight Sodium 72.727 kg, Chloride Total 0.103 Volume: MEQ/ML / 1,000, Sodium Start Lactate date: 0.028 //20 MEQ/ML 8:54:00 Injectable CDT, Solution Duration: 1 day, Stop date: 08/17/19 8:53:00 CDT, 1.86, m2, 0 apixaban 2018-0 Yes 5mg Q.5D Take 5 mg [place] (ELIQUIS) 5 3-25 by mouth 2 Me thodi mg tablet 15:46: (two) st 03 times a day. magnesium 2019-0 Yes 400mg Q.5D Take 400 Vesna ston oxide 3-25 mg by Method[facility] (MAG-OX) 15:46: mouth 2 st 400 mg 03 (two) (241.3 mg times a magnesium) day. tablet budesonide- 2019-0 Yes 2{puff} Q.5D Inhale 2 Brooks formoterol 3-25 puffs 2 Method i (SYMBICORT) 15:46: (two) st 160-4.5 03 times a mcg/actuati day. on inhaler HUMALOG 2019-0 Yes 20U Q.[id number] Inject 20 Leon KWIKPEN 2-23 [id number] Units Metho di INSULIN 100 00:00: 3D under the s t unit/mL 00 skin 3 injection (three) pen times a day with meals. Per sliding scale -only takes if BS IS above 120 LANTUS 2018- Yes Q.5D 2 (two) Brooks SOLOSTAR 2-07 times a Method[facility] U-100 00:00: day. 50 st INSULIN 100 00 units in unit/mL the injection morning 30 (pen) units at night gabapentin 2018- Yes QD nightly. Vesna zurita (NEURONTIN) 1-14 Methodi 100 mg 00:00: st capsule 00 pramipexole 2017-03 Yes Q.[id number] 3 (three) Brooks (MIRAPEX) 2-12 [id number] times a M ethodi 0.5 MG 00:00: 3D day as st tablet 00 needed. simvastatin 2017-03 Yes QD nightly. Eloy gross (ZOCOR) 40 2-12 Methodi MG tablet 00:00: st 00 DULoxetine 2017-03 Yes QD every [place] (CYMBALTA) 2-12 morning. Metho di 60 MG 00:00: st capsule 00 metoprolol 2017-03 Yes QD nightly. Vesna zurita succinate 2-12 [facility] XL 00:00: st (TOPROL-XL) 00 50 mg 24 hr tablet Acetaminoph Acetaminoph Yes U nivers en TABS en TABS [facility] [place] [facility] amLODIPine amLODIPine Yes Uni vers [...] vers HCl CPEP HCl CPEP [facility] [place] [facility] Eliquis Eliquis Yes Univers TABS TABS [facility] [place] [facility] Lasix TABS Lasix TABS Yes [...] Yes Unive rs [place] [facility] [place] [facility] Potassimin Potassimin Yes Uni vers TABS TABS [facility] [place] [facility] Promethazin Promethazin Yes U nivers e HCl TABS e HCl TABS [facility] [place] [facility] Santyl OINT Santyl OINT Yes U nivers [facility] [place] [facility] Vital Signs Vital Name Observation Time Observation Value Comments Source Temperature Oral (F) 2019-09-08 13:25:00 98.6 F [facility] Heart Rate 2019-09-08 13:25:00 [facility] Respitory Rate 2019-09-08 13:25:00 Memori al Reinaldo Systolic (mm Hg) 2019-09-08 13:25:00 Cr rial Reinaldo Diastolic (mm Hg) 2019-09-08 13:25:00 Mem orial Reinaldo Temperature Oral (F) 2019-09-08 13:16:00 98.6 F [facility] Milo Heart Rate 2019-09-08 13:16:00 [facility] Milo Respitory Rate 2019-09-08 13:16:00 Memori al Milo Systolic (mm Hg) 2019-09-08 13:16:00 Cr rial Milo Diastolic (mm Hg) 2019-09-08 13:16:00 Mem orial Milo Temperature Oral (F) 2019-09-08 01:45:00 98.5 F [facility] Reinaldo Heart Rate 2019-09-08 01:45:00 [facility] Milo Respitory Rate 2019-09-08 01:45:00 Memori al Reinaldo Systolic (mm Hg) 2019-09-08 01:45:00 Cr rial Reinaldo Diastolic (mm Hg) 2019-09-08 01:45:00 Mem orial Milo Height 2019-08-28 16:28:00 149.86 cm [facility] Weight 2019-08-28 16:28:00 [facility] BMI Calculated 2019-08-28 16:28:00 [facility]ori al Reinaldo Height 2019-08-27 00:43:00 149.86 cm [facility] Milo Weight 2019-08-27 00:43:00 [facility] Milo BMI Calculated 2019-08-27 00:43:00 [facility]ori al Milo Temperature Oral (F) 2019-08-26 21:46:00 98.5 F [facility] Respitory Rate 2019-08-26 21:39:00 Memori al Reinaldo Respitory Rate 2019-08-26 21:00:00 Memori al Milo Systolic (mm Hg) 2019-08-26 21:00:00 Cr rial Milo Diastolic (mm Hg) 2019-08-26 21:00:00 Mem orial Reinaldo Respitory Rate 2019-08-26 19:00:00 Memori al Milo Systolic (mm Hg) 2019-08-26 19:00:00 Cr rial Milo Diastolic (mm Hg) 2019-08-26 19:00:00 Mem orial Reinaldo Systolic (mm Hg) 2019-08-26 18:35:00 Cr rial Reinaldo Diastolic (mm Hg) 2019-08-26 18:35:00 Mem orial Milo Temperature Oral (F) 2019-08-26 16:12:00 98.6 F [facility] Milo Temperature Oral (F) 2019-08-26 12:59:00 98.5 F [facility] Heart Rate 2019-08-22 17:49:00 [facility] Heart Rate 2019-08-22 15:30:00 [facility] Heart Rate 2019-08-22 14:01:00 [facility] Height 2019-08-16 14:43:00 149.86 cm [facility] Weight 2019-08-16 14:43:00 [facility] BMI Calculated 2019-08-16 14:43:00 Memori al Milo Procedures Procedure Date / Time Performing Clinician Source Performed History of Rectal [facility] [place] [facility] 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 [facility] [place] [facility] History of Arterial [facility] [place] angioplasty of lower Physicians extremity Plan of Care Planned Activity Planned Date Details Comments Source Future Scheduled 2019-10-09 INFLUENZA VACCINE [place] [facility] 00:00:00 [code = INFLUENZA VACCINE] Future Scheduled 1988 SHINGLES VACCINES (#1) [place] [facility] 00:00:00 [code = SHINGLES VACCINES (#1)] Future Scheduled 1954 COVID-19 VACCINE (1 of [place] [facility] 00:00:00 2) [code = COVID-19 VACCINE (1 of 2)] Future Scheduled 1948 DIABETES: RETINAL EYE [place] [facility] 00:00:00 EXAM [code = DIABETES: RETINAL EYE EXAM] Future Scheduled 1948 DIABETIC FOOT EXAM [place] [facility] 00:00:00 [code = DIABETIC FOOT EXAM] Future Scheduled 1948 URINE MICROALBUMIN [place] [facility] 00:00:00 [code = URINE MICROALBUMIN] Encounters Start End Encounter Admission Attending Care Care Encounter Source Date/Time Date/Time Type Type Clinicians Facility Department ID 2019-08-26 Inpatient MH MED [id number] 18:50:00 [facility] 2019-10-04 2019-10-08 [facility] [id number] 19:45:04 20:30:00 Encounter Debkaya Pauline Arauz [id number] [place] [id number] [place] [id number] 2019-09-28 2019-09-28 Emergency [facility] [id number] 18:24:14 22:12:00 Sharee Arauz [id number] [place] [id number] [place] [id number] 2019-09-21 2019-09-21 Appointmen CHILANGO MOULTON [facility] [id number] Univers 08:00:00 08:00:00 t; JOHAN MOULTON, Surgery - i ty ronak PRADO M.D. [facility] 2019-09-15 2019-09-15 Telephone BERNADINE Ayala [id number] 00:00:00 00:00:00 Mariajose PARRA [id number] [place] [id number] 2019-09-15 2019-09-15 Letter BERNADINE Ayala [id number] 00:00:00 00:00:00 (Out) Mariajose PARRA [id number] [place] [id number] 2019-09-10 2019-09-10 Laboratory Only, Adc [facility] [id number] 07:57:03 07:57:11 Only Test Ross [id number]7.2.686 [place] [id number] 2019-09-09 2019-09-09 Orders Doctor BERNADINE [id number] 00:00:00 00:00:00 Only Unassigned, AIDA [id number] [place] [address]686 [id number] 2019-08-26 2019-09-08 Outpatient Brendel, MHSE MHSE [id number] 18:50:00 15:40:00 Jimbo Kimble 2019-08-16 2019-08-26 Outpatient Tanya, MHSE MHSE [id number] 11:40:00 18:05:00 Loco Stern 2019-08-16 2019-08-26 Outpatient Tanya, MHSE MHSE [id number] 11:40:00 18:05:00 Loco Stern 2019-08-16 2019-08-16 CHILANGO Vazquez [id number] Univers 10:00:00 10:00:00 t; JOHAN MOULTON [facility] [place], [facility]. [place] M[facility] 2019-08-09 2019-08-09 CHILANGO Vazquez [facility] [id number] Univers 10:15:00 10:15:00 t; JOHAN MOULTON cic & Jairo M.D. Vascular [facility] ans 2018-06-29 2018-06-29 CHILANGO Dobbs UTP [id number] Univers 10:30:00 10:30:00 t; DANN CHUA [facility] ans 2018-06-15 2018-06-15 AppointCHILANGO Patrick [facility] [id number] Univers 10:15:00 10:15:00 t; DANN CHUA [facility] ans 2018-06-01 2018-06-01 Appointrichy CHUA [facility] [id number] Univers 11:30:00 11:30:00 t; DANN CHUA [facility] ans 2018-05-15 2018-05-15 Appointrichy CHUA [facility] [id number] Univers 15:30:00 15:30:00 t; DANN CHUA [facility] Results Test Description Test Time Test Comments Results Result Comments Source HEMATOLOGY 2019-09-07 10.1 [facility] Liliana nn 00:27:00 HEMATOLOGY 2019-09-07 3.05 [facility] Liliana nn 00:27:00 HEMATOLOGY 2019-09-07 8.8 [facility] Liliana nn 00:27:00 HEMATOLOGY 2019-09-07 27.2 [facility] Liliana nn 00:27:00 HEMATOLOGY 2019-09-07 89.0 [facility] Liliana nn 00:27:00 HEMATOLOGY 2019-09-07 00:27:00 Test Item Value Reference Range Interpretation Comme nts MCH (test code = MCH) 28.8 pg 27.0-31.0 [facility] VzicyewFCTWFUELKO1829-90-36 00:27:0032.4[facility]ann[facility]MATOLOGY 2019-09-07 00:27:0016.5[facility] WzchoycIZKUTCVYGQ1238-19-99 00:27:40785Gsehktvs YvueuftWTFPPCIMMK5451-36-38 00:27:008.6[facility] WlxaxvtDYKRSOOFAP4166-52-06 00:27:0059.7[facility] UtnujemCYNBTNXYMW7898-97-57 00:27:0031.0[facility]do MAALQARBTT2926-12-81 00:27:008.2[facility] DnuobcnWBBPAJQFPP9794-22-33 00:27:000.1 [facility] VbdooalIVSSOOQCBJ3536-40-62 00:27:001.0[facility]ann[facility]MATOLOGY 2019-09-07 00:27:006.1[facility] PkoeuvvGPEENWJHXF6818-20-97 00:27:003.1[facility] UvdissqBJVDTFRDDW7132-49-95 00:27:000.8[facility] QtvvykaYSSJXDBRUI6737-28-35 00:27:000.1[facility] HermannCHEM XOXAZ4761-00-80 09:03:001.9[facility] HermannCHEM WVEMB1424-29-88 09:03:63681Jcimofdl HermannCHEM MRZRC8063-62-05 09:03:0022 [facility] HermannCHEM EAPLU9530-25-06 09:03:000.97[facility] HermannCHEM PANEL 2019-09-04 09:03:67395Ydooevog HermannCHEM QUPZB5185-17-47 09:03:004.5[facility] HermannCHEM PXQLI7049-39-49 09:03:48500Jhtwxkdd HermannCHEM PXWRH2856-85-62 09:03:0025[facility] HermannCHEM QGLOR7498-18-30 09:03:008.4[facility] HermannCHEM OGMVV8235-50-83 09:03:0010.5[facility] HermannCHEM PVPYC7299-01-30 09:03:0055 [facility] SdxwcrsOKNKMYSSVW8583-49-25 09:03:008.6[facility] HermannHEMATOLOGY 2019-09-04 09:03:002.51[facility] IlaltalAPMHWTECPO8515-14-58 09:03:007.2[facility] PcjfqzrVVNOFMIQYE2603-92-15 09:03:0022.3[facility] UhaywyeRRNYLQRVFP1684-28-72 09:03:0089.1[facility] MjdxlxuOXETMHQJWV6489-59-92 09:03:00 Test Item Value Reference Range Interpretation Comments MCH (test code = MCH) 28.9 pg 27.0-31.0 [facility] LbarvhhIJZBEWJSSG4460-39-07 09:03:0032.5[facility] HermannHEMATOLOGY 2019-09-04 09:03:0016.6[facility] AsxwwcqXOKQEBEPGG2516-83-95 09:03:56079Qcqaaeex JlvmdudKHDJJPBQLC3087-61-18 09:03:009.0[facility] DupejfdYFJWGZKYSL5124-31-56 09:03:0061.4[facility] JejegniGQQPUULQNN3248-93-35 09:03:0027.8[facility] EBNSPCPIGN0877-21-26 09:03:009.8[facility] EsebufnALFRRGZQUK0611-39-04 09:03:001.0 [facility] YfwwmfpRVMEJXECVW1438-41-84 09:03:005.3[facility] HermannHEMATOLOGY 2019-09-04 09:03:002.4[facility] EawsmoaHSQHHHGAGJ8216-10-36 09:03:000.8[facility] ZffurodJXPRZDFJTL4192-56-73 09:03:000.1[facility] PcyiomsEYPRGDVDPX2481-21-90 01:05:0068.5[facility] JbiscnaLDCGJESEDC3337-35-28 01:05:0019.6[facility] Milo KPGAQYVHKO6879-35-83 01:05:0010.7[facility] LytkgqzCDOHAYSZAX3992-43-94 01:05:00 0.1[facility] QpkrvycRFOZYTYCAT3972-64-72 01:05:001.1[facility] HermannHEMATOLOGY 2019-09-01 01:05:006.5[facility] PsvfywlVJHTBMMYAD7085-70-95 01:05:001.9[facility] CjnkyacUDXMLGSDDG0748-14-14 01:05:001.0[facility] DccpdulUQHERCGAUU4917-91-29 01:05:000.1[facility] EseodohPBKORJAKTU2732-93-76 01:05:009.4[facility] LJHXRSOUTQ5897-44-87 01:05:002.62[facility] AjqmqnvTEBROIYANS9005-25-52 01:05:00 7.7[facility] RclffnbVWNXXIANIO6442-12-64 01:05:0024.0[facility] HermannHEMATOLOGY 2019-09-01 01:05:0091.6[facility] CvttaxuZQUTWNURWU1285-97-94 01:05:00 Test Item Value Reference Range Interpretation Comments MCH (test code = MCH) 29.4 pg 27.0-31.0 [facility] ZdqhkloJQYGXAHSXW2765-30-14 01:05:0032.1[facility] HermannHEMATOLOGY 2019-09-01 01:05:0016.3[facility] EoivhmiPCCIRKYEQQ0477-22-68 01:05:17435Zywjebwc VhkqlbdNYFLYKMGOM7631-65-19 01:05:008.6[facility] BfhpgznDYBDUUJJQA0234-04-53 01:05:0011.0[facility] HermannCHEM XXNWQ0655-64-09 09:15:17417Guzckytf HermannCHEM ZGYTP9715-48-74 09:15:0021[facility] HermannCHEM FLBPM5953-88-95 09:15:001.23 [facility] JKOYQ3226-95-28 09:15:45914Ksvkpjle HermannCHEM PANEL 2019-08-30 09:15:003.7[facility]annCHE[facility] FZAWW9030-98-16 09:15:27299Bwbhfunc HermannCHEM UWJBB5793-61-82 09:15:0027[facility]annCHE[facility] TOCSC8652-48-12 09:15:007.7[facility]annCHE[facility] XMTMS9483-05-88 09:15:009.7[facility]annCHE[facility] KJWPU6459-48-54 09:15:0041[facility]CHE[facility] NGAUG5962-98-81 20:56:000.09 [facility] TBEIC1887-88-03 20:00:00Clear (08/29/19 3:00 PM) [facility] [id number] 20:00:00 Test Item Value Reference Range Interpretation Comments UA Spec Grav (test code = UA Spec 1.014 1 Grav) [facility] [id number] 20:00:00 Test Item Value Reference Range Interpretation Comments UA pH (test code = UA pH) 6.0 1 5.0-8.0 [facility] [id number] 20:00:00Negative *NA*(08/29/19 3:00 PM) [facility] [id number] 20:00:00Negative (08/29/19 3:00 PM) [facility] [id number] 20:00:00Negative (08/29/19 3:00 PM) [facility] [id number] 20:00:00Small *ABN*(08/29/19 3:00 PM) [facility] AJOSV4032-18-69 20:00:0011[facility] IGBVO0591-36-63 20:00:00<1[facility]CHE[facility] QVYEJ5689-84-92 13:40:94050 [facility] WOECX8473-63-09 13:40:0018[facility]annCHEM PANEL 2019-08-29 13:40:001.01[facility]CHE[facility] IIKPJ9593-72-58 13:40:07057Zfoylcet HermannCHEM HDHXD4729-10-55 13:40:004.1[facility] MFORO6372-57-02 13:40:40916Oqmeggal HermannCHEM SQCFG6475-83-57 13:40:0026[facility] DVYFH0357-95-71 13:40:007.4[facility]CHE[facility] NFEUG6589-96-97 13:40:009.1 [facility] BHYGA5128-45-48 13:40:0052[facility] HermannIMMUNOLOGY 2019-08-29 13:40:0011.3[facility]CHE[facility] [id number] 08:51:00 Test Item Value Reference Range Interpretation Comments B/C Ratio (test code = B/C Ratio) 17 1 6-25 [facility] GOFHT2601-19-71 08:51:005.5[facility]annCHEM PANEL 2019-08-27 08:51:002.1[facility]CHE[facility] USDPU5737-70-93 08:51:003.4[facility]annCHE[facility] ETEFZ7358-56-29 08:51:00 Test Item Value Reference Range Interpretation Comments A/G Ratio (test code = A/G Ratio) 0.6 1 0.7-1.6 [facility] [id number] 08:51:0037[facility]annCHEM PANEL 2019-08-27 08:51:0030[facility]annCHE[facility] YWQST4124-63-17 08:51:68610Lepcaeeu HermannCHEM EYISL8771-11-75 08:51:000.3[facility]annSPECIAL CHEMISTRY 2019-08-27 08:51:008.0[facility] EvvphyvFWQJWECVVVIA7376-73-96 17:33:004.1[facility]annCHE[facility] QXEWF0442-70-27 10:52:001.7[facility]annCHEM MSQKO5118-11-05 10:52:59224Aupivqcf HermannCHEM PLNXE5032-46-38 10:52:0014[facility]annCHEM NXHEN6213-75-82 10:52:000.93[facility]annCHE[facility] LTVWF7083-91-78 10:52:73382 [facility] XBVZJ5887-84-68 10:52:003.0[facility]annCHEM PANEL 2019-08-26 10:52:68623Bymcvrxx HermannCHEM NPUZI7743-55-48 10:52:0032[facility]annCHEM FLOHI2807-52-67 10:52:008.0[facility]annCHEM MFAIB5980-68-27 10:52:007.7[facility]annCHEM EOBTK3135-29-78 10:52:0058[facility] Milo ILNMJSGKQM1973-12-39 10:52:0076.3[facility] CerbpgwUAILROOJBR7303-86-24 10:52:00 15.5[facility] RgdqhpmUBBNXSDHZX6612-49-77 10:52:007.8[facility] HermannHEMATOLOGY 2019-08-26 10:52:000.4[facility] IzjicieBWSLQAVZET2878-72-00 10:52:007.4[facility] GzqaofgEREQMJCWWF0898-21-22 10:52:001.5[facility] DobrofcVGKSWIWNRB2184-27-39 10:52:000.8[facility] OulrfgxKIXFJJPTSG9041-72-07 10:52:009.7[facility] QUJRKABIKG3414-41-01 10:52:002.77[facility] OmxgzhuAPEZWHVFWX3698-30-83 10:52:00 8.2[facility] ZzjxugbLAZNJBXWYT3559-40-17 10:52:0025.3[facility]annHEMATOLOGY 2019-08-26 10:52:0091.6[facility] WnevdmoXPTOVUCYYX2344-42-23 10:52:00 Test Item Value Reference Range Interpretation Comments MCH (test code = MCH) 29.8 pg 27.0-31.0 [facility] NffxytoTEVJIYRYBJ8027-18-15 10:52:0032.5[facility]annHEMATOLOGY 2019-08-26 10:52:0015.8[facility] KbkqsgbFQFIHONPHR9390-08-13 10:52:98104Yayvnkfk ZouswgpMRHCLYKLEV5393-54-36 10:52:008.5[facility] BgvcrohNCTVIWFJWX8309-10-47 17:32:00Not Detected (08/25/19 12:32 PM)[facility]annCHEM LAPUR1858-24-18 08:16:20023Xkrmdilp HermannCHEM CIMAQ5010-14-74 08:16:0017[facility]annCHEM AJIMA6027-80-48 08:16:000.95[facility]annCHEM XGDAM2750-15-39 08:16:53158 [facility]annCHE[facility] FRSUN7840-05-09 08:16:003.1[facility]annCHEM PANEL 2019-08-25 08:16:20733Kbxeixrq [facility]annCHEM LLIWA1975-47-03 08:16:0029[facility]annCHEM PCIFL3491-83-91 08:16:009.1[facility]annCHEM FWFGE9719-61-88 08:16:007.5[facility]annCHEM XOKEW1417-76-44 08:16:00 Test Item Value Reference Range Interpretation Comments B/C Ratio (test code = B/C Ratio) 18 1 6-25 [facility]ann[facility] COEAQ5465-40-36 08:16:005.4[facility]annCHEM PANEL 2019-08-25 08:16:002.2[facility]annCHE[facility] TSMBJ3337-17-84 08:16:003.2[facility]annCHEM ETMQR1088-52-48 08:16:00 Test Item Value Reference Range Interpretation Comments A/G Ratio (test code = A/G Ratio) 0.7 1 0.7-1.6 [facility] TGWLW1624-55-96 08:16:0033[facility]annCHEM PANEL 2019-08-25 08:16:0027[facility]annCHEM QTNCS9833-44-80 08:16:48100Lefcjgxx HermannCHEM KOXKO6304-25-14 08:16:000.5[facility]annCHEM SFZRD8155-52-04 08:16:0057[facility] GjkciaiOEADIPUKHR6592-88-03 08:16:0011.9[facility] GLILQTLQOV3200-10-16 08:16:002.82[facility] WquuuflOHMIBFMRUD1637-08-62 08:16:00 8.2[facility] CbfhuobSQYZDFRDVD6552-37-27 08:16:0025.5[facility]annHEMATOLOGY 2019-08-25 08:16:0090.6[facility] QpcbsorYEXRKWYXXW8709-00-99 08:16:00 Test Item Value Reference Range Interpretation Comments MCH (test code = MCH) 29.2 pg 27.0-31.0 [facility] HfoijcpTKKSQGIYOH7507-61-48 08:16:0032.3[facility]annHEMATOLOGY 2019-08-25 08:16:0015.4[facility] VzifzhcDESEDVHTNC8478-57-15 08:16:11697Dbvfyetd WluafomPMNFFVEGDA3603-66-45 08:16:008.8[facility] MqxzxidBAMUNYFKYI4155-64-10 08:16:0070.9[facility] JwlfscoASCDACPTUU8621-48-38 08:16:0020.5[facility] XWWDOAXYFW9882-45-07 08:16:008.5[facility] CagagluTRKCAVFVTU7695-66-38 08:16:000.1 [facility] CjfplujCBZKFOQLIQ8164-90-23 08:16:008.4[facility]annHEMATOLOGY 2019-08-25 08:16:002.4[facility] BioxffsLQTVZZQYOM7260-87-94 08:16:001.0[facility] HermannCHEM VLOLF1885-66-96 09:17:81095Ticzvrce HermannCHEM QSKXI6266-22-05 09:17:0019[facility]annCHEM JSLWE4880-68-42 09:17:000.85[facility]annCHEM AEXNU9367-91-13 09:17:39685Gxaqnvmc [facility]annCHE[facility] BTQPX3007-56-48 09:17:25591 [facility] TXXGV2650-07-70 09:17:0031[facility]annCHEM PANEL 2019-08-24 09:17:007.9[facility]annCHEM TFQSL0371-32-84 09:17:008.1[facility]annCHEM WKOYU7180-14-28 09:17:00 Test Item Value Reference Range Interpretation Comments B/C Ratio (test code = B/C Ratio) 22 1 6-25 [facility]CHE[facility] PLNOF6069-59-78 09:17:005.8[facility]annCHEM PANEL 2019-08-24 09:17:002.4[facility]annCHEM YBYPW6618-44-77 09:17:003.4[facility]annCHEM NZELR1169-88-65 09:17:00 Test Item Value Reference Range Interpretation Comments A/G Ratio (test code = A/G Ratio) 0.7 1 0.7-1.6 [facility] ECBPG8249-07-62 09:17:0028[facility]annCHEM PANEL 2019-08-24 09:17:0013[facility]annCHEM NKNGL3867-73-16 09:17:73893Eguvqchj [facility]annCHE[facility] HBAGT3724-65-87 09:17:000.6[facility]annCHEM OVLWQ2233-72-49 09:17:0064[facility]annCHEM NCAZB2057-65-30 09:17:002.0[facility] REUYPFNRTW4671-60-92 09:17:0017.2[facility] EiwucyaMFLZYTSQNO8652-50-75 09:17:00 3.34[facility] DaqrwbfNMYYMMEYWU6012-89-35 09:17:009.9[facility]annHEMATOLOGY 2019-08-24 09:17:0030.5[facility] OaakovcZGCWPYAAES6240-87-31 09:17:0091.3[facility] UmqfgfhZJYODMCMVR6100-69-09 09:17:00 Test Item Value Reference Range Interpretation Comments MCH (test code = MCH) 29.7 pg 27.0-31.0 [facility] OqkrcsrYLCFFZOLMG2906-18-15 09:17:0032.6[facility]annHEMATOLOGY 2019-08-24 09:17:0015.4[facility] TeysfxfDPBGHATPLJ4721-92-74 09:17:68856Xkhjrnrq JaxymrvDGGPCCSEJB2731-79-42 09:17:008.7[facility] ZegijupQDBYAFPFUS9521-90-83 09:17:0065.5[facility] JejhzbtCVQWQFICEH7971-64-30 09:17:0022.5[facility] XJRFXNSNGX9038-33-85 09:17:0011.7[facility] ZpgjouzOMZHAFVOBM6282-70-44 09:17:00 0.3[facility] JxmskjzTXBBAXLTDO5954-15-64 09:17:0011.3[facility]annHEMATOLOGY 2019-08-24 09:17:003.9[facility] NcqdiwePTFQBNOURM7512-72-44 09:17:002.0[facility] SyptrajCFEFNMFCBS3771-58-71 09:17:000.1[facility]annCHEM UHSSV4856-30-14 11:08:00 Test Item Value Reference Range Interpretation Comments B/C Ratio (test code = B/C Ratio) 21 1 6-25 [facility]CHE[facility] UNDTR5925-28-40 11:08:005.8[facility]annCHEM PANEL 2019-08-23 11:08:002.4[facility]annCHEM BUNWP7319-90-51 11:08:003.4[facility]annCHEM ZNPXR5877-88-07 11:08:00 Test Item Value Reference Range Interpretation Comments A/G Ratio (test code = A/G Ratio) 0.7 1 0.7-1.6 [facility]CHE[facility] EMFQW7973-33-57 11:08:0036[facility]annCHEM PANEL 2019-08-23 11:08:0010[facility]annCHEM GAQKF1608-08-63 11:08:81549Bkggtixm [facility]CHE[facility] PQRGY6968-90-73 11:08:000.7[facility] EqijildTDXOWDNICX0513-44-55 11:08:000.1[facility] HermannCARDIAC RFBBXET1725-11-12 20:26:000.13[facility]annCARDIAC IWWMDPU5832-22-10 16:25:17125Gaesgcoz [facility]annCHEM JECLG4531-76-41 16:25:001.3[facility]annURINE AND HAPCF6667-06-17 15:22:001[facility] URINE AND MYDHC8108-18-31 15:22:006[facility]ann[facility] AND NHOZH8384-43-13 15:22:00Yellow *NA*(08/22/19 10:22 AM)[facility] SXMNH2348-28-72 15:22:00Clear (08/22/19 10:22 AM)[facility] ONCVX6594-71-46 15:22:00 Test Item Value Reference Range Interpretation Comments UA Spec Grav (test code = UA Spec 1.015 1 Grav) [facility] QQZMX7621-04-37 15:22:00 Test Item Value Reference Range Interpretation Comments UA pH (test code = UA pH) 5.5 1 5.0-8.0 [facility] ECNWU2058-72-57 15:22:00Trace *ABN*(08/22/19 10:22 AM) [facility] GPHYE3530-08-02 15:22:00>=1000 *ABN*(08/22/19 10:22 AM)[facility] QAFPG9783-79-88 15:22:00>=80 *ABN*(08/22/19 10:22 AM)[facility] OKLWK2335-16-38 15:22:00Negative *NA*(08/22/19 10:22 AM)[facility] XKZJY3063-02-85 15:22:00Moderate *ABN*(08/22/19 10:22 AM)[facility] RELUG5680-02-97 15:22:000.2[facility] URINE AND LUHPM1468-08-73 15:22:00Negative (08/22/19 10:22 AM)[facility] URINE AND ZXKTZ7268-58-02 15:22:00Negative (08/22/19 10:22 AM)[facility] URINE AND ZEIER6588-66-84 15:22:00None Seen (08/22/19 10:22 AM)[facility] CARDIAC OQTKHWL2428-43-70 15:21:000.08[facility] HermannCARDIAC EFGCDMR6874-81-07 13:30:000.10[facility] HermannCHEM MQFLC7058-19-21 13:30:000.38[facility] CHEM ICYNH8308-81-18 13:30:0036[facility] IcgeqyfEYJIEXHYOA9551-90-34 13:36:000.1 [facility] UUUTGLQ8156-61-16 00:03:00Product available 6(08/18/19 7:03 PM)[facility] PRMWBTD5058-63-71 23:45:00Product available 7(08/18/19 6:45 PM)[facility] EHXPATI5589-19-72 17:12:00Product available 4(08/18/19 12:12 PM)[facility] NRRCOVO9609-07-12 17:11:00Product available 8(08/18/19 12:11 PM)[facility] RESULTS 2019-08-18 17:10:00Product available 5(08/18/19 12:10 PM)[facility] [employer] TechnologyannCHEM TQFNS1709-68-11 10:09:002.6[facility] InlpopeDFRFTZHIBH0168-88-26 10:09:[address].2 [facility] AfqbpqyNCRAEZZUZQ0324-20-12 21:25:00 Test Item Value Reference Range Interpretation Comments PT (test code = PT) 15.4 s 12.0-14.7 [facility]NNBNFFFL9325[facility]71-91 21:25:00 Test Item Value Reference Range Interpretation Comments INR (test code = INR) 1.21 1 0.85-1.17 [facility]NfsjnlhFHPEQUYINN9630-78-87 21:25:00 Test Item Value Reference Range Interpretation Comments PTT (test code = PTT) 29.2 s 22.9-35.8 [facility]CHE[facility] NNDWS0576-33-80 07:42:001.9[facility] HermannCHEM PANEL 2019-08-17 04:22:002.7[facility] HermannCHEM GXTQX2867-99-73 04:22:000.09[facility] EydubilDSKDYUNHUP9672-89-77 04:22:00Normal (08/16/19 11:22 PM)[facility] BIQREOGBOR2660-84-70 04:22:00Normal (08/16/19 11:22 PM)[facility] KYXWUMN7298[facility]40-82 14:36:00Negative (08/16/19 9:36 AM)[facility] 2019-[facility]16 14:36:00 Test Item Value Reference Range Interpretation Comments PT (test code = PT) 14.7 s 12.0-14.7 [facility] HospitalXclmwusXGEUYQBJZK1375-72-00 14:36:00 Test Item Value Reference Range Interpretation Comments INR (test code = INR) 1.14 1 0.85-1.17 [facility] HospitalTvnomnnQXDSWXRZIG1540-46-30 14:36:005.0[facility] MiloHEMATOLOGY 2019-08-16 14:36:000.7[facility] HospitalVzcwvjeWMIEPCAIMB8307-84-05 14:36:00 Test Item Value Reference Range Interpretation Comments PTT (test code = PTT) 30.0 s 22.9-35.8 [facility] HospitalMjnxytpMGQMQCZSWO8197-71-42 12:45:00Not Detected (08/16/19 7:45 AM) [facility]
--- NOTE | 2020-05-14 11:19 | RAD REPORT ---
EXAM DESCRIPTION: CT - Soft Tissue Neck Wo Contr CLINICAL HISTORY: PAIN Sore throat, pain and swelling COMPARISON: No comparisons TECHNIQUE All CT scans are performed using dose optimization technique as appropriate and may includ e automated exposure control or mA/KV adjustment according to patient size. FINDINGS: Examination is limited by lack of IV contrast material. Nasopharyngeal tissues are normal in appearance. Fossa Rosenmller are normal. Parapharyngeal fat triangles are symmetric. Tongue base structures are normal. Epiglottis and aryepiglottic folds are normal. Piriform sinuses are well aerated. Carotid atheroscler osis. The vocal cords are normal in appearance. Normal size thyroid gland. Salivary glands are normal in appearance. The upper lung barrera are emphysematous. 13 mm right peritracheal lymph node noted in the upper media stinum. Multilevel degenerative spondylosis of the cervical spine seen. IMPRESSION: No acute neck abnormality is discerned on limited noncontrast study.
--- NOTE | 2020-05-14 11:23 | RAD REPORT ---
EXAM DESCRIPTION: RAD - Chest Single View - 05/14/2020 10:59 am CLINICAL HISTORY: PAIN Chest pain. COMPARISON: Chest Single View dated 11/22/2019; Chest Single View dated 08/03/2019; Chest Pa And Lat ( 2 Views) dated 03/15/2019; Chest Single View dated 06/07/2018 FINDINGS: Portable technique limits examination quality. Interstitial lung markings are mildly prominent which may indicate mild interstitial pulmonary edema. The heart is mildly enlarged in size. Sternotomy wires are present. IMPRESSION: Mild CHF is suspected.
[2020-05-14 11:32] LABS: Absolute Lymphocytes (CBC) 2.4 K/uL (0.7-4.9); Basophils % 1.2 % (0-1.3); Hematocrit 36.3 % (36.0-45.0); Lymphocytes % 22.2 % (15.3-44.8); MPV 9.4 fL (7.6-11.3); RBC Red Blood Cell Count 4.06 M/uL (3.86-4.86)
[2020-05-14] MEDS ORDERED: NA CHLORIDE 0.9% 500 ML ONE (11:48)
[2020-05-14] MEDS ORDERED: CEFTRIAXONE/SWI 1gm 1 GM/10 ML SYR ONE (11:48)
[2020-05-14 11:51] LABS: Albumin 3.7 g/dL (3.4-5.0); Bilirubin Total 0.8 mg/dL (0.2-1.0); Potassium 4.1 mmol/L (3.5-5.1); Protein, Total 8.3 g/dL (6.4-8.2); Troponin (Emerg Dept Use Only) 0.02 ng/mL (0.0-0.045)
[2020-05-14 12:16] LABS: Bilirubin Direct 0.3 mg/dL (0-0.2); Thyroid Stimulating Hormone 1.38 uIU/mL (0.360-3.740)
--- NOTE | 2020-05-14 12:24 | EDPHYS ---
Physician Documentation [facility] Name: Darlin Sharpe Age: 79 yrs Sex: Female : 1940 Arrival Date: 05/14/2020 Time: 08:55 Bed 19 Private MD: Adonay Pimentel ED Physician Александр Rodriguez HPI: 05/14 10:32 This 79 yrs old Female presents to ER via Wheelchair with complaints of Sore ky Throat - white spots. 10:32 The patient presents with sore throat. The patient describes throat pain as constant. ky Onset: The symptoms/episode began/occurred 2 day(s) ago. Severity of symptoms: At their worst the symptoms were mild, moderate, in the emergency department the symptoms are unchanged. Modifying factors: The symptoms are alleviated by nothing, the symptoms are aggravated by fluids, foods, swallowing. Associated signs and symptoms: The patient has no apparent associated signs or symptoms. The patient has not experienced similar symptoms in the past. Historical: - Allergies: 09:29 Iodine; iw - Home Meds: 11:01 atorvastatin 40 mg Oral tab 1 tab once daily [Active]; duloxetine 60 mg Oral cpDR 1 cap iw once daily [Active]; Eliquis 5 mg Oral tab 1 tab 2 times per day [Active]; furosemide 40 mg Oral tab 1 tab 2 times per day [Active]; gabapentin 100 mg Oral cap 1 caps nightly [Active]; hydrocodone-acetaminophen 5-325 mg Oral tab 1 tab every 4 hours [Active]; insulin lispro subcutaneous subcutaneous 20 unit three times a day [Active]; Lantus 100 unit/mL Sub-Q soln 50 unit daily [Active]; loratadine 10 mg oral tab 1 tab once daily [Active]; losartan 25 mg Oral tab once daily [Active]; memantine 5 mg Oral tab 1 tabs 2 times per day [Active]; metoprolol succinate 50 mg oral Tb24 1 tab once daily [Active]; ondansetron HCl 4 mg Oral tab every 6 hours [Active]; potassium chloride 20 mEq Oral TbER [Active]; promethazine 12.5 mg oral tab every 6 hours [Active]; Santyl 250 unit/gram Topical oint every two days [Active]; Spiriva Respimat 2.5 mcg/actuation inhalation mist 2 puffs once daily [Active]; - PMHx: 09:29 CHF; COPD; CVA; Depression; Diabetes - IDDM; Hyperlipidemia; Hypertension; iw - PSHx: 09:29 CABG; leg bypass; shoulder; iw - Immunization history:: Adult Immunizations up to date. - Family history:: not pertinent. - Social history:: Smoking status: Patient denies any tobacco usage or history of. ROS: 10:32 Constitutional: Negative for fever, chills, and weight loss, Eyes: Negative for injury, ky pain, redness, and discharge, ENT: Negative for injury, pain, and discharge, Cardiovascular: Negative for chest pain, palpitations, and edema, Respiratory: Negative for shortness of breath, cough, wheezing, and pleuritic chest pain, Abdomen/GI: Negative for abdominal pain, nausea, vomiting, diarrhea, and constipation, Back: Negative for injury and pain, : Negative for injury, bleeding, discharge, and swelling, MS/Extremity: Negative for injury and deformity, Skin: Negative for injury, rash, and discoloration, Neuro: Negative for headache, weakness, numbness, tingling, and seizure, Psych: Negative for depression, anxiety, suicide ideation, homicidal ideation, and hallucinations, Allergy/Immunology: Negative for hives, rash, and allergies, Endocrine: Negative for neck swelling, polydipsia, polyuria, polyphagia, and marked weight changes, Hematologic/Lymphatic: Negative for swollen nodes, abnormal bleeding, and unusual bruising. 10:32 Neck: Positive for pain with movement, pain at rest, rash, swelling, swollen nodes, tenderness. Exam: 10:32 Constitutional: This is a well developed, well nourished patient who is awake, alert, ky and in no acute distress. Head/Face: Normocephalic, atraumatic. Eyes: Pupils equal round and reactive to light, extra-ocular motions intact. Lids and lashes normal. Conjunctiva and sclera are non-icteric and not injected. Cornea within normal limits. Periorbital areas with no swelling, redness, or edema. Neck: Trachea midline, no thyromegaly or masses palpated, and no cervical lymphadenopathy. Supple, full range of motion without nuchal rigidity, or vertebral point tenderness. No Meningismus. Chest/axilla: Normal chest wall appearance and motion. Nontender with no deformity. No lesions are appreciated. Cardiovascular: Regular rate and rhythm with a normal S1 and S2. No gallops, murmurs, or rubs. Normal PMI, no JVD. No pulse deficits. Respiratory: Lungs have equal breath sounds bilaterally, clear to auscultation and percussion. No rales, rhonchi or wheezes noted. No increased work of breathing, no retractions or nasal flaring. Abdomen/GI: Soft, non-tender, with normal bowel sounds. No distension or tympany. No guarding or rebound. No evidence of tenderness throughout. Back: No spinal tenderness. No costovertebral tenderness. Full range of motion. Female : Normal external genitalia. Skin: Warm, dry with normal turgor. Normal color with no rashes, no lesions, and no evidence of cellulitis. MS/ Extremity: Pulses equal, no cyanosis. Neurovascular intact. Full, normal range of motion. Neuro: Awake and alert, GCS 15, oriented to person, place, time, and situation. Cranial nerves II-XII grossly intact. Motor strength 5/5 in all extremities. Sensory grossly intact. Cerebellar exam normal. Normal gait. Psych: Awake, alert, with orientation to person, place and time. Behavior, mood, and affect are within normal limits. 10:32 ENT: Posterior pharynx: Tonsils: with erythema, Uvula: midline, non-edematous, no erythema, swelling, is not appreciated, erythema, that is mild, exudate, is not appreciated, peritonsillar mass, is not appreciated, pooling of secretions, is not appreciated. 12:21 ECG was reviewed by the Attending Physician. [facility] Vital Signs: 09:27 BP 138 / 106; Pulse 79; Resp 16; Temp 98.0(TE); Pulse Ox 94% on R/A; Weight 63.96 kg; iw Height 4 ft. 11 in. (149.86 cm); 11:10 BP 149 / 105; Pulse 78; Resp 17 S; Pulse Ox 95% on R/A; jd3 09:27 Body Mass Index 28.48 (63.96 kg, 149.86 cm) iw MDM: 09:33 Patient medically screened. [facility] 10:35 Differential diagnosis: Allergic rhinitis, group A strep tonsillitis, influenza, ky laryngitis, lymphoma, peritonsillar abscess pharyngitis, tonsillitis, upper respiratory infection, uvulitis. Data reviewed: vital signs, nurses notes, lab test result(s), CBC, electrolytes, EKG, radiologic studies, plain films. Data interpreted: nurse monitoring: rate is 79 beats/min, rhythm is regular, Pulse oximetry: on room air is 94 %. Test interpretation: by ED physician or midlevel provider: ECG, plain radiologic studies. Counseling: I had a detailed discussion with the patient and/or guardian regarding: the historical points, exam findings, and any diagnostic results supporting the discharge/admit diagnosis, lab results, radiology results, the need for outpatient follow up, for definitive care, an ENT specialist, an steam shovel engineer. 12:22 ED course: DW DAUGHTER , PT DOES HAVE HX OF AFIB, TAKES ELIQUIS, TOLD ABOUT MILD CHF, [facility] WILL FLUID AND SALT RESTRICT, FOLLOW UP. 05/14 09:34 Order name: Strep; Complete Time: 10:22 05/14 10:12 Order name: Throat Culture [facility] 05/14 10:25 Order name: CBC with Diff; Complete Time: 11:43 [facility] 05/14 10:25 Order name: Comprehensive Metabolic Panel; Complete Time: 11:56 [facility] 05/14 10:25 Order name: Troponin (emerg Dept Use Only); Complete Time: 11:56 [facility] 05/14 11:45 Order name: Basic Metabolic Panel [facility] 05/14 11:45 Order name: LFT's [facility] 05/14 11:45 Order name: Magnesium [facility] 05/14 11:45 Order name: NT PRO-BNP [facility] 05/14 11:45 Order name: PT-INR [facility] 05/14 10:25 Order name: Chest Single View XRAY; Complete Time: 11:43 [facility] 05/14 10:25 Order name: EKG; Complete Time: 10:26 [facility] 05/14 10:25 Order name: EKG - Nurse/Tech; Complete Time: 11:28 [facility] 05/14 10:31 Order name: CT Soft Tissue Neck W/contr: NO CONTRAST [facility] 05/14 10:40 Order name: Soft Tissue Neck Wo Contr; Complete Time: 11:43 [facility] 05/14 11:46 Order name: Protime (+INR) [facility] 05/14 11:47 Order name: TSH; Complete Time: 12:20 [facility] 05/14 12:16 Order name: Bilirubin Direct; Complete Time: 12:20 [facility] 05/14 12:16 Order name: NT PRO-BNP; Complete Time: 12:20 [facility] 05/14 12:16 Order name: Magnesium; Complete Time: 12:20 [facility] 05/14 12:55 Order name: COVID-19/FLU A+B [facility] 05/14 11:45 Order name: Cardiac monitoring; Complete Time: 11:48 [facility] 05/14 11:45 Order name: IV Saline Lock; Complete Time: 11:48 [facility] 05/14 11:45 Order name: Labs collected and sent; Complete Time: :48 [facility] 05/14 11:45 Order name: O2 Per Protocol; Complete Time: 11:48 [facility] 05/14 11:45 Order name: O2 Sat Monitoring; Complete Time: :48 [facility] EC:21 Rate is 95 beats/min. Rhythm is irregularly irregular. QRS [place] is Normal. ME interval ky is normal. QRS interval is normal. QT interval is normal. No Q waves. T waves are Normal. No ST changes noted. Clinical impression: Atrial Fibrillation. Interpreted by me. Reviewed by me. Administered Medications: 11:57 Not Given (Duplicate Order): NS 0.9% 500 ml IV at bolus once ky 12:00 Drug: Rocephin 1 grams Route: IV; Rate: per protocol; Site: right forearm; jd3 13:00 Follow up: Response: No adverse reaction; IV Status: Completed infusion jd3 12:30 Drug: Lasix 20 mg Route: IVP; Site: right forearm; zb 13:00 Follow up: Response: No adverse reaction jd3 Disposition: 05/14/20 12:24 Discharged to Home. Impression: Acute pharyngitis, Type 1 diabetes mellitus, Atrial fibrillation and flutter - HISTORY, Systolic (congestive) heart failure. - Condition is Stable. - Discharge Instructions: Atrial Fibrillation, Heart Failure, Type 1 Diabetes Mellitus, Diagnosis, Adult, Pharyngitis, Pharyngitis, Xtuk-sr-Kgrd, Diabetes Mellitus and Food, Heart Failure, Wzxw-lf-Edxw, Sore Throat, Jata-fw-Mier, Atrial Fibrillation, Khla-ug-Ituo, Type 1 Diabetes Mellitus, Self Care, Adult, Type 1 Diabetes Mellitus, Diagnosis, Adult, Jaew-yx-Ldvq, Type 1 Diabetes Mellitus, Self Care, Adult, Zcsi-cw-Exxo. - Prescriptions for Augmentin 875- 125 mg Oral Tablet - take 1 tablet by ORAL route every 12 hours for 7 days; 14 tablet. Medrol (Sebastian) 4 mg Oral Tablets, Dose Pack - take 1 tablet by ORAL route as directed - follow package instructions; 1 packet. - Medication Reconciliation Form, Thank You Letter, Antibiotic Education, Prescription Opioid Use form. - Follow up: Adonay Pimentel; When: 2 - 3 days; Reason: Recheck today's complaints, Continuance of care, Re-evaluation by your physician. Follow up: Kalia Bull; When: 2 - 3 days; Reason: Recheck today's complaints, Re-evaluation by your physician. - Problem is new. - Symptoms have improved. Signatures: Dispatcher [employer] EDMS Александр Rodriguez MD MD cha Williams, Irene, RN RN iw Davies, Jonathon, RN RN jd3 Brown, Zipporah, RN RN zb Corrections: (The following items were deleted from the chart) 13:20 12:24 05/14/2020 12:24 Discharged to Home. Impression: Acute pharyngitis; Type 1 zb diabetes mellitus; Atrial fibrillation and flutter - HISTORY; Systolic (congestive) heart failure. Condition is Stable. Discharge Instructions: Type 1 Diabetes Mellitus, Diagnosis, Adult, Pharyngitis, Pharyngitis, Rooj-cy-Nejd, Diabetes Mellitus and Food, Sore Throat, Btkd-xj-Miwq, Type 1 Diabetes Mellitus, Diagnosis, Adult, Rxyi-dl-Wsdr, Type 1 Diabetes Mellitus, Self Care, Adult, Xzzl-vh-Azsh, Atrial Fibrillation, Atrial Fibrillation, Fnug-sz-Tgtq, Type 1 Diabetes Mellitus, Self Care, Adult, Heart Failure, Heart Failure, Bsym-vl-Ghzk. Prescriptions for Augmentin 875-125 mg Oral Tablet - take 1 tablet by ORAL route every 12 hours for 7 days; 14 tablet, Medrol (Sebastian) 4 mg Oral Tablets, Dose Pack - take 1 tablet by ORAL route as directed - follow package instructions; 1 packet. and Forms are Medication Reconciliation Form, Thank You Letter, Antibiotic Education, Prescription Opioid Use. Follow up: Adonay Pimentel; When: 2 - 3 days; Reason: Recheck today's complaints, Continuance of care, Re-evaluation by your physician. Follow up: Kalia Bull; When: 2 - 3 days; Reason: Recheck today's complaints, Re-evaluation by your physician. Problem is new. Symptoms have improved. ky
--- NOTE | 2020-05-14 12:24 | ER ---
Nurse's Notes [facility] Name: Darlin Sharpe Age: 79 yrs Sex: Female : 1940 Arrival Date: 05/14/2020 Time: 08:55 Bed 19 Private MD: Adonay Pimentel Diagnosis: Acute pharyngitis;Type 1 diabetes mellitus;Atrial fibrillation and flutter-HISTORY;Systolic (congestive) heart failure Presentation: 05/14 09:27 Chief complaint: Patient states: has had sore throat with white patches in her throat X iw 2 days, thinks it's strep throat , no fever. Coronavirus screen: At this time, the client does not indicate any symptoms associated with coronavirus-19. Ebola Screen: Patient negative for fever greater than or equal to 101.5 degrees Fahrenheit, and additional compatible Ebola Virus Disease symptoms Patient denies exposure to infectious person. Patient denies travel to an Ebola-affected area in the 21 days before illness onset. No symptoms or risks identified at this time. Initial Sepsis Screen: Does the patient meet any 2 criteria? No. Patient's initial sepsis screen is negative. Does the patient have a suspected source of infection? No. Patient's initial sepsis screen is negative. Risk Assessment: Do you want to hurt yourself or someone else? Patient reports no desire to harm self or others. Onset of symptoms was May 12, 2020. 09:27 Method Of Arrival: Wheelchair iw 09:27 Acuity: VINNY 4 iw 10:27 Acuity: VINNY 3 iw Historical: - Allergies: 09:29 Iodine; iw - Home Meds: 11:01 atorvastatin 40 mg Oral tab 1 tab once daily [Active]; duloxetine 60 mg Oral cpDR 1 cap iw once daily [Active]; Eliquis 5 mg Oral tab 1 tab 2 times per day [Active]; furosemide 40 mg Oral tab 1 tab 2 times per day [Active]; gabapentin 100 mg Oral cap 1 caps nightly [Active]; hydrocodone-acetaminophen 5-325 mg Oral tab 1 tab every 4 hours [Active]; insulin lispro subcutaneous subcutaneous 20 unit three times a day [Active]; Lantus 100 unit/mL Sub-Q soln 50 unit daily [Active]; loratadine 10 mg oral tab 1 tab once daily [Active]; losartan 25 mg Oral tab once daily [Active]; memantine 5 mg Oral tab 1 tabs 2 times per day [Active]; metoprolol succinate 50 mg oral Tb24 1 tab once daily [Active]; ondansetron HCl 4 mg Oral tab every 6 hours [Active]; potassium chloride 20 mEq Oral TbER [Active]; promethazine 12.5 mg oral tab every 6 hours [Active]; Santyl 250 unit/gram Topical oint every two days [Active]; Spiriva Respimat 2.5 mcg/actuation inhalation mist 2 puffs once daily [Active]; - PMHx: 09:29 CHF; COPD; CVA; Depression; Diabetes - IDDM; Hyperlipidemia; Hypertension; iw - PSHx: :29 CABG; leg bypass; shoulder; iw - Immunization history:: Adult Immunizations up to date. - Family history:: not pertinent. - Social history:: Smoking status: Patient denies any tobacco usage or history of. Screenin:41 Abuse screen: Denies threats or abuse. Denies injuries from another. Nutritional iw screening: No deficits noted. Tuberculosis screening: No symptoms or risk factors identified. Fall Risk None identified. Assessment: 09:40 General: Appears in no apparent distress. Behavior is calm, cooperative. Pain: iw Complains of pain in throat. Neuro: Level of Consciousness is awake, alert, obeys commands, Oriented to person, place, time, situation, Moves all extremities. Full function. Cardiovascular: Patient's skin is warm and dry. Respiratory: Airway is patent Respiratory effort is even, unlabored, Breath sounds are clear bilaterally. EENT: Throat has patchy exudate. Musculoskeletal: Range of motion: intact in all extremities. 11:10 Reassessment: No changes from previously documented assessment. Patient and/or family jd3 updated on plan of care and expected duration. Pain level reassessed. Patient is alert, oriented x 3, equal unlabored respirations, skin warm/dry/pink. 12:50 General: Appears in no apparent distress. Behavior is calm, cooperative, appropriate zb for age. Pain: Complains of pain in neck Pain does not radiate. Pain currently is 6 out of 10 on a pain scale. Quality of pain is described as aching, tender, Pain began 2-3 days ago. Is continuous, Alleviated by nothing. Neuro: Level of Consciousness is awake, alert, obeys commands, Oriented to person, place, time, situation, Cardiovascular: Patient's skin is warm and dry. Respiratory: Airway is patent Respiratory effort is even, unlabored, Respiratory pattern is regular, symmetrical. GI: Abdomen is round. EENT: Throat is reddened. Derm: Skin is intact, is fragile, is thin, Skin is dry, Skin is normal. Musculoskeletal: Range of motion: intact in all extremities. Vital Signs: 09:27 BP 138 / 106; Pulse 79; Resp 16; Temp 98.0(TE); Pulse Ox 94% on R/A; Weight 63.96 kg; iw Height 4 ft. 11 in. (149.86 cm); 11:10 BP 149 / 105; Pulse 78; Resp 17 S; Pulse Ox 95% on R/A; jd3 09:27 Body Mass Index 28.48 (63.96 kg, 149.86 cm) iw ED Course: 08:55 Patient arrived in ED. am2 08:56 Adonay Pimentel is Private Physician. am2 09:28 Triage completed. iw 09:33 Александр Rodriguez MD is Attending Physician. ky 09:33 Linda Engle, RN is Primary Nurse. iw 09:40 Arm band placed on. iw 09:41 Strep Sent. iw 10:45 Primary Nurse role handed off by Linda Engle, TAYLOR jd3 10:45 Will Mas, TAYLOR is Primary Nurse. jd3 10:52 Soft Tissue Neck Wo Contr In Process Unspecified. EDMS 10:58 Chest Single View XRAY In Process Unspecified. EDMS 11:17 Initial lab(s) drawn, by or, sent to lab. Inserted saline lock: 22 gauge in right ca1 forearm, using aseptic technique. Blood collected. 12:24 Adonay Pimentel is Referral Physician. ky 12:24 Kalia Bull MD is Referral Physician. ky 12:50 Patient has correct armband on for positive identification. Fall risk band placed. Bed zb in low position. Call light in reach. Side rails up X 1. Pulse ox on. NIBP on. 12:50 No provider procedures requiring assistance completed. IV discontinued, intact, zb bleeding controlled, No redness/swelling at site. Pressure dressing applied. Administered Medications: 11:57 Not Given (Duplicate Order): NS 0.9% 500 ml IV at [facility] 12:00 Drug: Rocephin 1 grams Route: IV; Rate: per protocol; Site: right forearm; jd3 13:00 Follow up: Response: No adverse reaction; IV Status: Completed infusion jd3 12:30 Drug: Lasix 20 mg Route: IVP; Site: right forearm; zb 13:00 Follow up: Response: No adverse reaction j Outcome: 12:24 Discharge ordered by . ky 12:50 Discharged to home via ambulance. zb 12:50 Condition: stable 12:50 Discharge instructions given to patient, Instructed on discharge instructions, follow up and referral plans. medication usage, Demonstrated understanding of instructions, follow-up care, medications, Prescriptions given X 2. 13:20 Patient left the ED. zb Signatures: Dispatcher [employer] EDMS Александр Rodriguez MD MD cha Williams, Irene, RN RN Suzanne Erickson Jonathon, RN RN jd3 Acob, Cheryl, RN RN ca1 Brown, Zipporah, RN RN zb Corrections: (The following items were deleted from the chart) 09:45 09:27 BP 138 / 106; Pulse 79bpm; Resp 16bpm; Pulse Ox 94% RA; 63.96 kg; Height 4 ft. 11 iw in.; BMI: 28.4; iw
[2020-05-14] MEDS ORDERED: FUROSEMIDE 20 MG/ 2ML VIAL ONE (12:26)
[2020-05-14] MEDS ORDERED: MORPHINE 4 MG/ML SYR ONE (12:27)
[2020-05-14] MEDS ORDERED: ONDANSETRON 4 MG/2 ML VIAL ONE (12:27)
[2020-05-14 12:36] LABS: Protime INR 1.65
[2020-05-14 12:55] LABS: SARS-COV-2 RT PCR NEGATIVE (NEGATIVE)
[2020-05-14 16:27] VITALS: TEMP 98
[2020-05-14 16:28] VITALS: BP 149/105; O2SAT 95
== END 2020-05-14 13:20 | disposition home or self-care (01) ==
LOC: ER 08:47
DX: J02.9 Acute pharyngitis, unspecified (principal); E10.9 Type 1 diabetes mellitus without complications; I50.20 Unspecified systolic (congestive) heart failure; I48.91 Unspecified atrial fibrillation; I48.92 Unspecified atrial flutter; Z20.822 Contact with and (suspected) exposure to COVID-19; I10 Essential (primary) hypertension; E78.5 Hyperlipidemia, unspecified; Z79.01 Long term (current) use of anticoagulants; Z79.4 Long term (current) use of insulin; Z95.1 Presence of aortocoronary bypass graft; Z91.048 Other nonmedicinal substance allergy status
CPT/HCPCS: 96365; 93005; 87070; 85025; 36415; 83735; 85610; 87081; 84443; 82248; 84484; 80053; 83880; 0240U; 70490; 71045; 96375; 99284; J1940; J0696; J7040; J2405

== ENCOUNTER 2020-06-23 11:34 | Inpatient (IN) | payer OTHER ==
--- OUTSIDE RECORDS SUMMARY | 2020-06-23 11:40 | XMS REPORT | Continuity of Care Document ---
:1940 Author Organization [facility] t Address [address] [place] [place] [address] Care Team Providers Name Role Phone Jaziel MIRANDA Primary Care Physician Janet MIRANDA S Attending Clinician Mindy MIRANDA Attending Clinician Angie FERNANDEZ R Attending Clinician KENNEY Attending Clinician Unavailable Lucy VAZQUEZ, A Attending Clinician Unavailable Only, Test Attending Clinician Unavailable Doctor Unassigned, Name Attending Clinician Unavailable Lamin Hood Jr Attending Clinician Jarred Martínez Attending Clinician [place] Attending Clinician Unavailable Mindy MIRANDA Admitting Clinician [...] Mem oria 6-02 07:26:00 l UNK 00:00: Reinaldo 00 Active 08/10/2019 [facility] Diabetes Problem Active 2019-09-10 Mem oria mellitus 1- 22:08:18 l (disorder) Diabetes 00:00: He rmann mellitus 00 (disorder) Active 03/10/1961 Problem 09/10/2019 [facility] Left foot Left foot Problem Active Uni [...] Resolve [facility] stroke stroke [facility] [place] [facility] Embolism Embolism Problem Active Unive [...] 2019-09-17 Mem oria MALAISE 22:04:00 l OTHER Reinaldo MALAISE Active [facility] Other Problem 2019-09-10 Memor ia malaise 22:08:18 l Other [place] malaise 09/10/2019 [facility] Peripheral Problem Resolve 2019-09-10 Memoria vascular d 22:08:18 l disease [place] (disorder) Peripheral vascular disease (disorder) Resolved Problem 09/10/2019 [facility] Allergies, Adverse Reactions, Alerts Allergy Allergy Status [...] d to drug ity of Contrast (finding [facility] ) Physici ans iodine iodine Active Memoria l [place] Social History Social Habit Start Date Stop Date Quantity Comments Source History [facility] Meth odist Alcohol Binge History [facility] Meth odist Alcohol Std Drinks Tobacco use and 2018-10-08 2018-10-08 Never used [facility] Lang ethodist exposure 00:00:00 00:00:00 Alcohol intake 2018-10-08 2018-10-08 Current [place] thodist 00:00:00 00:00:00 non-drinker of alcohol (finding) History SDMD 2018-05-21 2018-05-21 1 [place] Meth odist Alcohol Frequency 00:00:00 00:00:00 Sex Ass[birth year] At [birth year] [place] Rickey ethodist 00:00:00 00:00:00 Smoking Status Start Date Stop Date Source [facility] Medications Ordered Filled Start Stop Current Ordering Indication Dosage Frequency Signature Comments Components Source Medication Medication Date Date Medication? Clinician (SIG) Name Name Bumex 2019-0 No Notes: Memoria 09-08 (Same As: l 14:00: Bumex) Reinaldo 00 apixaban 5 2020-0 Yes 5 mg = 1 Mem oria MG Oral - tab, PO, l Tablet 16:07: Q12H, For Olman garcia [Kaylyn] 00 Atrial Fibrillati on, 0 Refill(s) apixaban [...] = 1 Mem oria 1 mg oral - tab, PO, l tablet 16:07: Daily, 0 [place] 00 Refill(s) tamsulosin 2020-0 Yes 0.4 mg = 1 M emoria 0.4 mg oral 7 cap, PO, l capsule 16:07: After Dinner, 0 Refill(s) Trazodone No Notes: Memori a Hydrochlori -30 (Same As: l de 50 MG 02:00: [...] 10/03/19 17:00:00 CDT Bumex No Notes: Memoria - (Same As: l 22:29: Bumex) Insulin No Notes: Memoria Lispro 24 (Same as: l 09:05: Humalog) Roll in palms of hands gently; Do not shake vigorously . WASTE: F/P - Black; E - Municipal Trash Bin Stable for 28 days at room temperatur e. Expires in days from ____Date Flomax No Notes: Memoria 6- (Same As: l 22:00: Flomax) "Do Not Crush" Insulin 2019- No Notes: Memoria Lispro 6- (Same as: l 12:30: Humalog) Roll in palms of hands gently; Do not shake vigorously . WASTE: F/P - Black; E - Municipal Trash Bin Stable for 28 days at room temperatur e. Expires in days from ____Date Insulin 2020-0 No Notes: Memoria Lispro 6-22 (Same as: l 08:07: Humalog) Roll in palms of hands gently; Do not shake vigorously . WASTE: F/P - Black; E - Municipal Trash Bin Stable for 28 days at room temperatur e. Expires in days from ____Date Rocephin + 2020-0 No Notes: Memor ia sterile - (Same As: l water 10 mL 03:00: Rocephin). Use with 100 mL NS and infuse over 30 min MEDICATION WASTE Product Size: 1000 mg Product Wasted: ___ mg Plavix 2020-0 No 75 mg, Memoria 6-20 Route: PO, l 14:00: Drug form: [place] 00 TAB, Daily, Dosing Weight 63.636, kg, Start date: 08/28/19 9:00:00 CDT, Duration: 30 day, Stop date: 09/26/19 9:00:00 CDT Januvia 2020-0 No Notes: Memoria 6-20 Same as l 14:00: Januvia glimepiride 2020-0 No 4 mg, Memor ia 6-20 Route: PO, l 14:00: Drug form: [place] 00 TAB, Daily, Dosing Weight 63.636, kg, Start date: 08/28/19 9:00:00 CDT, Duration: 30 day, Stop date: 09/26/19 9:00:00 CDT Glucotrol 2020-0 No Notes: Memori a 6-20 (Same as: l 12:30: Glucotrol) 30 min before meals. Eliquis 2020-0 No 5 mg, Memoria 6-20 Route: PO, l 02:00: Drug form: Reinaldo 00 TAB, Q12H, Dosing Weight 63.636, kg, Start date: 08/27/19 21:00:00 CDT, Duration: 30 day, Stop date: 09/26/19 9:00:00 CDT, For Atrial Fibrillati on Metronidazo No Notes: Cr regulo le -19 (Same as: l 22:00: Flagyl) [place] 00 Take with food/ avoid alcohol Cipro 2019- No Notes: May Memori a 6-19 interfere l 22:00: w/enteral Reinaldo feedings - Take 1 hr before or 2 hrs after antacids, dairy pdt & minerals. On empty stomach. pantoprazol No Notes: Cr regulo e 6-19 Tablet l 21:30: should not be chewed or crushed. (Same as: Protonix) Lovenox 2019- No 60 mg, 0.6 Cr regulo 6-19 mL, Route: l 21:00: SUB-Q, Drug form: INJ, [id number], Dosing Weight 63.636, kg, Start date: 08/27/19 16:00:00 CDT, Stop date: 09/25/19 17:00:00 CDT, 0 Calcium 2019- No 636.36 mg, Cr regulo Chloride 08-26 Route: l 14:05: IVPB, Drug form: SOLN, ONCE, Dosing Weight 63.636, kg, Start date: 08/27/19 9:05:00 CDT, Stop date: 08/27/19 9:05:00 CDT Aspirin 2019-0 No Notes: Do Memor ia -19 not crush l 14:00: or chew. Reinaldo (Same As: Ecotrin) Plavix No Notes: Memoria 6-19 (Same As: l 14:00: Plavix) [place] 00 Furosemide 2019-0 No Notes: Memor ia 40 MG Oral - (Same as: l Tablet 14:00: Lasix) Reinaldo [Lasix] 00 May cause GI upset. Give with food or milk. Insulin No Notes: Memoria Glargine - (Same as: l 100 UNT/ML 14:00: Lantus) Do H ermann Injectable 00 not hold Solution insulin without contacting prescriber WASTE: F/P - Black; E - Municipal Trash Bin "single patient use only" Stable for 28 days at room temperatur e Expires in days from ____Date Potassium No Notes: Memori a Chloride - (Same as: l 14:00: K-Dur 20) "Do Not Crush" Give with food and full glass of water For patients unable to swallow tablet, dissolve in one half glass of water. Allow about 2 minutes for the tablets to disintegra te. Stir before giving to prepare slurry and administer . Please exclude Patient s with feeding tube less than 14 Ukrainian (Dobhoff, J-tube etc) and pediatric and patients. pantoprazol No Notes: Cr regulo e - Tablet l 12:30: should not be chewed or crushed. (Same as: Protonix) Insulin No Notes: Memoria Lispro 08-26 (Same as: l 08:51: Humalog) Roll in palms of hands gently; Do not shake vigorously . WASTE: F/P - Black; E - Municipal Trash Bin Stable for 28 days at room temperatur e. Expires in days from ____Date atorvastati No Notes: Cr regulo n 08-26 (Same as: l 02:00: Lipitor) [place] Lovenox No Notes: Memoria 08-26 Nurse to l 02:00: ensure [place] 00 documentat ion of patient education per anticoagul ation policy. (Same as: Lovenox) Melatonin 3 No Notes: Cr regulo MG Extended 08-26 (Same as: l Release 02:00: Melatonin) Herm marcus Tablet 00 metoprolol No Notes: Memor ia tartrate 08-26 (Same as: l 02:00: Lopressor) Reinaldo Saline No Notes: Memoria Flush 0.9% 08-26 (Same as: l 02:00: BD Reinaldo Posiflush) RN please 0 No RN please Mem oria update HWA 08-26 update HWA l ON ADHOC 00:15: ON ADHOC, Herm marcus REMINDER, Drug form: MISC, Route: MISC, Q15Min, 08/26/19 19:15:00 CDT, Duration: 30 day, Stop date: 09/25/19 19:00:00 CDT, 0 Acetaminoph No Notes: Do M emoria en 6-18 not exceed l 23:55: 4 gm/day. Reinaldo (Same as: Tylenol) Acetaminoph 0 No Notes: Cr regulo en 325 MG / 6-18 (Same as: l Hydrocodone 23:55: [place] Liliana nn Bitartrate 00 325/5) Do 5 MG Oral not exceed Tablet 4gm/day of acetaminop hen. Ondansetron No Notes: Cr regulo 6-18 (Same as: l 23:55: Zofran) Milk of 0 No Notes: Memoria Magnesia 6-18 (Same as: l 23:55: Milk of Reinaldo 00 Magnesia, MOM) Bisacodyl 0 No Notes: Memori a 6-18 (Same As: l 23:55: Dulcolax, Bisco-Lax) Albuterol No Notes: Memori a 0.833 MG/ML 6-18 (Same as: l / 23:55: Duoneb) Ipratropium 00 Willis 0.167 MG/ML Inhalant Solution Saline No Notes: Memoria Flush 0.9% 6-18 (Same as: l 23:55: BD Posiflush) Docusate 0 No Notes: Memoria Sodium 50 6-18 (Same as l MG / 22:00: Senokot-S) Reinaldo sennosides, 00 Equiv. to MCFP 8.6 MG Lillian-Colac Oral Tablet e. Fluconazole No Notes: Cr regulo 6-18 (Same as: [...] 6-18 25 mL, l (D50W) 21:49: Route: [place] 00 IVP, Drug Form: INJ, Dosing Weight 60, kg, PRN, PRN Blood Glucose Results, Start date: 08/26/19 16:49:00 CDT, Duration: 30 day, Stop date: 09/25/19 16:48:00 CDT, 0 Glucagon 2020-0 No 1 mg, Memoria 6-18 Route: IM, l 21:49: Drug form: [place] 00 PDR/INJ, PRN, Dosing Weight 60, kg, PRN Blood Glucose Results, Start date: 08/26/19 16:49:00 CDT, Duration: 30 day, Stop date: 09/25/19 16:48:00 CDT, 0 Insulin 2020-0 No Notes: Memoria Lispro 6-18 (Same as: l 21:49: Humalog) Reinaldo 00 Roll in palms of hands gently; Do not shake vigorously . WASTE: F/P - Black; E - Municipal Trash Bin Stable for 28 days at room temperatur e. Expires in days from ____Date Maalox 2020-0 No Notes: Memoria Advanced 6-18 (aluminum l Regular 21:38: hydroxide- Herm marcus Strength 00 magnesium SUSP hyd-simeth icone 200-200-20 mg/5ml 30 ml ud ASTRID) pantoprazol 2020-0 Yes 40 mg = 1 M emoria [...] BID, 0 l MG / 20:50: Refill(s) [place] sennosides, 00 MCFP 8.6 MG Oral Tablet fluconazole 2019-0 Yes 100 mg = 1 Memoria 100 mg oral 6-18 tab, PO, l tablet 20:50: [id number], 4 Liliana nn 00 days, 0 Refill(s) [...] Oxide 6-18 (Same as: l 16:39: Mag-Ox [place] 00 400) Magnesium oxide 195nu=032q g elemental magnesium Dose=____m g magnesium oxide (___mg elemental magnesium) Potassium 2019- No Notes: Memori a Chloride 6-18 (Same as: l 13:39: K-Dur 20) Reinaldo 00 "Do Not Crush" Give with food and full glass of water For patients unable to swallow tablet, dissolve in one half glass of water. Allow about 2 minutes for the tablets to disintegra te. Stir before giving to prepare slurry and administer . Please exclude Patient s with feeding tube less than 14 Ukrainian (Dobhoff, J-tube etc) and pediatric and patients. [...] s with feeding tube less than 14 Ukrainian (Dobhoff, J-tube etc) and pediatric and patients. Protonix 2019- No Notes: For Mem oria 6-17 IV push l 22:00: reconstitu [place] 00 te with 10 ml 0.9% sodium chloride and push over 2 minutes. (Same as: Protonix) Furosemide 2019-0 No Notes: Memor ia 40 MG Oral 6-17 (Same as: l Tablet 17:38: Lasix) Reinaldo [Lasix] 00 May cause GI upset. Give with food or milk. Diflucan 2019-0 No 100 mg, 1 Cr regulo 6-16 tab, l 22:00: Route: PO, Reinaldo 00 Drug form: TAB, [id number], Dosing Weight 60, kg, Start date: 08/24/19 17:00:00 CDT, Duration: 5 day, Stop date: 08/28/19 17:00:00 CDT, ABX Indication : Bacteremia , 0 Protonix 2019-0 No 40 mg, Memoria 616 Route: l 21:30: IVP, Drug form: INJ, Before Dinner, Dosing Weight 60, kg, Start date: 08/24/19 16:30:00 CDT, Duration: 30 day, Stop date: 09/22/19 16:30:00 CDT, 0 Lasix 2019-0 No Notes: Memoria -16 (Same as: l 16:06: Lasix) [place] MEDICATION WASTE Product Size: 40 mg Product Wasted: ___ mg Potassium 2019-0 No Notes: Memori a Chloride -16 Infuse at l 14:00: a rate of [place] 10 mEq/hr. (Same as: KCL) Protonix 2019-0 No 40 mg, Memoria 6-16 Route: l [...] Omnipaque 2019-0 No Notes: Memori a 300 6-16 (Same l 00:23: as:Omnipaq Reinaldo 00 ue 300). WASTE: F/P - Black; E - Municipal Trash Bin For oral use only Docusate No 1 tab, Memoria Sodium 50 6-15 Route: PO, l MG / 22:00: Drug Form: [place] sennosides, 00 TAB, MCFP 8.6 MG Dosing Oral Tablet Weight 60, kg, BID, Start date: 08/23/19 17:00:00 CDT, Duration: 30 day, Stop date: 09/22/19 9:00:00 CDT Dulcolax No Notes: Memoria Laxative 6-15 (Same As: l 14:12: Dulcolax, Reinaldo Bisco-Lax) Lasix No Notes: Memoria 6-14 (Same as: l 16:33: Lasix) Reinaldo 00 MEDICATION WASTE Product Size: 40 mg Product Wasted: ___ mg Zosyn No Notes: Memoria 6-14 (Same as: l 16:00: Zosyn) [place] Dosing based on Piperacill in component MEDICATION WASTE Product Size: 3375 mg Product Wasted: ___ mg Lovenox No 80 mg, 0.8 Cr regulo 6-14 mL, Route: l 14:00: SUB-Q, Drug form: INJ, [id number], Dosing Weight 60, kg, Start date: 08/22/19 9:00:00 CDT, Stop date: 09/20/19 9:00:00 CDT, 0 Acetaminoph No Notes: Cr regulo en 325 MG / 6-14 (Same as: l Hydrocodone 13:55: [place] Liliana nn Bitartrate 00 325/5) Do 5 MG Oral not exceed Tablet 4gm/day of [[place] acetaminop 5/325] hen. Melatonin 3 No Notes: Cr regulo MG Extended 6-14 (Same as: l Release 02:00: Melatonin) Herm marcus Tablet 00 Albuterol No Notes: Memori a 0.833 MG/ML -13 (Same as: l / 22:12: Duoneb) [place] Ipratropium 00 [place] 0.167 MG/ML Inhalant Solution Docusate No Notes: Memoria Sodium 50 6-13 (Same as l MG / 22:00: Senokot-S) sennosides, 00 Equiv. to MCFP 8.6 MG Lillian-Colac Oral Tablet e. Midodrine No Notes: Memori a 6-11 (Same l 17:47: as:Proamat ine) Aspirin 81 No Notes: Do Me [...] glycopyrrol No Route: IV, Memoria ate (ANES) 08-17 Drug form: l 22:30: INJ, ONCE, Stop date: 08/18/19 17:30:00 CDT neostigmine No Route: IV, Memoria (ANES) -10 Drug form: l 22:30: INJ, ONCE, Stop date: 08/18/19 17:30:00 CDT ondansetron No Route: IV, Memoria (ANES) 6-10 Drug form: l 22:18: INJ, ONCE, Stop date: 08/18/19 17:18:00 CDT Lovenox No Notes: Memoria 6-10 (Same as: l 22:00: Lovenox) Reinaldo 00 normal No 1,000 mL, Memori a saline 0.9% 08-17 Rate: 100 l IV 1,000 mL 21:53: [...] ONCE, Stop date: 08/18/19 14:02:00 CDT acetaminoph No Route: IV, Memoria en (ANES) 6-10 Drug form: l 19:02: INJ, ONCE, Stop date: 08/18/19 14:02:00 CDT ceFAZolin 2019-0 No Route: IV, Me moria (ANES) [...] ONCE, Stop date: 08/18/19 13:52:00 CDT vancomycin No Route: IV, Rickey emoria (ANES) 1000 6-10 Drug form: l mg 17:41: INJ, Start date: 08/18/19 12:41:00 CDT, Stop date: 08/18/19 13:41:00 CDT Sodium 2019- No Route: IV, Memor ia Chloride 6-10 Total l 0.9% IV 17:34: Volume: Reinaldo (ANES) 1000 00 1,000, mL Start date: 08/18/19 12:34:00 CDT, Stop date: 08/18/19 13:34:00 CDT Lactated 2019-0 No Route: IV, Mem oria Ringers 6-10 Total l Injection 17:27: Volume: Liliana nn IV (ANES) 00 1,000, 1000 mL Start date: 08/18/19 12:27:00 CDT, Stop date: 08/18/19 13:27:00 CDT D5W 1/4NS 2019-0 No 1,000 mL, Mem oria 1,000 mL [...] 6-10 Route: PO, l 11:23: Drug form: [place] 00 TAB, ONCE, Dosing Weight 60, kg, PRN Pain Score 1-3, Start date: 08/18/19 6:23:00 CDT Morphine 2019-0 No 2 mg, Memoria 6-10 Route: l 11:23: IVP, Reinaldo 00 Q5Min, Dosing Weight 60, kg, PRN Pain Score 4-6, Start date: 08/18/19 6:23:00 CDT, Duration: 5 doses or times, Stop date: Limited # of times Flumazenil 2020-0 No 0.2 mg, Cr regulo 6-10 Route: l 11:23: IVP, PRN, [place] 00 Dosing Weight 60, kg, PRN Benzodiaze [...] MG/ML 6-10 Route: l Inhalant 11:23: NEB, [place] Solution 00 Q20Min, Dosing Weight 60, kg, PRN Wheezing, Priority: STAT, Start date: 08/18/19 6:23:00 CDT, Duration: 30 day, Stop date: 09/17/19 6:22:00 CDT Diphenhydra 2020-0 No 12.5 mg, Me moria mine 6-10 Route: l 11:23: IVP, Drug Reinaldo form: INJ, Q6H, Dosing Weight 60, kg, PRN Itching, Start date: 08/18/19 6:23:00 CDT, Duration: 30 day, Stop date: 09/17/19 6:22:00 CDT Meperidine 2020-0 No 12.5 mg, Mem oria 6-10 Route: l 11:23: IVP, [place] 00 Q30Min, Dosing Weight 60, kg, PRN Other -See Comment, For shivering, Start date: 08/18/19 6:23:00 CDT, Duration: 2 doses or times, Stop date: Limited # of times Ondansetron 2020-0 No 4 mg, Memor ia 6-10 Route: [...] ___ mg Insulin No Notes: Memoria Lispro -10 (Same as: l 02:40: Humalog) Roll in palms of hands gently; Do not shake vigorously . WASTE: F/P - Black; E - Municipal Trash Bin Stable for 28 days at room temperatur e. Expires in days from ____Date Metoprolol No Notes: Memor ia 6-09 (Same as: l 22:58: Lopressor) Push over 2 minutes Digoxin No Notes: Memoria 0.25 MG 6- (Same as: l Oral Tablet 22:58: Lanoxin) He metoprolol No Notes: Memor ia tartrate 6-09 (Same as: l 22:00: Lopressor) Lovenox No Notes: Memoria 6- Nurse to l 20:00: ensure documentat ion of patient education per anticoagul ation policy. (Same as: Lovenox) Hydralazine No Notes: Cr regulo 6-09 (Same as: l 18:36: Apresoline ) Push over 5 minutes Amlodipine No Notes: Memor ia 6-09 (Same as: l 14:00: Norvasc) Memantine 0 No Notes: Memori a 6-09 (Same As: [...] 08-16 Route: IM, l 02:50: Drug form: [place] 00 PDR/INJ, PRN, Dosing Weight 60, kg, [...] CDT, Stop date: 08/16/19 20:19:00 CDT Dextrose 2020-0 No 12.5 gm, Memor ia [...] mg Melatonin 2020-0 No Notes: Memori a 6-08 (Same as: l 18:41: Melatonin) Acetaminoph 2020-0 No Notes: Do M emoria en 08-15 not exceed l 18:41: 4 gm/day. (Same as: Tylenol) Lovenox 2020-0 No Notes: Memoria 08-15 (Same as: l [...] Stop date: Limited # of times Ketorolac 2020-0 No 30 mg, Memori a 08-15 Route: l 16:19: IVP, ONCE, Dosing Weight 60, kg, Start date: 08/16/19 11:19:00 CDT, Stop date: 08/16/19 11:19:00 CDT Acetaminoph 2020-0 No 1,000 mg, M tyler en 08-15 [...] Stop date: Limited # of times Hydromorpho 2020-0 No 0.5 mg, Mem oria ne 08-15 Route: l 16:19: IVP, [place] 00 Q5Min, Dosing Weight 60, kg, PRN Pain Score 7-10, Start date: 08/16/19 11:19:00 CDT, Duration: 4 doses or times, Stop date: Limited # of times Naloxone 2020-0 No 0.4 mg, Memori a 08-15 Route: l 16:19: IVP, Reinaldo 00 Q2MIN, Dosing Weight 60, kg, PRN Narcotic Reversal, Start date: 08/16/19 11:19:00 CDT, Duration: 8 doses or times, Stop date: Limited # of times Meperidine 2020-0 No 12.5 mg, Mem oria 08-15 Route: l 16:19: IVP, Reinaldo 00 Q30Min, Dosing Weight 60, [...] (ANES) 08-15 Drug form: l 16:16: SOLN, ONCE, Stop date: 08/16/19 11:16:00 CDT ceFAZolin 2020-0 No Route: IV, Me moria (ANES) 08-15 Drug form: l 16:16: INJ, ONCE, Stop date: 08/16/19 11:16:00 CDT lidocaine 2020-0 No Route: IV, Me moria (ANES) - Drug form: l 16:16: INJ, ONCE, 00 Stop date: 08/16/19 11:16:00 CDT fentaNYL 2020-0 No Route: IV, Mem oria (ANES) 08-15 Drug form: l 16:16: INJ, ONCE, 00 Stop date: 08/16/19 11:16:00 CDT propofol 2020-0 No Route: IV, Mem oria (ANES) 08-15 Drug form: l 16:16: INJ, ONCE, Reinaldo 00 Stop date: 08/16/19 11:16:00 CDT famotidine 2020-0 No Route: IV, M emoria (ANES) 08-15 Drug form: l 16:16: INJ, ONCE, Reinaldo Stop date: 08/16/19 11:16:00 CDT methylPREDN 2020-0 No Route: IV, Memoria ISolone 08-15 Drug form: l (ANES) 16:16: INJ, ONCE, Liliana nn Stop date: 08/16/19 11:16:00 CDT diphenhydrA 2020-0 No Route: IV, Memoria MINE (ANES) 08-15 Drug form: l 16:16: INJ, ONCE, Reinaldo Stop date: 08/16/19 11:16:00 CDT losartan 50 [...] tab, PO, l tablet 15:45: Daily, 0 Reinaldo 00 Refill(s) sitagliptin 2020-0 Yes 100 mg [...] = 1 Me moria 40 MG Oral -08 tab, PO, l Tablet 15:44: Daily, # [place] 00 30 tab, 0 Refill(s) gabapentin 2020-0 No 100 mg = 1 M emoria 100 MG Oral 08 cap, PO, l Capsule 15:44: TID, 0 Reinaldo 00 Refill(s) azithromyci 2020-0 No See Memori a n 250 mg 08-15 Instructio l oral tablet 15:43: ns, Take 2 Reinaldo 00 tablets by mouth the first day then 1 tablet by mouth daily on days 2-5., # 6 tab, 0 Refill(s) clopidogrel 2020-0 Yes 75 mg = 1 M emoria 75 MG Oral -08 tab, PO, l Tablet 15:43: Daily, # Reinaldo [Plavix] 00 30 tab, 0 Refill(s) Amlodipine 2020-0 No PO, Daily, M emoria 08-15 0 l 15:42: Refill(s) [place] 00 atorvastati 2019-0 Yes 40 mg = 1 M emoria n 40 mg 08 tab, PO, l oral tablet 15:42: Bedtime, # [place] 00 30 tab, 0 Refill(s) vancomycin 2019-0 No Route: IV, M emoria (ANES) 1000 08-15 Drug form: l mg 15:22: INJ, Start date: 08/16/19 10:22:00 CDT, Stop date: 08/16/19 11:22:00 CDT Nurse 2019-0 No Nurse Memoria please 08-15 please l update 14:30: update [place] Height, 00 Height, Weight, Weight, Allergy Allergy info info, reminder, Drug form: MISC, Route: MISC, Q30Min, 08/16/19 9:30:00 CDT, Duration: 6 hr, Stop date: 08/16/19 15:00:00 CDT, 0 Ancef + 2019-0 No Notes: Memoria sterile 08-15 (Same As: l water 20 mL 14:00: Ancef, Herm Kefzol) MEDICATION WASTE Product Size: 1000 mg Product Wasted: ___ mg Vancomycin 2020-0 No 2000 mg: Me moria 6-08 infuse l 14:00: over 2.5 Reinaldo 00 hours For adult patients only: Round to nearest 250 mg per Medical Staff approval MEDICATION WASTE Product Size: 1000 mg Product Wasted: ___ mg Calcium 2020-0 No 1,000 mL, Memor ia Chloride 6-08 1000 l 0.0014 14:00: ml/hr, Reinaldo MEQ/ML / 00 Infuse Potassium Over: 1 Chloride hr, Route: 0.004 IV, 1,000, MEQ/ML / Drug form: Sodium INJ, PRE Chloride OP, Dosing 0.103 Weight MEQ/ML / 72.727 kg, Sodium Start Lactate date: 0.028 08/15/20 MEQ/ML 9:00:00 Injectable CDT, Solution Duration: 1 doses or times, Bolus, 0 Calcium 2020-0 No 1,000 mL, Memor ia Chloride 6-08 Rate: 75 l 0.0014 13:54: ml/hr, [place] MEQ/ML / 00 Infuse Potassium over: 13.3 Chloride hr, Route: 0.004 IV, Dosing MEQ/ML / Weight Sodium 72.727 kg, Chloride Total 0.103 Volume: MEQ/ML / 1,000, Sodium Start Lactate date: 0.028 //20 MEQ/ML 8:54:00 Injectable CDT, Solution Duration: 1 day, Stop date: 08/17/19 8:53:00 CDT, 1.86, m2, 0 apixaban 2019-0 Yes 5mg Q.5D Take 5 mg Hous [...] times a mcg/actuati day. on inhaler HUMALOG 2018-0 Yes 20U [id number] Inject 20 [place] KWIKPEN 2-23 [id number] Units Metho di INSULIN 100 00:00: 3D under the s t unit/mL 00 skin 3 injection (three) pen times a day with meals. Per sliding scale -only takes if BS IS above 120 LANTUS 2018- Yes Q.5D 2 (two) [place] SOLOSTAR 2-07 times a Method[facility] U-100 00:00: day. 50 st INSULIN 100 00 units in unit/mL the injection morning 30 (pen) units at night gabapentin 2018-0 Yes QD nightly. Vesna zurita (NEURONTIN) 1-14 [facility] 100 mg 00:00: st capsule 00 pramipexole 2017-03 Yes [id number] 3 (three) [place] (MIRAPEX) 2-12 [id number] times a M ethodi 0.5 MG 00:00: 3D day as st tablet 00 needed. simvastatin 2017-03 Yes QD nightly. Eloy gross (ZOCOR) 40 2-12 [facility] MG tablet 00:00: st 00 DULoxetine 2017-03 Yes QD every [place] (CYMBALTA) 2-12 morning. Metho di 60 MG 00:00: st capsule 00 metoprolol 2017-03 Yes QD nightly. Vesna arroyon succinate 2-12 [facility] XL 00:00: st (TOPROL-XL) [...] Oral (F) 2019-09-08 13:25:00 98.6 F [facility] [place] Heart Rate 2019-09-08 13:25:00 [facility] [place] Respitory Rate 2019-09-08 13:25:00 Memori al [place] Systolic (mm Hg) 2019-09-08 13:25:00 Cr rial Reinal[place] Diastolic (mm Hg) 2019-09-08 13:25:00 Mem orial [place] Temperature Oral (F) 2019-09-08 13:16:00 98.6 F [facility] [place] Heart Rate 2019-09-08 13:16:00 [facility] [place] Respitory Rate 2019-09-08 13:16:00 Memori al [place] Systolic (mm Hg) 2019-09-08 13:16:00 Cr rial [place] Diastolic (mm Hg) 2019-09-08 13:16:00 [facility] Temperature Oral (F) 2019-09-08 01:45:00 98.5 F [facility] Heart Rate 2019-09-08 01:45:00 [facility] [place] Respitory Rate 2019-09-08 01:45:00 [facility] [place] Systolic (mm Hg) 2019-09-08 01:45:00 [facility] [place] Diastolic (mm Hg) 2019-09-08 01:45:00 [facility] [place] Height 2019-08-28 16:28:00 149.86 cm [facility] Weight 2019-08-28 16:28:00 [facility] BMI Calculated 2019-08-28 16:28:00 [facility] Height 2019-08-27 00:43:00 149.86 cm [facility] [place] Weight 2019-08-27 00:43:00 [facility] [place] BMI Calculated 2019-08-27 00:43:00 [facility] Temperature Oral (F) 2019-08-26 21:46:00 98.5 F [facility] Respitory Rate 2019-08-26 21:39:00 [facility] [place] Respitory Rate 2019-08-26 21:00:00 [facility] Systolic (mm Hg) 2019-08-26 21:00:00 [facility] [place] Diastolic (mm Hg) 2019-08-26 21:00:00 [facility] Respitory Rate 2019-08-26 19:00:00 [facility] Systolic (mm Hg) 2019-08-26 19:00:00 [facility] [place] Diastolic (mm Hg) 2019-08-26 19:00:00 [facility] Systolic (mm Hg) 2019-08-26 18:35:00 [facility] [place] Diastolic (mm Hg) 2019-08-26 18:35:00 [facility] Temperature Oral (F) 2019-08-26 16:12:00 98.6 F [facility] Temperature Oral (F) 2019-08-26 12:59:00 98.5 F [facility] Heart Rate 2019-08-22 17:49:00 [facility] Heart Rate 2019-08-22 15:30:00 [facility] Heart Rate 2019-08-22 14:01:00 [facility] Height 2019-08-16 14:43:00 149.86 cm [facility] Weight 2019-08-16 14:43:00 [facility] BMI Calculated 2019-08-16 14:43:00 [facility] Procedures Procedure Date / Time Performing Clinician Source Performed History of Rectal [facility] [place] [facility] 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 Physicians History of Bypass graft [facility] History of Arterial [facility] [place] angioplasty of lower Physicians extremity Plan of Care Planned Activity Planned Date Details Comments Source Future Scheduled 2020-10-08 INFLUENZA VACCINE [place] [facility] 00:00:00 [code = INFLUENZA VACCINE] Future Scheduled 1988 SHINGLES VACCINES (#1) [place] [facility] 00:00:00 [code = SHINGLES VACCINES (#1)] Future Scheduled 1954 COVID-19 VACCINE (1) [place] [facility] 00:00:00 [code = COVID-19 VACCINE (1)] Future Scheduled 1948 DIABETES: RETINAL EYE [place] [facility] 00:00:00 EXAM [code = DIABETES: RETINAL EYE EXAM] Future Scheduled 1948 DIABETIC FOOT EXAM [place] [facility] 00:00:00 [code = DIABETIC FOOT EXAM] Future Scheduled 1950 URINE MICROALBUMIN [place] [facility] 00:00:00 [code = URINE MICROALBUMIN] Encounters Start End Encounter Admission Attending Care Care Encounter Source Date/Time Date/Time Type Type Clinicians Facility Department ID 2019-08-26 Inpatient [facility]SE MED [id number] 18:50:00 [facility] 2019-10-04 2019-10-08 [facility] 1.2.840. [id number] 19:45:04 20:30:00 Encounter Pauline Guillen [place] [id number] [place] 4.2.7.2.686 [place] [id number] 2019-09-28 2019-09-28 Emergency [facility] [id number] 18:24:14 22:12:00 Sharee Arauz 350.1.13.10 [place] 4.2.7.2.686 [place] [id number] 2019-09-21 2019-09-21 Appointmen CHILANGO MOULTON Thoracic [id number] Univers 08:00:00 08:00:00 t; JOHAN MOULTON, Surgery - i ty ronak PRADO M.D. [facility] ans 2019-09-15 2019-09-15 Telephone BERNADINE Ayala [id number] 00:00:00 00:00:00 Mariajose PARRA [id number]686 [id number] 2019-09-15 2019-09-15 Letter uLcy BERNADINE [id number] 00:00:00 00:00:00 (Out) Mariajose PARRA 350.1.13.10 [place] [id number] 2019-09-10 2019-09-10 Laboratory Only, Adc [facility] [id number] 07:57:03 07:57:11 Only Test [place] 350.1.13.10 [place] [id number] [place] [id number] 2019-09-09 2019-09-09 Orders Doctor BERNADINE 1.2.840.114 [id number] 00:00:00 00:00:00 Only Unassigned, AIDA 350.1.13.10 [place] [address]686 [id number] 2019-08-26 2019-09-08 Outpatient Brendel, MHSE MHSE [id number] 18:50:00 15:40:00 Jimbo Kimble 2019-08-16 2019-08-26 Outpatient Tanya, MHSE MHSE [id number] 11:40:00 18:05:00 Loco 06 Jarred 2019-08-16 2019-08-26 Outpatient Tanya, MHSE MHSE [id number] 11:40:00 18:05:00 Loco 06 Jarred 2019-08-16 2019-08-16 CHILANGO Vazquez [id number] Univers 10:00:00 10:00:00 t; JOHAN MOULTON [facility] [place], M.[place]. [place] M[facility]D. Physici ans 2019-08-09 2019-08-09 CHILANGO Vazquez [facility] [id number] Univers 10:15:00 10:15:00 t; JOHAN MOULTON cic [facility] Jairo M.D. Vascular [facility] ans 2018-06-29 2018-06-29 CHILANGO Dobbs [id number] Univers 10:30:00 10:30:00 t; DANN CHUA [facility] 2018-06-15 2018-06-15 Appointmen [facility] [id number] Univers 10:15:00 10:15:00 t; DANN CHUA [facility] 2018-06-01 2018-06-01 Appointmen [facility] [id number] Univers 11:30:00 11:30:00 t; DANN CHUA [facility] 2018-05-15 2018-05-15 Appointmen [facility] [id number] Univers 15:30:00 15:30:00 t; DANN CHUA [facility] Results Test Description Test Time Test [...] code = MCH) 28.8 pg 27.0-31.0 [facility] AeaasdtQGDTIJXJII0295-81-06 00:27:0032.4[facility]ann[facility]MATOLOGY 2019-09-07 00:27:0016.5[facility] TlyyeqlUUZWRDFLHK0307-84-72 00:27:61669Bsbgbxsm ZqxpwbyGJELGKKTNJ7682-03-85 00:27:008.6[facility] GnebfwwTDYOWIXCTY5366-49-75 00:27:0059.7[facility] VpbaimtPOHNCURBXV7069-96-03 00:27:0031.0[facility] NKLXEOIDIE0792-20-35 00:27:008.2[facility] EafemovMEUTCKSHXZ2951-40-58 00:27:000.1 [facility] YqhaclwJVOCYQGBFD9310-81-87 00:27:001.0[facility] HermannHEMATOLOGY 2019-09-07 00:27:006.1[facility] HpbazgxFFTNCNOGYG6366-32-06 00:27:003.1[facility] XpriotiHEGLYAOSJC1614-20-73 00:27:000.8[facility] EfcbzimTMYDUHALJB4927-41-70 00:27:000.1[facility] HermannCHEM VCQDX3422-01-22 09:03:001.9[facility] HermannCHEM ZROSM8432-67-61 09:03:23604Sbkllwhu HermannCHEM IROOM6826-01-40 09:03:0022 [facility]annCHE[facility] HWENV7364-74-66 09:03:000.97[facility]annCHEM PANEL 2019-09-04 09:03:90254Awywxwjy HermannCHEM HPZNS4847-10-31 09:03:004.5[facility] HermannCHEM FLSKM8930-64-94 09:03:52518Wnegfmfj HermannCHEM LVQIE2701-15-55 09:03:0025[facility]annCHEM TAILB2751-56-38 09:03:008.4[facility] HermannCHEM NUGVE4821-36-99 09:03:0010.5[facility] HermannCHEM BZKMJ7479-53-62 09:03:0055 [facility] XebtofbMQLWNURSWC9665-06-00 09:03:008.6[facility] HermannHEMATOLOGY 2019-09-04 09:03:002.51[facility] TgrifkhEKLJKLDDUY5093-27-47 09:03:007.2[facility] YbtuvwjHOGRDGQMBM9169-29-74 09:03:0022.3[facility] AwvwybgAIYXJICTND9152-79-17 09:03:0089.1[facility] OhgmazvORWMCFQMRL6972-11-11 09:03:00 Test Item Value Reference Range Interpretation Comments MCH (test code = MCH) 28.9 pg 27.0-31.0 [facility] JdjltowNTYQIAETTE7362-06-87 09:03:0032.5[facility] HermannHEMATOLOGY 2019-09-04 09:03:0016.6[facility] LunkjirDAHHOZEEIU3219-31-32 09:03:80232Fhjqlgmf UuvefjdJZCARBVRQK5400-54-85 09:03:009.0[facility] KkzqlksGYPLETYZBN5911-16-71 09:03:0061.4[facility] TzglznfLQHEWXCJPD4390-69-01 09:03:0027.8[facility] PQTOZFRXBL6697-98-76 09:03:009.8[facility] KgmbpnpUTTDTFHNJO5426-85-88 09:03:001.0 [facility] AqscgrvWCMOLYLHNS6431-33-02 09:03:005.3[facility] HermannHEMATOLOGY 2019-09-04 09:03:002.4[facility] UbypgkiZLUXURZJPW5371-50-29 09:03:000.8[facility] QwaeioyBGJFGXPITS6254-55-71 09:03:000.1[facility] FjftmznEYQNWKAVUR6132-30-21 01:05:0068.5[facility] PvfoylbPZNNHSHVXA0455-94-23 01:05:0019.6[facility] KNMQNMEVKA4727-63-84 01:05:0010.7[facility] IfqwshlWSXAAOEGQX8168-87-47 01:05:00 0.1[facility] HtrsfobKFKLMNBVGT3870-26-69 01:05:001.1[facility] HermannHEMATOLOGY 2019-09-01 01:05:006.5[facility] SelqnewYVEAOBWDSB7520-00-66 01:05:001.9[facility] UuanhxcTZDOQJFGPD5523-75-26 01:05:001.0[facility] PjdcearUFCJTPYEHW4526-99-77 01:05:000.1[facility] XgvgkbbOOCAVFIGVD8720-98-69 01:05:009.4[facility] MPIHHUBIAC9687-40-43 01:05:002.62[facility] BjkihjwPTEFHYXUGN3382-99-06 01:05:00 7.7[facility] XmkzppaGMJJMSBGXW9846-86-53 01:05:0024.0[facility]annHEMATOLOGY 2019-09-01 01:05:0091.6[facility] RfathktPRJATKGAOX3770-64-77 01:05:00 Test Item Value Reference Range Interpretation Comments MCH (test code = MCH) 29.4 pg 27.0-31.0 [facility] XeporvkTCTSFXFIHH0167-86-37 01:05:0032.1[facility]annHEMATOLOGY 2019-09-01 01:05:0016.3[facility] YqgceilNXEPOKPABW5953-02-33 01:05:35558Snztonry ArwvqqnHYKNWXDZHZ4889-68-57 01:05:008.6[facility] UfulazbNZANPOGTNE8742-97-49 01:05:0011.0[facility] HermannCHEM PYCWJ3218-69-86 09:15:60858Ebywokcv HermannCHEM CCNQA0631-07-01 09:15:0021[facility]annCHEM UFUIS9400-74-74 09:15:001.23 [facility]annCHE[facility] TAYSJ3587-40-80 09:15:22757Wxrsliox HermannCHEM PANEL 2019-08-30 09:15:003.7[facility] HermannCHEM CVVMF2227-18-24 09:15:43490Embakxyz HermannCHEM JSILG1620-31-83 09:15:0027[facility]annCHEM ZZVTD0495-05-97 09:15:007.7[facility]annCHEM KNNIF6417-11-83 09:15:009.7[facility]annCHEM ELBNW7653-68-75 09:15:0041[facility]annCHEM TKAEH8419-31-64 20:56:000.09 [facility] ODELJ2453-34-83 20:00:00Clear (08/29/19 3:00 PM) [facility] RYIHL5722-60-61 20:00:00 Test Item Value Reference Range Interpretation Comments UA Spec Grav (test code = UA Spec 1.014 1 Grav) [facility] DMYXW8973-87-16 20:00:00 Test Item Value Reference Range Interpretation Comments UA pH (test code = UA pH) 6.0 1 5.0-8.0 [facility] SVSEO9469-04-19 20:00:00Negative *NA*(08/29/19 3:00 PM) [facility] IMFJZ2471-88-18 20:00:00Negative (08/29/19 3:00 PM) [facility] JHGWY4245-28-43 20:00:00Negative (08/29/19 3:00 PM) [facility] UOQZO1829-76-34 20:00:00Small *ABN*(08/29/19 3:00 PM) [facility] GHSAW2395-29-24 20:00:0011[facility] GZSOR2664-84-91 20:00:00<1[facility] HermannCHEM WVPLM2508-92-33 13:40:37934 [facility]annCHE[facility] ZCPPO1181-63-38 13:40:0018[facility] HermannCHEM PANEL 2019-08-29 13:40:001.01[facility] HermannCHEM GGHBO4598-84-36 13:40:57572Pfybvgua HermannCHEM XWNSG1426-44-96 13:40:004.1[facility]annCHEM GRWBX2713-89-25 13:40:56898Tibdnxbh HermannCHEM QJGCY7844-21-66 13:40:0026[facility]annCHEM HMDMP9943-52-31 13:40:007.4[facility]annCHEM UCHDM7709-87-93 13:40:009.1 [facility]annCHE[facility] VVBHD2928-36-84 13:40:0052[facility] HermannIMMUNOLOGY 2019-08-29 13:40:0011.3[facility] HermannCHEM IYITI4220-84-27 08:51:00 Test Item Value Reference Range Interpretation Comments B/C Ratio (test code = B/C Ratio) 17 1 6-25 [facility]annCHE[facility] WREWF6362-83-16 08:51:005.5[facility] HermannCHEM PANEL 2019-08-27 08:51:002.1[facility]annCHEM QJUFN6953-37-37 08:51:003.4[facility]annCHEM TGKNF7898-49-81 08:51:00 Test Item Value Reference Range Interpretation Comments A/G Ratio (test code = A/G Ratio) 0.6 1 0.7-1.6 [facility]annCHE[facility] LPDEH5556-99-91 08:51:0037[facility] HermannCHEM PANEL 2019-08-27 08:51:0030[facility] HermannCHEM DXNOJ2552-63-80 08:51:48120Rctgcyro HermannCHEM PBQBQ0994-18-02 08:51:000.3[facility] HermannSPECIAL CHEMISTRY 2019-08-27 08:51:008.0[facility] PbqgyuuRZFUNYQPRECZ9207-19-27 17:33:004.1[facility] HermannCHEM OGPEI4022-49-84 10:52:001.7[facility] HermannCHEM FHHFI0595-76-35 10:52:73536Uqtwuutv HermannCHEM NSYWA4276-14-30 10:52:0014[facility] HermannCHEM EBGPX3296-52-77 10:52:000.93[facility] HermannCHEM SCHLZ7360-47-13 10:52:03497 [facility]annCHEM KHCMA2490-60-12 10:52:003.0[facility] HermannCHEM PANEL 2019-08-26 10:52:80060Hjqfdnvs HermannCHEM SPVPC3446-85-72 10:52:0032[facility]annCHEM LCIUS4905-14-59 10:52:008.0[facility] HermannCHEM RRNTV8412-83-40 10:52:007.7[facility] HermannCHEM CKUDV7780-89-33 10:52:0058[facility] PZRBBPSMQZ1358-41-51 10:52:0076.3[facility] AarwouuFWBXAAVGWU2819-00-46 10:52:00 15.5[facility] WbjqbkvVJJBMBUINU6545-42-65 10:52:007.8[facility] HermannHEMATOLOGY 2019-08-26 10:52:000.4[facility] PzsxdwgDOVQQXKDPW5987-96-75 10:52:007.4[facility] ChuminhGSZHVBDMDT4236-15-59 10:52:001.5[facility] KmjjdhbROUXNHCKDA5991-99-80 10:52:000.8[facility] FpvwihyTDOQDNZHLT5283-49-04 10:52:009.7[facility] YYJVUVSSBW4996-19-66 10:52:002.77[facility] JdcitdpLRNRHXEVEB4082-21-00 10:52:00 8.2[facility] WunuzccXZVMNGSSIF6685-47-89 10:52:0025.3[facility] HermannHEMATOLOGY 2019-08-26 10:52:0091.6[facility] NyujyzsAILNONXFCV9098-35-53 10:52:00 Test Item Value Reference Range Interpretation Comments MCH (test code = MCH) 29.8 pg 27.0-31.0 [facility] VjkiujvPWPORFQAUD7619-29-08 10:52:0032.5[facility] HermannHEMATOLOGY 2019-08-26 10:52:0015.8[facility] UsyqahkNMUEQXXSLR9701-75-96 10:52:02887Nhjfgeri AkexobiPGDTXPAURG1914-94-77 10:52:008.5[facility] BgevxhxSVXURZYQPM6098-72-07 17:32:00Not Detected (08/25/19 12:32 PM)[facility]annCHEM RGRBL6853-94-44 08:16:00943Hcwieclh HermannCHEM YTGNX5010-72-08 08:16:0017[facility] HermannCHEM DLZIE3299-01-61 08:16:000.95[facility] HermannCHEM AIXAS6328-52-79 08:16:77134 [facility]annCHEM LIANV3390-66-60 08:16:003.1[facility] HermannCHEM PANEL 2019-08-25 08:16:97733Zysbwbec HermannCHEM LIFFJ5384-31-55 08:16:0029[facility] HermannCHEM BINYO4493-15-98 08:16:009.1[facility]annCHEM MNBWR7700-63-27 08:16:007.5[facility]annCHEM GKOTX5868-46-38 08:16:00 Test Item Value Reference Range Interpretation Comments B/C Ratio (test code = B/C Ratio) 18 1 -25 [facility]annCHEM TIOIM9694-69-64 08:16:005.4[facility] HermannCHEM PANEL 2019-08-25 08:16:002.2[facility]annCHEM NQRON4669-85-06 08:16:003.2[facility]annCHEM KGLYU9610-66-95 08:16:00 Test Item Value Reference Range Interpretation Comments A/G Ratio (test code = A/G Ratio) 0.7 1 0.7-1.6 [facility]CHE[facility] IWDQL9332-83-37 08:16:0033[facility]annCHEM PANEL 2019-08-25 08:16:0027[facility]annCHEM KDIYB5316-63-50 08:16:80258Yvsfkzhe HermannCHEM RYICM3919-80-51 08:16:000.5[facility] HermannCHEM FUKNT2039-99-96 08:16:0057[facility] DiyemkbHRGZTEBKDE4761-37-22 08:16:0011.9[facility] RORDLYEFXW5554-06-77 08:16:002.82[facility] CgglbfrKKSUYPOWVN9029-58-48 08:16:00 8.2[facility] LtdslqsFZZFXRIBFZ9807-16-93 08:16:0025.5[facility] HermannHEMATOLOGY 2019-08-25 08:16:0090.6[facility] SvxdvjaNPJRGEHYHU9875-33-64 08:16:00 Test Item Value Reference Range Interpretation Comments MCH (test code = MCH) 29.2 pg 27.0-31.0 [facility] ThqpnllPJHBLUTIOM0474-00-97 08:16:0032.3[facility] HermannHEMATOLOGY 2019-08-25 08:16:0015.4[facility] OaxtlwsELSNHWFJSU1150-51-13 08:16:83561Lwkbzpkg IfazjlnCSYUIPEVSJ3228-74-84 08:16:008.8[facility] TgpdbnsVRDFZCIIYF2029-16-10 08:16:0070.9[facility] PyllzqrHLBUCHWEHA6297-25-82 08:16:0020.5[facility] HABIOMSGII7122-24-57 08:16:008.5[facility] QifsfbkVSOVIGYHLS0410-84-88 08:16:000.1 [facility] QuncegiXNXESYQRAE9688-43-71 08:16:008.4[facility] HermannHEMATOLOGY 2019-08-25 08:16:002.4[facility] JmdhwciPPMYXTTPPG4140-94-92 08:16:001.0[facility] HermannCHEM WRTLN9545-57-84 09:17:32957Arflreog HermannCHEM QYWFV7803-55-91 09:17:0019[facility]annCHEM LLZQR2089-22-20 09:17:000.85[facility]annCHEM CQKUR3770-47-53 09:17:27127Bmsuuodb HermannCHEM BMKJQ9072-14-95 09:17:95916 [facility]annCHEM WILQT9380-67-60 09:17:0031[facility]annCHEM PANEL 2019-08-24 09:17:007.9[facility]annCHEM XLVFL9946-35-52 09:17:008.1[facility]annCHEM KBZSX6394-34-71 09:17:00 Test Item Value Reference Range Interpretation Comments B/C Ratio (test code = B/C Ratio) 22 1 6-25 [facility]annCHEM NVDLT0197-52-65 09:17:005.8[facility] HermannCHEM PANEL 2019-08-24 09:17:002.4[facility]annCHEM AYZZP5810-88-01 09:17:003.4[facility]annCHEM NENJZ6704-38-63 09:17:00 Test Item Value Reference Range Interpretation Comments A/G Ratio (test code = A/G Ratio) 0.7 1 0.7-1.6 [facility]CHE[facility] MVNLM4846-40-46 09:17:0028[facility]annCHEM PANEL 2019-08-24 09:17:0013[facility]annCHEM QHZWJ6171-30-22 09:17:97502Fuwhxodq HermannCHEM LODZR9260-07-27 09:17:000.6[facility]annCHEM RDTYD8954-66-79 09:17:0064[facility]annCHEM YQPSW9605-42-37 09:17:002.0[facility] HEJZRGXYVI5151-20-18 09:17:0017.2[facility] VorzyluJMSTQYQCYI4805-46-09 09:17:00 3.34[facility] FgwwlnzBQQAJPBOZN9448-03-18 09:17:009.9[facility] HermannHEMATOLOGY 2019-08-24 09:17:0030.5[facility] UvrtnmzGEFJWTWNUF4898-20-91 09:17:0091.3[facility] BokxgtpJXDNZBISMR4671-74-56 09:17:00 Test Item Value Reference Range Interpretation Comments MCH (test code = MCH) 29.7 pg 27.0-31.0 [facility] SxyphqlZHUDJTKVYH8901-63-19 09:17:0032.6[facility]annHEMATOLOGY 2019-08-24 09:17:0015.4[facility] KqzgqlrLDNGZKENYQ8225-47-48 09:17:50548Cxqidzeb EhuqsrcRXDMLMGLBJ5975-94-71 09:17:008.7[facility] DinpebhFZTVDTQZIC3496-42-46 09:17:0065.5[facility] PhxobbgCKJZMSWIUV7344-91-35 09:17:0022.5[facility] BDFTTQCWAR7067-72-95 09:17:0011.7[facility] ExuvdrsOECMPJJLRC2270-45-87 09:17:00 0.3[facility] KvqryogRVLGJXPXDD2034-91-06 09:17:0011.3[facility]annHEMATOLOGY 2019-08-24 09:17:003.9[facility] XfequimXAZSOFTMDS4072-69-07 09:17:002.0[facility] HrlkdgjJRWKGNIXMQ6353-56-22 09:17:000.1[facility] HermannCHEM BAPWM5539-04-55 11:08:00 Test Item Value Reference Range Interpretation Comments B/C Ratio (test code = B/C Ratio) 21 1 6-25 [facility]annCHEM QGEXH2880-81-54 11:08:005.8[facility] HermannCHEM PANEL 2019-08-23 11:08:002.4[facility]annCHEM HATLV7599-59-84 11:08:003.4[facility]annCHEM LPBZH6357-85-22 11:08:00 Test Item Value Reference Range Interpretation Comments A/G Ratio (test code = A/G Ratio) 0.7 1 0.7-1.6 [facility]annCHEM TELLY6168-13-01 11:08:0036[facility]annCHEM PANEL 2019-08-23 11:08:0010[facility]annCHEM BYACQ2850-85-01 11:08:62241Rmsxbgdk HermannCHEM JWGAI8462-19-92 11:08:000.7[facility] AfshrzwNVFVSWKUSU5497-17-21 11:08:000.1[facility] HermannCARDIAC IHNSAON7890-83-29 20:26:000.13[facility] HermannCARDIAC HRIVJSA6184-93-84 16:25:92096Mbkpusmx [facility]annCHEM GMFRF1841-75-51 16:25:001.3[facility] AND IOUMG2716-68-44 15:22:001[facility] URINE AND DCLDN4941-28-66 15:22:006[facility]ann[facility] AND HSDUV3591-30-97 15:22:00Yellow *NA*(08/22/19 10:22 AM)[facility] AJYUU0253-59-03 15:22:00Clear (08/22/19 10:22 AM)[facility] LHCHG4412-72-08 15:22:00 Test Item Value Reference Range Interpretation Comments UA Spec Grav (test code = UA Spec 1.015 1 Grav) [facility] ZSUJG1570-51-86 15:22:00 Test Item Value Reference Range Interpretation Comments UA pH (test code = UA pH) 5.5 1 5.0-8.0 [facility] SLOHQ4883-20-45 15:22:00Trace *ABN*(08/22/19 10:22 AM) [facility] GXCDI4923-56-07 15:22:00>=1000 *ABN*(08/22/19 10:22 AM)[facility] SMYQP5111-62-37 15:22:00>=80 *ABN*(08/22/19 10:22 AM)[facility] BIZUM5553-67-12 15:22:00Negative *NA*(08/22/19 10:22 AM)[facility] XWCCO1429-09-73 15:22:00Moderate *ABN*(08/22/19 10:22 AM)[facility] KTLQM9402-86-48 15:22:000.2[facility] URINE AND UFFLS6467-54-08 15:22:00Negative (08/22/19 10:22 AM)[facility] URINE AND VWULN3115-95-35 15:22:00Negative (08/22/19 10:22 AM)[facility] URINE AND AWCLK4125-69-19 15:22:00None Seen (08/22/19 10:22 AM)[facility] CARDIAC FDOLNBJ2580-79-61 15:21:000.08[facility] HermannCARDIAC RYTJWWT9704-20-61 13:30:000.10[facility] HermannCHEM EJEEL7029-76-37 13:30:000.38[facility] CHEM EVVTQ7211-07-42 13:30:0036[facility] PyubfvxWQUPWFIVRD3559-42-90 13:36:000.1 [facility] [employer] LYSHMUT0736-83-08 00:03:00Product available 6(08/18/19 7:03 PM)[facility] VEFLUNH7931-30-62 23:45:00Product available 7(08/18/19 6:45 PM)[facility] FWFWBXC1424-17-42 17:12:00Product available 4(08/18/19 12:12 PM)[facility] WFSUPVQ7344-69-58 17:11:00Product available 8(08/18/19 12:11 PM)[facility] [employer] RESULTS 2019-08-18 17:10:00Product available 5(08/18/19 12:10 PM)[facility] MedstroannCHEM JDWAD4656-76-04 10:09:002.6[facility] XydsjhgZTBSHVNGFS0446-71-56 10:09:000.2 [facility] AuhvkzaHYVMTMFCJE0231-83-00 21:25:00 Test Item Value Reference Range Interpretation Comments PT (test code = PT) 15.4 s 12.0-14.7 [facility]evilleKncguxdULQUWPXMSO1753-88-69 21:25:00 Test Item Value Reference Range Interpretation Comments INR (test code = INR) 1.21 1 0.85-1.17 [facility]evilleSfugfbdOYUTDKTRDZ9615-88-71 21:25:00 Test Item Value Reference Range Interpretation Comments PTT (test code = PTT) 29.2 s 22.9-35.8 [facility] [id number] 07:42:001.9[facility] PANEL 2019-08-17 04:22:002.7[facility] UEDDP2906-03-81 04:22:000.09[facility] HnuenqfOGOHLAXYGE8294-54-59 04:22:00Normal (08/16/19 11:22 PM)[facility] CRIIGUCMYZ7760-76-35 04:22:00Normal (08/16/19 11:22 PM)[facility] [id number] 14:36:00Negative (08/16/19 9:36 AM)[facility] 2019-08-16 14:36:00 Test Item Value Reference Range Interpretation Comments PT (test code = PT) 14.7 s 12.0-14.7 [facility]evilleIsrdntcMFSMJTUCLC5513-74-10 14:36:00 Test Item Value Reference Range Interpretation Comments INR (test code = INR) 1.14 1 0.85-1.17 [facility]evilleBktdmfiNIQTWYPLZJ4438-99-12 14:36:005.0[facility] 2019-08-16 14:36:000.7[facility] BuvzmyuCTRXNXEMBC1243-96-00 14:36:00 Test Item Value Reference Range Interpretation Comments PTT (test code = PTT) 30.0 s 22.9-35.8 [facility] RockYzkebavHZPEHWOUSU8316-66-86 12:45:00Not Detected (08/16/19 7:45 AM) [facility]
[2020-06-23 12:11] LABS: Absolute Lymphocytes (CBC) 2.3 K/uL (0.7-4.9); Basophils % 1.2 % (0-1.3); Hematocrit 33.5 % (36.0-45.0); RBC Red Blood Cell Count 3.59 M/uL (3.86-4.86)
[2020-06-23 12:25] LABS: Protime INR 1.89
--- NOTE | 2020-06-23 12:50 | RAD REPORT ---
EXAM DESCRIPTION: RAD - Chest Single View - 06/23/2020 12:29 pm CLINICAL HISTORY: SOB Chest pain. COMPARISON: Chest Single View dated 05/14/2020; Chest Single View dated 11/22/2019; Chest Single View d ated 08/03/2019; Chest Pa And Lat (2 Views) dated 03/15/2019 FINDINGS: Portable technique limits examination quality. Mild interstitial pulmonary edema noted. The heart is mildly enlarged in size. No displaced fractures .Sternotomy wires present. IMPRESSION: Mild CHF.
[2020-06-23 13:33] LABS: Albumin 3.2 g/dL (3.4-5.0); Bilirubin Direct 0.4 mg/dL (0-0.2); Bilirubin Total 0.8 mg/dL (0.2-1.0); Magnesium 2.1 mg/dL (1.8-2.4); Potassium 4.6 mmol/L (3.5-5.1); Protein, Total 7.3 g/dL (6.4-8.2); Troponin (Emerg Dept Use Only) 0.05 ng/mL (0.0-0.045)
--- NOTE | 2020-06-23 13:55 | ER ---
Nurse's Notes [facility] Name: Darlin Sharpe Age: 79 yrs Sex: Female : 1940 Arrival Date: 06/23/2020 Time: 11:36 Bed 3 Private MD: Diagnosis: Chronic obstructive pulmonary disease with (acute) exacerbation Presentation: 06/23 11:36 Chief complaint: EMS states: SOB SINCE LAST PM. Coronavirus screen: At this time, the bp client does not indicate any symptoms associated with coronavirus-19. Ebola Screen: No symptoms or risks identified at this time. Initial Sepsis Screen: Does the patient meet any 2 criteria? HR > 90 bpm. No. Patient's initial sepsis screen is negative. Does the patient have a suspected source of infection? No. Patient's initial sepsis screen is negative. Risk Assessment: Do you want to hurt yourself or someone else? Patient reports no desire to harm self or others. Onset of symptoms was June 22, 2020 at 21:00. Care prior to arrival: Medication(s) given: Albuterol Neb x 1, SOLU-MEDROL 125MG IV initiated. 20 GA, in the right antecubital area. 11:36 Method Of Arrival: EMS: [facility] bp 11:36 Acuity: VINNY 3 bp Triage Assessment: 11:44 General: Appears distressed, uncomfortable, obese, Behavior is cooperative, appropriate bp for age, anxious. Pain: Denies pain. EENT: No deficits noted. Neuro: No deficits noted. Cardiovascular: Rhythm is atrial fibrillation. Respiratory: Reports shortness of breath Onset: The symptoms/episode began/occurred yesterday, the patient has moderate shortness of breath. GI: No signs and/or symptoms were reported involving the gastrointestinal system. : No signs and/or symptoms were reported regarding the genitourinary system. Derm: No deficits noted. Musculoskeletal: No deficits noted. Historical: - Allergies: 11:44 Iodine; bp 11:44 dulaglutide; bp 11:44 metformin; bp 11:44 Fluzone [id number]; bp 11:44 Januvia; bp 11:44 Jardiance; bp 11:44 CHRISTINE [employer]HIBITORS; bp - Home Meds: 11:44 atorvastatin 40 mg Oral tab 1 tab once daily [Active]; duloxetine 60 mg Oral cpDR 1 cap bp once daily [Active]; Eliquis 5 mg Oral tab 1 tab 2 times per day [Active]; furosemide 40 mg Oral tab 1 tab 2 times per day [Active]; gabapentin 100 mg Oral cap 1 caps nightly [Active]; hydrocodone-acetaminophen 5-325 mg Oral tab 1 tab every 4 hours [Active]; insulin lispro subcutaneous 20 unit three times a day [Active]; loratadine 10 mg Oral tab 1 tab once daily [Active]; Lasix 40 mg Oral tab [Active]; losartan 25 mg Oral tab once daily [Active]; memantine 5 mg Oral tab 1 tabs 2 times per day [Active]; metoprolol succinate 50 mg Oral Tb24 1 tab once daily [Active]; ondansetron HCl 4 mg Oral tab every 6 hours [Active]; potassium chloride 20 mEq Oral TbER [Active]; promethazine 12.5 mg Oral tab every 6 hours [Active]; Santyl 250 unit/gram Topical oint every two days [Active]; Spiriva Respimat 2.5 mcg/actuation inhalation mist 2 puffs once daily [Active]; - PMHx: 11:44 Atrial Fib; Diabetes - IDDM; Hyperlipidemia; Depression; Hypertension; COPD; CVA; CHF; bp - Immunization history:: Adult Immunizations up to date. - Social history:: Smoking status: Patient denies any tobacco usage or history of. Screenin:45 Abuse screen: Denies threats or abuse. Denies injuries from another. Nutritional bp screening: No deficits noted. Tuberculosis screening: No symptoms or risk factors identified. Fall Risk None identified. Assessment: 11:45 General: SEE TRIAGE NOTE. bp 13:19 Reassessment: Patient appears in no apparent distress at this time. Patient is alert, bp oriented x 3, equal unlabored respirations, skin warm/dry/pink. Cardiovascular: Rhythm is atrial fibrillation. Respiratory: Airway is patent Respiratory effort is even, unlabored, Breath sounds with wheezes bilaterally. 14:30 Reassessment: No changes from previously documented assessment. Patient and/or family bp updated on plan of care and expected duration. Pain level reassessed. Patient is alert, oriented x 3, equal unlabored respirations, skin warm/dry/pink. ADMIT INITIATED. 16:30 Reassessment: No changes from previously documented assessment. Patient and/or family bp updated on plan of care and expected duration. Pain level reassessed. Patient is alert, oriented x 3, equal unlabored respirations, skin warm/dry/pink. HOSPITALIST AT B/S. 17:32 Reassessment: ADMIT COMPLETE, BED ASSIGNED 424. bp Vital Signs: 11:36 BP 116 / 80; Pulse 100; Resp 19; Temp 98; Pulse Ox 100% on 15% Nebulizer Mask; bp 12:07 BP 100 / 73; Pulse 91; Resp 22; Pulse Ox 96% on 3 lpm NC; jl7 13:18 BP 118 / 74; Pulse 89; Resp 17; Pulse Ox 93% ; bp 14:30 BP 120 / 89; Pulse 94; Resp 19; Pulse Ox 88% ; bp 15:30 BP 105 / 91; Pulse 94; Resp 17; Pulse Ox 92% ; bp 16:30 BP 110 / 86; Pulse 104; Resp 16; Pulse Ox 98% ; bp 17:31 BP 120 / 88; Pulse 96; Resp 14; Pulse Ox 97% ; bp ED Course: 11:36 Patient arrived in ED. bp 11:38 Hernán Ramires MD is Attending Physician. tw4 11:38 Triage completed. bp 11:44 Arm band placed on. bp 11:45 Patient has correct armband on for positive identification. Bed in low position. Call bp light in reach. Side rails up X2. 11:47 Lamin Dodson, RN is Primary Nurse. bp 11:52 Initial lab(s) drawn, by ca, sent to lab. First set of blood cultures drawn by ca. jl7 11:52 Maintain EMS IV. Dressing intact. Good blood return noted. Site clean \\T\\ dry. Gauge \\T\\ jl 7 site: 20 right AC. 11:58 Second set of blood cultures drawn by me. jl7 12:28 XRAY CXR (1 view) In Process Unspecified. EDMS 12:30 X-ray completed. Portable x-ray completed in exam room. Patient tolerated procedure md1 well. 12:36 COVID-19 : Document "Date of Symptom Onset" if Symptomatic. Sent. mh5 12:48 EKG done, by ED staff, reviewed by Hernán Ramires MD COVID swab sent to lab. mh5 12:57 BMP Sent. mh5 12:57 Blood Culture Adult (2) Sent. mh5 13:54 Eyad Baez MD is Hospitalizing Provider. 4 14:35 Urine collected: clean catch specimen, clear. 5 17:32 No provider procedures requiring assistance completed. Patient admitted, IV remains in bp place. Administered Medications: No medications were administered Outcome: 13:55 Decision to Hospitalize by Provider. tw4 17:57 Admitted to Med/surg accompanied by tech, room 424, with chart, Report called to bp AYE VAZQUEZ 17:57 Condition: stable 17:57 Instructed on the need for admit. 18:27 Patient left the ED. bp Signatures: Dispatcher [employer] EDID Delilah Velasquez [facility] Silvana Roman, RN RN jl7 Lamin Dodson, RN RN bp Hernán Ramires MD MD tw4 Sandy Piedra md1 Corrections: (The following items were deleted from the chart) 13:10 12:36 CORONAVIRUS drawn and sent. [facility] EDMS 14:43 14:34 URINALYSIS+U.LAB.BRZ drawn and sent. [facility] EDID 14:44 14:35 UA MICROSCOPIC+U.LAB.BRZ drawn and sent. [address]
--- NOTE | 2020-06-23 13:55 | EDPHYS ---
Physician Documentation [facility] Name: Darlin Sharpe Age: 79 yrs Sex: Female : 1940 Arrival Date: 06/23/2020 Time: 11:36 Bed 3 Private MD: ED Physician Hernán Ramires HPI: 06/23 16:42 This 79 yrs old Female presents to ER via EMS with complaints of Shortness Of tw4 Breath. 16:42 The patient has shortness of breath at rest. Onset: The symptoms/episode began/occurred tw4 today. Duration: The symptoms are continuous, and are unchanged since they started. The patient's shortness of breath has no apparent modifying factors. Associated signs and symptoms: The patient has no apparent associated signs or symptoms. Severity of symptoms: At their worst the symptoms were moderate in the emergency department the symptoms are unchanged. The patient has not experienced similar symptoms in the past. Historical: - Allergies: 11:44 Iodine; bp 11:44 dulaglutide; bp 11:44 metformin; bp 11:44 Fluzone [id number]; bp 11:44 Januvia; bp 11:44 Jardiance; bp 11:44 CH[employer]INE [employer]; bp - Home Meds: 11:44 atorvastatin 40 mg Oral tab 1 tab once daily [Active]; duloxetine 60 mg Oral cpDR 1 cap bp once daily [Active]; Eliquis 5 mg Oral tab 1 tab 2 times per day [Active]; furosemide 40 mg Oral tab 1 tab 2 times per day [Active]; gabapentin 100 mg Oral cap 1 caps nightly [Active]; hydrocodone-acetaminophen 5-325 mg Oral tab 1 tab every 4 hours [Active]; insulin lispro subcutaneous 20 unit three times a day [Active]; loratadine 10 mg Oral tab 1 tab once daily [Active]; Lasix 40 mg Oral tab [Active]; losartan 25 mg Oral tab once daily [Active]; memantine 5 mg Oral tab 1 tabs 2 times per day [Active]; metoprolol succinate 50 mg Oral Tb24 1 tab once daily [Active]; ondansetron HCl 4 mg Oral tab every 6 hours [Active]; potassium chloride 20 mEq Oral TbER [Active]; promethazine 12.5 mg Oral tab every 6 hours [Active]; Santyl 250 unit/gram Topical oint every two days [Active]; Spiriva Respimat 2.5 mcg/actuation inhalation mist 2 puffs once daily [Active]; - PMHx: 11:44 Atrial Fib; Diabetes - IDDM; Hyperlipidemia; Depression; Hypertension; COPD; CVA; CHF; bp - Immunization history:: Adult Immunizations up to date. - Social history:: Smoking status: Patient denies any tobacco usage or history of. ROS: 16:42 Constitutional: Negative for fever, chills, and weight loss, Eyes: Negative for injury, tw4 pain, redness, and discharge, Cardiovascular: Negative for chest pain, palpitations, and edema, Abdomen/GI: Negative for abdominal pain, nausea, vomiting, diarrhea, and constipation, Back: Negative for injury and pain, MS/Extremity: Negative for injury and deformity, Skin: Negative for injury, rash, and discoloration, Neuro: Negative for headache, weakness, numbness, tingling, and seizure. 16:42 Respiratory: Positive for shortness of breath, Negative for cough, dyspnea on exertion, hemoptysis, orthopnea, pleurisy. Exam: 16:42 Constitutional: This is a well developed, well nourished patient who is awake, alert, tw4 and in no acute distress. Head/Face: Normocephalic, atraumatic. Chest/axilla: Normal chest wall appearance and motion. Nontender with no deformity. No lesions are appreciated. Cardiovascular: Regular rate and rhythm with a normal S1 and S2. No gallops, murmurs, or rubs. Normal PMI, no JVD. No pulse deficits. 16:42 Abdomen/GI: Soft, non-tender, with normal bowel sounds. No distension or tympany. No guarding or rebound. No evidence of tenderness throughout. Back: No spinal tenderness. No costovertebral tenderness. Full range of motion. MS/ Extremity: Pulses equal, no cyanosis. Neurovascular intact. Full, normal range of motion. Neuro: Awake and alert, GCS 15, oriented to person, place, time, and situation. Cranial nerves II-XII grossly intact. Motor strength 5/5 in all extremities. Sensory grossly intact. Cerebellar exam normal. Normal gait. 16:42 Respiratory: mild respiratory distress is noted, Respirations: Breath sounds: wheezing: is heard diffusely. Vital Signs: 11:36 BP 116 / 80; Pulse 100; Resp 19; Temp 98; Pulse Ox 100% on 15% Nebulizer Mask; bp 12:07 BP 100 / 73; Pulse 91; Resp 22; Pulse Ox 96% on 3 lpm NC; jl7 13:18 BP 118 / 74; Pulse 89; Resp 17; Pulse Ox 93% ; bp 14:30 BP 120 / 89; Pulse 94; Resp 19; Pulse Ox 88% ; bp 15:30 BP 105 / 91; Pulse 94; Resp 17; Pulse Ox 92% ; bp 16:30 BP 110 / 86; Pulse 104; Resp 16; Pulse Ox 98% ; bp 17:31 BP 120 / 88; Pulse 96; Resp 14; Pulse Ox 97% ; bp MDM: 11:38 Patient medically screened. tw4 16:42 Antibiotic administration: Not indicated. Data reviewed: vital signs, nurses notes. Data reviewed: lab test result(s), CBC, electrolytes, hepatic panel, radiologic studies, plain films. Data interpreted: Pulse oximetry: Interpretation: normal. Counseling: I had a detailed discussion with the patient and/or guardian regarding: the historical points, exam findings, and any diagnostic results supporting the discharge/admit diagnosis, lab results, radiology results. Physician consultation: Eyad Baez MD regarding admission, to the telemetry unit. patient's condition, and will see patient in ED. 06/23 11:40 Order name: Blood Culture Adult (2) 06/23 11:40 Order name: BMP 06/23 11:40 Order name: CBC with Diff; Complete Time: 13:30 06/23 13:54 Interpretation: Abnormal: RBC 3.59; HGB 10.8. 06/23 11:40 Order name: Ckmb; Complete Time: 17:06 06/23 11:40 Order name: CPK; Complete Time: 17:06 06/23 11:40 Order name: D-Dimer; Complete Time: 13:30 06/23 11:40 Order name: Hepatic Function; Complete Time: 17:06 06/23 17:06 Interpretation: Normal except: ALK 208; BILID 0.4; ALB 3.2; GLOB 4.1; A/G 0.8. 06/23 11:40 Order name: Lipase; Complete Time: 17:06 06/23 17:06 Interpretation: Within normal limits: LIP 52. tw4 06/23 11:40 Order name: Magnesium; Complete Time: 17:06 4 06/23 11:40 Order name: NT PRO-BNP; Complete Time: 17:06 tw4 06/23 17:06 Interpretation: Abnormal: NT PRO-BNP 2374. tw4 06/23 11:40 Order name: PT-INR; Complete Time: 13:30 tw 06/23 11:40 Order name: Ptt, Activated; Complete Time: 13:30 tw 06/23 11:40 Order name: Troponin (emerg Dept Use Only); Complete Time: 17:06 tw4 06/23 17:06 Interpretation: Abnormal: TROPED 0.05. tw4 06/23 11:41 Order name: Blood Culture [facility] 06/23 11:40 Order name: XRAY CXR (1 view); Complete Time: 12:51 tw 06/23 11:40 Order name: EKG; Complete Time: 11:41 tw 06/23 11:41 Order name: Basic Metabolic Panel; Complete Time: 17:06 [facility] 06/23 17:06 Interpretation: Normal except: GLUC 319; BUN 33; GFR 40. tw4 06/23 12:25 Order name: COVID-19 : Document "Date of Symptom Onset" if Symptomatic. jl7 06/23 14:00 Order name: SARS-COV-2 RT PCR; Complete Time: 17:06 [facility] 06/23 14:44 Order name: Urinalysis W/Microscopic; Complete Time: 17:06 [facility] 06/23 14:44 Order name: Magnesium; Complete Time: 17:06 [facility] 06/23 14:44 Order name: Troponin I; Complete Time: 17:06 [facility] 06/23 14:44 Order name: Troponin I [facility] 06/23 14:44 Order name: CONS Physician Consult [facility] 06/23 14:44 Order name: Physical Therapy Consult [facility] 06/23 14:44 Order name: Consistent Carb (ADA) [address] [facility] 06/23 11:40 Order name: Cardiac monitoring; Complete Time: 11:47 tw4 06/23 11:40 Order name: EKG - Nurse/Tech; Complete Time: 12:48 tw 06/23 11:40 Order name: IV Saline Lock; Complete Time: 11:48 tw4 06/23 11:40 Order name: Labs collected and sent; Complete Time: 12:25 tw4 06/23 11:40 Order name: O2 Per Protocol; Complete Time: 11:48 tw4 06/23 11:40 Order name: O2 Sat Monitoring; Complete Time: :48 tw4 EC:02 Rate is 84 beats/min. Rhythm is irregularly irregular, A fib with Occasional PVCs. QRS tw4 [place] is Normal. VA interval is normal. QRS interval is normal. QT interval is normal. No Q waves. T waves are Normal. No ST changes noted. Clinical impression: Atrial Fibrillation. Interpreted by me. Reviewed by me. Administered Medications: No medications were administered Disposition: 06/23/20 13:55 Hospitalization ordered by Eyad Baez for Observation. Preliminary diagnosis is Chronic obstructive pulmonary disease with (acute) exacerbation. - Bed requested for Telemetry/MedSurg (observation). - Status is Observation. bp - Condition is Stable. - Problem is new. - Symptoms have improved. Signatures: Dispatcher [employer] [facility] Lamin Dodson, TAYLOR RN bp Hernán Ramires MD MD tw4 Melanie Rangel Corrections: (The following items were deleted from the chart) 13:10 12:26 CORONAVIRUS ordered. [facility] EDMS 13:54 13:54 RBC 3.59; HGB 10.8. tw4 tw4 14:33 14:29 Urine Dipstick-Ancillary ordered. bp bp 14:43 14:34 URINALYSIS+U.LAB.BRZ ordered. EDMS EDMS 14:44 14:29 UA MICROSCOPIC+U.LAB.BRZ ordered. [facility] EDMS 17:22 13:55 Hospitalization Ordered by Eyad Baez MD for Observation. Preliminary eb diagnosis is Chronic obstructive pulmonary disease with (acute) exacerbation. Bed requested for Telemetry/MedSurg (observation). Status is Observation. Condition is Stable. Problem is new. Symptoms have improved. tw4 18:27 17:22 06/23/2020 13:55 Hospitalization Ordered by Eyad Baez MD for Observation. bp Preliminary diagnosis is Chronic obstructive pulmonary disease with (acute) exacerbation. Bed requested for Telemetry/MedSurg (observation). Status is Observation. Condition is Stable. Problem is new. Symptoms have improved. eb
--- NOTE | 2020-06-23 14:14 | P.HP ---
Certification for Inpatient With expected LOS: >2 Midnights Patient will require the following post-hospital care: None Practitioner: I am a practitioner with admitting privileges, knowledge of patient current condition, hospital course, and medical plan of care. Services: Services provided to patient in accordance with Admission requirements found in Title 42 Section 412.3 of the Code of Federal Regulations Patient History Date of Service: 06/23/20 Reason for admission: Progressive shortness of breath History of Present Illness: 79-year-old female past medical history of hypertension, diabetes mellitus type 2 insulin dependent, peripheral vascular disease status post previous fem-pop, CAD status post CABG, spinal stenosis, depression, COPD on p.r.n. home oxygen, chronic atrial fibrillation on metoprolol as well as anticoagulation with Eliquis combined systolic and diastolic CHF-last echo from showing EF of 47% as well as mild global hypokinesis; on chronic diuretics with Lasix 40 b.i.d.. Patient presented today because of worsening shortness of breath since the last 1 week. She states she gets easily fatty drain insertion. She denies body swelling cough. She admits to intermittent orthopnea with paroxysmal nocturnal dyspnea. She denies any 0 feels wheezing but feels her worsening shortness of breath may be due to a COPD flare. 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 She follows with by [facility] for Cardiology. She denies any chest pain now. On presentation showed having increased tachypnea with mild hypoxia but imp roving with 2 L nasal cannula now. She has been given IV Solu-Medrol as well as albuterol. She see worried about her persistent shortness of breath. Her initial chest x-ray shows mild pulmonary congestive changes. Her BNP screen 05/28/1975. Mild troponin elevation of 0.05 noted She has been admitted for progressive dyspnea Allergies adhesive tape Allergy (Verified 11/22/19 22:23) Hives/Rash iodine Allergy (Verified 11/22/19 22:23) Itching/Hives/Rash Home Medications: Apixaban [Eliquis] 5 mg PO BID 08/04/19 Atorvastatin Calcium 40 mg PO BEDTIME 08/04/19 Duloxetine HCl 60 mg PO DAILY 08/04/19 Insulin Glargine,Hum.rec.anlog [Lantus Solostar] 40 units SQ BIDWM 08/04/19 Loperamide HCl [Anti-Diarrheal] 2 mg PO QID PRN 08/04/19 Memantine HCl 5 mg PO BID 08/04/19 Acetaminophen 500 mg PO Q6H PRN 11/23/19 Furosemide 40 mg PO BID 11/23/19 Gabapentin 100 mg PO BEDTIME 11/23/19 Insulin Lispro [Humalog Kwikpen U-100] 20 unit SQ TIDWM 11/23/19 Losartan Potassium 50 mg PO DAILY 11/23/19 Metoprolol Succinate 50 mg PO DAILY 11/23/19 Potassium Chloride [Klor-Con 10] 40 meq PO DAILY 11/23/19 Promethazine HCl 12.5 mg PO Q6HP PRN 11/23/19 - Past Medical/Surgical History Diabetic: Yes -: COPD -: Asthma -: Atrial fibrillation -: vertigo -: IDDM -: HTN -: CVA- 2 years ago -: HLD -: CABG; triple Bypass -: Hysterectomy -: Appendectomy -: Left/ Right shoulder surgery -: throat surgery - nodule removal -: Hemorroidectomy -: Balloon Angioplasty both legs Psychosocial/ Personal History: NO ISSUES, FEELS NORMAL, NO DEPRESSION. - Family History Father -: Heart disease Mother -: Liver disease Notes: cirrhosis - Social History Smoking Status: Never smoker Smoking therapy provided: No Patient receptive to therapy: No Alcohol use: No CD- Drugs: No Caffeine use: Yes Place of Residence: [facility] (Assisted living facility) Review of Systems General: Weakness, Unremarkable Eyes: Unremarkable ENT: Unremarkable Respiratory: Shortness of Breath, SOB with Excertion Cardiovascular: Orthopnea, Paroxysmal Noc. Dyspnea Gastrointestinal: Unremarkable Genitourinary: Frequency, Incontinence Musculoskeletal: Unremarkable Integumentary: As per HPI Neurological: Unremarkable Lymphatics: Unremarkable Physical Examination - Physical Exam General: In no apparent distress, Oriented x3, Cooperative, Obese HEENT: Atraumatic, Normocephalic, PERRLA Neck: 2+ carotid pulse no bruit, JVD not distended Respiratory: Normal air movement, Diminished, Crackles/rales Cardiovascular: Normal S1 S2, No murmurs, Edema (1+ b/l pedal edema ), Irregular heart rate/rhythm Gastrointestinal: Normal bowel sounds, Soft and benign, Non-distended, No ascites Musculoskeletal: No clubbing, Swelling Integumentary: No rashes, No breakdown Neurological: Normal gait, Normal speech, Normal strength at 5/5 x4 extr Urinary: Hwang catheter External genitalia: No lesions, Edema - Studies Laboratory Data (last 24 hrs) 06/23/20 11:58: PT 21.9 H, INR 1.89, APTT 31.6 06/23/20 11:58: WBC 10.90, Hgb 10.8 L, Hct 33.5 L, Plt Count 263 06/23/20 11:58: Sodium 136, Potassium 4.6, BUN 33 H, Creatinine 1.28, Glucose 319 H, Magnesium 2.1, Total Bilirubin 0.8, AST 21, ALT 26, Alkaline Phosphatase 208 H, Lipase 52 L Imagings Data: COMPARISON: Chest Single View dated 05/14/2020; Chest Single View dated 020; Chest Single View dated 08/03/2019; Chest Pa And Lat (2 Views) dated 03/15/2019 FINDINGS: Portable technique limits examination quality. Mild interstitial pulmonary edema noted. The heart is mildly enlarged in size. No displaced fractures.Sternotomy wires present. IMPRESSION: Mild CHF. Assessment and Plan - Problems (Diagnosis) (1) Acute congestive heart failure with left ventricular diastolic dysfunction Current Visit: No Status: Acute (2) Atrial fibrillation Onset Date: 09/25/15 Current Visit: No Status: Acute Qualifiers: (3) CAD (coronary artery disease) Onset Date: 09/25/15 Current Visit: No Status: Acute Qualifiers: Coronary Disease-Associated Artery/Lesion type: bypass graft (4) Diabetes Onset Date: 09/25/15 Current Visit: No Status: Acute Qualifiers: Diabetes mellitus type: type 2 Diabetes mellitus complication status: with circulatory complication (5) Hypertension Onset Date: 09/25/15 Current Visit: No Status: Acute Qualifiers: Hypertension type: essential hypertension Discharge Plan: [facility] Plan to discharge in: Greater than 2 days - Advance Directives Does patient have a Living Will: Yes Does patient have a Durable POA for Healthcare: Yes Physician Review: Patient Assessed, Agree with Above Assessment and Plan Physician Review Additional Text: # Acute CHF exacerbation-due to combined systolic and diastolic CHF -EF of 47% with mild global Hypokinesis on last echo noted -elevated BNP as well as chest x-ray finding consistent with CHF exacerbation -will switch to IV Lasix 40 mg Q 12 for now -Monitor Potassium/magnesium/creatinine trend -monitor intake and output -follow daily weights -No urgent need for repeat echocardiogram now #Chronic Atrial fibrillation-controlled but might need switch off losartan to Cardizem if recurrent elevated heart rate -on Eliquis-continue dose -continue metoprolol for now -Cardiology consult for follow-up #Hypertension-controlled -will hold losartan for now to allow for increased diuresis minimize risk of hypotension -Patient might benefit from and tries to use as outpatient #Diabetes mellitus-uncontrolled -Hold Tresiba for now, will need adjust dosage prior to discharge since uncontrolled level -start Lantus insulin 10 units b.i.d. as well as insulin sliding scale. -Continue home oral hypoglycemic regimen #History of COPD-do duonebs p.r.n. -continue O2 and wean as tolerated -will do low dose prednisone for possible underlying COPD exacerbation although less likely #DVT prophylaxis-on Eliquis #Advanced directive-discussed with patient she initially wishes DNR but later agreeable to trial full code #Disposition-Possible hospital stay for 2-3 days, can discharge back when ready to her assisted living facility. Critical Care: No Time Spent Managing Pts Care (In Minutes): 65
[2020-06-23] MEDS ORDERED: guaiFENesin 100 MG/5 ML UCUP PO PRN (14:34)
[2020-06-23] MEDS ORDERED: HYDRALAZINE HCL 20 MG/ML VIAL IV PRN (14:34)
[2020-06-23] MEDS ORDERED: MORPHINE 2 MG/ML SYR IV PRN (14:36)
[2020-06-23] MEDS ORDERED: ONDANSETRON 4 MG/2 ML VIAL IV PRN (14:36)
[2020-06-23] MEDS ORDERED: ALBUTEROL 2.5 MG/3 ML NEB SOL NEB PRN (14:36)
[2020-06-23 14:55] LABS: Urine Appearance CLEAR (Clear); Urine Bilirubin NEGATIVE (Negataive); Urine Blood NEGATIVE (Negative); Urine Color YELLOW (Yellow); Urine Glucose 1+ (Negative); Urine Protein NEGATIVE (Negative); Urine Urobilinogen 0.2 mg/dL (0.2-1.0)
[2020-06-23 15:40] LABS: Urine Bacteria <20 /HPF (<20); Urine RBC <5 /HPF (NONE SEEN)
[2020-06-23 16:10] LABS: Magnesium 2.2 mg/dL (1.8-2.4); Troponin I 0.05 ng/mL (0.0-0.045)
[2020-06-23] MEDS: INSULIN -REGULAR HUMAN 50 UNIT/0.5 ML ML SQ SCH ×2 (16:30→20:33)
[2020-06-23 18:35] VITALS: BMI 28.5
[2020-06-23] MEDS: IPRATROPIUM BROM 0.5MG/2.5ML NEB SCH (20:15)
[2020-06-23] MEDS ORDERED: INSULIN -REGULAR HUMAN 50 UNIT/0.5 ML ML IV ONE ×2 (20:18→22:19)
[2020-06-23] MEDS ORDERED: D50W 25 GM/50 ML SYRINGE IV PRN (20:18)
[2020-06-23] MEDS ORDERED: GLUCAGON 1 MG/VIAL IM PRN (20:18)
[2020-06-23] MEDS: BUMETANIDE 1 MG/4 ML VIAL IV SCH (20:30)
[2020-06-23] MEDS: ACETAMINOPHEN 500 MG TAB PO PRN (20:30)
[2020-06-23] MEDS: GABAPENTIN 100 MG CAP PO SCH (20:31)
[2020-06-23] MEDS: ATORVASTATIN 40 MG TAB PO SCH (20:31)
[2020-06-23] MEDS: LORAZEPAM 0.5 MG TABLET PO PRN (20:31)
[2020-06-23] MEDS: MEMANTINE HCL 10 MG TABLET PO SCH (20:32)
[2020-06-23] MEDS: APIXABAN 5 MG TABLET PO SCH (20:33)
[2020-06-23] MEDS ORDERED: HOME MED 1 EA UNK (Memantine Hcl [Memantine Hcl] 5 MG Tablet) PO SCH (21:00)
[2020-06-24] MEDS ORDERED: INSULIN -REGULAR HUMAN 50 UNIT/0.5 ML ML IV ONE (01:21)
[2020-06-24] MEDS: IPRATROPIUM BROM 0.5MG/2.5ML NEB SCH ×4 (02:00→20:50)
[2020-06-24] MEDS: ACETAMINOPHEN 500 MG TAB PO PRN (02:11)
[2020-06-24 05:26] LABS: Absolute Lymphocytes (CBC) 0.9 K/uL (0.7-4.9); Basophils % 0.2 % (0-1.3); Hematocrit 31.9 % (36.0-45.0); MPV 9.4 fL (7.6-11.3); RBC Red Blood Cell Count 3.46 M/uL (3.86-4.86)
[2020-06-24 05:29] LABS: Albumin 3.2 g/dL (3.4-5.0); Bilirubin Total 0.8 mg/dL (0.2-1.0); Potassium 4.2 mmol/L (3.5-5.1); Protein, Total 7.3 g/dL (6.4-8.2)
[2020-06-24] MEDS: METOPROLOL XL 50 MG TAB PO SCH (07:45)
[2020-06-24] MEDS: predniSONE 20 MG TAB PO SCH (07:46)
[2020-06-24] MEDS: POTASSIUM CL SA 10 MEQ TAB PO SCH (07:46)
[2020-06-24] MEDS: MEMANTINE HCL 10 MG TABLET PO SCH ×2 (07:46→20:17)
[2020-06-24] MEDS: ASPIRIN EC 81 MG TAB PO SCH (07:47)
[2020-06-24] MEDS: INSULIN -REGULAR HUMAN 50 UNIT/0.5 ML ML SQ SCH ×4 (07:47→21:26)
[2020-06-24] MEDS: APIXABAN 5 MG TABLET PO SCH ×2 (07:47→20:16)
[2020-06-24] MEDS: BUMETANIDE 1 MG/4 ML VIAL IV SCH ×2 (07:47→20:15)
[2020-06-24] MEDS ORDERED: D50W 25 GM/50 ML VIAL IV PRN (08:00)
[2020-06-24] MEDS ORDERED: LOSARTAN POTASSIUM 50 MG TABLET PO SCH (09:00)
[2020-06-24] MEDS: HYDRALAZINE HCL 25 MG TABLET PO SCH ×3 (09:03→20:16)
[2020-06-24] MEDS ORDERED: SODIUM CHLORIDE 0.9% 10ML INJ IV PRN (11:56)
--- NOTE | 2020-06-24 11:59 | P.PN ---
Subjective Date of Service: 06/24/20 Chief Complaint: Progressive shortness of breath Subjective: Improving (Patient is feeling better. Very hypertensive this morning. She is having epigastric pain) Physical Examination - Vital Signs Temperature: 97.4 F Blood Pressure: 180/89 Pulse: 85 Respirations: 18 Pulse Ox (%): 90 - Physical Exam General: In no apparent distress HEENT: Atraumatic, Normocephalic Neck: Supple Respiratory: Clear to auscultation bilaterally, Normal air movement Cardiovascular: No edema Gastrointestinal: Soft and benign, Non-distended Musculoskeletal: No clubbing, No swelling, No contractures, No erythema Neurological: Normal speech - Studies Laboratory Data (last 24 hrs) 06/23/20 11:58: PT 21.9 H, INR 1.89, APTT 31.6 06/23/20 11:58: WBC 10.90, Hgb 10.8 L, Hct 33.5 L, Plt Count 263 06/23/20 11:58: Sodium 136, Potassium 4.6, BUN 33 H, Creatinine 1.28, Glucose 319 H, Magnesium 2.1, Total Bilirubin 0.8, AST 21, ALT 26, Alkaline Phosphatase 208 H, Lipase 52 L Assessment & Plan Physician Review: Patient Assessed, Agree with Above Assessment and Plan Physician Review Additional Text: Assessment Patient is a 79 year old female with a known PMH of HTN, IDDM, PVD s/p Fem-pop bipass, CAD S/P CABG, combined systolic and diastolic CHF, COPD, non- compliant on home O2 who is admitted with acute on chronic respiratory failure. She is doing better on bumex and is currently on baseline O2 requirement. # Acute CHF exacerbation-due to combined systolic and diastolic CHF -EF of 47% with mild global Hypokinesis as per ECHO from Nov 2019 -Currently on bumex 1 mg BID and feeling better -I will check for I/O tomorrow and increase bumex if BNP continues to rise. Patient, however, feels better -Currently on metoprolol. Losartan held due to DEYSI -I will add hydralazine for now. -monitor intake and output -I will go ahead and obtain a 2-D echo since she's high risk #Hypertension-UNcontrolled - Losartan held due to DEYSI - Added hydralazine to PO metoprolol. Will also conitnue with PRN IV hydralazine #Chronic Atrial fibrillation -Doing well on metoprolol and eliquis #Diabetes mellitus-uncontrolled -I am in discussion with the patient's RN to verify her home regimen: lantus 40 units BID, lispro 20 TIDAC - Monitor blood glucose and adjust above regimen as needed -Check HbA1c #History of COPD - On prednisone, and duonebs p.r.n. -continue O2 and wean as tolerated -I discussed the survival benefits of continuous home O2 in the setting of COPD. Son and patient present #DVT prophylaxis-on Eliquis #Advanced directive-discussed with patient she initially wishes DNR but later agreeable to trial full code #Disposition-Possible hospital stay for 2-3 days, can discharge back when ready to her assisted living facility.
[2020-06-24] MEDS ORDERED: ACETAMINOPHEN 500 MG TAB PO PRN (12:04)
[2020-06-24] MEDS: PANTOPRAZOLE 40 MG INJ IVP SCH (13:45)
--- NOTE | 2020-06-24 13:58 | RAD REPORT ---
EXAM DESCRIPTION: RAD - Abdomen Single View - 06/24/2020 1:44 pm CLINICAL HISTORY: abdominal pain COMPARISON: Abdomen Exam Limited dated 11/22/2019 FINDINGS: Small amount of air is present in the decompressed stomach. A few small bowel loops contai natalie air with no dilatation. Moderate stool volume is seen from cecum to mid descending colon. No obs truction, free air or pneumatosis. Numerous phleboliths are seen in the pelvis. Arterial calcificatio ns also seen. Cholecystectomy clips are present. No significant bony findings IMPRESSION: Nonspecific bowel gas pattern. No obstruction, free air or pneumatosis.
[2020-06-24] MEDS: INSULIN LISPRO 100 UNIT/1 ML SQ SCH (16:29)
[2020-06-24] MEDS: INSULIN GLARGINE 100 UNITS/ML SQ SCH (16:31)
[2020-06-24] MEDS: LORAZEPAM 0.5 MG TABLET PO PRN (16:31)
[2020-06-24] MEDS ORDERED: [UNRECOGNIZED DRUG - OTHER] SQ SCH (17:00)
[2020-06-24] MEDS ORDERED: INSULIN GLARGINE HUM REC ANLOG 100 UNIT/ML SQ SCH (17:00)
[2020-06-24] MEDS ORDERED: INS SQ SCH (17:00)
[2020-06-24] MEDS ORDERED: HOME MED 1 EA UNK (Insulin Lispro [Humalog Kwikpen U-100] 100 UNIT/ML Insuln.Pen) SQ SCH (17:00)
[2020-06-24] MEDS: GABAPENTIN 100 MG CAP PO SCH (20:16)
[2020-06-24] MEDS: ATORVASTATIN 40 MG TAB PO SCH (20:17)
[2020-06-25] MEDS: IPRATROPIUM BROM 0.5MG/2.5ML NEB SCH ×4 (02:50→20:20)
[2020-06-25 06:18] LABS: Absolute Lymphocytes (CBC) 1.1 K/uL (0.7-4.9); Basophils % 0.3 % (0-1.3); Lymphocytes % 5.4 % (15.3-44.8); MPV 9.1 fL (7.6-11.3); RBC Red Blood Cell Count 3.61 M/uL (3.86-4.86)
[2020-06-25 06:38] LABS: Albumin 3.3 g/dL (3.4-5.0); Bilirubin Total 0.6 mg/dL (0.2-1.0); Potassium 4.6 mmol/L (3.5-5.1); Protein, Total 7.5 g/dL (6.4-8.2)
[2020-06-25] MEDS ORDERED: COLLAGENASE 30 GM OINTMENT TOP SCH ×2 (07:30→09:00)
[2020-06-25] MEDS: INSULIN -REGULAR HUMAN 50 UNIT/0.5 ML ML SQ SCH ×4 (07:30→21:00)
[2020-06-25 07:33] LABS: Anisocytosis SLIGHT; Blood Morphology Comment NOTED (NOT SEEN); Platelet Estimate ADEQ
[2020-06-25] MEDS ORDERED: FLEET ENEMA ADULT PR ONE (08:00)
[2020-06-25] MEDS: POTASSIUM CL SA 10 MEQ TAB PO SCH (08:38)
[2020-06-25] MEDS: predniSONE 20 MG TAB PO SCH (08:38)
[2020-06-25] MEDS: ASPIRIN EC 81 MG TAB PO SCH (08:38)
[2020-06-25] MEDS: APIXABAN 5 MG TABLET PO SCH ×2 (08:38→22:41)
[2020-06-25] MEDS: MEMANTINE HCL 10 MG TABLET PO SCH ×2 (08:39→22:41)
[2020-06-25] MEDS: INSULIN LISPRO 100 UNIT/1 ML SQ SCH ×3 (08:41→17:13)
[2020-06-25] MEDS: INSULIN GLARGINE 100 UNITS/ML SQ SCH ×2 (08:41→17:13)
[2020-06-25] MEDS: INSULN SQ SCH (08:42)
[2020-06-25] MEDS: INSULIN DEGLUDEC 200 UNIT/ML SQ SCH (08:42)
[2020-06-25] MEDS: PANTOPRAZOLE 40 MG INJ IVP SCH (08:42)
[2020-06-25] MEDS: BUMETANIDE 1 MG/4 ML VIAL IV SCH ×2 (08:43→22:43)
[2020-06-25] MEDS: HYDRALAZINE HCL 25 MG TABLET PO SCH ×3 (08:47→22:40)
[2020-06-25] MEDS: METOPROLOL XL 50 MG TAB PO SCH (08:47)
[2020-06-25] MEDS: TIOTROPIUM 5 SPRAYS/INHALER IH SCH (08:51)
[2020-06-25] MEDS ORDERED: TIOTROPIUM 5 SPRAYS/INHALER IH SCH (09:00)
--- NOTE | 2020-06-25 13:12 | P.PN ---
Subjective Date of Service: 06/25/20 Chief Complaint: Progressive shortness of breath Subjective: Improving (Feeling well. No acute events overnight.) Physical Examination - Vital Signs Temperature: 98.4 F Blood Pressure: 110/62 Pulse: 93 Respirations: 20 Pulse Ox (%): 100 - Physical Exam General: In no apparent distress, Cooperative HEENT: Atraumatic, Normocephalic Respiratory: Clear to auscultation bilaterally, Normal air movement Cardiovascular: No edema, Normal S1 S2 Gastrointestinal: Soft and benign, Non-distended, No tenderness Musculoskeletal: No clubbing, No swelling, No contractures, No erythema, No tenderness, No warmth Neurological: Normal speech, Normal affect Assessment & Plan Physician Review: Patient Assessed, Agree with Above Assessment and Plan Physician Review Additional Text: Assessment Patient is a 79 year old female with a known PMH of HTN, IDDM, PVD s/p Fem-pop bypass, CAD S/P CABG, combined systolic and diastolic CHF, COPD, non- compliant on home O2 who is admitted with acute on chronic respiratory failure. She is doing better on bumex and is currently on baseline O2 requirement, which is 3 L. She now has severe leukocytosis with WBC 20.4. This is most likely non-infectious given a negative procalcitonin. Blood cultures and lactate are negative to date. Steroid can be another reason. #Acute CHF exacerbation-due to combined systolic and diastolic CHF - EF of 47% with mild global Hypokinesis as per ECHO from Nov 2019 - Currently on bumex 1 mg BID and feeling better - Net (-), 1.3 L - Continue metoprolol and hydralazine. Losartan held due to DEYSI - monitor intake and output - Follow up 2-D echo #Leukocytosis - Most likely non-infectious, possible steroid induced or due to stool burden # Constipation - As per AXR - Having BM. Refused enema today. Will continue to monitor #Hypertension - Losartan held due to DEYSI - Now controlled after adding hydralazine to PO metoprolol. Will also continue with PRN IV hydralazine #Chronic Atrial fibrillation -Doing well on metoprolol and eliquis #Diabetes mellitus-uncontrolled - A1c of 8.5 - Resumed on home dose of lantus 40 units b.i.d., lispro 20 min t.i.d. with meals along with insulin sliding scale. - Monitor blood glucose and adjust above regimen as needed #History of COPD - On prednisone, and duonebs p.r.n. -continue O2 and wean as tolerated -I discussed the survival benefits of continuous home O2 in the setting of COPD. Son and patient present #DVT prophylaxis-on Eliquis #Advanced directive-discussed with patient she initially wishes DNR but later agreeable to trial full code #Disposition-Possible hospital stay for 2-3 days, can discharge back to her assisted living facility when ready.
[2020-06-25] MEDS: ATORVASTATIN 40 MG TAB PO SCH (22:41)
[2020-06-25] MEDS: GABAPENTIN 100 MG CAP PO SCH (22:41)
[2020-06-26] MEDS: IPRATROPIUM BROM 0.5MG/2.5ML NEB SCH ×4 (02:05→19:30)
[2020-06-26 04:03] LABS: Absolute Lymphocytes (CBC) 2.2 K/uL (0.7-4.9); Basophils % 0.1 % (0-1.3); Hematocrit 29.6 % (36.0-45.0); Lymphocytes % 13.3 % (15.3-44.8); MPV 9.2 fL (7.6-11.3); RBC Red Blood Cell Count 3.23 M/uL (3.86-4.86)
[2020-06-26 04:17] LABS: Albumin 3.1 g/dL (3.4-5.0); Bilirubin Total 0.5 mg/dL (0.2-1.0); Potassium 3.9 mmol/L (3.5-5.1); Protein, Total 7.1 g/dL (6.4-8.2)
[2020-06-26] MEDS: INSULIN -REGULAR HUMAN 50 UNIT/0.5 ML ML SQ SCH ×4 (07:30→20:25)
[2020-06-26] MEDS: HYDRALAZINE HCL 25 MG TABLET PO SCH ×3 (08:38→20:22)
[2020-06-26] MEDS: APIXABAN 5 MG TABLET PO SCH ×2 (08:38→20:21)
[2020-06-26] MEDS: POTASSIUM CL SA 10 MEQ TAB PO SCH (08:38)
[2020-06-26] MEDS: METOPROLOL XL 50 MG TAB PO SCH (08:39)
[2020-06-26] MEDS: ASPIRIN EC 81 MG TAB PO SCH (08:39)
[2020-06-26] MEDS: MEMANTINE HCL 10 MG TABLET PO SCH ×2 (08:39→20:24)
[2020-06-26] MEDS: PANTOPRAZOLE 40 MG INJ IVP SCH (08:39)
[2020-06-26] MEDS: predniSONE 20 MG TAB PO SCH (08:39)
[2020-06-26] MEDS: BUMETANIDE 1 MG/4 ML VIAL IV SCH ×2 (08:39→20:20)
[2020-06-26] MEDS: INSULIN LISPRO 100 UNIT/1 ML SQ SCH ×3 (08:40→17:00)
[2020-06-26] MEDS: INSULIN DEGLUDEC 200 UNIT/ML SQ SCH (08:40)
[2020-06-26] MEDS: TIOTROPIUM 5 SPRAYS/INHALER IH SCH (08:40)
[2020-06-26] MEDS: INSULIN GLARGINE 100 UNITS/ML SQ SCH ×2 (08:40→17:00)
[2020-06-26] MEDS: INSULN SQ SCH (08:40)
[2020-06-26] MEDS: HYDROCODONE/APAP 5/325 MG TAB PO PRN (20:21)
[2020-06-26] MEDS: GABAPENTIN 100 MG CAP PO SCH (20:21)
[2020-06-26] MEDS: ATORVASTATIN 40 MG TAB PO SCH (20:24)
--- NOTE | 2020-06-26 20:42 | CON ---
Date of Consultation: 06/26/2020 Reason For Consultation: Congestive heart failure. History Of Present Illness: An 79-year-old female with history of diastolic heart failure, coronary artery disease status post cardiac bypass surgery, history of COPD on p.r.n. 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 She is on Lasix 40 mg by mouth twice a day at home. Denies h aving any chest pain. No nausea, vomiting, or diarrhea. Past Medical History: As outlined above in the HPI. Medications: Refer to reconciliation sheet for detailed list. Allergies: IODINE. Family History: No premature coronary artery disease or cancer. Social History: Does not smoke or drink. Does not use any drugs. Review of Systems: All systems reviewed and they were negative except what is mentioned in the HPI. Physical Examination: Vital Signs: Reviewed. Head and Neck: Pupils are equal, reactive to light. Intact eye movements. No JVD. No cervical lym phadenopathy. Neck: Supple. Thyroid is not enlarged. Lungs: Decreased breathing sounds with mild rhonchi bilaterally. No accessory muscle use or muscle retraction. Heart: Irregular. No extra sounds. Abdomen: Soft, nontender. Bowel sounds positive. No organomegaly. No masses or hernia. No rigidi ty or rebound. Extremities: No clubbing or cyanosis. Intact pulses. Skin: No rash noted. Neurologic: Alert, oriented x3. No acute focal deficits appreciated. Lymph Nodes: No cervical or axillary lymphadenopathy. Investigations: Sodium 139, BUN is 6, and creatinine 1.27. Her glucose when she came in was above 5 00. Troponin 0.04. NT-proBNP is 2374. Chest x-ray showed mild CHF and last echo in the system on 2019 showed EF of 45% to 50%. Assessment And Recommendations: Acute on chronic systolic congestive heart failure exacerbation. On Bumex 1 mg IV b.i.d., continue that. Monitor BUN, creatinine, electrolytes, and please update echoc ardiogram if not done recently and trend cardiac enzymes. Thank you for the consult. /ALVIN Voice ID: [id number] Report ID: [id number]
[2020-06-27] MEDS: IPRATROPIUM BROM 0.5MG/2.5ML NEB SCH ×4 (01:50→20:46)
[2020-06-27 04:47] LABS: Albumin 3.1 g/dL (3.4-5.0); Bilirubin Total 0.7 mg/dL (0.2-1.0); Protein, Total 7.2 g/dL (6.4-8.2)
[2020-06-27] MEDS: INSULIN -REGULAR HUMAN 50 UNIT/0.5 ML ML SQ SCH ×4 (07:30→20:48)
--- NOTE | 2020-06-27 07:44 | P.PN ---
Subjective Date of Service: 06/26/20 Patient doing a little bit better. Continue working with physical therapy. She does get really tachypneic when walking short distances. Continue with treatment of COPD and diuretics. Review of Systems 10-point ROS is otherwise unremarkable Physical Examination - Vital Signs Temperature: 97.1 F Blood Pressure: 129/83 Pulse: 92 Respirations: 17 Pulse Ox (%): 96 - Physical Exam General: Alert, In no apparent distress, Oriented x3 Respiratory: Diminished, Crackles/rales, Expiratory wheezes Cardiovascular: Regular rate/rhythm, Normal S1 S2, Systolic murmur Gastrointestinal: Normal bowel sounds, Soft and benign, Non-distended, No tenderness Musculoskeletal: No clubbing, Swelling, Other (Muscle weakness) Neurological: Sensation intact, Cranial nerves 3-12 intact, Abnormal strength - Studies Medications List Reviewed: Yes Assessment & Plan - Problems (Diagnosis) (1) COPD with acute exacerbation Current Visit: Yes Status: Acute (2) Acute congestive heart failure with left ventricular diastolic dysfunction Current Visit: No Status: Acute (3) Atrial fibrillation Onset Date: 09/25/15 Current Visit: No Status: Acute Qualifiers: (4) CAD (coronary artery disease) Onset Date: 09/25/15 Current Visit: No Status: Acute Qualifiers: Coronary Disease-Associated Artery/Lesion type: bypass graft (5) Cerebrovascular accident (CVA) Onset Date: 09/25/15 Current Visit: No Status: Acute Qualifiers: Precerebral and cerebral artery: posterior cerebral artery (6) Diabetes Onset Date: 09/25/15 Current Visit: No Status: Acute Qualifiers: Diabetes mellitus type: type 2 Diabetes mellitus complication status: with circulatory complication (7) Hypertension Onset Date: 09/25/15 Current Visit: No Status: Acute Qualifiers: Hypertension type: essential hypertension (8) Diabetes Onset Date: 09/19/15 Current Visit: No Status: Chronic Qualifiers: Diabetes mellitus type: type 2 (9) Vertigo Current Visit: No Status: Chronic - Plan 1. Echocardiogram reviewed 2. Monitor cardiac meds 3. Continue with beta-fern therapy 4. Cardiology consultation appreciated 5. Continue with diuresis 6. Strict I's and O's 7. Repeat CXR 8. Daily weights 9. Education regarding diet and treatment of congestive heart failure 10. Physical therapy evaluation and we may need to work on case management consultation for rehab placement 11. Continue with albuterol and Atrovent nebs 12. Continue with IV steroids 13. Outpatient pulmonary function testing 14. Outpatient Pulmonary follow-up 15. Room air O2 sats 16. Repeat chest x-ray in the morning 17. GI and DVT prophylaxis Discharge Plan: [facility] Plan to discharge in: Greater than 2 days - Advance Directives Does patient have a Living Will: Yes Does patient have a Durable POA for Healthcare: Yes - Code Status/Comfort Care Code Status Assessed: Yes Code Status: Full Code Physician Review: Patient Assessed, Agree with Above Assessment and Plan Critical Care: No Time Spent Managing PTS Care (In Minutes): 35
--- NOTE | 2020-06-27 07:47 | P.PN ---
Date of Service: 06/27/20 Subjective Family wanted patient to go to group home facility placement. Will get case management consultation. Patient still getting very tachypneic with minimal ambulation. Will continue working with physical therapy and continue with IV diuretics along with treatment for COPD with IV steroids and neb treatments. Review of Systems 10-point ROS is otherwise unremarkable Physical Examination - Vital Signs Reviewed - Physical Exam General: Alert, In no apparent distress, Oriented x3 Respiratory: Diminished, Crackles/rales, Expiratory wheezes Cardiovascular: Regular rate/rhythm, Normal S1 S2, Systolic murmur Gastrointestinal: Normal bowel sounds, Soft and benign, Non-distended, No tenderness Musculoskeletal: No clubbing, Swelling, Other (Muscle weakness) Neurological: Sensation intact, Cranial nerves 3-12 intact, Abnormal strength Assessment & Plan - Problems (Diagnosis) (1) COPD with acute exacerbation Current Visit: Yes Status: Acute (2) Acute congestive heart failure with left ventricular diastolic dysfunction Current Visit: No Status: Acute (3) Atrial fibrillation Onset Date: 09/25/15 Current Visit: No Status: Acute Qualifiers: (4) CAD (coronary artery disease) Onset Date: 09/25/15 Current Visit: No Status: Acute Qualifiers: Coronary Disease-Associated Artery/Lesion type: bypass graft (5) Cerebrovascular accident (CVA) Onset Date: 09/25/15 Current Visit: No Status: Acute Qualifiers: Precerebral and cerebral artery: posterior cerebral artery (6) Diabetes Onset Date: 09/25/15 Current Visit: No Status: Acute Qualifiers: Diabetes mellitus type: type 2 Diabetes mellitus complication status: with circulatory complication (7) Hypertension Onset Date: 09/25/15 Current Visit: No Status: Acute Qualifiers: Hypertension type: essential hypertension (8) Diabetes Onset Date: 09/19/15 Current Visit: No Status: Chronic Qualifiers: Diabetes mellitus type: type 2 (9) Vertigo Current Visit: No Status: Chronic - Plan 1. Echocardiogram reviewed; ejection fraction of 47% 2. Monitor cardiac meds 3. Continue with beta-fern therapy 4. Cardiology consultation appreciated 5. Continue with diuresis 6. Strict I's and O's 7. Repeat CXR 8. Daily weights 9. Education regarding diet and treatment of congestive heart failure 10. Physical therapy evaluation and we may need to work on case management consultation for rehab placement 11. Continue with albuterol and Atrovent nebs 12. Continue with IV steroids 13. Outpatient pulmonary function testing 14. Outpatient Pulmonary follow-up 15. Room air O2 sats 16. Repeat chest x-ray in the morning 17. GI and DVT prophylaxis
[2020-06-27] MEDS: INSULIN LISPRO 100 UNIT/1 ML SQ SCH ×3 (08:00→16:57)
[2020-06-27] MEDS: INSULIN GLARGINE 100 UNITS/ML SQ SCH ×2 (08:00→16:58)
[2020-06-27] MEDS: HYDRALAZINE HCL 25 MG TABLET PO SCH ×3 (08:14→20:49)
[2020-06-27] MEDS: MEMANTINE HCL 10 MG TABLET PO SCH ×2 (08:14→20:49)
[2020-06-27] MEDS: PANTOPRAZOLE 40 MG INJ IVP SCH (08:14)
[2020-06-27] MEDS: POTASSIUM CL SA 10 MEQ TAB PO SCH (08:14)
[2020-06-27] MEDS: METOPROLOL XL 50 MG TAB PO SCH (08:14)
[2020-06-27] MEDS: ASPIRIN EC 81 MG TAB PO SCH (08:14)
[2020-06-27] MEDS: BUMETANIDE 1 MG/4 ML VIAL IV SCH ×2 (08:14→20:49)
[2020-06-27] MEDS: TIOTROPIUM 5 SPRAYS/INHALER IH SCH (08:15)
[2020-06-27] MEDS: APIXABAN 5 MG TABLET PO SCH ×2 (08:19→20:49)
[2020-06-27 11:41] LABS: Albumin 3.3 g/dL (3.4-5.0); Bilirubin Total 0.8 mg/dL (0.2-1.0); Magnesium 2.3 mg/dL (1.8-2.4); Phosphorus 3.6 mg/dL (2.5-4.9); Potassium 4.4 mmol/L (3.5-5.1); Protein, Total 7.6 g/dL (6.4-8.2)
[2020-06-27 11:58] LABS: Absolute Lymphocytes (CBC) 2.5 K/uL (0.7-4.9); Basophils % 0.2 % (0-1.3); Hematocrit 33.8 % (36.0-45.0); Lymphocytes % 15.3 % (15.3-44.8); MPV 9.8 fL (7.6-11.3); RBC Red Blood Cell Count 3.62 M/uL (3.86-4.86)
[2020-06-27] MEDS: METHYLPREDNISOLONE 125 MG INJ IV SCH ×3 (12:20→23:18)
[2020-06-27] MEDS: LORAZEPAM 0.5 MG TABLET PO PRN (20:49)
[2020-06-27] MEDS: ATORVASTATIN 40 MG TAB PO SCH (20:49)
[2020-06-27] MEDS: GABAPENTIN 100 MG CAP PO SCH (20:49)
[2020-06-27] MEDS: HYDROCODONE/APAP 5/325 MG TAB PO PRN (20:50)
[2020-06-28] MEDS: IPRATROPIUM BROM 0.5MG/2.5ML NEB SCH ×3 (01:25→13:58)
[2020-06-28] MEDS: METHYLPREDNISOLONE 125 MG INJ IV SCH ×2 (05:15→15:02)
[2020-06-28] MEDS: INSULIN -REGULAR HUMAN 50 UNIT/0.5 ML ML SQ SCH ×2 (07:30→11:30)
[2020-06-28] MEDS: TIOTROPIUM 5 SPRAYS/INHALER IH SCH (09:00)
[2020-06-28 09:38] VITALS: O2SAT 96
[2020-06-28] MEDS: APIXABAN 5 MG TABLET PO SCH (09:53)
[2020-06-28] MEDS: ASPIRIN EC 81 MG TAB PO SCH (09:54)
[2020-06-28] MEDS: POTASSIUM CL SA 10 MEQ TAB PO SCH (09:54)
[2020-06-28] MEDS: HYDRALAZINE HCL 25 MG TABLET PO SCH ×2 (09:55→15:02)
[2020-06-28] MEDS: MEMANTINE HCL 10 MG TABLET PO SCH (09:55)
[2020-06-28] MEDS: PANTOPRAZOLE 40 MG INJ IVP SCH (09:56)
[2020-06-28] MEDS: METOPROLOL XL 50 MG TAB PO SCH (09:56)
[2020-06-28] MEDS: BUMETANIDE 1 MG/4 ML VIAL IV SCH (09:57)
[2020-06-28] MEDS: INSULIN LISPRO 100 UNIT/1 ML SQ SCH ×2 (09:57→15:02)
[2020-06-28] MEDS: INSULIN GLARGINE 100 UNITS/ML SQ SCH (09:58)
[2020-06-28 12:26] VITALS: BP 121/76; TEMP 97
--- NOTE | 2020-06-29 08:03 | ECHO ---
HEIGHT: 4 ft 11 in WEIGHT: 141 lb 0 oz DATE OF STUDY: 06/27/[address]: Prince Adamaris Joyce MD 2-DIMENSIONAL: YES M.MODE: YES DOPPLER: YES COLOR FLOW: YES TDS: NO PORTABLE: NO DEFINITY: NO BUBBLE STUDY: NO DIAGNOSIS: CONGESTIVE HEART FAILURE EXACERBATION CARDIAC HISTORY: CATHERIZATION: NO SURGERY: YES PROSTHETIC VALVE: NO PACEMAKER: NO MEASUREMENTS (cm) DIASTOLIC (NORMALS) SYSTOLIC (NORMALS) IVSd 1.1 (0.6-1.2) LA Diam 2.7 (1.9-4.0) LVEF 25-30% LVIDd 3.5 (3.5-5.7) LVIDs 2.8 (2.0-3.5) %FS % LVPWd 1.1 (0.6-1.2) Ao Diam 2.3 (2.0-3.7) 2 DIMENSIONAL ASSESSMENT: RIGHT ATRIUM: NORMAL LEFT ATRIUM: NORMAL RIGHT VENTRICLE: NORMAL LEFT VENTRICLE: NORMAL TRICUSPID VALVE: NORMAL MITRAL VALVE: MITRAL ANNULAR CALCIFICATION PULMONIC VALVE: NORMAL AORTIC VALVE: NORMAL PERICARDIAL EFFUSION: NONE AORTIC ROOT: NORMAL LEFT VENTRICULAR WALL MOTION: SEVERE GLOBAL HYPOKINESIS. DOPPLER/COLOR FLOW: MODERATE TO SEVERE PULMONARY HYPERTENSION. COMMENTS: SEVERE GLOBAL HYPOKINESIS. LEFT VENTRICULAR EJECTION FRACTION 25-30%. MITRAL ANNULAR CALCIFICATION. MODERATE TO SEVERE PULMONARY HYPERTENSION. TECHNOLOGIST: Shaan EDWARDS
--- NOTE | 2020-07-17 03:56 | P.DS ---
Discharge Date: 06/28/20 Disposition: DC HOME/HOME HEALTH CARE Discharge Condition: GOOD Reason for Admission: Progressive shortness of breath Consultations: Cardiology - Problems (1) COPD with acute exacerbation Status: Acute (2) Acute congestive heart failure with left ventricular diastolic dysfunction Status: Acute (3) Atrial fibrillation Onset Date: 09/25/15 Status: Acute Qualifiers: (4) CAD (coronary artery disease) Onset Date: 09/25/15 Status: Acute Qualifiers: Coronary Disease-Associated Artery/Lesion type: bypass graft (5) Cerebrovascular accident (CVA) Onset Date: 09/25/15 Status: Acute Qualifiers: Precerebral and cerebral artery: posterior cerebral artery (6) Diabetes Onset Date: 09/25/15 Status: Acute Qualifiers: Diabetes mellitus type: type 2 Diabetes mellitus complication status: with circulatory complication (7) Hypertension Onset Date: 09/25/15 Status: Acute Qualifiers: Hypertension type: essential hypertension Qualified Code(s): I10 - Essential (primary) hypertension (8) Diabetes Onset Date: 09/19/15 Status: Chronic Qualifiers: Diabetes mellitus type: type 2 (9) Vertigo Status: Chronic Brief History of Present Illness: Patient is an 79-year-old female past medical history of hypertension, diabetes mellitus type 2 insulin dependent, peripheral vascular disease status post previous fem-pop, CAD status post CABG, spinal stenosis, depression, COPD on p.r.n. home oxygen, chronic atrial fibrillation on metoprolol as well as anticoagulation with Eliquis combined systolic and diastolic CHF-last echo from showing EF of 47% as well as mild global hypokinesis; on chronic diuretics with Lasix 40 b.i.d.. Patient presented today because of worsening shortness of breath since the last 1 week. She states she gets easily fatty drain insertion. She denies body swelling cough. She admits to intermittent orthopnea with paroxysmal nocturnal dyspnea. She denies any 0 feels wheezing but feels her worsening shortness of breath may be due to a COPD flare. She states she has not seen a decision science analyst in the past. She follows with by genoveva for Cardiology. She denies any chest pain now. On presentation showed having increased tachypnea with mild hypoxia but improving with 2 L nasal cannula now. She has been given IV Solu-Medrol as well as albuterol. She see worried about her persistent shortness of breath. Her initial chest x-ray shows mild pulmonary congestive changes. Her BNP screen 05/28/1977. Mild troponin elevation of 0.05 noted She has been admitted for progressive dyspnea Hospital Course: Patient had an extensive workup done including echocardiogram which revealed significant systolic dysfunction and an EF of 25-30%. Patient was started on cardiac meds. Patient heart failure is compensated. Also will be given nebulizer treatments. Patient also with significant COPD history. Patient will be given steroids as well as diuretics. At this time, patient is stable for discharge with outpatient follow-up. Vital Signs/Physical Exam: Temp Pulse Resp BP Pulse Ox 97.0 F 82 18 121/76 99 06/28/20 12:00 06/28/20 12:00 06/28/20 12:00 06/28/20 12:00 06/28/20 12:00 General: Alert, In no apparent distress, Oriented x3 Laboratory Data at Discharge: WBC 16.50 K/uL (4.3-10.9) H 06/27/20 10:49 Hgb 10.9 g/dL (12.0-15.0) L 06/27/20 10:49 Hct 33.8 % (36.0-45.0) L 06/27/20 10:49 Plt Count 341 K/uL (152-406) D 06/27/20 10:49 PT 21.9 SECONDS (9.5-12.5) H 06/23/20 11:58 INR 1.89 06/23/20 11:58 APTT 31.6 SECONDS (24.3-36.9) 06/23/20 11:58 Sodium 138 mmol/L (136-145) 06/27/20 10:49 Potassium 4.4 mmol/L (3.5-5.1) 06/27/20 10:49 BUN 49 mg/dL (7-18) H 06/27/20 10:49 Creatinine 1.49 mg/dL (0.55-1.3) H 06/27/20 10:49 Glucose 289 mg/dL (74-106) H 06/27/20 10:49 Phosphorus 3.6 mg/dL (2.5-4.9) 06/27/20 10:49 Magnesium 2.3 mg/dL (1.8-2.4) 06/27/20 10:49 Total Bilirubin 0.8 mg/dL (0.2-1.0) 06/27/20 10:49 AST 37 U/L (15-37) 06/27/20 10:49 ALT 46 U/L (12-78) 06/27/20 10:49 Alkaline Phosphatase 200 U/L (45-117) H 06/27/20 10:49 Troponin I 0.04 ng/mL (0.0-0.045) 06/23/20 19:56 Lipase 50 U/L (73-393) L 06/24/20 13:08 Home Medications: Apixaban [Eliquis] 5 mg PO BID 08/04/19 Atorvastatin Calcium 40 mg PO BEDTIME 08/04/19 Duloxetine HCl 60 mg PO DAILY 08/04/19 Memantine HCl 5 mg PO BID 08/04/19 Acetaminophen 500 mg PO Q6H PRN 11/23/19 Gabapentin 100 mg PO BEDTIME 11/23/19 Insulin Lispro [Humalog Kwikpen U-100] 20 unit SQ TIDWM 11/23/19 Hydrocodone Bit/Acetaminophen [Hydrocodon-Acetaminophen 5-325] 1 tab PO Q4H PRN 06/24/20 Loratadine [Claritin*] 1 tab PO DAILY 06/24/20 Albuterol Neb [Proventil 0.083% Neb Soln] 2.5 mg NEB [id number] PRN #60 amp 06/28/20 Bumetanide [Bumex] 0.5 tab PO Q12H 07/01/20 Ipratropium Neb [Atrovent*] 0.5 mg NEB [id number] 07/01/20 Loperamide [Imodium] 2 mg PO Q6HP PRN 07/01/20 Losartan Potassium [Cozaar] 25 mg PO DAILY 07/01/20 Collagenase [Santyl Ointment] 1 appl TP Q48H 07/02/20 Insulin Degludec [Tresiba Flextouch U-200] 60 unit SQ DAILY 07/02/20 Metoprolol Succinate 50 mg PO BID 07/02/20 Ondansetron [Zofran] 4 mg PO Q6H PRN 07/02/20 Potassium Chloride [K-Dur] 40 meq PO DAILY 07/02/20 Tiotropium [place] [Spiriva Respimat] 2 puff IH DAILY 07/02/20 New Medications: Albuterol Neb [Proventil 0.083% Neb Soln] 2.5 mg NEB [id number] PRN #60 amp PRN Reason: Shortness Of Breath Physician Discharge Instructions: OK TO DC IV AND DC HOME FOLLOW-UP WITH PRIMARY CARE PROVIDER IN 1-2 WEEKS FOLLOW-UP WITH CARDIOLOGY IN 1-2 WEEKS RETURN TO THE ER IF symptoms worsen CALL or TEXT DR. GONSALES AT [phone] IF ANY QUESTIONS REGARDING HOSPITAL STAY. PLEASE CALL THE FLOOR AT [phone] IF ANY MEDICATION OR NURSING QUESTIONS. Diet: AHA Activity: Fall precautions Followup: NONE,NONE [Primary Care Provider] - Time spent managing pt's care (in minutes): 35
== END 2020-06-28 15:20 | disposition home health service (06) | DRG 291 ==
LOC: ER 11:34 → ERHOLD 14:40 → 4TH 17:42
PROVIDERS: ADMIT Internal Medicine; ATTEND Hospitalist
DX: I11.0 Hypertensive heart disease with heart failure (principal); J96.20 Acute and chronic respiratory failure, unspecified whether with hypoxia or hypercapnia; I48.20 Chronic atrial fibrillation, unspecified; N17.9 Acute kidney failure, unspecified; J44.1 Chronic obstructive pulmonary disease with (acute) exacerbation; I50.43 Acute on chronic combined systolic (congestive) and diastolic (congestive) heart failure; E78.5 Hyperlipidemia, unspecified; K59.00 Constipation, unspecified; D72.829 Elevated white blood cell count, unspecified; I25.10 Atherosclerotic heart disease of native coronary artery without angina pectoris; E11.59 Type 2 diabetes mellitus with other circulatory complications; E11.51 Type 2 diabetes mellitus with diabetic peripheral angiopathy without gangrene; E66.9 Obesity, unspecified; R42 Dizziness and giddiness; Z68.28 Body mass index [BMI] 28.0-28.9, adult; Z88.8 Allergy status to other drugs, medicaments and biological substances; Z79.01 Long term (current) use of anticoagulants; Z79.899 Other long term (current) drug therapy; Z79.4 Long term (current) use of insulin; Z86.73 Personal history of transient ischemic attack (TIA), and cerebral infarction without residual deficits; Z88.7 Allergy status to serum and vaccine; Z91.048 Other nonmedicinal substance allergy status; Z91.19 Patient's noncompliance with other medical treatment and regimen; Z95.1 Presence of aortocoronary bypass graft; Z99.81 Dependence on supplemental oxygen; Z90.710 Acquired absence of both cervix and uterus; Z90.49 Acquired absence of other specified parts of digestive tract; Z20.822 Contact with and (suspected) exposure to COVID-19
CPT/HCPCS: 36415; 71045; 74018; 80048; 80053; 80076; 81001; 82550; 82553; 82947; 83036; 83605; 83690; 83735; 83880; 84100; 84145; 84484; 85025; 85379; 85610; 85730; 87040; 93005; 93306; 97112; 97116; 97161; 99285; C9113; J1815; J2930; J7512; U0003

== ENCOUNTER 2020-07-01 12:13 | Inpatient (IN) | payer OTHER ==
--- OUTSIDE RECORDS SUMMARY | 2020-07-01 12:20 | XMS REPORT | Continuity of Care Document ---
:[address] [facility] t Address [address] [place] [place] [address] Care Team Providers Name Role Phone Jaziel MIRANDA Primary Care Physician Janet MIRANDA S Attending Clinician Mindy MIRANDA Attending Clinician Angie FERNANDEZ R Attending Clinician KENNEY Attending Clinician Unavailable Lucy VZAQUEZ, A Attending Clinician Unavailable Only, Test Attending Clinician Unavailable Doctor Unassigned, Name Attending Clinician Unavailable Lamin Hood Jr Attending Clinician Jarred Martínez Attending Clinician [place] Attending Clinician Unavailable Mindy MIRANDA Admitting Clinician [...] l UNK 00:00: Reinaldo 00 Active 08/10/2019 [facility] Diabetes Problem Active 2019-09-10 Mem oria mellitus 1- 22:08:18 l (disorder) Diabetes 00:00: He rmann mellitus 00 (disorder) Active 03/10/1961 Problem 09/10/2019 [facility] Left foot Left foot Problem Active [...] Resolve [facility] stroke stroke [facility] [place] [facility] Embolism Embolism Problem Active Unive [...] MALAISE 22:04:00 l OTHER Reinaldo MALAISE Active [facility] Other Problem 2019-09-10 Memor ia malaise 22:08:18 l Other [place] malaise 09/10/2019 [facility] Peripheral Problem Resolve 2019-09-10 Memoria vascular d 22:08:18 l disease [place] (disorder) Peripheral vascular disease (disorder) Resolved Problem 09/10/2019 [facility] Allergies, Adverse Reactions, Alerts Allergy Allergy [...] d to drug ity of Contrast (finding [facility] ) Physici ans iodine iodine Active Memoria l [place] Social History Social Habit Start Date Stop Date Quantity Comments Source History [facility] odist Alcohol Binge History [facility] Alcohol Std Drinks Tobacco use and 2018-10-08 2018-10-08 Never used [facility] ethodist exposure 00:00:00 00:00:00 Alcohol intake 2018-10-08 2018-10-08 Current [place] thodist 00:00:00 00:00:00 non-drinker of alcohol (finding) History [facility]VA 2018-05-21 2018-05-21 1 [place] Meth odist Alcohol Frequency 00:00:00 00:00:00 Sex [birth year] At [birth year] [place] Rickey ethodist 00:00:00 00:00:00 Smoking Status Start Date Stop Date Source [facility] Ordered Filled Start Stop Current Ordering [...] tab, PO, l tablet 16:07: Daily, 0 [place] 00 Refill(s) tamsulosin 2020-0 Yes 0.4 mg [...] 6-20 Route: PO, l 14:00: Drug form: [place] 00 TAB, Daily, Dosing Weight 63.636, kg, Start date: 08/28/19 9:00:00 CDT, Duration: 30 day, Stop date: 09/26/19 9:00:00 CDT Januvia 2020-0 No Notes: Memoria 6-20 Same as l 14:00: Januvia glimepiride 2020-0 No 4 mg, Memor ia 6-20 Route: PO, l 14:00: Drug form: [place] 00 TAB, Daily, Dosing Weight 63.636, kg, [...] le -19 (Same as: l 22:00: Flagyl) [place] 00 Take with food/ avoid alcohol Cipro [...] Route: l 21:00: SUB-Q, Drug form: INJ, [id number], Dosing Weight 63.636, kg, Start date: 08/27/19 [...] Memoria 6-19 (Same As: l 14:00: Plavix) [place] 00 Furosemide 2019-0 No Notes: Memor ia [...] s with feeding tube less than 14 [place] (Dobhoff, J-tube etc) and pediatric and patients. [...] n 08-26 (Same as: l 02:00: Lipitor) [place] Lovenox No Notes: Memoria 08-26 Nurse to l 02:00: ensure [place] 00 documentat ion of patient education per [...] / 6-18 (Same as: l Hydrocodone 23:55: [place] Liliana nn Bitartrate 00 325/5) Do 5 [...] as: l / 23:55: Duoneb) Ipratropium 00 [place] 0.167 MG/ML Inhalant Solution Saline No Notes: Memoria Flush 0.9% 6-18 (Same as: l 23:55: BD Posiflush) Docusate 0 No Notes: Memoria Sodium 50 6-18 (Same as l MG / 22:00: Senokot-S) [place] sennosides, 00 Equiv. to NURSING HOME 8.6 MG [place]illian-Colac Oral Tablet e. Fluconazole [...] 6-18 25 mL, l (D50W) 21:49: Route: [place] 00 IVP, Drug Form: INJ, Dosing Weight 60, kg, PRN, PRN Blood Glucose Results, Start date: 08/26/19 16:49:00 CDT, Duration: 30 day, Stop date: 09/25/19 16:48:00 CDT, 0 Glucagon 2020-0 No 1 mg, Memoria 6-18 Route: IM, l 21:49: Drug form: [place] 00 PDR/INJ, PRN, Dosing Weight 60, kg, [...] BID, 0 l MG / 20:50: Refill(s) [place] sennosides, 00 NURSING HOME 8.6 MG Oral Tablet fluconazole 2019-0 Yes 100 mg = 1 Memoria 100 mg oral 6-18 tab, PO, l tablet 20:50: [id number], 4 Liliana nn 00 days, 0 Refill(s) [...] Oxide 6-18 (Same as: l 16:39: Mag-Ox [place] 00 400) Magnesium oxide 048ne=775n g elemental magnesium Dose=____m g magnesium oxide [...] s with feeding tube less than 14 [place] (Dobhoff, J-tube etc) and pediatric and patients. [...] s with feeding tube less than 14 [place] (Dobhoff, J-tube etc) and pediatric and patients. Protonix 2019- No Notes: For Mem oria 6-17 IV push l 22:00: reconstitu [place] 00 te with 10 ml 0.9% sodium chloride and push over 2 minutes. (Same as: Protonix) Furosemide 2019-0 No Notes: Memor ia 40 MG Oral 6-17 (Same as: l Tablet 17:38: Lasix) Reinaldo [Lasix] 00 May cause GI upset. Give with food or milk. Diflucan 2019-0 No 100 mg, 1 Cr regulo 6-16 tab, l 22:00: Route: PO, Reinal[place] 00 Drug form: TAB, [id number], Dosing Weight 60, kg, Start date: 08/24/19 [...] Memoria -16 (Same as: l 16:06: Lasix) [place] MEDICATION WASTE Product Size: 40 mg Product Wasted: ___ mg Potassium 2019-0 No Notes: Memori a Chloride -16 Infuse at l 14:00: a rate of [place] 10 mEq/hr. (Same as: KCL) Protonix 2019-0 [...] PO, l MG / 22:00: Drug Form: [place] sennosides, 00 TAB, NURSING HOME 8.6 MG Dosing Oral Tablet Weight 60, [...] Memoria 6-14 (Same as: l 16:00: Zosyn) [place] Dosing based on Piperacill in component MEDICATION WASTE Product Size: 3375 mg Product Wasted: ___ mg Lovenox No 80 mg, 0.8 Cr regulo 6-14 mL, Route: l 14:00: SUB-Q, Drug form: INJ, [id number], Dosing Weight 60, kg, Start date: 08/22/19 9:00:00 CDT, Stop date: 09/20/19 9:00:00 CDT, 0 Acetaminoph No Notes: Cr regulo en 325 MG / 6-14 (Same as: l Hydrocodone 13:55: [place] Liliana nn Bitartrate 00 325/5) Do 5 MG Oral not exceed Tablet 4gm/day of [[place] acetaminop 5/325] hen. Melatonin 3 No Notes: Cr regulo MG Extended 6-14 (Same as: l Release 02:00: Melatonin) Herm marcus Tablet 00 Albuterol No Notes: Memori a 0.833 MG/ML -13 (Same as: l / 22:12: Duoneb) [place] Ipratropium 00 [place] 0.167 MG/ML Inhalant Solution Docusate No Notes: Memoria Sodium 50 6-13 (Same as l MG / 22:00: Senokot-S) sennosides, 00 Equiv. to NURSING HOME 8.6 MG Lillian-Colac Oral Tablet e. Midodrine [...] 6-10 Route: PO, l 11:23: Drug form: [place] 00 TAB, ONCE, Dosing Weight 60, kg, [...] regulo 6-10 Route: l 11:23: IVP, PRN, [place] 00 Dosing Weight 60, kg, PRN Benzodiaze [...] MG/ML 6-10 Route: l Inhalant 11:23: NEB, [place] Solution 00 Q20Min, Dosing Weight 60, kg, [...] Mem oria 6-10 Route: l 11:23: IVP, [place] 00 Q30Min, Dosing Weight 60, kg, PRN [...] 08-16 Route: IM, l 02:50: Drug form: [place] 00 PDR/INJ, PRN, Dosing Weight 60, kg, [...] oria ne 08-15 Route: l 16:19: IVP, [place] 00 Q5Min, Dosing Weight 60, kg, PRN [...] tab, PO, l Tablet 15:44: Daily, # [place] 00 30 tab, 0 Refill(s) gabapentin 2020-0 [...] M emoria 08-15 0 l 15:42: Refill(s) [place] 00 atorvastati 2019-0 Yes 40 mg = 1 M emoria n 40 mg 08 tab, PO, l oral tablet 15:42: Bedtime, # [place] 00 30 tab, 0 Refill(s) vancomycin 2019-0 No Route: IV, M emoria (ANES) 1000 08-15 Drug form: l mg 15:22: INJ, Start date: 08/16/19 10:22:00 CDT, Stop date: 08/16/19 11:22:00 CDT Nurse 2019-0 No Nurse Memoria please 08-15 please l update 14:30: update [place] Height, 00 Height, Weight, Weight, Allergy Allergy [...] 6-08 Rate: 75 l 0.0014 13:54: ml/hr, [place] MEQ/ML / 00 Infuse Potassium over: 13.3 [...] day. on inhaler HUMALOG 2018-0 Yes 20U [id number] Inject 20 [place] KWIKPEN 2-23 [id number] Units Metho di INSULIN 100 00:00: 3D under the s t unit/mL 00 skin 3 injection (three) pen times a day with meals. Per sliding scale -only takes if BS IS above 120 LANTUS 2018- Yes Q.5D 2 (two) [place] SOLOSTAR 2-07 times a Methodi U-100 00:00: day. 50 st INSULIN 100 00 units in unit/mL the injection morning 30 (pen) units at night gabapentin 2018-0 Yes QD nightly. Vesna zurita (NEURONTIN) 1-14 Methodi 100 mg 00:00: st capsule 00 pramipexole 2017-03 Yes Q.[id number] 3 (three) [place] (MIRAPEX) 2-12 [id number] times a M ethodi 0.5 MG 00:00: [...] Oral (F) 2019-09-08 13:25:00 98.6 F [facility] [place] Heart Rate 2019-09-08 13:25:00 [facility] Re[place] Respitory Rate 2019-09-08 13:25:00 Memori al [place] Systolic (mm Hg) 2019-09-08 13:25:00 Cr rial [place] Diastolic (mm Hg) 2019-09-08 13:25:00 Mem orial [place] Temperature Oral (F) 2019-09-08 13:16:00 98.6 F [facility] [place] Heart Rate 2019-09-08 13:16:00 [facility] [place] Respitory Rate 2019-09-08 13:16:00 Memori al [place] Systolic (mm Hg) 2019-09-08 13:16:00 Cr rial [place] Diastolic (mm Hg) 2019-09-08 13:16:00 Mem orial [place] Temperature Oral (F) 2019-09-08 01:45:00 98.5 F [facility] [place] Heart Rate 2019-09-08 01:45:00 [facility] [place] Respitory Rate 2019-09-08 01:45:00 Memori al [place] Systolic (mm Hg) 2019-09-08 01:45:00 Cr rial [place] Diastolic (mm Hg) 2019-09-08 01:45:00 Mem orial [place] Height 2019-08-28 16:28:00 149.86 cm [facility] [place] Weight 2019-08-28 16:28:00 [facility] [place] BMI Calculated 2019-08-28 16:28:00 Memori al [place] Height 2019-08-27 00:43:00 149.86 cm [facility] [place] Weight 2019-08-27 00:43:00 [facility] [place] BMI Calculated 2019-08-27 00:43:00 Memori al [place] Temperature Oral (F) 2019-08-26 21:46:00 98.5 F [facility] [place] Respitory Rate 2019-08-26 21:39:00 Memori al [place] Respitory Rate 2019-08-26 21:00:00 Memori al [place] Systolic (mm Hg) 2019-08-26 21:00:00 Cr rial [place] Diastolic (mm Hg) 2019-08-26 21:00:00 Mem orial [place] Respitory Rate 2019-08-26 19:00:00 Memori al [place] Systolic (mm Hg) 2019-08-26 19:00:00 Cr rial [place] Diastolic (mm Hg) 2019-08-26 19:00:00 Mem orial [place] Systolic (mm Hg) 2019-08-26 18:35:00 Cr rial [place] Diastolic (mm Hg) 2019-08-26 18:35:00 Mem orial [place] Temperature Oral (F) 2019-08-26 16:12:00 98.6 F [facility] [place] Temperature Oral (F) 2019-08-26 12:59:00 98.5 F [facility] [place] Heart Rate 2019-08-22 17:49:00 [facility] [place] Heart Rate 2019-08-22 15:30:00 [facility] [place] Heart Rate 2019-08-22 14:01:00 [facility] [place] Height 2019-08-16 14:43:00 149.86 cm [facility] [place] Weight 2019-08-16 14:43:00 [facility] [place] BMI Calculated 2019-08-16 14:43:00 Memori al [place] Procedures Procedure Date / Time Performing Clinician Source Performed History of Rectal [facility] 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 Physicians History of Bypass graft [facility] [place] [facility] History of Arterial [facility] [place] angioplasty of lower Physicians extremity Plan of Care Planned Activity Planned Date Details Comments Source Future Scheduled 2020-10-08 INFLUENZA VACCINE [place] [facility] 00:00:00 [code = INFLUENZA VACCINE] Future Scheduled 1988 SHINGLES VACCINES (#1) [place] [facility] 00:00:00 [code = SHINGLES VACCINES (#1)] Future Scheduled 1954 COVID-19 VACCINE (1) [place] [facility] 00:00:00 [code = COVID-19 VACCINE (1)] Future Scheduled 1948 DIABETES: RETINAL EYE [place] [facility] 00:00:00 EXAM [code = DIABETES: RETINAL EYE EXAM] Future Scheduled 1948 DIABETIC FOOT EXAM [place] [facility] 00:00:00 [code = DIABETIC FOOT EXAM] Future Scheduled 1950 URINE MICROALBUMIN [place] [facility] 00:00:00 [code = URINE MICROALBUMIN] Encounters Start End Encounter Admission Attending Care Care Encounter Source Date/Time Date/Time Type Type Clinicians Facility Department ID 2019-08-26 Inpatient [facility] MED [id number] 18:50:00 [facility] 2019-10-04 2019-10-08 [facility] [id number]. [id number] 19:45:04 20:30:00 Encounter Pauline Guillen [place] [id number] [place] [id number] [place] [id number] 2019-09-28 2019-09-28 Emergency [facility] [id number] 18:24:14 22:12:00 Sharee Arauz [id number] [place] [id number] [place] [id number] 2019-09-21 2019-09-21 Appointmen CHILANGO MOULTON Thoracic [id number] Univers 08:00:00 08:00:00 t; JOHAN MOULTON, Surgery - i ty ronak PRADO M.D. [facility] 2019-09-15 2019-09-15 Telephone BERNADINE Ayala [id number] 00:00:00 00:00:00 Mariajose PARRA [id number] [id number] 2019-09-15 2019-09-15 Letter Lucy BERNADINE [id number] 00:00:00 00:00:00 (Out) Mariajose PARRA [id number] [place] [id number] 2019-09-10 2019-09-10 Laboratory Only, Adc [facility] [id number] 07:57:03 07:57:11 Only Test [place] [id number] [place] [id number] [place] [id number] 2019-09-09 2019-09-09 Orders Doctor BERNADINE [id number] 00:00:00 00:00:00 Only Unassigned, AIDA 350.1.13.10 [place] [address]686 [id number] 2019-08-26 2019-09-08 Outpatient Brendel, MHSE MHSE [id number] 18:50:00 15:40:00 Jimbo Kimble 2019-08-16 2019-08-26 Outpatient Tanya, MHSE MHSE [id number] 11:40:00 18:05:00 Loco 06 Jarred 2019-08-16 2019-08-26 Outpatient Tanya, MHSE MHSE [id number] 11:40:00 18:05:00 Loco 06 Jarred 2019-08-16 2019-08-16 CHILANGO Vazquez [id number] Univers 10:00:00 10:00:00 t; JOHAN MOULTON [facility] [place], M.[place]. [place] M.D. Physici ans 2019-08-09 2019-08-09 CHILANGO Vazquez [facility] [id number] Univers 10:15:00 10:15:00 t; JOHAN MOULTON cic & Jairo M.D. Vascular [facility]ri[facility] ans 2018-06-29 2018-06-29 CHILANGO Dobbs [id number] Univers 10:30:00 10:30:00 t; DANN CHUA [facility] 2018-06-15 2018-06-15 Appointmen [facility] [id number] Univers 10:15:00 10:15:00 t; DANN CHUA [facility] 2018-06-01 2018-06-01 Appointmen [facility] [id number] Univers 11:30:00 11:30:00 t; DANN CHUA [facility] 2018-05-15 2018-05-15 Appointmen [facility] [id number] Univers 15:30:00 15:30:00 t; DANN CHUA [facility] Results Test Description Test Time Test [...] code = MCH) 28.8 pg 27.0-31.0 [facility] MsfdzucDJRPXFZPLY5560-78-39 00:27:0032.4[facility]ann[facility]OLOGY 2019-09-07 00:27:0016.5[facility] ItwnskiHUIHYSCYJM3605-75-91 00:27:47673Pkihfhxl ZwvnvgmIHOIJQIAHA9029-81-63 00:27:008.6[facility] PogqbipUPITCKWVNZ9111-48-62 00:27:0059.7[facility] LtoqwohGQKKGGHKRK2358-26-59 00:27:0031.0[facility] RNUJCNATSP9028-18-84 00:27:008.2[facility] WpldadaPSJPCSGARV6231-44-99 00:27:000.1 [facility] NpmvbngKWCATZRQKS8201-33-43 00:27:001.0[facility]annHEMATOLOGY 2019-09-07 00:27:006.1[facility] WzfjhodBORGYCQJDJ2144-99-28 00:27:003.1[facility] XamcykcVQPCASHERP6565-59-13 00:27:000.8[facility] XniclroSZXMIQOOWY3144-43-87 00:27:000.1[facility] HermannCHEM XQWFM8267-44-57 09:03:001.9[facility] HermannCHEM VYAPZ9160-21-05 09:03:70400Datbzynj HermannCHEM ZBPVW3495-33-07 09:03:0022 [facility]annCHEM SQYJB5029-97-15 09:03:000.97[facility] HermannCHEM PANEL 2019-09-04 09:03:89628Vplxxant HermannCHEM CDAZW8631-21-46 09:03:004.5[facility] HermannCHEM BAHSY9279-71-92 09:03:19785Rhbjkmgc HermannCHEM HVSMB3524-93-56 09:03:0025[facility] HermannCHEM LEWHE6195-77-99 09:03:008.4[facility] HermannCHEM RVPWF2724-78-39 09:03:0010.5[facility] HermannCHEM QRIBB4730-01-64 09:03:0055 [facility] UxmplcuYMUSVRRPXT3105-60-74 09:03:008.6[facility]annHEMATOLOGY 2019-09-04 09:03:002.51[facility] YnljnxdOVKZNEFWJP0818-65-29 09:03:007.2[facility] UgjnbxcBDQAIBWUMW6701-51-96 09:03:0022.3[facility] UaqhigpEJYVOHWYZG5313-33-58 09:03:0089.1[facility] FkiverqJWFHGBXUXW6883-77-28 09:03:00 Test Item Value Reference Range Interpretation Comments MCH (test code = MCH) 28.9 pg 27.0-31.0 Memorial DtouuxgMOXUWLKUDW1851-65-47 09:03:0032.5[facility] HermannHEMATOLOGY 2019-09-04 09:03:0016.6[facility] ZmcrcdnQGZQIHLAWT6826-01-56 09:03:12860Jpoevcco VfvoqlkOMSEDZWMDL7604-56-70 09:03:009.0[facility] GaprdgiCAVXYXTDZC4245-14-25 09:03:0061.4[facility] JogwfztCAGAGHSXTP0483-19-70 09:03:0027.8[facility] PZGDOFPBTR3960-28-85 09:03:009.8[facility] LgspgczHCCBMQZTWK7463-86-78 09:03:001.0 Memorial QnvbfgxJQOJREAKHG4783-79-48 09:03:005.3[facility]annHEMATOLOGY 2019-09-04 09:03:002.4[facility] LzgvoyuDYLNJHLYHF6493-81-04 09:03:000.8[facility] SmsmhndNXUEQYNMPW8760-03-03 09:03:000.1[facility] TrdvligZKTPBLOVRO6940-99-98 01:05:0068.5[facility] NvvsydqZEAPMJMZYM9392-16-90 01:05:0019.6[facility] OAQINYYPKQ8227-08-26 01:05:0010.7[facility] FaetxicVLRMJBERJU3444-47-14 01:05:00 0.1[facility] NabwpqrWAAXRXJVYZ6735-63-19 01:05:001.1[facility] HermannHEMATOLOGY 2019-09-01 01:05:006.5[facility] VveujeoFNFCYSAFIX8709-54-64 01:05:001.9[facility] VzlabenZMJFPVORYM3274-58-16 01:05:001.0[facility] KfpwxooMEZSIOGPOF7525-48-09 01:05:000.1[facility] PingbkxGMHYZQDTTT7157-46-71 01:05:009.4[facility] [place] DHVXEGLJVK8468-78-44 01:05:002.62[facility] CzjeommZTCKJKVGLK3432-80-21 01:05:00 7.7[facility] PxsxdpfHNSILKQEIW3939-48-02 01:05:0024.0[facility]annHEMATOLOGY 2019-09-01 01:05:0091.6[facility] SeyrpqwLUASITXTRO3388-66-60 01:05:00 Test Item Value Reference Range Interpretation Comments MCH (test code = MCH) 29.4 pg 27.0-31.0 Memorial EiifhimGQYWTNJHUD3223-64-14 01:05:0032.1[facility]annHEMATOLOGY 2019-09-01 01:05:0016.3[facility] KwmktwsGSBZCRARVX1239-50-51 01:05:20427Axylbcvp UgxazlyUBTFMHYGOM2882-81-69 01:05:008.6[facility] BeotfebCPPUHAVNEA8243-38-91 01:05:0011.0[facility] HermannCHEM BEFTX6675-02-20 09:15:50746Mcdzhqee HermannCHEM QNVHI6016-28-58 09:15:0021[facility] HermannCHEM HXUTW0078-46-00 09:15:001.23 [facility]annCHEM DMVZZ5596-76-39 09:15:49761Biuhvkmj HermannCHEM PANEL 2019-08-30 09:15:003.7[facility] HermannCHEM VAZXX2483-40-02 09:15:87284Geqlkxnb HermannCHEM CSMYT9658-73-88 09:15:0027[facility]annCHEM RJWVN0630-55-79 09:15:007.7[facility] HermannCHEM OSZAT3760-10-89 09:15:009.7[facility] HermannCHEM LSSRH5256-93-63 09:15:0041[facility] HermannCHEM YKTRI3252-46-06 20:56:000.09 [facility]ann[facility] AND WRWCJ4747-28-55 20:00:00Clear (08/29/19 3:00 PM) [facility] LERNB9576-79-75 20:00:00 Test Item Value Reference Range Interpretation Comments UA Spec Grav (test code = UA Spec 1.014 1 Grav) [facility] QQKYT6046-69-21 20:00:00 Test Item Value Reference Range Interpretation Comments UA pH (test code = UA pH) 6.0 1 5.0-8.0 [facility] LSSPP1111-03-79 20:00:00Negative *NA*(08/29/19 3:00 PM) [facility] POKYD8731-20-70 20:00:00Negative (08/29/19 3:00 PM) [facility] AYQNY7362-57-35 20:00:00Negative (08/29/19 3:00 PM) [facility] PEGHV4138-14-96 20:00:00Small *ABN*(08/29/19 3:00 PM) [facility] IBTTD7303-20-65 20:00:0011[facility] AND WTDPC9057-39-10 20:00:00<1[facility] HermannCHEM RJOJG5853-30-87 13:40:56766 [facility]annCHEM UOBXK0295-22-24 13:40:0018[facility] HermannCHEM PANEL 2019-08-29 13:40:001.01[facility] HermannCHEM ZHSWG0999-36-67 13:40:97291Ogplnllf HermannCHEM DAFFU0779-63-04 13:40:004.1[facility] HermannCHEM EOIUK0353-47-17 13:40:79869Qcnzcgyk HermannCHEM VDSCH0002-75-57 13:40:0026[facility] HermannCHEM YKHMN2669-92-77 13:40:007.4[facility] HermannCHEM FODBO6629-21-42 13:40:009.1 [facility]annCHEM ZSGCV9764-09-64 13:40:0052[facility] HermannIMMUNOLOGY 2019-08-29 13:40:0011.3[facility] HermannCHEM CGHLJ8122-55-47 08:51:00 Test Item Value Reference Range Interpretation Comments B/C Ratio (test code = B/C Ratio) 17 1 6-25 [facility]annCHEM XRNUT5679-35-91 08:51:005.5[facility] HermannCHEM PANEL 2019-08-27 08:51:002.1[facility] HermannCHEM GCBNK2478-21-49 08:51:003.4[facility] HermannCHEM TLXYK0813-90-01 08:51:00 Test Item Value Reference Range Interpretation Comments A/G Ratio (test code = A/G Ratio) 0.6 1 0.7-1.6 [facility]annCHEM RXRYR3055-43-87 08:51:0037[facility] HermannCHEM PANEL 2019-08-27 08:51:0030[facility] HermannCHEM ORGXB3437-29-13 08:51:81174Lsuyglih HermannCHEM BZTEU5455-36-40 08:51:000.3[facility] HermannSPECIAL CHEMISTRY 2019-08-27 08:51:008.0[facility] MlneryhAKNKTZQCKNOK9195-37-07 17:33:004.1[facility] HermannCHEM OZAHJ6060-38-24 10:52:001.7[facility] HermannCHEM WZUKD2826-27-62 10:52:12646Ogfpreit HermannCHEM PUKIS3745-52-48 10:52:0014[facility] HermannCHEM TCMCV3824-65-02 10:52:000.93[facility] HermannCHEM MLKSU2710-84-39 10:52:68241 [facility] HermannCHEM VDZHB3481-50-01 10:52:003.0[facility] HermannCHEM PANEL 2019-08-26 10:52:81552Izmyjrpn HermannCHEM ESGKC7080-81-71 10:52:0032[facility] HermannCHEM XIOIL0968-26-87 10:52:008.0[facility] HermannCHEM ZVKPX2646-54-57 10:52:007.7[facility] HermannCHEM DWWIQ1057-64-85 10:52:0058[facility] [place] FZBCCHANTO7636-13-25 10:52:0076.3[facility] UbnptcyGUCEEXMLDG7202-34-38 10:52:00 15.5[facility] MtuedzsXYKLYXBVBT4815-40-00 10:52:007.8[facility] HermannHEMATOLOGY 2019-08-26 10:52:000.4[facility] CaeffnrJHQAKMAICL0301-27-57 10:52:007.4[facility] MqbcrdqOGSKSMKGMG1478-87-58 10:52:001.5[facility] PfovcvbAYFNUCTLPE9624-30-68 10:52:000.8[facility] AafztmdIYMKEKKRZR4326-72-33 10:52:009.7[facility] [place] HOFQXAIBSK9530-90-57 10:52:002.77[facility] TnzscmhRDNOYQHMOL6353-19-53 10:52:00 8.2[facility] DaytapwJRUSEVYZEY2010-50-70 10:52:0025.3[facility]annHEMATOLOGY 2019-08-26 10:52:0091.6[facility] VzdnqxpKECMKQNBWB4634-52-62 10:52:00 Test Item Value Reference Range Interpretation Comments MCH (test code = MCH) 29.8 pg 27.0-31.0 [facility] UlgwkjzPQTNTKRLDC8365-78-95 10:52:0032.5[facility]annHEMATOLOGY 2019-08-26 10:52:0015.8[facility] DquoywpWYOCHAKVDU5840-78-66 10:52:81358Evziqoee CneengoBTWNBXJXYZ4025-73-74 10:52:008.5[facility] BiqtzavADKJZJOCKI9974-56-32 17:32:00Not Detected (08/25/19 12:32 PM)[facility]annCHEM ZSAMA9715-76-38 08:16:50439Dkgkyjij HermannCHEM YBTOY5830-38-27 08:16:0017[facility]annCHE[facility] FMCEP7801-12-93 08:16:000.95[facility]annCHE[facility] EPDFH7242-59-98 08:16:62708 [facility]annCHE[facility] VEFAY9791-03-57 08:16:003.1[facility]annCHEM PANEL 2019-08-25 08:16:85963Vyhxdnwi [facility]annCHE[facility] RSZNP1217-24-24 08:16:0029[facility]annCHE[facility] RSSQX9243-39-13 08:16:009.1[facility]annCHEM AIALO9987-87-52 08:16:007.5[facility]annCHEM LLMZT7854-48-70 08:16:00 Test Item Value Reference Range Interpretation Comments B/C Ratio (test code = B/C Ratio) 18 1 -25 [facility]annCHE[facility] VMWVB5827-99-51 08:16:005.4[facility]annCHEM PANEL 2019-08-25 08:16:002.2[facility]annCHE[facility] QDWBR4134-31-28 08:16:003.2[facility]annCHEM EKTSY9058-53-20 08:16:00 Test Item Value Reference Range Interpretation Comments A/G Ratio (test code = A/G Ratio) 0.7 1 0.7-1.6 [facility]annCHE[facility] EYMVV9421-49-25 08:16:0033[facility]annCHEM PANEL 2019-08-25 08:16:0027[facility]annCHEM CVMWR8189-65-71 08:16:53303Ttjjucyp [facility]annCHE[facility] WZVJE8358-11-08 08:16:000.5[facility]annCHEM CVGVW1946-20-74 08:16:0057[facility] MvujedeILRPOCYXWH7145-65-50 08:16:0011.9[facility] CXGYMDKIYW6822-31-78 08:16:002.82[facility] PvofmzlQIURIPXYOT4316-77-60 08:16:00 8.2[facility] EhjvnzkRIPVLEACXT0272-49-08 08:16:0025.5[facility]annHEMATOLOGY 2019-08-25 08:16:0090.6[facility] YnwwafzFGXBRSYJOL2775-25-55 08:16:00 Test Item Value Reference Range Interpretation Comments MCH (test code = MCH) 29.2 pg 27.0-31.0 [facility] HibfdwoLPDEWEBQUT5431-90-47 08:16:0032.3[facility]annHEMATOLOGY 2019-08-25 08:16:0015.4[facility] XrjtmdpFREJBPYITB0213-53-53 08:16:61045Acnsvlhv OookagvISMKBVHQMG0984-31-05 08:16:008.8[facility] SjvxunyWFKTHTIJHK4469-61-95 08:16:0070.9[facility] NlbgadyZTGSJULXHA9952-51-63 08:16:0020.5[facility] YXPKFVNAYS8374-22-26 08:16:008.5[facility] FoltefnOLQSEMNKJQ4604-58-23 08:16:000.1 [facility] JqxrqwqNWOVHCJMUK8663-07-64 08:16:008.4[facility]annHEMATOLOGY 2019-08-25 08:16:002.4[facility] JiutjrbCGMRYCINQA0262-24-07 08:16:001.0[facility]annCHEM FIFNB2570-79-15 09:17:23061Quzseqpg HermannCHEM PNTBP3309-65-08 09:17:0019[facility]annCHEM AJYNZ2327-89-38 09:17:000.85[facility]annCHEM PCMUD0578-22-87 09:17:49764Tjwzjvbr [facility]annCHE[facility] ELJQY4697-86-68 09:17:65601 [facility]annCHE[facility] THKDA1677-92-35 09:17:0031[facility]annCHEM PANEL 2019-08-24 09:17:007.9[facility] HermannCHEM [id number] 09:17:008.1[facility] [id number] 09:17:00 Test Item Value Reference Range Interpretation Comments B/C Ratio (test code = B/C Ratio) 22 1 6-25 [facility] [id number] 09:17:005.8[facility]ann[facility] PANEL 2019-08-24 09:17:002.4[facility] SPPKM2674-18-26 09:17:003.4[facility]ann[facility] [id number] 09:17:00 Test Item Value Reference Range Interpretation Comments A/G Ratio (test code = A/G Ratio) 0.7 1 0.7-1.6 [facility] [id number] 09:17:0028[facility]annCHEM PANEL 2019-08-24 09:17:0013[facility]annCHE[facility] [id number] 09:17:65864Tvzppslw HermannCHEM QPEDK0382-56-97 09:17:000.6[facility] [id number] 09:17:0064[facility] [id number] 09:17:002.0[facility] SPWTAMTRTC2243-06-55 09:17:0017.2[facility] RinljriHSBOYLLHCZ1232-27-78 09:17:00 3.34[facility] LsxkoaeBMZJNADVQY0781-65-41 09:17:009.9[facility] HermannHEMATOLOGY 2019-08-24 09:17:0030.5[facility] LcanuhaGQESKPIAUV7547-47-15 09:17:0091.3[facility] XtocgauLVQLXXAXCZ9395-78-78 09:17:00 Test Item Value Reference Range Interpretation Comments MCH (test code = MCH) 29.7 pg 27.0-31.0 [facility] JnoqxqhUESLSXTFQI6836-75-18 09:17:0032.6[facility]annHEMATOLOGY 2019-08-24 09:17:0015.4[facility] UefjlbjCDNDOQZUTD9259-19-78 09:17:28762Fdfjbisq XuipwpyYSXWDAARLY4543-99-18 09:17:008.7[facility] MzyykkuJWYKQMIRHS1858-64-41 09:17:0065.5[facility] DspbqbtRCNXDYLYGA7778-86-80 09:17:0022.5[facility] EXWHFLOYAZ4070-37-16 09:17:0011.7[facility] VsbxaplDGXILFEGOA5043-26-63 09:17:00 0.3[facility] PrsijipHQRIZIZIFO0395-04-13 09:17:0011.3[facility]annHEMATOLOGY 2019-08-24 09:17:003.9[facility] KscxpnoJGTGKJHEHY5557-42-56 09:17:002.0[facility] SowvaucUVPGCBZPRI9089-19-27 09:17:000.1[facility]annCHEM [id number] 11:08:00 Test Item Value Reference Range Interpretation Comments B/C Ratio (test code = B/C Ratio) 21 1 6-25 [facility] [id number] 11:08:005.8[facility]annCHEM PANEL 2019-08-23 11:08:002.4[facility] LQFJT6540-21-71 11:08:003.4[facility]ann[facility] [id number] 11:08:00 Test Item Value Reference Range Interpretation Comments A/G Ratio (test code = A/G Ratio) 0.7 1 0.7-1.6 [facility] [id number] 11:08:0036[facility]annCHEM PANEL 2019-08-23 11:08:0010[facility] BGNOL2837-27-00 11:08:80970Jhsiecor HermannCHEM QBVQU5680-28-20 11:08:000.7[facility] SswoecpZAMBQRNZNZ7410-37-83 11:08:000.1[facility]annCARDIAC YRCWBYW5358-72-33 20:26:000.13[facility]annCARDIAC KPCVIBA7055-56-72 16:25:61092Lkbpbgyg [facility]annCHEM SESYO1065-30-53 16:25:001.3[facility]ann[facility]INE AND OMSWP5186-52-78 15:22:001[facility] URINE AND BVPZI0230-73-51 15:22:006[facility] AND [id number] 15:22:00Yellow *NA*(08/22/19 10:22 AM)[facility] [id number] 15:22:00Clear (08/22/19 10:22 AM)[facility] [id number] 15:22:00 Test Item Value Reference Range Interpretation Comments UA Spec Grav (test code = UA Spec 1.015 1 Grav) [facility] [id number] 15:22:00 Test Item Value Reference Range Interpretation Comments UA pH (test code = UA pH) 5.5 1 5.0-8.0 [facility] [id number] 15:22:00Trace *ABN*(08/22/19 10:22 AM) [facility] [id number] 15:22:00>=1000 *ABN*(08/22/19 10:22 AM)[facility] [id number] 15:22:00>=80 *ABN*(08/22/19 10:22 AM)[facility] [id number] 15:22:00Negative *NA*(08/22/19 10:22 AM)[facility] [id number] 15:22:00Moderate *ABN*(08/22/19 10:22 AM)[facility] [id number] 15:22:000.2[facility] URINE AND [id number] 15:22:00Negative (08/22/19 10:22 AM)[facility] URINE AND [id number] 15:22:00Negative (08/22/19 10:22 AM)[facility] URINE AND [id number] 15:22:00None Seen (08/22/19 10:22 AM)[facility] CARDIAC DRWSNEV8594-86-15 15:21:000.08[facility]annCARDIAC JYDDTBY1363-49-11 13:30:000.10[facility]annCHEM [id number] 13:30:000.38[facility] CHEM [id number] 13:30:0036[facility] AlbtobgUGFUKWJBTV2631-22-07 13:36:000.1 [facility] [employer] [id number] 00:03:00Product available 6(08/18/19 7:03 PM)[facility] [id number] 23:45:00Product available 7(08/18/19 6:45 PM)[facility] [id number] 17:12:00Product available 4(08/18/19 12:12 PM)[facility] XFSXMDO9005-05-25 17:11:00Product available 8(08/18/19 12:11 PM)[facility] [employer] RESULTS 2019-08-18 17:10:00Product available 5(08/18/19 12:10 PM)[facility] AlectorannCHEM NBTIP6901-51-99 10:09:002.6[facility] BlojrumIUXPFBJBXE2675-24-06 10:09:000.2 [facility] CqfthpqWVTKZJGWYH2953-81-66 21:25:00 Test Item Value Reference Range Interpretation Comments PT (test code = PT) 15.4 s 12.0-14.7 [facility] CenterPmyelbpQDIFVNRJZV5462-97-12 21:25:00 Test Item Value Reference Range Interpretation Comments INR (test code = INR) 1.21 1 0.85-1.17 [facility] CenterPwaxgpxNSNMJEZTPO7484-70-93 21:25:00 Test Item Value Reference Range Interpretation Comments PTT (test code = PTT) 29.2 s 22.9-35.8 [facility] [id number] 07:42:001.9[facility] HermannCHEM PANEL 2019-08-17 04:22:002.7[facility]annCHEM [id number] 04:22:000.09[facility] OdtqqmrOPEQTROZTL4962-33-18 04:22:00Normal (08/16/19 11:22 PM)[facility] XOCNHPBDJX2921-78-72 04:22:00Normal (08/16/19 11:22 PM)[facility] LASOUHJ1227-05-40 14:36:00Negative (08/16/19 9:36 AM)[facility] 2019-08-16 14:36:00 Test Item Value Reference Range Interpretation Comments PT (test code = PT) 14.7 s 12.0-14.7 [facility] CenterPelyjakBHQTEDVZAD3610-02-67 14:36:00 Test Item Value Reference Range Interpretation Comments INR (test code = INR) 1.14 1 0.85-1.17 [facility] CenterSkvycsiAGPFRMPAZO9703-80-73 14:36:005.0[facility]annHEMATOLOGY 2019-08-16 14:36:000.7[facility] YdiylalWQHHJACORG5301-50-56 14:36:00 Test Item Value Reference Range Interpretation Comments PTT (test code = PTT) 30.[address] 22.9-35.8 [facility] CenterTeuzuejARXTZMMSLG8342-12-07 12:45:00Not Detected (08/16/19 7:45 AM) [facility]
--- NOTE | 2020-07-01 13:31 | RAD REPORT ---
EXAM DESCRIPTION: RAD - Chest Single View - 07/01/2020 1:09 pm CLINICAL HISTORY: COPD;Cough Chest pain. COMPARISON: Chest Single View dated 06/23/2020; Chest Single View dated 05/14/2020; Chest Single View d ated 11/22/2019; Chest Single View dated 08/03/2019; CHEST PA AND LAT 2 VIEW dated 03/20/2009 FINDINGS: Portable technique limits examination quality. Mild interstitial pulmonary edema seen. The heart is moderately enlarged in size. Sternotomy wires pr esent. IMPRESSION: Mild CHF.
--- NOTE | 2020-07-01 13:53 | RAD REPORT ---
EXAM DESCRIPTION: US - Extrem Venous W Compress Victor M - 07/01/2020 1:36 pm CLINICAL HISTORY: Pain;Swelling Bilateral leg edema and swelling. COMPARISON: Abdomen Single View dated 06/24/2020; Extremity Venous Uni Ltd dated 03/11/2019 TECHNIQUE: Real-time sonographic interrogation of the left and right lower extremity deep venous sys tems was performed. FINDINGS: Normal compressibility, flow augmentation, phasic flow and spontaneous flow is identified in both the left and right lower extremity deep venous systems. 5.2 cm complex fluid collection is seen medial calf region suspicious for subcutaneous abscess. IMPRESSION: No sonographic evidence of left or right lower extremity deep venous thrombosis. 5.2 cm subcutaneous abscess may be present medial left calf.
[2020-07-01 14:17] LABS: Absolute Lymphocytes (CBC) 1.8 K/uL (0.7-4.9); Basophils % 0.2 % (0-1.3); Hematocrit 33.1 % (36.0-45.0); Lymphocytes % 10.8 % (15.3-44.8); MPV 9.5 fL (7.6-11.3); RBC Red Blood Cell Count 3.54 M/uL (3.86-4.86)
[2020-07-01 14:19] LABS: Protime INR 2.38
--- NOTE | 2020-07-01 14:29 | EDPHYS ---
Physician Documentation [facility] Name: Darlin Sharpe Age: 79 yrs Sex: Female : 1940 Arrival Date: 07/01/2020 Time: 12:29 Bed 18 Private MD: Александр Butts HPI: 07/01 12:38 This 79 yrs old Female presents to ER via Unassigned with complaints of left ky leg redness, swelling and sob. 12:38 The patient presents with pain, swelling, tenderness. The complaints affect the medial ky aspect of left knee. Context: The problem was sustained at an unknown site, resulted from an unknown cause. Onset: The symptoms/episode began/occurred 2 day(s) ago. Modifying factors: The symptoms are alleviated by elevating leg, remaining still, the symptoms are aggravated by movement, bending knee. Associated signs and symptoms: Pertinent positives: swelling, warmth, of the medial aspect of left knee. The patient has shortness of breath with light activity, while talking, and the patient has a history of COPD, lung disease. Onset: The symptoms/episode began/occurred 2 day(s) ago. Duration: The symptoms are continuous, and are steadily getting worse. The patient's shortness of breath has no apparent modifying factors. The patient or guardian reports cough, that is intermittent, difficulty breathing. Historical: - Home Meds: 17:40 acetaminophen 500 mg Oral tab 1 tab every 6 hours for Fever, Pain [Active]; albuterol kg sulfate 2.5 mg /3 mL (0.083 %) Inhl nebu 3 mL every 6 hours for Chronic Obstructive Pulmonary Disease [Active]; atorvastatin 40 mg oral tab 1 tab once daily for Hyperlipidemia [Active]; - Immunization history:: Adult Immunizations up to date, Client reports receiving the 2nd dose of the Covid vaccine, Pneumococcal vaccine is up to date, Flu vaccine is up to date. - Family history:: not pertinent. - Social history:: Smoking status: Patient/guardian denies using tobacco, but has a distant history of tobacco abuse, Patient/guardian denies using. ROS: 12:38 Constitutional: Negative for fever, chills, and weight loss, Eyes: Negative for injury, ky pain, redness, and discharge, ENT: Negative for injury, pain, and discharge, Neck: Negative for injury, pain, and swelling, Cardiovascular: Negative for chest pain, palpitations, and edema, Abdomen/GI: Negative for abdominal pain, nausea, vomiting, diarrhea, and constipation, Back: Negative for injury and pain, : Negative for injury, bleeding, discharge, and swelling, Neuro: Negative for headache, weakness, numbness, tingling, and seizure, Psych: Negative for depression, anxiety, suicide ideation, homicidal ideation, and hallucinations, Allergy/Immunology: Negative for hives, rash, and allergies, Endocrine: Negative for neck swelling, polydipsia, polyuria, polyphagia, and marked weight changes, Hematologic/Lymphatic: Negative for swollen nodes, abnormal bleeding, and unusual bruising. 12:38 Respiratory: Positive for cough, dyspnea on exertion, shortness of breath, at rest. 12:38 MS/extremity: Positive for decreased range of motion, erythema, swelling, tenderness, of the medial aspect of left knee. Exam: 12:38 Constitutional: This is a well developed, well nourished patient who is awake, alert, ky and in no acute distress. Head/Face: Normocephalic, atraumatic. Eyes: Pupils equal round and reactive to light, extra-ocular motions intact. Lids and lashes normal. Conjunctiva and sclera are non-icteric and not injected. Cornea within normal limits. Periorbital areas with no swelling, redness, or edema. ENT: Nares patent. No nasal discharge, no septal abnormalities noted. Tympanic membranes are normal and external auditory canals are clear. Oropharynx with no redness, swelling, or masses, exudates, or evidence of obstruction, uvula midline. Mucous membranes moist. Neck: Trachea midline, no thyromegaly or masses palpated, and no cervical lymphadenopathy. Supple, full range of motion without nuchal rigidity, or vertebral point tenderness. No Meningismus. Chest/axilla: Normal chest wall appearance and motion. Nontender with no deformity. No lesions are appreciated. Cardiovascular: Regular rate and rhythm with a normal S1 and S2. No gallops, murmurs, or rubs. Normal PMI, no JVD. No pulse deficits. Abdomen/GI: Soft, non-tender, with normal bowel sounds. No distension or tympany. No guarding or rebound. No evidence of tenderness throughout. Back: No spinal tenderness. No costovertebral tenderness. Full range of motion. Neuro: Awake and alert, GCS 15, oriented to person, place, time, and situation. Cranial nerves II-XII grossly intact. Motor strength 5/5 in all extremities. Sensory grossly intact. Cerebellar exam normal. Normal gait. Psych: Awake, alert, with orientation to person, place and time. Behavior, mood, and affect are within normal limits. 12:38 Respiratory: mild respiratory distress is noted, Respirations: labored breathing, that is mild, Breath sounds: bronchial sounds, that are mild, decreased breath sounds, that are mild, rhonchi, that are mild, stridor, that is mild, + upper airway congestion. wheezing: expiratory is scattered. 12:38 Musculoskeletal/extremity: ROM: full active range of motion, full passive range of motion, limited active range of motion due to pain, limited passive range of motion due to pain, in the left leg, Circulation is intact in all extremities. Sensation intact. Compartment Syndrome exam of affected extremity: is normal. DVT Exam: negative Homans' sign noted on exam, no appreciated bluish discoloration, pain, swelling, tenderness, erythema, increased warmth, that is moderate, of the left leg, of the medial aspect of left knee. 14:30 ECG was reviewed by the Attending Physician. ky Vital Signs: 12:54 BP 110 / 78; Pulse 99; Resp 14; Temp 98.7(O); Pulse Ox 99% on 5 lpm NC; Weight 63.96 kg kg; Height 4 ft. 11 in. (149.86 cm); Pain 10/10; 12:58 BP 110 / 78; Pulse 99; Resp 14; Temp 98.7; Pulse Ox 99% on 5 lpm NC; Weight 63.96 kg; kg Height 4 ft. 11 in. (149.86 cm); Pain 10/10; 14:00 BP 106 / 64; Pulse 105; Resp 15; Pulse Ox 100% on 5 lpm NC; Pain 10/10; kg 15:00 BP 127 / 76; Pulse 104; Resp 19; Pulse Ox 98% on 3 lpm NC; Pain 10/10; kg 16:00 BP 118 / 84; Pulse 106; Resp 19; Pulse Ox 97% on 3 lpm NC; Pain 10/10; kg 17:00 BP 125 / 82; Pulse 104; Resp 14; Pulse Ox 98% on 3 lpm NC; kg 19:45 BP 110 / 68; Pulse 98; Resp 18; Pulse Ox 97% ; sf 12:58 Body Mass Index 28.48 (63.96 kg, 149.86 cm) kg MDM: 12:29 Patient medically screened. ky 12:49 Differential diagnosis: contusion, Anemia asthma, Bronchitis CHF exacerbation, Chronic ky Obstructive Pulmonary Disease pneumonia, pulmonary edema. Antibiotic administration: Zosyn. The patient's Wells Deep Vein Thrombosis Score was calculated as follows: No Risks (0 Pts). The patient's pulmonary embolism risk score was calculated as follows: Total Score: 0-2 points. This patient was found to be at low risk for a pulmonary embolism by using the Well's assessment criteria. Immunization status: Pneumococcal vaccine: Influenza vaccine: Data reviewed: vital signs, nurses notes, old medical records, EKG, radiologic studies, doppler, plain films. Data interpreted: court recording monitor: rate is 89 beats/min, rhythm is regular, Pulse oximetry: on room air is 95 %. Test interpretation: by ED physician or midlevel provider: ECG, plain radiologic studies. 14:31 Physician consultation: Artie Maxwell MD and will see patient in inpatient room. [facility] 07/01 12:38 Order name: Troponin (emerg Dept Use Only); Complete Time: 15:02 [facility] 07/01 12:38 Order name: Blood Culture Adult (2) [facility] 07/01 12:38 Order name: Basic Metabolic Panel; Complete Time: 15:02 [facility] 07/01 12:38 Order name: CBC with Automated Diff; Complete Time: 14:26 [facility] 07/01 12:38 Order name: Liver (Hepatic) Function; Complete Time: 15:02 [facility] 07/01 12:38 Order name: Magnesium; Complete Time: 15:02 [facility] 07/01 12:38 Order name: NT PRO-BNP; Complete Time: 15:02 [facility] 07/01 12:38 Order name: XRAY Chest (1 view); Complete Time: 13:50 [facility] 07/01 12:38 Order name: EKG; Complete Time: 12:39 [facility] 07/01 12:38 Order name: Cardiac monitoring; Complete Time: 13:14 [facility] 07/01 12:38 Order name: EKG - Nurse/Tech; Complete Time: 14:03 [facility] 07/01 12:38 Order name: IV Saline Lock; Complete Time: 14:03 [facility] 07/01 12:38 Order name: US Extremity Venous W Compression Victor M: attn to left medial leg; Complete [facility] Time: 14:07/01 12:38 Order name: Protime (+INR); Complete Time: 15:02 [facility] 07/01 15:30 Order name: SARS-COV-2 RT PCR [facility] 07/01 19:10 Order name: Glucose, Ancillary Testing [facility] 07/01 12:38 Order name: Labs collected and sent; Complete Time: 14:03 [facility] 07/01 12:38 Order name: O2 Per Protocol; Complete Time: 13:13 [facility] 07/01 12:38 Order name: O2 Sat Monitoring; Complete Time: 13:13 [facility] EC:30 Rate is 100 beats/min. Rhythm is regular. QRS Jacobson is Normal. RI interval is normal. ky QRS interval is normal. QT interval is normal. No Q waves. T waves are Normal. No ST changes noted. Clinical impression: Atrial Fibrillation and No evidence of ischemia. Interpreted by me. Reviewed by me. Administered Medications: 14:28 Drug: morphine 2 mg Route: IVP; Site: right antecubital; kg 17:44 Follow up: Response: No adverse reaction; Pain is unchanged, physician notified kg 14:28 Drug: Zofran (Ondansetron) 4 mg Route: IVP; Site: right antecubital; kg 14:57 Follow up: Response: No adverse reaction; Marked relief of symptoms kg 14:28 Drug: Pepcid (famotidine) 20 mg Route: IVP; Site: right antecubital; kg 14:57 Follow up: Response: No adverse reaction kg 14:29 Drug: SOLU-Medrol (methylPrednisoLONE) 125 mg Route: IVP; Site: right antecubital; kg 17:44 Follow up: Response: No adverse reaction kg 14:29 Drug: Xopenex (levalbuterol) 2.5 mg Route: Inhalation; kg 17:44 Follow up: Response: No adverse reaction kg 14:57 Drug: AtroVENT (ipratropium) Aerosol 0.5 mg Route: Inhalation; kg 17:00 Drug: vancoMYCIN 1 grams Route: IVPB; Infused Over: 2 hrs; Site: right antecubital; kg 18:00 Follow up: Response: No adverse reaction; IV Status: Completed infusion kg Disposition: 07/01/20 14:28 Hospitalization ordered by Ludwin Comer for Inpatient Admission. Preliminary diagnosis are Atrial fibrillation and flutter, Cutaneous abscess of left lower limb - calf, Dyspnea, Unspecified combined systolic (congestive) and diastolic (congestive) heart failure, Elevated white blood cell count, Obesity, unspecified, Non-ST elevation (NSTEMI) myocardial infarction, Unspecified kidney failure. - Bed requested for Telemetry/MedSurg (Inpatient). - Status is Inpatient Admission. sf - Condition is Fair. - Problem is new. - Symptoms have improved. Signatures: Dispatcher [employer] EDDE Lizzie Mcpherson RN Александр Cesar MD MD cha Fitzpatrick, Steven, RN RN sf Graham, Kristen kg Corrections: (The following items were deleted from the chart) 13:14 12:39 HEPATIC FUNCTION+C.LAB.BRZ ordered. EDDE EDDE 13:14 12:39 MAGNESIUM+C.LAB.BRZ ordered. [facility] EDDE 13:14 12:39 PROBNP+C.LAB.BRZ ordered. [facility] EDDE 13:14 12:39 PROTIME (+INR)+COAG.LAB.BRZ ordered. [facility] EDDE 13:15 12:39 BASIC METABOLIC PANEL+C.LAB.BRZ ordered. [facility] EDDE 13:15 12:39 CBC+H.LAB.BRZ ordered. [facility] EDDE 14:51 12:39 CORONAVIRUS+MR.LAB.BRZ ordered. [facility] EDDE 15:03 14:28 Hospitalization Ordered by Ludwin Comer for Inpatient Admission. Preliminary ky diagnosis is Atrial fibrillation and flutter; Cutaneous abscess of left lower limb - calf; Dyspnea; Unspecified combined systolic (congestive) and diastolic (congestive) heart failure; Elevated white blood cell count; Obesity, unspecified. Bed requested for Telemetry/MedSurg (Inpatient). Status is Inpatient Admission. Condition is Fair. Problem is new. Symptoms have improved. ky 19:28 15:03 07/01/2020 14:28 Hospitalization Ordered by Ludwin Comer for Inpatient dw Admission. Preliminary diagnosis is Atrial fibrillation and flutter; Cutaneous abscess of left lower limb - calf; Dyspnea; Unspecified combined systolic (congestive) and diastolic (congestive) heart failure; Elevated white blood cell count; Obesity, unspecified; Non-ST elevation (NSTEMI) myocardial infarction; Unspecified kidney failure. Bed requested for Telemetry/MedSurg (Inpatient). Status is Inpatient Admission. Condition is Fair. Problem is new. Symptoms have improved. ky 21:17 19:28 07/01/2020 14:28 Hospitalization Ordered by Ludwin Comer for Inpatient sf Admission. Preliminary diagnosis is Atrial fibrillation and flutter; Cutaneous abscess of left lower limb - calf; Dyspnea; Unspecified combined systolic (congestive) and diastolic (congestive) heart failure; Elevated white blood cell count; Obesity, unspecified; Non-ST elevation (NSTEMI) myocardial infarction; Unspecified kidney failure. Bed requested for Telemetry/MedSurg (Inpatient). Status is Inpatient Admission. Condition is Fair. Problem is new. Symptoms have improved. dw
--- NOTE | 2020-07-01 14:29 | ER ---
Nurse's Notes [facility] Name: Darlin Sharpe Age: 79 yrs Sex: Female : 1940 Arrival Date: 07/01/2020 Time: 12:29 Bed 18 Private MD: Diagnosis: Atrial fibrillation and flutter;Cutaneous abscess of left lower limb-calf;Dyspnea;Unspecified combined systolic (congestive) and diastolic (congestive) heart failure;Elevated white blood cell count;Obesity, unspecified;Non-ST elevation (NSTEMI) myocardial infarction;Unspecified kidney failure Presentation: 07/01 12:54 Chief complaint: Patient states: Pt presents to ER from [facility] via [facility] with complaints of LLE pain x 2 days. Coronavirus screen: Client denies travel out of the [place] in the last 14 days. At this time, the client does not indicate any symptoms associated with coronavirus-19. Ebola Screen: Patient negative for fever greater than or equal to 101.5 degrees Fahrenheit, and additional compatible Ebola Virus Disease symptoms. Initial Sepsis Screen: Does the patient meet any 2 criteria? HR > 90 bpm. Does the patient have a suspected source of infection? No. Patient's initial sepsis screen is negative. 12:54 Method Of Arrival: EMS: [facility] 12:54 Risk Assessment: Do you want to hurt yourself or someone else? Patient reports no kg desire to harm self or others. Onset of symptoms was June 29, 2020. Care prior to arrival: Medication(s) given: Albuterol Neb x 1. Activity prior to arrival: None. Mechanism of Injury: No Mechanism of Injury. Transition of care: patient was received from another setting of care (long-term care facility), [facility]. 12:54 Acuity: VINNY 3 kg Historical: - Home Meds: 17:40 acetaminophen 500 mg Oral tab 1 tab every 6 hours for Fever, Pain [Active]; albuterol kg sulfate 2.5 mg /3 mL (0.083 %) Inhl nebu 3 mL every 6 hours for Chronic Obstructive Pulmonary Disease [Active]; atorvastatin 40 mg oral tab 1 tab once daily for Hyperlipidemia [Active]; - Immunization history:: Adult Immunizations up to date, Client reports receiving the 2nd dose of the Covid vaccine, Pneumococcal vaccine is up to date, Flu vaccine is up to date. - Family history:: not pertinent. - Social history:: Smoking status: Patient/guardian denies using tobacco, but has a distant history of tobacco abuse, Patient/guardian denies using. Screenin:00 Abuse screen: Denies threats or abuse. Nutritional screening: No deficits noted. kg Tuberculosis screening: No symptoms or risk factors identified. Fall Risk Fall in past 12 months (25 points). Secondary diagnosis (15 points) impaired mobility, IV access (20 points). Ambulatory Aid- Crutches/Cane/Walker (15 pts). Gait- Weak (10 pts.). Total Flaherty Fall Scale indicates. Assessment: 13:00 General: Appears in no apparent distress. comfortable, Behavior is calm, cooperative, kg appropriate for age, quiet. Pain: Complains of pain in lateral aspect of left calf, left calf, medial aspect of left calf and left cline Pain radiates to left leg Pain currently is 10 out of 10 on a pain scale. at worst was 10 out of 10 on a pain scale. level that patient reports is acceptable is 4 out of 10 on a pain scale. Quality of pain is described as sharp, stabbing, throbbing, Pain began 2-3 days ago. Is continuous, Alleviated by rest, Aggravated by increased activity, repositioning, touching left leg. Neuro: No deficits noted. Cardiovascular: No deficits noted. Respiratory: Reports shortness of breath at rest on exertion. GI: No deficits noted. : No deficits noted. EENT: No deficits noted. Derm: Abscess located on medial aspect of left calf and left cline is half dollar sized, has no drainage, is hot to touch, is red, is raised, Reports increased pain that is 10 out of 10 on a pain scale. since started two days ago. Vital Signs: 12:54 BP 110 / 78; Pulse 99; Resp 14; Temp 98.7(O); Pulse Ox 99% on 5 lpm NC; Weight 63.96 kg kg; Height 4 ft. 11 in. (149.86 cm); Pain 10/10; 12:58 BP 110 / 78; Pulse 99; Resp 14; Temp 98.7; Pulse Ox 99% on 5 lpm NC; Weight 63.96 kg; kg Height 4 ft. 11 in. (149.86 cm); Pain 10/10; 14:00 BP 106 / 64; Pulse 105; Resp 15; Pulse Ox 100% on 5 lpm NC; Pain 10/10; kg 15:00 BP 127 / 76; Pulse 104; Resp 19; Pulse Ox 98% on 3 lpm NC; Pain 10/10; kg 16:00 BP 118 / 84; Pulse 106; Resp 19; Pulse Ox 97% on 3 lpm NC; Pain 10/10; kg 17:00 BP 125 / 82; Pulse 104; Resp 14; Pulse Ox 98% on 3 lpm NC; kg 19:45 BP 110 / 68; Pulse 98; Resp 18; Pulse Ox 97% ; sf 12:58 Body Mass Index 28.48 (63.96 kg, 149.86 cm) kg ED Course: 12:29 Patient arrived in ED. ss 12:29 Александр Rodriguez MD is Attending Physician. ky 12:54 Fifi Panda is Primary Nurse. kg 12:58 Triage completed. kg 13:00 Patient has correct armband on for positive identification. Allergy band placed. Fall kg risk band placed. Placed in gown. Bed in low position. Call light in reach. Side rails up X2. 13:09 XRAY Chest (1 view) In Process Unspecified. EDMS 13:35 US Extremity Venous W Compression Victor M: attn to left medial leg In Process Unspecified. EDMS 13:40 Inserted saline lock: 20 gauge in right antecubital area, using aseptic technique. kg 14:03 Troponin (emerg Dept Use Only) Sent. kg 14:03 Blood Culture Adult (2) Sent. kg 14:03 Basic Metabolic Panel Sent. kg 14:03 CBC with Automated Diff Sent. kg 14:03 NT PRO-BNP Sent. kg 14:04 Magnesium Sent. kg 14:04 Liver (Hepatic) Function Sent. kg 14:04 Protime (+INR) Sent. kg 14:27 Ludwin Comer is Hospitalizing Provider. ky 20:12 No provider procedures requiring assistance completed. Patient admitted, IV remains in sf place. 20:15 Primary Nurse role handed off by Fifi Panda tt3 20:16 Attempt to call report to 2nd floor (232), not able to find that nurse, will have him sf call ED when ready for report. Administered Medications: 14:28 Drug: morphine 2 mg Route: IVP; Site: right antecubital; kg 17:44 Follow up: Response: No adverse reaction; Pain is unchanged, physician notified kg 14:28 Drug: Zofran (Ondansetron) 4 mg Route: IVP; Site: right antecubital; kg 14:57 Follow up: Response: No adverse reaction; Marked relief of symptoms kg 14:28 Drug: Pepcid (famotidine) 20 mg Route: IVP; Site: right antecubital; kg 14:57 Follow up: Response: No adverse reaction kg 14:29 Drug: SOLU-Medrol (methylPrednisoLONE) 125 mg Route: IVP; Site: right antecubital; kg 17:44 Follow up: Response: No adverse reaction kg 14:29 Drug: Xopenex (levalbuterol) 2.5 mg Route: Inhalation; kg 17:44 Follow up: Response: No adverse reaction kg 14:57 Drug: AtroVENT (ipratropium) Aerosol 0.5 mg Route: Inhalation; kg 17:00 Drug: vancoMYCIN 1 grams Route: IVPB; Infused Over: 2 hrs; Site: right antecubital; kg 18:00 Follow up: Response: No adverse reaction; IV Status: Completed infusion kg Outcome: 14:28 Decision to Hospitalize by Provider. ky 20:12 Condition: stable sf 20:12 Instructed on the need for admit. 20:37 Admitted to Tele accompanied by nurse, via stretcher, room 232, with oxygen, with sf chart, Report called to TAYLOR Dela Cruz 21:17 Patient left the ED. sf Signatures: Dispatcher [employer] EDMS Александр Rodriguez MD MD cha Smirch, Shelby RN TAYLOR Ganesh Riggs tt3 Praful Keating RN RN sf Graham, Kristen Corrections: (The following items were deleted from the chart) 14:51 14:03 CORONAVIRUS+MR.LAB.BRZ drawn and sent. kg EDNY
[2020-07-01] MEDS ORDERED: METHYLPREDNISOLONE 125 MG INJ ONE (14:32)
[2020-07-01] MEDS ORDERED: IPRATROPIUM BROM 0.5MG/2.5ML ONE (14:33)
[2020-07-01] MEDS ORDERED: ONDANSETRON 4 MG/2 ML VIAL ONE (14:33)
[2020-07-01] MEDS ORDERED: MORPHINE 2 MG/ML SYR ONE (14:33)
[2020-07-01] MEDS ORDERED: LEVALBUTEROL 1.25 MG/3 ML NEB ONE (14:33)
[2020-07-01 14:34] LABS: Albumin 2.8 g/dL (3.4-5.0); Bilirubin Direct 0.4 mg/dL (0-0.2); Bilirubin Total 0.9 mg/dL (0.2-1.0); Magnesium 2.2 mg/dL (1.8-2.4); Protein, Total 6.8 g/dL (6.4-8.2); Troponin (Emerg Dept Use Only) 0.37 ng/mL (0.0-0.045)
[2020-07-01] MEDS ORDERED: FAMOTIDINE 20 MG/2 ML VIAL IV ONE (14:34)
--- NOTE | 2020-07-01 15:38 | P.HP ---
Certification for Inpatient Patient admitted to: Inpatient With expected LOS: >2 Midnights Practitioner: I am a practitioner with admitting privileges, knowledge of patient current condition, hospital course, and medical plan of care. Services: Services provided to patient in accordance with Admission requirements found in Title 42 Section 412.3 of the Code of Federal Regulations Patient History Date of Service: 07/01/20 Reason for admission: Left leg abscess History of Present Illness: 79-year-old woman with a history of chronic atrial fibrillation, COPD and insulin-dependent diabetes presented to the emergency department with a complaint swelling and redness on the medial aspect of which has been present for 4 days, progressively gotten worse with more pain, increased swelling and redness. Patient denied any fever. He denied any discharge from the lesion. Venous Doppler of the lower extremity done in the ED showed no acute DVT but confirms subcutaneus abscess. CBC shows leukocytosis, afebrile in the ED. Heart rate up to 99. Patient meets criteria for SIRS. She is admitted for further management. Allergies CHRISTINE Inhibitors Allergy (Verified 06/24/20 03:46) Hives adhesive tape Allergy (Verified 11/22/19 22:23) Hives/Rash dulaglutide Allergy (Verified 06/24/20 03:44) Itching empagliflozin [From Jardiance] Allergy (Verified 06/24/20 03:46) Hives influenza virus vacc trivalent, split [From Fluzone] Allergy (Verified 06/24/20 03:46) Itching iodine Allergy (Verified 11/22/19 22:23) Itching/Hives/Rash metformin Allergy (Verified 06/24/20 03:45) Hives sitagliptin [From Januvia] Allergy (Verified 06/24/20 03:46) Hives Home Medications: Apixaban [Eliquis] 5 mg PO BID 08/04/19 Atorvastatin Calcium 40 mg PO BEDTIME 08/04/19 Duloxetine HCl 60 mg PO DAILY 08/04/19 Loperamide HCl [Anti-Diarrheal] 2 mg PO QID PRN 08/04/19 Memantine HCl 5 mg PO BID 08/04/19 Acetaminophen 500 mg PO Q6H PRN 11/23/19 Gabapentin 100 mg PO BEDTIME 11/23/19 Insulin Lispro [Humalog Kwikpen U-100] 20 unit SQ TIDWM 11/23/19 Metoprolol Succinate 50 mg PO BID 11/23/19 Potassium Chloride [Klor-Con 10] 40 meq PO DAILY 11/23/19 Collagenase [Santyl Ointment*] 1 nevin TOP SEECOM 06/24/20 Hydrocodone Bit/Acetaminophen [Hydrocodon-Acetaminophen 5-325] 1 tab PO Q4H PRN 06/24/20 Insulin Degludec [Tresiba Flextouch U-200] 60 unit SQ DAILY 06/24/20 Loratadine [Claritin*] 1 tab PO DAILY 06/24/20 Ondansetron HCl [Zofran] 1 tab PO Q6H PRN 06/24/20 Tiotropium [Spiriva Handihaler*] 2.5 mcg IH DAILY 06/24/20 Albuterol Neb [Proventil 0.083% Neb Soln] 2.5 mg NEB [id number] PRN #60 amp 06/28/20 Bumetanide [Bumex] 0.5 mg PO Q12H #30 tab 06/28/20 Ipratropium Neb [Atrovent*] 0.5 mg NEB [id number] #60 amp 06/28/20 Losartan Potassium [Cozaar] 25 mg PO DAILY #30 tablet 06/28/20 Nebulizer [Aeroneb Go Nebulizer] 1 each MC Q6H #1 each 06/28/20 - Past Medical/Surgical History Diabetic: Yes -: COPD -: Asthma -: Atrial fibrillation -: vertigo -: IDDM -: HTN -: CVA- 2 years ago -: HLD -: CABG; triple Bypass -: Hysterectomy -: Appendectomy -: Left/ Right shoulder surgery -: throat surgery - nodule removal -: Hemorroidectomy -: Balloon Angioplasty both legs Psychosocial/ Personal History: NO ISSUES, FEELS NORMAL, NO DEPRESSION. - Family History Father -: Heart disease Mother -: Liver disease Notes: cirrhosis - Social History Alcohol use: No CD- Drugs: No Caffeine use: Yes Review of Systems Other: Except as documented, all other systems reviewed and negative. Physical Examination - Physical Exam General: Alert, In no apparent distress, Oriented x3 HEENT: Normocephalic, PERRLA, Mucous membr. moist/pink, Sclerae nonicteric Neck: Supple, JVD not distended Respiratory: Clear to auscultation bilaterally, Diminished (Bilateral) Cardiovascular: Normal S1 S2, Edema (Bilateral lower extremities), Irregular heart rate/rhythm Capillary refill: <2 Seconds Gastrointestinal: Normal bowel sounds, Soft and benign, Non-distended, No tenderness Musculoskeletal: Swelling (Left leg), Erythema, Tenderness (A swollen area of redness, tenderness, warmth and pustule-medial aspect of the left leg.) Neurological: Normal speech, Normal strength at 5/5 x4 extr, Cranial nerves 3-12 intact - Studies Laboratory Data (last 24 hrs) 07/01/20 13:44: PT 27.6 H, INR 2.38 07/01/20 13:44: WBC 17.00 H, Hgb 10.5 L, Hct 33.1 L, Plt Count 313 07/01/20 13:44: Sodium 137, Potassium 5.0, BUN 50 H, Creatinine 1.44 H, Glucose 259 H, Magnesium 2.2, Total Bilirubin 0.9, AST 42 H, ALT 92 H, Alkaline Phospha tase 219 H Assessment and Plan - Problems (Diagnosis) (1) Cellulitis and abscess of left leg Current Visit: Yes Status: Acute (2) Sepsis Current Visit: Yes Status: Acute (3) COPD (chronic obstructive pulmonary disease) Current Visit: Yes Status: Acute (4) Atrial fibrillation Onset Date: 09/25/15 Current Visit: No Status: Acute Qualifiers: (5) Diabetes Onset Date: 09/19/15 Current Visit: No Status: Chronic Qualifiers: Diabetes mellitus type: type 2 (6) Acute renal failure Current Visit: Yes Status: Acute - Plan Admit to the medical floor. Start aggressive broad-spectrum antibiotics-IV vancomycin and cefepime. Pain management-IV morphine. Consult to general surgery Aggressive blood sugar control-Lantus insulin and insulin sliding scale. Bronchodilators for COPD. Continue metoprolol for afib. Hold Eliquis due to need for I&D. Monitor CBC to follow leukocytosis. - Advance Directives Does patient have a Living Will: No Does patient have a Durable POA for Healthcare: Yes
[2020-07-01] MEDS ORDERED: VANCOMYCIN 1 GM/VIAL ONE (17:16)
[2020-07-01] MEDS ORDERED: NA CHLORIDE 0.9% 250 ML ONE (17:16)
--- NOTE | 2020-07-01 19:08 | P.INFCA ---
Sepsis Focused Assessment - Focused Assessment Complete? Sepsis Focused Assessment Completed?: Yes - Sepsis Screen Result Severe Sepsis: Negative Septic Shock: Negative - Vital Signs Reviewed: Yes Temperature: 97.1 F Heart rate: 95 Blood Pressure: 118/66 Respiratory Rate: 18 O2 Sat by Pulse Oximetry: 97 - Examination Date exam was performed: 07/01/20 Time exam was performed: 18:50 Heart: Irregular rhythm, S1, S2 Lungs: Clear bilaterally Peripheral pulses: 3+ Normal Capillary refill: <2 Seconds Skin examination: Normal turgor
[2020-07-01 21:34] VITALS: O2SAT 97
[2020-07-01] MEDS ORDERED: VANCOMYCIN/NS 1 gm 1 GM/250 ML BAG IVPB SCH (21:56)
[2020-07-01] MEDS ORDERED: INSULIN -REGULAR HUMAN 50 UNIT/0.5 ML ML SQ SCH (21:56)
[2020-07-01] MEDS ORDERED: ACETAMINOPHEN 500 MG TAB PO PRN (21:56)
[2020-07-01] MEDS ORDERED: MORPHINE 2 MG/ML SYR IV PRN (21:56)
[2020-07-01] MEDS ORDERED: ONDANSETRON 4 MG/2 ML VIAL IV PRN (21:56)
[2020-07-01] MEDS ORDERED: METOPROLOL XL 50 MG TAB PO SCH (21:56)
[2020-07-01] MEDS ORDERED: HEPARIN 5000 UNIT/ML 1 ML VIAL SQ SCH (21:56)
[2020-07-01] MEDS ORDERED: IPRATROPIUM BROM 0.5MG/2.5ML NEB SCH (21:56)
[2020-07-01] MEDS ORDERED: CEFEPIME 1 GM/VIAL IV SCH (21:56)
[2020-07-01] MEDS ORDERED: ALBUTEROL 2.5 MG/3 ML NEB SOL NEB SCH (21:56)
[2020-07-01] MEDS ORDERED: CEFEPIME/SWI 1gm 10 ML IV SCH (22:30)
[2020-07-01 22:53] VITALS: BP 118/66; TEMP 97.1
[2020-07-01] MEDS ORDERED: RSI MEDICATION KIT IV ONE (23:49)
[2020-07-01] MEDS ORDERED: ROCURONIUM 50 MG/5 ML VIAL IV ONE (23:54)
[2020-07-01] MEDS ORDERED: ETOMIDATE 20 MG/10 ML VIAL IV ONE (23:54)
[2020-07-01] MEDS ORDERED: AMIODARONE HCL 150 MG/3 ML INJ IV ONE (23:54)
[2020-07-01] MEDS ORDERED: MAGNESIUM SULF 1GM/2ML VIAL IV ONE (23:54)
[2020-07-01] MEDS ORDERED: ATROPINE SULF 1 MG/10 ML SYR IV ONE (23:54)
[2020-07-01] MEDS ORDERED: EPINEPHrine 1 MG/10 ML SYR IV ONE (23:54)
[2020-07-01] MEDS ORDERED: SUCCINYLCHOLINE 20 MG/ML (10 ML) IV ONE (23:54)
--- NOTE | 2020-07-02 08:17 | EKG ---
Test Date: 2020-07-01 Test Time: 13:45:48 Back Hoe Machine Operator: NIKKI MEASUREMENT RESULTS: Intervals: Rate: 100 GA: QRSD: 74 QT: 332 QTc: 428 [place]: P: GA: QRS: 22 T: 154 INTERPRETIVE STATEMENTS: Atrial fibrillation ST & T wave abnormality, consider lateral ischemia Abnormal ECG Compared to ECG 06/23/2020 12:44:25 Ventricular premature complex(es) no longer present ST (T wave) deviation still present Possible ischemia still present Electronically Signed On 07-02-20 08:15:32 CDT by Kalia Bull
[2020-07-02] MEDS ORDERED: HOME MED 1 EA UNK (Insulin Degludec [Tresiba Flextouch U-200] 200 UNIT/ML Insuln.Pen) SQ SCH (09:00)
--- NOTE | 2020-07-02 16:55 | P.DS ---
Admission Date: 07/01/20 Discharge Date: 07/02/20 Disposition: Discharge Condition: Reason for Admission: Left leg abscess - Problems (1) Cellulitis and abscess of left leg Status: Acute (2) Sepsis Status: Acute (3) COPD (chronic obstructive pulmonary disease) Status: Acute (4) Atrial fibrillation Onset Date: 09/25/15 Status: Acute Qualifiers: (5) Diabetes Onset Date: 09/19/15 Status: Chronic Qualifiers: Diabetes mellitus type: type 2 (6) Acute renal failure Status: Acute Brief History of Present Illness: 79-year-old woman with a history of chronic atrial fibrillation, COPD and insulin-dependent diabetes presented to the emergency department with a complaint swelling and redness on the medial aspect of which has been present for 4 days, progressively gotten worse with more pain, increased swelling and redness. Patient denied any fever. She denied any chest pain or palpitation. She denied any discharge from the lesion. Venous Doppler of the lower extremity done in the ED showed no acute DVT but confirmed subcutaneus abscess. CBC showed leukocytosis, afebrile in the ED. Heart rate up to 99. EKG showed atrial fibrillation nonspecific ST T-wave changes. Patient met criteria for SIRS. She was admitted for further management. Hospital Course: Patient admitted to the medical floor and started on aggressive antibiotic therapy with IV cefepime and vancomycin. Her blood pressure was stable, and the surgery consulted for I and D. She was on Eliquis which was held due to need for incision and drainage of the abscess. Patient reported to have developed rapid atrial fibrillation, followed by V-tach and PEA. She became unresponsive, code blue was called, ACLS carried out. Patient was not revived. She on 07/01/2020 at 2355 hours. Vital Signs/Physical Exam: Temp Pulse Resp BP Pulse Ox 97.1 F 95 H 18 118/66 97 07/02/20 16:49 07/02/20 16:49 07/02/20 16:49 07/02/20 16:49 07/02/20 16:49 Laboratory Data at Discharge: WBC Cancelled 07/02/20 05:00 Hgb Cancelled 07/02/20 05:00 Hct Cancelled 07/02/20 05:00 Plt Count Cancelled 07/02/20 05:00 PT Cancelled 07/02/20 05:00 INR Cancelled 07/02/20 05:00 Sodium Cancelled 07/02/20 05:00 Potassium Cancelled 07/02/20 05:00 BUN Cancelled 07/02/20 05:00 Creatinine Cancelled 07/02/20 05:00 Glucose Cancelled 07/02/20 05:00 Phosphorus Cancelled 07/02/20 05:00 Magnesium Cancelled 07/02/20 05:00 Total Bilirubin 0.9 mg/dL (0.2-1.0) 07/01/20 13:44 AST 42 U/L (15-37) H 07/01/20 13:44 ALT 92 U/L (12-78) H 07/01/20 13:44 Alkaline Phosphatase 219 U/L (45-117) H 07/01/20 13:44 Home Medications: Apixaban [Eliquis] 5 mg PO BID 08/04/19 Atorvastatin Calcium 40 mg PO BEDTIME 08/04/19 Duloxetine HCl 60 mg PO DAILY 08/04/19 Memantine HCl 5 mg PO BID 08/04/19 Acetaminophen 500 mg PO Q6H PRN 11/23/19 Gabapentin 100 mg PO BEDTIME 11/23/19 Insulin Lispro [Humalog Kwikpen U-100] 20 unit SQ TIDWM 11/23/19 Hydrocodone Bit/Acetaminophen [Hydrocodon-Acetaminophen 5-325] 1 tab PO Q4H PRN 06/24/20 Loratadine [Claritin*] 1 tab PO DAILY 06/24/20 Albuterol Neb [Proventil 0.083% Neb Soln] 2.5 mg NEB [id number] PRN #60 amp 06/28/20 Bumetanide [Bumex] 0.5 tab PO Q12H 07/01/20 Ipratropium Neb [Atrovent*] 0.5 mg NEB [id number] 07/01/20 Loperamide [Imodium] 2 mg PO Q6HP PRN 07/01/20 Losartan Potassium [Cozaar] 25 mg PO DAILY 07/01/20 Collagenase [Santyl Ointment] 1 appl TP Q48H 07/02/20 Insulin Degludec [Tresiba Flextouch U-200] 60 unit SQ DAILY 07/02/20 Metoprolol Succinate 50 mg PO BID 07/02/20 Ondansetron [Zofran] 4 mg PO Q6H PRN 07/02/20 Potassium Chloride [K-Dur] 40 meq PO DAILY 07/02/20 Tiotropium [place] [Spiriva Respimat] 2 puff IH DAILY 07/02/20 Followup: Unknown,U [Primary Care Provider] -
[2020-07-03] MEDS ORDERED: VANCOMYCIN/NS 1 gm 1 GM/250 ML BAG IVPB SCH (05:30)
== END 2020-07-01 23:55 | disposition expired | DRG 871 ==
LOC: ER 12:13 → ERHOLD 16:14 → 2ND 20:39
PROVIDERS: ADMIT Internal Medicine; ATTEND Internal Medicine
DX: A41.9 Sepsis, unspecified organism (principal); I50.33 Acute on chronic diastolic (congestive) heart failure; L03.116 Cellulitis of left lower limb; L02.416 Cutaneous abscess of left lower limb; N17.9 Acute kidney failure, unspecified; I11.0 Hypertensive heart disease with heart failure; I48.91 Unspecified atrial fibrillation; J44.9 Chronic obstructive pulmonary disease, unspecified; E78.5 Hyperlipidemia, unspecified; E11.9 Type 2 diabetes mellitus without complications; Z79.899 Other long term (current) drug therapy; Z79.4 Long term (current) use of insulin; Z88.8 Allergy status to other drugs, medicaments and biological substances; Z91.048 Other nonmedicinal substance allergy status; Z79.01 Long term (current) use of anticoagulants; Z86.73 Personal history of transient ischemic attack (TIA), and cerebral infarction without residual deficits; Z90.710 Acquired absence of both cervix and uterus; Z90.49 Acquired absence of other specified parts of digestive tract; Z95.1 Presence of aortocoronary bypass graft; Z20.822 Contact with and (suspected) exposure to COVID-19
CPT/HCPCS: 36415; 71045; 80048; 80076; 82947; 83605; 83735; 83880; 84484; 85025; 85610; 87040; 87205; 93005; 93970; 96365; 96375; 99285; J0171; J0282; J0330; J0692; J1644; J2270; J2405; J2930; J3370; J3475; J7050; U0003